=== PATIENT | female | born 1940 | race Caucasian/White ===

== ENCOUNTER 2019-11-10 05:15 | Observation (INO) ==
--- NOTE | 2019-10-21 11:04 | PAT Medication Instructions ---
Medication Instructions Date of Service October 21, 2019 Home Medications Medication Instructions Recorded cyclosporine 0.05 % eye drops 1 drops OP Q12H #5.5 ml 12/01/18 lorazepam 1 mg tablet 0.5 mg PO HS cyclosporine 0.05 % eye drops 1 drops OP Q12H venlafaxine 150 mg capsule,extended release 24 hr 300 mg PO QAM acetaminophen [Tylenol Extra Strength] 500 mg PO QAM aspirin [Aspir-81] 81 mg PO HS bupropion HCl 100 mg PO QAM calcium carbonate-vitamin D3 [Calcium 600 + D(3)] 1 - 2 cap PO BID docusate sodium [Stool Softener] 250 mg PO HS fluvastatin 40 mg PO QAM glucos sul [id number] [Glucosamine Chondroitin] 1 cap PO BID lisinopril 10 mg PO QAM naproxen sodium [Aleve] 440 mg PO UD ASK your surgeon for instructions naproxen sodium [Aleve] 440 mg PO UD STOP taking 2 weeks before surgery (or as soon as possible if surgery is within 2 weeks) glucos sul [id number] [Glucosamine Chondroitin] 1 cap PO BID DO NOT take the morning of surgery calcium carbonate-vitamin D3 [Calcium 600 + D(3)] 1 - 2 cap PO BID lisinopril 10 mg PO QAM Take morning of surgery With a small sip of water, OTHERWISE NOTHING TO EAT OR DRINK AFTER MIDNIGHT: cyclosporine 0.05 % eye drops 1 drops OP Q12H venlafaxine 150 mg capsule,extended release 24 hr 300 mg PO QAM acetaminophen [Tylenol Extra Strength] 500 mg PO QAM (okay to take up to 4 hours prior to surgery if needed) bupropion HCl 100 mg PO QAM fluvastatin 40 mg PO QAM Take evening before surgery lorazepam 1 mg tablet 0.5 mg PO HS cyclosporine 0.05 % eye drops 1 drops OP Q12H aspirin [Aspir-81] 81 mg PO HS (unless otherwise directed by surgeon) calcium carbonate-vitamin D3 [Calcium 600 + D(3)] 1 - 2 cap PO BID docusate sodium [Stool Softener] 250 mg PO HS Other Notes If you have any questions please call us at [phone] or [phone] or [phone] or [phone]
--- NOTE | 2019-10-22 10:20 | Anesthesiology Consultation ---
Date of Service October 22, 2019 Assessment & Plan (1) Encounter for pre-operative examination: COVID Status: As of 10/21 assessment, patient denies travel to endemic area, known exposure/sick contacts, or symptoms of COVID19. Patient instructed that they and their household members must follow strict social distancing guidelines, wear a mask in public and avoid travel for 14 days prior to surgery. Preoperative COVID19 testing to be completed prior to surgery per surgeon's arr angements. Patient made aware to self-isolate as much as possible between COVID testing and surgery. Chart Review Chart Review: Acceptable Risk for Surgery (pending surgeon ordered pcp clearance 10/27) and Patient seen in Pre Admission Testing Teaching & Discussion Instructed NPO after midnight before surgery, except medications with 15 cc of water. Medication instructions provided according to the PAT guidelines. History Surgery Operation Date: 11/10/19 10:50 Proposed Procedures p Left Total Knee Arthroplasty - David Muniz MD Height/Weight Height: 5 ft 1 in Weight: 74.8 kg Allergies Allergy/AdvReac Type Severity Reaction Status Date / Time atorvastatin [From Lipitor] Allergy Unknown MUSCLE Verified 10/14/19 09:03 ISSUES ezetimibe [From Vytorin] Allergy Unknown MUSCLE Verified 10/14/19 09:03 ISSUES pravastatin [From Pravachol] Allergy Unknown Unknown Verified 10/14/19 09:03 simvastatin [From Vytorin] Allergy Unknown Dizziness Verified 10/14/19 09:03 Medications Home Medications Medication Instructions Recorded Confirmed Last Taken lorazepam 1 mg tablet 0.5 mg PO HS tab 11/12/18 10/14/19 Unknown cyclosporine 0.05 % eye drops 1 drops OP Q12H #5.5 ml 12/01/18 10/14/19 Unknown venlafaxine 150 mg 300 mg PO QAM cap 12/01/18 10/14/19 Unknown capsule,extended release 24 hr acetaminophen [Tylenol Extra 500 mg PO QAM 10/14/19 10/14/19 Unknown Strength] aspirin [Aspir-81] 81 mg PO HS 10/14/19 10/14/19 Unknown bupropion HCl 100 mg PO QAM 10/14/19 10/14/19 Unknown calcium carbonate-vitamin D3 1 - 2 cap PO BID 10/14/19 10/14/19 Unknown [Calcium 600 + D(3)] docusate sodium [Stool Softener] 250 mg PO HS 10/14/19 10/14/19 Unknown fluvastatin 40 mg PO QAM 10/14/19 10/14/19 Unknown glucos sul [id number]-Mn 1 cap PO BID 10/14/19 10/14/19 Unknown [Glucosamine Chondroitin] lisinopril 10 mg PO QAM 10/14/19 10/14/19 Unknown naproxen sodium [Aleve] 440 mg PO UD 10/14/19 10/14/19 Unknown Past Medical History Medical History Anxiety Dyslipidemia History of poliomyelitis RLE affected, cannot bend R toes. Wears compression stocking on RLE. H/O cellulitis in this limb as well, ~ 6 yrs ago. Hypertension Thyroid nodule UNDER OBSERVATION Exercise / Class Metabolic Activity II 4-5 Yardwork/Stairs/Walk up hill (Denies CP or SOB with 1 FOS) Past Family History Family History Father Cancer Coronary heart disease Mother Coronary heart disease Past Surgical History Surgical History History of cataract surgery R/L History of colonoscopy History of eye surgery R/L LIDS History of mandibular surgery ORIF-FULL ROM History of shoulder surgery LEFT TEAR Past Anesthesia History No Hx of Anesthesia Complications and No Family Hx of Anesthesia Complications History of PONV No Hx of PONV and No Hx of Motion Sickness Social History Smoking Status: Never smoker Do You Dip or Chew Tobacco: No Hx Alcohol Use: No Hx Substance Use: No Review of Systems Pt denies any recent chest pain, shortness of breath, palpitations, cough, fever, URI, or uncontrolled acid reflux. Physical Exam Vital Signs BP: 138/76 P: 77bpm SPO2: 96% RA T: 98.4 F R: 12 ENMT Mouth: + dental restorations (few crowns); no chipped teeth and no loose teeth Thyromental Distance: > or= 3.5 Finger Breadths (3.5) Mallampati Class: II Neck normal visual inspection; neck extension not limited Respiratory normal respiratory effort Auscultation: lungs clear to auscultation bilaterally Cardiovascular Rate/Rhythm: regular rate and regular rhythm Heart Sounds: + murmur (I/ systolic RSB) Vessels: no carotid bruit Extremities: + edema (RLE in compression stocking, LLE WNL) Testing Laboratory Results 10/22/19 10:26 10/22/19 10:26 PT 10.7 Seconds (9.0-12.0) 10/22/19 10: INR 1.0 (0.9-1.1) 10/22/19 10: APTT 26.0 Seconds (21.0-31.0) 10/22/19 10:26 Urine Color Yellow 10/22/19 10:26 Urine Appearance Cloudy (Clear) A 10/22/19 10:26 Urine pH 8.0 (4.5-7.5) H 10/22/19 10:26 Ur Specific Sheldon 1.019 (1.000-1.030) 10/22/19 10:26 Urine Protein Negative (Negative) 10/22/19 10:26 Urine Glucose (UA) Negative (Negative) 10/22/19 10:26 Urine Ketones Negative (Negative) 10/22/19 10:26 Urine Nitrite Negative (Negative) 10/22/19 10:26 Ur Leukocyte Esterase 3+ (Negative) H 10/22/19 10:26 Urine WBC (Auto) >30 /hpf (0-5) H 10/22/19 10:26 Urine RBC (Auto) 10-30 /hpf (0-4) H 10/22/19 10:26 U Hyaline Cast (Auto) 1-5 /lpf (0-5) 10/22/19 10:26 U Epithel Cells (Auto) 20-30 /lpf (0-5) H 10/22/19 10:26 Urine Bacteria (Auto) Negative (Negative) 10/22/19 10:26 Blood Type O Positive 10/22/19 10:26 Antibody Screen NEGATIVE 10/22/19 10:26 10/22/19 10:26 Urine Culture - Final Urine,Clean Catch More than three types of organisms present, all high counts mixed probable skin curry - No further identifications or sensitivities to follow. Electrocardiogram Date: 10/22/19 Findings: + NSR @ (74bpm) Chest X-Ray Date: 10/22/19 Findings: + NAD
[2019-10-22 10:51] LABS: Basophils # (auto) 0.02 K/uL (0-0.2); Basophils % (auto) 0.2 %; Eosinophils % (auto) 1.7 %; Hematocrit (blood only) 37.1 % (37-47); Hemoglobin 12.1 g/dL (12.0-16.0); Immature Granulocytes # (auto) 0.03 K/uL (0.00-0.02); Immature Granulocytes % (auto) 0.3 %; Mean Corpuscular Hemoglobin 29.5 pg (25-34); Mean Corpuscular Hgb Conc 32.6 g/dL (32-36); Mean Corpuscular Volume 90.5 fL (80-100); Mean Platelet Volume 8.1 fL (7.4-10.4); Monocytes % (auto) 6.9 %; Neutrophils # (auto) 8.98 K/uL (1.4-6.5); Neutrophils % (auto) 77.9 %; Platelet Count 356 K/uL (130-400); RDW Coefficient of Variation 13.7 % (11.5-14.5); RDW Standard Deviation 45.5 fL (36.4-46.3); White Blood Count 11.53 K/uL (4.8-10.8)
[2019-10-22 10:56] LABS: Appearance Urine Cloudy (Clear); Bacteria Urine Automated Negative (Negative); Bilirubin Urine Negative (Negative); Blood Urine 2+ (Negative); Color Urine Yellow; Epithelial Cell Urine Auto 20-30 /lpf (0-5); Glucose Urine UA Negative (Negative); Ketones Urine Negative (Negative); Leukocyte Esterase Urine 3+ (Negative); Nitrite Urine Negative (Negative); Specific Gravity Urine 1.019 (1.000-1.030); Urobilinogen Urine Negative (Negative); WBC Urine Automated >30 /hpf (0-5)
[2019-10-22 11:06] LABS: Protein Urine Negative (Negative); Sulfosalicylic Acid Urine Negative (Negative)
[2019-10-22 11:52] LABS: Partial Thromboplastin Ratio 0.9; Prothrombin Time 10.7 Seconds (9.0-12.0)
--- NOTE | 2019-10-22 12:11 | XRay Report ---
XR chest Pre-admission PA/Lat CLINICAL HISTORY: Preoperative evaluation. COMPARISON STUDY: Chest radiograph November 27, 2015. FINDINGS: Lung volumes are normal. Lungs are clear. There is no pneumothorax or pleural effusion. Car diac size is normal. Mediastinal contours are normal. There is no evidence for pulmonary edema. Calci fied right lung nodules are unchanged. These are benign. IMPRESSION: No acute cardiopulmonary findings. ACT 112: Negative or not required by law. Electronically signed by: Nito Segura M.D. 10/22/2019 12:10 PM
[2019-10-22 13:14] LABS: Calcium 9.7 mg/dl (8.5-10.1); Creatinine Clr Calc Pharmacy 38.4 ml/min; Est GFR (African American) 56.1; Est GFR (Non-African American) 48.4; Potassium 4.8 mmol/L (3.5-5.1)
--- NOTE | 2019-10-24 04:41 | Electrocardiogram Report ---
Test Reason : Blood Pressure : / mmHG Vent. Rate : 074 BPM Atrial Rate : 074 BPM P-R Int : 168 ms QRS Dur : 080 ms QT Int : 386 ms P-R-T Axes : 065 028 078 degrees QTc Int : 428 ms Normal sinus rhythm Normal ECG No previous ECGs available Confirmed by Colton Geronimo ([id number]) on 10/24/2019 4:41:19 AM Referred By: David Muniz Confirmed By:Colton Geronimo
--- NOTE | 2019-11-03 15:10 | History & Physical Report ---
Date of Service November 03, 2019 Assessment & Plan (1) Left knee DJD: Postoperative prescriptions for Percocet and Coumadin will be provided at discharge from the hospital. Anticipate discharge to home with home health services. Preoperative lab work, EKG, and chest x-ray have been ordered. Medical clearance has been requested from her PCP, SHEY Farrell. PDMP was checked and there are no concerning findings. The patient is aware of the COVID-19 risks associated with surgery. She is currently asymptomatic of any COVID-19 symptoms. She will obtain nasal swab testing for COVID-19 prior to surgery. The patient already has access to a walker. Followup appointment has been made for 11/24 at 2:30 for staple removal. History of Present Illness Chief Complaint: Left knee pain Primary Care Provider: SHEY Farrell This 79-year-old white female presents today for a longstanding history of left knee pain. She is scheduled to undergo a left total knee arthroplasty on 11/10/2019. It has been ongoing for over a decade. Pain has become worse over the last year. She has tried activity modification, viscosupplementation, and oral anti-inflammatories without lasting improvement. She denies any numbness or tingling. No significant loss of motion. Pain is worse with ambulation and weightbearing. It is affecting her ADLs. She elects to proceed with surgical intervention in hopes of improving her function and pain control. Preoperative imaging has been obtained. Allergies Allergy/AdvReac Type Severity Reaction Status Date / Time atorvastatin [From Lipitor] Allergy Unknown MUSCLE Verified 10/14/19 09:03 ISSUES ezetimibe [From Vytorin] Allergy Unknown MUSCLE Verified 10/14/19 09:03 ISSUES pravastatin [From Pravachol] Allergy Unknown Unknown Verified 10/14/19 09:03 simvastatin [From Vytorin] Allergy Unknown Dizziness Verified 10/14/19 09:03 Home Medications Home Medications Medication Instructions Recorded Confirmed Type lorazepam 1 mg tablet 0.5 mg PO HS tab 11/12/18 10/14/19 History cyclosporine 0.05 % eye drops 1 drops OP Q12H #5.5 ml 12/01/18 10/14/19 Rx venlafaxine 150 mg 300 mg PO QAM cap 12/01/18 10/14/19 History capsule,extended release 24 hr acetaminophen [Tylenol Extra 500 mg PO QAM 10/14/19 10/14/19 History Strength] aspirin [Aspir-81] 81 mg PO HS 10/14/19 10/14/19 History bupropion HCl 100 mg PO QAM 10/14/19 10/14/19 History calcium carbonate-vitamin D3 1 - 2 cap PO BID 10/14/19 10/14/19 History [Calcium 600 + D(3)] docusate sodium [Stool Softener] 250 mg PO HS 10/14/19 10/14/19 History fluvastatin 40 mg PO QAM 10/14/19 10/14/19 History glucos sul [id number] 1 cap PO BID 10/14/19 10/14/19 History [Glucosamine Chondroitin] lisinopril 10 mg PO QAM 10/14/19 10/14/19 History naproxen sodium [Aleve] 440 mg PO UD 10/14/19 10/14/19 History Past Med/Surg History Medical History Anxiety Dyslipidemia History of poliomyelitis RLE affected, cannot bend R toes. Wears compression stocking on RLE. H/O cellulitis in this limb as well, ~ 6 yrs ago. Hypertension Thyroid nodule UNDER OBSERVATION Surgical History History of cataract surgery R/L History of colonoscopy History of eye surgery R/L LIDS History of mandibular surgery ORIF-FULL ROM History of shoulder surgery LEFT TEAR Family History (Updated 11/03/19 @ 15:05 by Tejas Castro PA-C) Father Cancer Coronary heart disease Mother Coronary heart disease Other Leukemia Lupus (systemic lupus erythematosus) Social History Smoking Status: Never smoker Second Hand Exposure: Yes (FATHER SMOKED/SPOUSE USED TO SMOKE); Do You Dip or Chew Tobacco: No; Hx Alcohol Use: No Hx Substance Use: No Preferred Language: Greenlandic Communication Ability: Effective Forestry Professor Required: No Beliefs That Will Affect Care: None marital status: Current Living Situation: Spouse current occupational status: retired Other Information That Helps Us Care for You: No Feels Safe at Home: Yes Review of Systems Review of Systems: All systems reviewed & are unremarkable except as noted in HPI & below A total of 10 systems were reviewed. Physical Exam Physical Exam: Vitals: Height 155 cm, weight 74.4 kg, BMI 31.3, temperature 36.2 oral, BP 148/70, pulse 81, respiratory rate 17, O2 sat 97% on room air. General: Well-developed, well-nourished, elderly white female in no acute distress. Sitting in a chair. Alert and oriented. Skin: Warm and dry with fair turgor. No rashes or lesions. No ecchymosis or erythema. She does have 2+ pitting edema in both lower extremities. HEENT: Normocephalic, atraumatic. Eyes: PERRLA, EOMI. Nares patent bilaterally without turbinate enlargement. Oropharynx exam deferred due to COVID precautions. Heart: RRR, no MGR. Lungs: Clear to auscultation bilaterally, no crackles, rhonchi or wheezing, good air movement. Abdomen: Mildly obese, bowel sounds present x4, soft, nontender. No organomegaly. No masses. Musculoskeletal: Left knee evaluation reveals no intraarticular effusion. She has focal discomfort with palpation over the medial and lateral joint lines. Varus alignment. No laxity with stressing of the MCL or LCL. No defect in the patellar tendon or quadriceps tendon. There is crepitus palpable with range of motion. Lacks a few degrees of terminal extension. Flexion to greater than 100 degrees. Ambulates with an antalgic gait. Right foot has significant weakness due to polio. 2+ pitting edema in both lower extremities as previously stated. Neurologic: Gross sensation is intact across both lower extremities by soft touch. Peripheral pulses are 2+. Results & Data Results & Data ([place]) Diagnostic Findings Radiographic imaging previously obtained shows significant degenerative disease, left greater than right. Varus alignment. Periarticular osteophytes, subchondral sclerosis, and joint space narrowing are all present. There is significant medial and patellofemoral compartment disease.
[2019-11-10] MEDS ORDERED: LR 60ML/HR IV SCH (06:00)
[2019-11-10] MEDS ORDERED: LR 500ML BOLUS, THEN 15ML/HR IV SCH (06:00)
[2019-11-10] MEDS ORDERED: ROPIVACAINE 0.5% HCL/PF 150 MG, BUPIVACAINE 0.5% MPF 30 ML, EPINEPHrine 0.15 MG, Ketoro... INFIL SCH (06:00)
[2019-11-10] MEDS ORDERED: TRANEXAMIC ACID 1,000 MG **IV Pre-op IV SCH (06:00)
[2019-11-10] MEDS ORDERED: CEFAZOLIN 2000MG 2,000 MG/15 ML SYR IV SCH (06:00)
[2019-11-10] MEDS ORDERED: EPINEPHrine INJ 1 MG/ML AMP ONE (06:10)
[2019-11-10] MEDS ORDERED: ROPIVACAINE 0.5% 5 MG/ML 30 ML VIAL ONE (06:10)
[2019-11-10] MEDS ORDERED: BUPIVACAINE 0.5 % 5 MG/1 ML PF 10ML VIAL ONE (06:10)
--- NOTE | 2019-11-10 06:20 | History & Physical Bridge Note ---
Date of Service November 10, 2019 History & Physical Bridge Note I have examined the patient, reviewed the History & Physical and in the interval since the performance of the History & Physical I have noted the following changes of clinical significance:consent obtained/site verified/covid screen negative. no changes noted
[2019-11-10] MEDS ORDERED: ORTHO JOINT ANESTHETIC ONE (06:31)
[2019-11-10] MEDS ORDERED: fentaNYL citrate 100 MCG/2 ML VIAL ONE (06:35)
[2019-11-10] MEDS ORDERED: MIDAZOLAM HCL 1 MG/ML 2ML VIAL ONE (06:35)
[2019-11-10] MEDS ORDERED: PROPOFOL IV EMULSION 10 MG/ML 20 ML VIAL IV ONE (06:36)
[2019-11-10] MEDS ORDERED: fentaNYL citrate 100 MCG/2 ML VIAL IV PRN (07:17)
[2019-11-10] MEDS ORDERED: PHENYLEPHRINE 100MCG/ML 5ML SYR IV PRN (07:17)
[2019-11-10] MEDS ORDERED: HYDROmorphone INJ 0.5 MG/0.5 ML SYR IV PRN ×2 (07:17→10:13)
[2019-11-10] MEDS ORDERED: ePHEDrine sulfate 50 MG/ML AMP IV PRN (07:17)
[2019-11-10] MEDS ORDERED: LABETALOL HCL IV 5 MG/ML 20ML IV PRN (07:17)
[2019-11-10] MEDS ORDERED: ATROPINE SULFATE 0.1 MG/ML 10ML SYR IV PRN (07:17)
[2019-11-10] MEDS ORDERED: ONDANSETRON INJ 2 MG/ML 2 ML VIAL IV PRN ×2 (07:17→10:13)
[2019-11-10] MEDS ORDERED: MEPERIDINE HCL 25 MG/ML CARP/VIAL IV PRN (07:17)
[2019-11-10] MEDS ORDERED: ONDANSETRON INJ 2 MG/ML 2 ML VIAL ONE (08:05)
--- NOTE | 2019-11-10 08:35 | Post Operative Brief Note ---
Immediate Post Op Note v1 Date of Surgery November 10, 2019 Pre & Post Diagnosis Operation Date: 11/10/19 07:00 Pre-Op Diagnosis: Left Knee Osteoarthritis Post-Op Diagnosis: Left Knee Osteoarthritis I identified the patient and participated in the time-out.: Yes Procedure Operation Date: 11/10/19 07:00 Actual Procedures p Left Total Knee Arthroplasty, Cemented(Left) - David Muniz MD Surgeon David Muniz MD Outside Solar Sales Consultant dunia/aiden/Felix Estimated Blood Loss 25 Findings Consistent with Post-Op Diagnosis
--- NOTE | 2019-11-10 08:41 | Operative Report ---
Post Operative Report Pre & Post Diagnosis Operation Date: 11/10/19 07:00 Pre-Op Diagnosis: Left Knee Osteoarthritis Post-Op Diagnosis: Left Knee Osteoarthritis I identified the patient and participated in the time-out.: Yes Procedure Operation Date: 11/10/19 07:00 Actual Procedures p Left Total Knee Arthroplasty, Cemented(Left) - David Muniz MD Surgeon David Muniz MD Bag End Sewer dunia/aiden/Felix Estimated Blood Loss 25 Findings Consistent with Post-Op Diagnosis Specimens Bone cuts Anesthesia Type Spinal MAC Complications none Disposition Accompanied Patient To Recovery: Yes Disposition: Recovery Room Indications Severe left knee osteoarthritis Description of Procedure As per Dr. Muniz's note, I assisted in scrubbing and draping, certain parts of the procedure, instruments handling, and wound closure I attest to the content of the Intraoperative Record and any orders documented therein. Any exceptions are noted below.
[2019-11-10] MEDS ORDERED: VANCOMYCIN HCL 1,000 MG in SODIUM CHLORIDE 0.9% 250 ML IV ONE (09:00)
--- NOTE | 2019-11-10 09:04 | XRay Report ---
XR knee LT 1 or 2V routine HISTORY: 79 years-old Female s/p l tka left knee total joint arthroplasty COMPARISON: Left knee radiographs 07/16/2019 TECHNIQUE: 2 views of the left knee FINDINGS: Left knee total joint arthroplasty and patella resurfacing. Expected postsurgical soft tissue swellin g and deep tissue air. Anterior skin deandre are noted along with surgical drainage catheter. Arteria l calcifications. No definite acute fracture or unexpected radiopaque foreign body. IMPRESSION: Left knee total joint arthroplasty and patella resurfacing with expected postoperative ch anges. ACT 112: Negative or not required by law. The above report was generated using voice recognition software. It may contain grammatical, syntax o r spelling errors. Electronically signed by: Lorenzo Morales M.D. 11/10/2019 9:03 AM
--- NOTE | 2019-11-10 09:06 | Operative Report (OR) ---
DATE OF OPERATION: 11/10/2019 SURGEON: David Muniz MD. SAP ARCHITECT: Brianna. SECOND TRAFFIC REPRESENTATIVE: Tejas Castro PA-C. THIRD TRAFFIC REPRESENTATIVE: Felix Whiet III. PREOPERATIVE DIAGNOSES: Osteoarthritis with varus deformity left knee. POSTOPERATIVE DIAGNOSES: Osteoarthritis with varus deformity left knee. OPERATION PERFORMED: Left cemented total knee replacement. SUMMARY OF IMPLANTS: Size 2 left femur, size 2 mobile bearing tray, 35 patella, size 2 x 10 posterior cruciate substituting insert, 2 bags of Palacos G cement. Bone pathology pending. ESTIMATED BLOOD LOSS: 25 mL. CRYSTALLOID: Per Anesthesia. DVT PROPHYLAXIS: Per protocol. PERIOPERATIVE SITUATION: Medically cleared female who had intractable knee pain with x-rays revealing end-stage osteoarthritis. She has varus deformity. She has no fluctuance. At this point in time, she has failed conservative management and wants to proceed with surgical treatment. She understands the risks and consequences. Consent verified. Antibiotics confirmed as being given. DESCRIPTION OF PROCEDURE: After the patient was appropriately identified, site verified, consent verified, antibiotics confirmed as being given, the left lower extremity was prepped and draped in usual routine fashion. Tourniquet inflated to 300 mmHg after exsanguination of limb with a rubber Esmarch bandage for a total of 52 minutes. Midline exposure was utilized. Parapatellar arthrotomy performed. Synovectomy completed. Osteophytes resected. Cruciates resected. Tibia subluxated, menisci resected. Distal femur then entered. Distal femur resected 12 mm, proximal tibia then resected 4 mm, the extension gap was excellent. Femur was then sized between 3 and 2, so it was measured at 2.5 and 2 and then finally decided on the 2. Once the cutting block was placed, the anterior and posterior condylar and chamfer cuts were made. There was no notching. Flexion gap was then checked. It was excellent. Box cut was then made and size 2 fit well. The tibia was then broached and reamed to a size 2. A 10 mm spacer placed and the tracking was excellent, mid range flexion stability was excellent. Extension was to 0, flexion was to 120. Patella tracked well. Patella was quite small. A 35 patella was the actual button. It was resected leaving 14-15 mm. The seating holes made and the patella tracked well. Orthomix was then injected all about the knee as well as posterior prior to placing the implants in. Then when everything was set up postinjection, all the trial implants were removed. The wound irrigated with Betadine and Pulsavac and then the permanent cemented into position, tibia, femur, patella in that order. After 12 minutes, the tourniquet deflated. Minor bleeding points controlled with electrocautery. After 14 minutes, knee flexed. No cement removal required. Wound was then irrigated one final time with Betadine and Pulsavac and then the permanent liner seated. The knee reduced and then closed at 40 degrees of flexion with #2 Vicryl, 2-0 Vicryl and stainless steel clips. Appropriate dressing applied and the patient transferred to the Recovery Room in satisfactory condition having tolerated the procedure well. I attest to the content of the Intraoperative Record and any orders documented therein. Any exception s are noted below.
--- NOTE | 2019-11-10 09:36 | Anesthesiology Progress Note ---
Date of Service November 10, 2019 Anesthesia Post Procedure Vital Signs Vital Signs: Temp Pulse Pulse Resp BP BP Pulse Ox 11/10/19 09:25 80 18 139/65 92 11/10/19 09:15 82 16 139/69 93 11/10/19 09:05 82 20 139/66 94 11/10/19 08:55 82 22 136/66 96 11/10/19 08:45 81 19 137/64 100 11/10/19 08:39 36.5 C 90 16 116/58 L 97 11/10/19 06:20 36.7 C 79 18 135/65 99 11/10/19 05:47 37.1 C 93 H 20 147/68 H 95 Pain Intensity Left Knee: Pain Intensity: 1 Transfer of Care Handoff Completed per policy Notes Mental Status: alert / awake / arousable Patient Amnestic to Procedure: Yes Nausea / Vomiting: adequately controlled Pain: adequately controlled Airway Patency, RR, SpO2: stable & adequate BP & HR: stable & adequate Hydration State: stable & adequate Neuraxial Anesthesia: was administered and sensory block is resolving Anesthetic Complications: no major complications apparent and Pt Satisfied with anesthetic care
[2019-11-10] MEDS ORDERED: DiphenhydrAMINE HCL 50 MG/ML VIAL IV PRN (10:13)
[2019-11-10] MEDS ORDERED: OXYCODONE HCL IR 5 MG TAB (IMMEDIATE RELEASE) PO PRN (10:13)
[2019-11-10] MEDS ORDERED: bisacodyL 10 MG SUPP PR PRN (10:13)
[2019-11-10] MEDS ORDERED: MAGNESIUM HYDROXIDE SUSP 30 ML UDC PO PRN (10:13)
[2019-11-10] MEDS ORDERED: SODIUM CHLORIDE 0.9% 1000ML 1,000 ML IV SCH (10:13)
[2019-11-10] MEDS ORDERED: ALUMINUM/MAGNESIUM SUSP 30 ML UDC PO PRN (10:13)
[2019-11-10] MEDS ORDERED: NALOXONE HCL 0.4 MG/1 ML VIAL/CARP IV PRN (10:13)
[2019-11-10] MEDS: lisinopriL 10 MG TAB PO SCH (11:05)
[2019-11-10] MEDS: buPROPion HCl 100 MG TABLET PO SCH (11:05)
[2019-11-10] MEDS: VENLAFAXINE HCL XR 150 MG CAPXR PO SCH (11:05)
[2019-11-10] MEDS: FLUVASTATIN SODIUM 20 MG CAP PO SCH (11:06)
[2019-11-10] MEDS: RESTASIS: ORDER AWAITING ACTION SCH ×3 (11:07→23:57)
--- NOTE | 2019-11-10 11:51 | Progress Notes ---
DATE: 11/10/2019 SUBJECTIVE: Postop check status post left total knee replacement. The patient is doing well, sitting up in bed, has no issues. Denies chest pain, shortness of breath, fever, chills, nausea, vomiting or headache. OBJECTIVE: Vital signs are stable. She is afebrile. Neurovascular check: Femoral sciatic nerve is wearing off from the block. She can dorsiflex her toes and her ankle, but still is weak. She can do a straight leg raise but is weak. Wound dressing clean, dry and intact. Postop x-rays look excellent. ASSESSMENT: Doing well. Continue postop care pathway. ADDENDUM: Was complaining of right eye feeling a little bit dry and scratchy, ordered some drops. No sign of any infection or real corneal abrasion, etc. There is no major tearing.
--- NOTE | 2019-11-10 12:03 | Discharge Summary (DS) ---
CHIEF COMPLAINT: Status post left knee replacement. HISTORY OF PRESENT ILLNESS: The patient was admitted for elective left total knee replacement. Hospital course has been uneventful. At this point in time, she is doing well. She is eating and drinking. No nausea or vomiting. Did have some minor eye irritation and is having some eye drops. She does have a history of using eye drops like Restasis at home. Wound is clean and dry. Postop x-rays look excellent. ASSESSMENT: Doing well status post knee replacement. Discharge to home tomorrow. Resume all previous home medications and add anticoagulant to keep INR 1.8-2.2. We will use Coumadin. Follow up in 2 weeks for staple removal. Start physical therapy in 1 week.
[2019-11-10] MEDS: KETOROLAC TROMETHAMINE 15 MG/ML VIAL IV SCH ×3 (12:28→22:11)
[2019-11-10] MEDS: MULTIVITAMIN TAB PO SCH (12:28)
[2019-11-10] MEDS: DOCUSATE SODIUM 100 MG CAP PO SCH ×2 (12:28→20:33)
[2019-11-10] MEDS ORDERED: ARTIFICIAL TEARS OP OINT 3.5 GM TUBE OP PRN (13:23)
[2019-11-10] MEDS: ACETAMINOPHEN 500 MG TAB PO SCH ×2 (13:58→22:11)
[2019-11-10] MEDS ORDERED: ORTHO WARFARIN NOMOGRAM SCH (14:00)
[2019-11-10] MEDS: CEFAZOLIN 2000MG 2,000 MG/15 ML SYR IV SCH ×2 (14:03→22:12)
[2019-11-10] MEDS ORDERED: TRANEXAMIC ACID / 0.7% NACL 1,000 MG/100 ML BAG IV SCH (14:45)
[2019-11-10] MEDS ORDERED: WARFARIN SOD 5 MG TAB PO ONE (16:00)
[2019-11-10] MEDS: FERROUS GLUCONATE 324 MG TAB PO SCH (17:20)
[2019-11-10] MEDS: ASCORBIC ACID 500 MG TAB PO SCH (17:20)
[2019-11-10] MEDS ORDERED: LORazepam 0.5 MG TAB PO SCH (21:00)
[2019-11-10] MEDS ORDERED: SENNA 8.6 MG TAB PO SCH (21:00)
[2019-11-10] MEDS ORDERED: ASPIRIN 81 MG ECTAB PO SCH (21:00)
[2019-11-11] MEDS: KETOROLAC TROMETHAMINE 15 MG/ML VIAL IV SCH (05:50)
[2019-11-11] MEDS: ACETAMINOPHEN 500 MG TAB PO SCH (06:29)
[2019-11-11 06:30] LABS: Hematocrit (blood only) 30.6 % (37-47); Hemoglobin 9.9 g/dL (12.0-16.0); Mean Corpuscular Hemoglobin 29.2 pg (25-34); Mean Corpuscular Hgb Conc 32.4 g/dL (32-36); Mean Corpuscular Volume 90.3 fL (80-100); Mean Platelet Volume 8.1 fL (7.4-10.4); Platelet Count 318 K/uL (130-400); RDW Coefficient of Variation 13.7 % (11.5-14.5); RDW Standard Deviation 45.3 fL (36.4-46.3); Red Blood Count 3.39 M/uL (4.2-5.4); White Blood Count 10.24 K/uL (4.8-10.8)
[2019-11-11 07:01] LABS: BUN Creatinine Ratio 21.9 (10-20); Calcium 7.9 mg/dl (8.5-10.1); Creatinine Clr Calc Pharmacy 31.1 ml/min; Est GFR (African American) 42.9; Potassium 4.1 mmol/L (3.5-5.1)
--- NOTE | 2019-11-11 07:06 | Progress Notes ---
DATE: 11/11/2019 SUBJECTIVE: Postop day #1 status post left total knee replacement. The patient is doing well, has no major issues, has some minor nausea post narcotic yesterday. She has had no vomiting or emesis. She denies any chest pain, shortness of breath, fever, or chills. OBJECTIVE: Vital signs are stable. She is afebrile. Neurovascular check femoral sciatic nerve is normal. Wound dressing clean, dry and intact. ASSESSMENT AND PLAN: Doing well. A.m. labs pending. Discharge today after PT, OT. Follow up in 2 weeks.
[2019-11-11] MEDS ORDERED: dexAMETHasone 10 MG in SYRINGE 0 ML IV SCH (08:00)
[2019-11-11] MEDS: RESTASIS: ORDER AWAITING ACTION SCH (08:27)
[2019-11-11] MEDS: MULTIVITAMIN TAB PO SCH (08:27)
[2019-11-11] MEDS: DOCUSATE SODIUM 100 MG CAP PO SCH (08:27)
[2019-11-11] MEDS: ASCORBIC ACID 500 MG TAB PO SCH (08:27)
[2019-11-11] MEDS: FERROUS GLUCONATE 324 MG TAB PO SCH (08:28)
--- NOTE | 2019-11-11 08:38 | Orthopedic Progress Note ---
Date of Service November 11, 2019 Assessment & Plan (1) Status post total left knee replacement using cement: Patient's dressings were changed by me this morning. She will leave them in place until Friday, and then change as needed for soiling. PT/OT this morning. Coumadin today per nomogram before discharge. Continue Coumadin 4 mg through the weekend and have the INR checked on Friday. Anticipate discharge to home today with home health services as arranged by social media marketing specialist. Written discharge instructions have been provided. Prescriptions for Coumadin, Zofran, and Percocet have been sent to her pharmacy. Continue weightbearing as tolerated with her walker. Admission and Anticipated Discharge Date Admission Date: November 10, 2019 Subjective Patient is seen in her room this morning. States she was nauseated with the pain medication, but did not vomit. She denies any chest pain, shortness of breath, abdominal pain, or significant knee pain. She feels she would like to go home today. She has been out of bed and is currently doing her knee prop exercises. Review of Systems Review of Systems: Unchanged from yesterday. Physical Exam Physical Exam: General: Well-developed, well-nourished, elderly white female, laying in bed. Alert and oriented. Skin: Postsurgical dressings are in place. Upon removal, she has expected postoperative ecchymosis and edema at the left knee. Sybil are intact. Wound edges are well approximated. No active bleeding. There is scant dried blood on her postsurgical dressings. Musculoskeletal: Patient has intact motor function to the left leg. She has full extension. She is able to perform a straight leg raise with some minimal assistance. Intact motor function to the ankle and toes. Neurologic: Gross sensation is intact across the left leg by soft touch. Peripheral pulses are 2+. Results & Data ([facility]) Vital Signs (Past 12 Hours) Vital Signs Temp Pulse Resp BP Pulse Ox 11/11/19 07:58 36.7 C 83 16 109/62 93 11/11/19 03:38 36.9 C 85 16 106/62 90 11/10/19 23:31 36.8 C 82 16 118/61 92 Laboratory Results H&H obtained this morning are 9.9 and 30.6. INR is 1.0. Minor bump in her BUN and creatinine today.
[2019-11-11] MEDS: buPROPion HCl 100 MG TABLET PO SCH (09:21)
[2019-11-11] MEDS: VENLAFAXINE HCL XR 150 MG CAPXR PO SCH (09:21)
[2019-11-11] MEDS: FLUVASTATIN SODIUM 20 MG CAP PO SCH (09:21)
[2019-11-11] MEDS: lisinopriL 10 MG TAB PO SCH (09:21)
--- NOTE | 2019-11-11 09:55 | Operative Report ---
Post Operative Report Pre & Post Diagnosis Operation Date: 11/10/19 07:00 Pre-Op Diagnosis: Left Knee Osteoarthritis Post-Op Diagnosis: Left Knee Osteoarthritis I identified the patient and participated in the time-out.: Yes Procedure Operation Date: 11/10/19 07:00 Actual Procedures p Left Total Knee Arthroplasty, Cemented(Left) - David Muniz MD Surgeon JENS Muniz MD House Sitter dunia/aiden/Felix Estimated Blood Loss 25 Findings Consistent with Post-Op Diagnosis Specimens See operative report Drains None Complications none Disposition Accompanied Patient To Recovery: Yes Disposition: Recovery Room Indications This 79-year-old white female presented to the office with complaints of persisting left knee pain. She had tried conservative care measures without improvement. She elected to proceed with surgical intervention after being educated about potential risks and outcomes. Preoperative imaging was obtained. Description of Procedure Patient was administered a spinal anesthetic and then taken to the operating room where she was given sedation. She was prepped and draped in the usual sterile fashion. Please see Dr. Muniz's operative report for specifics of the procedure. I was present for the entire case from initial patient positioning through final wound closure. Assistance was provided in tissue retraction, hemostasis, trial implant placement, final implant placement, and final wound closure. Patient was taken to the recovery room in satisfactory condition. I attest to the content of the Intraoperative Record and any orders documented therein. Any exceptions are noted below.
[2019-11-11] MEDS ORDERED: WARFARIN SOD 5 MG TAB PO ONE (11:56)
== END 2019-11-11 12:57 | disposition home health service (06) ==
LOC: ASU 05:15 → 3E 05:15

== ENCOUNTER 2021-05-22 05:34 | Observation (INO) ==
--- NOTE | 2021-05-18 13:56 | Anesthesiology Consultation ---
Date of Service May 18, 2021 Assessment & Plan (1) Encounter for pre-operative examination: - COVID screening: Per assessment on 05/18: No known COVID-19 positive contacts or current COVID-19 related symptoms. Travel screen negative. Patient vaccinated. Surgeon arranging preop COVID testing (scheduled 05/18; [place]). Awaiting results. - S/P ablation left inner thigh for postop seroma (05/10/2021): [facility] Chart Review Chart Review: Acceptable Risk for Surgery and Patient NOT seen in Pre Admission Testing History Surgery Operation Date: 05/22/21 13:30 Proposed Procedures p Left Thigh Wound Exploration and VAC System Placement - Mathew farah MD, FACS Height/Weight Height: 5 ft 1 in Weight: 73.028 kg Allergies Allergy/AdvReac Type Severity Reaction Status Date / Time atorvastatin [From Lipitor] AdvReac Mild MUSCLE Verified 05/18/21 12:43 ISSUES ezetimibe [From Vytorin] AdvReac Mild MUSCLE Verified 05/18/21 12:43 ISSUES pravastatin [From Pravachol] AdvReac Mild MUSCLE Verified 05/18/21 12:43 ISSUES simvastatin [From Vytorin] AdvReac Mild Dizziness Verified 05/18/21 12:43 Medications Home Medications Medication Instructions Recorded Confirmed Last Taken lorazepam 1 mg tablet 0.25 mg PO HS tab 11/12/18 05/18/21 05/09/21 20:00 venlafaxine 150 mg 300 mg PO QAM cap 12/01/18 05/18/21 05/09/21 08:00 capsule,extended release 24 hr (Effexor XR) aspirin 81 mg tablet,delayed 81 mg PO HS 10/14/19 05/18/21 04/26/21 08:00 release (Aspir-) bupropion HCl 100 mg tablet 100 mg PO QAM 10/14/19 05/18/21 05/09/21 08:00 calcium carbonate 600 mg-vitamin 1 - 2 cap PO BID 10/14/19 05/18/21 05/09/21 08:00 D3 5 mcg (200 unit) capsule (Calcium 600 + D(3)) docusate sodium 100 mg capsule 250 mg PO HS 10/14/19 05/18/21 05/09/21 08:00 (Stool Softener) fluvastatin 40 mg capsule 40 mg PO QAM 10/14/19 05/18/21 05/09/21 08:00 lisinopril 10 mg tablet 15 mg PO QAM 10/14/19 05/18/21 05/09/21 08:00 estradiol 1 g VAGINAL DAILY #42.5 g 04/12/21 05/18/21 04/30/21 cyclosporine 0.05 % eye drops 1 drops OP TID 04/24/21 05/18/21 05/09/21 20:00 (Restasis MultiDose) glucosamine sulf dipot 1 cap PO BID 04/24/21 05/18/21 05/09/21 08:00 chlr,msm,chond 550 mg-C 30 mg-tracy 1 mg capsule (Glucosamine Chondroitin) melatonin 5 mg capsule 5 mg PO HS 04/24/21 05/18/21 05/09/21 08:00 hydrocodone 5 mg-acetaminophen 325 1 tab PO Q4H PRN #10 tab 05/01/21 05/18/21 05/08/21 08:00 mg tablet amoxicillin 875 mg-potassium 1 tab PO BID #14 tab 05/10/21 05/18/21 Unknown clavulanate 125 mg tablet hydrocodone 5 mg-acetaminophen 325 1 - 2 tab PO .Q4-6h PRN #10 tab 05/10/21 05/18/21 Unknown mg tablet MDD 6 tabs Past Medical History Medical History Anemia Anxiety Carpal tunnel syndrome Right hand Dyslipidemia History of poliomyelitis RLE affected, cannot bend R toes. Wears compression stocking on RLE. H/O cellulitis in this limb as well (remote ~ 6 yrs ago) Hypertension Thyroid nodule Under surveillance Past Family History Family History Father Coronary heart disease Heart disease Cancer Mother Coronary heart disease Other Leukemia Lupus (systemic lupus erythematosus) No family history of adverse response to anesthesia Past Surgical History Surgical History H/O excision of mass (05/01/21) Excision of left thigh mass. Dr. Jaramillo 05/01/2021 History of anesthesia reaction WOKE UP IN MIDDLE OF COLONOSCOPY History of cataract surgery (2019) R/L History of colonoscopy History of eye surgery R/L LIDS History of mandibular surgery (1980) ORIF-FULL ROM History of shoulder surgery (1980) LEFT TEAR History of surgery (05/10/21) Exploration Left Inner Thigh for Post-Operative Seroma placement of Андрей drain(Left) - Mathew Menon MD, FACS 05/10/2021 S/P knee replacement (~2019) LEFT Social History Smoking Status: Never smoker Do You Dip or Chew Tobacco: No Hx Alcohol Use: No substance use type: does not use Testing Laboratory Results 04/20/21= WBC: 7.79 H/H: 11.8/37.3 PLATELETS: 377 SODIUM: 140 POTASSIUM: 4.6 CHLORIDE: 106 CO2: 28 BUN: 24 CREATININE: 0.99 GLUCOSE: 105 HGB A1C: 5.8% Electrocardiogram Date: 04/19/21 Findings: + NSR @ (72bpm ) Normal EKG per cardio.
[2021-05-22] MEDS ORDERED: LR 15ML/HR IV SCH (06:00)
--- NOTE | 2021-05-22 06:19 | History & Physical Bridge Note ---
Date of Service May 22, 2021 History & Physical Bridge Note I have examined the patient, reviewed the History & Physical and in the interval since the performance of the History & Physical I have noted the following changes of clinical significance: no changes noted pt marked all question answered
[2021-05-22] MEDS ORDERED: LIDOCAINE 2% 2 ML VIAL/AMP(20MG/ML) INFIL ONE (06:38)
[2021-05-22] MEDS ORDERED: DEXAMETHASONE SOD INJ 4 MG/ML VIAL ONE (06:38)
[2021-05-22] MEDS ORDERED: PROPOFOL IV EMULSION 10 MG/ML 20 ML VIAL IV ONE (06:38)
[2021-05-22] MEDS ORDERED: ONDANSETRON INJ 2 MG/ML 2 ML VIAL ONE (06:38)
[2021-05-22] MEDS ORDERED: fentaNYL citrate 100 MCG/2 ML VIAL ONE (06:38)
[2021-05-22] MEDS ORDERED: ONDANSETRON INJ 2 MG/ML 2 ML VIAL IV PRN ×2 (06:48→07:30)
[2021-05-22] MEDS ORDERED: ATROPINE SULFATE 0.1 MG/ML 10ML SYR IV PRN (06:48)
[2021-05-22] MEDS ORDERED: ePHEDrine sulfate 50 MG/ML AMP IV PRN (06:48)
[2021-05-22] MEDS ORDERED: NALOXONE HCL 0.4 MG/1 ML VIAL/CARP IV PRN (06:48)
[2021-05-22] MEDS ORDERED: LABETALOL HCL IV 5 MG/ML 20ML IV PRN (06:48)
[2021-05-22] MEDS ORDERED: PROMETHAZINE HCL 12.5 MG in SODIUM CHLORIDE 0.9% 50 ML IV PRN (06:48)
[2021-05-22] MEDS ORDERED: FLUMAZENIL 0.1 MG/1 ML 10 ML VIAL IV PRN (06:48)
[2021-05-22] MEDS ORDERED: BUPIVACAINE 0.5 % 5 MG/1 ML MPF 30ML VIAL ONE (06:58)
[2021-05-22] MEDS ORDERED: ceFAZolin 330 MG/ML 1 GM VIAL ONE (07:20)
[2021-05-22] MEDS ORDERED: ePHEDrine sulfate 50 MG/ML AMP ONE (07:22)
--- NOTE | 2021-05-22 07:26 | Post Operative Brief Note ---
PG Immediate Post Op with CF Date of Surgery May 22, 2021 Pre & Post Diagnosis Operation Date: 05/22/21 07:15 <No data on this case meets the specified criteria> I identified the patient and participated in the time-out.: Yes Procedure Operation Date: 05/22/21 07:15 <No data on this case meets the specified criteria> Surgeon Mathew Menon MD, FACS [employer] soren MARTÍNEZ Estimated Blood Loss 5 Findings Consistent with Post-Op Diagnosis Specimens Specimen Description: none per surgeon
[2021-05-22] MEDS ORDERED: HYDROCODONE/ACETAMOPHEN 5/325MG TAB PO PRN ×2 (07:30)
[2021-05-22] MEDS ORDERED: ceFAZolin 2000MG 2,000 MG/15 ML SYR IV ONE (07:30)
[2021-05-22] MEDS ORDERED: SODIUM CHLORIDE 0.9% 1000ML 1,000 ML IV SCH (07:30)
[2021-05-22] MEDS ORDERED: ACETAMINOPHEN 325 MG TAB PO PRN (07:30)
--- NOTE | 2021-05-22 07:40 | Operative Report ---
Post Operative Report Pre & Post Diagnosis Operation Date: 05/22/21 07:15 Pre-Op Diagnosis: Left thigh wound Post-Op Diagnosis: Left thigh wound I identified the patient and participated in the time-out.: Yes Procedure Operation Date: 05/22/21 07:15 Actual Procedures p Left Thigh Wound Exploration and VAC System Placement(Left) - Mathew Meonn MD, FACS Patient was brought into the operating theater supine position LMA anesthesia patient identified timeout was had antibiotics on board the left eye been prepped with Betadine solution properly draped the patient's the left leg was slightly rotated laterally stitches had been placed on initial surgery were removed we went through the old incision and was able to get a significant amount of seroma the cavity was tunneled circumferentially approximately 4 cm so had some fibrous exudate and that was debrided once this has been performed we then placed the VAC system appropriately cutting the foam that would not be pulled into the cavity and placed the suction at 100 The procedure was tolerated well estimate blood loss 5 cc Addendum Estella Cortez physician behavioral modification assistant was present throughout the case and helped the retraction exposure and wound closure Addendum talked with her son Juan David at [phone] Surgeon Mathew Menon MD, FACS [employer] soren MARTÍNEZ Estimated Blood Loss 5 Findings Consistent with Post-Op Diagnosis Recurrent seroma left inner thigh Specimens None Drains VAC system placed Indications Recurrent seroma left inner thigh status post excision of a cystic mass which was benign of questionable etiology possibly synovial nature Description of Procedure merda I attest to the content of the Intraoperative Record and any orders documented therein. Any exceptions are noted below.
[2021-05-22] MEDS: fentaNYL citrate 100 MCG/2 ML VIAL IV PRN ×3 (07:49→08:00)
--- NOTE | 2021-05-22 08:20 | Anesthesiology Progress Note ---
Date of Service May 22, 2021 Anesthesia Post Procedure Vital Signs Vital Signs: Temp Pulse Pulse Resp BP Pulse Ox 05/22/21 08:05 36.3 C L 79 14 135/62 100 05/22/21 07:55 80 14 140/61 100 05/22/21 07:45 80 15 139/63 100 05/22/21 07:39 36.3 C L 82 16 134/59 L 99 05/22/21 05:50 36.5 C 88 20 153/77 H 20 L Pain Intensity Left Thigh: Pain Intensity: 4 Transfer of Care Handoff Completed per policy Notes Mental Status: alert / awake / arousable Patient Amnestic to Procedure: Yes Nausea / Vomiting: adequately controlled Pain: adequately controlled Airway Patency, RR, SpO2: stable & adequate BP & HR: stable & adequate Hydration State: stable & adequate Anesthetic Complications: no major complications apparent
[2021-05-22] MEDS ORDERED: lisinopril 5 MG TAB PO SCH (09:37)
[2021-05-22] MEDS ORDERED: VENLAFAXINE HCL XR 150 MG CAPXR PO SCH (09:37)
[2021-05-22] MEDS ORDERED: FLUVASTATIN SODIUM 20 MG CAP PO SCH (10:15)
[2021-05-22] MEDS ORDERED: buPROPion HCl 100 MG TABLET PO SCH (10:15)
[2021-05-22] MEDS ORDERED: ASPIRIN 81 MG ECTAB PO SCH (21:00)
[2021-05-22] MEDS ORDERED: LORazepam 0.5 MG TAB PO SCH (21:00)
[2021-05-22] MEDS ORDERED: DOCUSATE CALCIUM 240 MG CAPSULE PO SCH (21:00)
--- NOTE | 2021-05-23 11:00 | Discharge Summary ---
Date of Service May 23, 2021 Principal Diagnosis seroma after procedure s/p left thigh wound exploration Discharge Exam awake/alert Skin Left upper thigh with wound vac in place, holding seal Discharge Data Allergies Allergy/AdvReac Type Severity Reaction Status Date / Time atorvastatin [From Lipitor] AdvReac Mild MUSCLE Verified 05/22/21 05:55 ISSUES ezetimibe [From Vytorin] AdvReac Mild MUSCLE Verified 05/22/21 05:55 ISSUES pravastatin [From Pravachol] AdvReac Mild MUSCLE Verified 05/22/21 05:55 ISSUES simvastatin [From Vytorin] AdvReac Mild Dizziness Verified 05/22/21 05:55 Procedures Performed Operation Date: 05/22/21 07:15 Actual Procedures p Left Thigh Wound Exploration and VAC System Placement(Left) - Mathew Menon MD, FACS Hospital Course (1) Seroma after procedure: This is an 81yF who presented to the [facility] on 05/22/21 for a scheduled surgical exploration of left thigh wound with Dr. Menon. The patient tolera alcon the procedure well, see op note for full details. A wound vac was placed in the OR. The patient was admitted under observation status and both case management and wound care were consulted. Wound care evaluated the patient and provided recommendations. She was provided with a follow up appt. in the wound care clinic the following week. Case management helped to secure approval for the home wound vac in addition to setting the patient up with home health care. Fortunately all of this was able to be completed on POD#0. As patient was feeling well and wound vac was in place holding good seal she was deemed stable for discharge to home with plans for home health care in addition to following up in the wound care center and Dr. Mneon as an outpatient. Total Time Total Time Spent Total Time Spent (In Minutes): 20 Discharge Plan Discharge Items Patient Disposition: Home - Home Health Services Reason For Visit: Localized Swelling, Mass and Lump, Unspecified Discharge Diagnosis: left thigh exploration with wound vac placement Activity: Per Instructions section Lifting: No more than 25 pounds Bathing Comment: may shower; no soaking in tubs/pools Exercise/Sports: Wait until after follow-up appointment Driving/Machine Use: no driving if taking any narcotic for pain Non-emergency contact: Surgeon Call non-emergency contact if: you have any medication questions, your symptoms worsen, your pain is worsening, you have a fever, your temperature is above 101.5, your wound has increased redness, your wound has increased drainage and your wound pain has increased Follow-up/Referrals: Mathew Menon MD, FACS [Surgeon] - 05/29/21 2:30 pm (Follow up in the wound care center this upcoming 05/24/[address] Menon in clinic next week) Rafia Law CRNP [Primary Care Provider] - Diet: Regular Addtl Attending Provider Instructions: Please follow up in the Wound Care Center this upcoming Friday05/29/21 at 9:00AM [address] [facility], [address] [place] [address] #[phone] Home Health Care will change your Wound Vac this upcoming Friday05/25/21 You have a wound vac in place to your Left Thigh that will be changed next at the wound care center. -Black foam cut to size and place in wound bed. Adhere with wound vac tape. Attach suction tubing and place to 100mmHg continuous suction Pending Studies at Discharge: No Stand-Alone Forms: Anesthesia/Sedation, Adult, [facility], Smoking Cessation Medications and DC Order Prescriptions: Continued estradiol 0.01 % (0.1 mg/gram) cream 1 g vaginal DAILY Qty: 42.5 RF: 0 lorazepam 1 mg tablet 0.25 mg PO HS RF: 0 venlafaxine [Effexor XR] 150 mg capsule,extended release 24hr 300 mg PO QAM RF: 0 aspirin [Aspir-81] 81 mg Tablet,Delayed Release (Dr/Ec) 81 mg PO HS RF: 0 Calcium 600 + D(3) 600 mg calcium- 200 unit Capsule 1 - 2 cap PO BID RF: 0 fluvastatin 40 mg capsule 40 mg PO QAM RF: 0 bupropion HCl 100 mg tablet 100 mg PO QAM RF: 0 docusate sodium [Stool Softener] 100 mg capsule 250 mg PO HS RF: 0 lisinopril 10 mg Tablet 15 mg PO QAM RF: 0 hydrocodone-acetaminophen 5-325 mg tablet 1 - 2 tab PO .Q4-6h MDD 6 tabs PRN (Reason: pain, initial therapy) Qty: 10 RF: 0 amoxicillin-pot clavulanate 875-125 mg tablet 1 tab PO BID Qty: 14 RF: 0 Glucosamine Chondroitin 550-30-1 mg Capsule 1 cap PO BID RF: 0 Restasis MultiDose 0.05 % drops 1 drops OP TID RF: 0 melatonin 5 mg Capsule 5 mg PO HS RF: 0 hydrocodone-acetaminophen 5-325 mg tablet 1 tab PO Q4H PRN (Reason: pain) Qty: 10 RF: 0 Discharge Orders: Discharge Order (Routine); Ordered 05/22/21 Ordered By: Estella Spicer/Other Patient Handouts: DVT Post Op Prevention, Negative Pressure Wound Therapy Admission Data Admit Date/Time: 05/22/21 08:23 Attending Provider: Mathew Menon Admit Provider: Mathew Menon Primary Care Provider: Rafia Law Other Providers: [facility],Home Healthcare ; [place],Home Care Other Interventions: Discharge Summary Assessment (RN) Last Done: 05/22/21 16:18 Coding Level of Care Code D/C DAY MANAGEMENT <30 MINS Diagnoses Seroma after procedure
== END 2021-05-22 19:10 | disposition home health service (06) ==
LOC: PACUINP 05:34 → ASU 05:34 → 3N 09:32

== ENCOUNTER 2022-04-16 14:12 | Observation (INO) ==
--- NOTE | 2022-04-16 14:50 | ED Triage Note ---
Date of Service April 16, 2022 History of Present Illness This patient was briefly evaluated while in triage. An abbreviated physical exam was performed. This patient is a 82-year-old Female who presents to the ED for evaluation of abnormal CT that was performed today. Patient states she has been having left lower abdominal pain for the past 3 weeks. She was seen by her PCP who ordered a CT scan which demonstrates possible diverticulitis. She was referred to ED for further work up and management. Physical Exam Constitutional: alert and oriented x3. no acute distress. HEENT: normocephalic, atraumatic. Respiratory: lungs are clear to auscultation without wheezes, rhonchi, or rales bilaterally. equal chest rise. normal respiratory effort, no accessory muscle use. Cardiovascular: normal heart sounds without murmur. regular rate and rhythm. GI: abdomen is soft, nontender. nl bowel sounds present throughout. No rebound tenderness or guarding. No CVA tenderness Psych:appropriate mood and affect. Initial orders for labs and / or imaging were placed and patient was placed in the waiting area until a bed is available. Please see further documentation for the full ED course.
[2022-04-16 16:13] LABS: Basophils # (auto) 0.03 K/uL (0-0.2); Basophils % (auto) 0.5 %; Hematocrit (blood only) 37.8 % (37.0-47.0); Hemoglobin 12.2 g/dl (12.0-16.0); Immature Granulocytes # (auto) 0.02 K/uL (0.01-0.20); Immature Granulocytes % (auto) 0.3 %; Lymphocytes # (auto) 1.51 K/uL (1.2-3.4); Mean Corpuscular Hemoglobin 29.2 pg (25.0-34.0); Mean Corpuscular Hgb Conc 32.3 g/dL (32.0-36.0); Mean Corpuscular Volume 90.4 fL (80.0-100.0); Mean Platelet Volume 8.2 fL (9.4-12.4); Monocytes # (auto) 0.43 K/uL (0.11-0.59); Monocytes % (auto) 6.6 %; Neutrophils # (auto) 4.37 K/uL (1.40-6.50); Neutrophils % (auto) 66.6 %; Platelet Count 397 K/uL (130-400); RDW Coefficient of Variation 13.7 % (11.5-14.5); Red Blood Count 4.18 M/uL (4.20-5.40); White Blood Count 6.56 K/ul (4.8-10.8)
[2022-04-16 17:18] LABS: Albumin Globulin Ratio 1.5 (0.9-2); Bilirubin,Total 0.3 mg/dl (0.2-1.0); Calcium 10.3 mg/dl (8.5-10.1); Globulin 2.7 gm/dl (2.5-4.0); Potassium 4.4 mmol/L (3.5-5.1); Total Protein 6.7 gm/dl (6.0-8.3)
[2022-04-16 17:28] LABS: BUN Creatinine Ratio 26.4 (10-20); Creatinine Clr Calc Pharmacy 35.4 ml/min; Est GFR (African American) 53.8 ml/min; Est GFR (Non-African American) 46.4 ml/min
[2022-04-16] MEDS ORDERED: PIPERACILLIN/TAZOBACTAM 4.5 GM/120 ML BAG IV ONE (18:39)
[2022-04-16] MEDS ORDERED: SODIUM CHLORIDE 0.9% 1000ML 1,000 ML IV SCH (18:45)
--- NOTE | 2022-04-16 19:13 | History & Physical Report ---
Date of Service April 16, 2022 Assessment & Plan (1) Diverticulitis: Plan: Suspect this is the cause of her 2 to 3 weeks of abdominal pain N.p.o. except ice chips and sips IV ceftriaxone and metronidazole (2) Mucocele of appendix: Plan: Consult surgery - recommended admission and antibiotics for this with follow up as an outpatient No pain over this area to suggest acute appendicitis (3) Hypertension: Plan: Holding home medications due to NPO status (4) Anxiety: Plan: Holding home medications due to NPO status Plan VTE Prophylaxis - likely overnight stay therefore chemical prophylaxis deferred Diet - NPO Disposition - admit to med/surg Admission and Anticipated Discharge Date Admission Date: Apr 16, 2022 History of Present Illness Chief Complaint: Abdominal pain, abnormal CT Primary Care Provider: SHEY Farrell Kalyn Wallis is an 82 year old female who presents to the ER due to an abnormal outpatient CT scan. She reports having suprapubic and left lower quadrant abdominal pain for the last [address] was arranged by her primary care provider mild acute diverticulitis and possible appendicitis. Therefore she was referred to the emergency room for further evaluation. No nausea, vomiting, change on bowels, melena or bright red blood in stool. Allergies Allergy/AdvReac Type Severity Reaction Status Date / Time atorvastatin [From Lipitor] AdvReac Mild MUSCLE Verified 04/16/22 16:57 ISSUES ezetimibe [From Vytorin] AdvReac Mild MUSCLE Verified 04/16/22 16:57 ISSUES pravastatin [From Pravachol] AdvReac Mild MUSCLE Verified 04/16/22 16:57 ISSUES simvastatin [From Vytorin] AdvReac Mild Dizziness Verified 04/16/22 16:57 Home Medications Medication Instructions Recorded Confirmed Type lorazepam 1 mg tablet 0.25 mg PO HS 11/12/18 04/16/22 History venlafaxine 150 mg 300 mg PO HS 12/01/18 04/16/22 History capsule,extended release 24 hr (Effexor XR) bupropion HCl 100 mg tablet 100 mg PO HS 10/14/19 04/16/22 History calcium carbonate 600 mg-vitamin 2 cap PO HS 10/14/19 04/16/22 History D3 5 mcg (200 unit) capsule (Calcium 600 + D(3)) docusate sodium 100 mg capsule 250 mg PO HS 10/14/19 04/16/22 History (Stool Softener) fluvastatin 40 mg capsule 40 mg PO HS 10/14/19 04/16/22 History lisinopril 10 mg tablet 15 mg PO HS 10/14/19 04/16/22 History cyclosporine 0.05 % eye drops 1 drops ophthalmic (eye) TID 04/24/21 04/16/22 History (Restasis MultiDose) melatonin 5 mg capsule 5 mg PO HS 04/24/21 04/16/22 History estradiol 0.01% (0.1 mg/gram) 1 g vaginal 2XWK 04/16/22 04/16/22 History vaginal cream Past Med/Surg History Medical History Anemia Anxiety Carpal tunnel syndrome Right hand Dyslipidemia Encounter for pre-operative examination History of poliomyelitis RLE affected, cannot bend R toes. Wears compression stocking on RLE. H/O cellulitis in this limb as well (remote ~ 6 yrs ago) Hypertension Thyroid nodule Under surveillance Surgical History H/O excision of mass (05/01/21) Excision of left thigh mass. Dr. Jaramillo 05/01/2021 History of anesthesia reaction WOKE UP IN MIDDLE OF COLONOSCOPY History of cataract surgery (2019) R/L History of colonoscopy History of eye surgery R/L LIDS History of mandibular surgery (1980) ORIF-FULL ROM History of shoulder surgery (1980) LEFT TEAR History of surgery (05/10/21) Exploration Left Inner Thigh for Post-Operative Seroma placement of Андрей drain(Left) - Mathew Menon MD, FACS 05/10/2021 History of surgery (05/22/21) Left Thigh Wound Exploration and VAC System Placement(Left) - Mathew Menon MD, FACS 05/22/2021 S/P knee replacement (~2019) LEFT Family History Father Coronary heart disease Heart disease Cancer Mother Coronary heart disease Other Leukemia Lupus (systemic lupus erythematosus) No family history of adverse response to anesthesia Social History Smoking Status: Never smoker Second Hand Exposure: No; Hx Alcohol Use: No Hx Substance Use: No Preferred Language: Polish Communication Ability: Effective Visual Impairment: No Limitations Mobile Unit Assistant Required: No Beliefs That Will Affect Care: None marital status: Current Living Situation: Spouse and Family Current Living Situation Comment: pt lives with spouse and son current occupational status: retired How many Children do You have: 3 Other Information That Helps Us Care for You: No Feels Safe at Home: Yes Safety Concerns: Feels Safe At This Time during the past year weight has: remained stable Assistive Devices: Glasses Review of Systems Review of Systems: All systems reviewed & are unremarkable except as noted in HPI & below Physical Exam Constitutional: WD/WN, vitals as above Eyes: + anicteric sclerae; normal pupil size ENMT: external ear and nose normal, oropharynx normal Respiratory: normal respiratory effort, lungs clear to auscultation Cardiovascular: RRR, no murmur, no edema Gastrointestinal (Abdomen): Inspection/Auscultation: abdomen normal to inspection and normal bowel sounds; abdomen not distended Percussion/Palpation: + abdomen tender (suprapubic, LLQ) and abdomen soft; no guarding and abdomen not rigid Musculoskeletal: no cyanosis or clubbing, extremities motor strength 5/5 Skin: no rashes, warm and dry Neurologic: moves all extremities and awake; not confused Psychiatric: A+Ox3, euthymic affect Results & Data Results & Data ([facility]) Vital Signs (Past 12 Hours) Vital Signs Temp Pulse Pulse Resp BP BP Pulse Ox 04/16/22 18:00 84 04/16/22 17:26 82 122/69 92 04/16/22 14:44 36.6 C 94 H 18 130/83 96 O2 Del Method 04/16/22 18:00 04/16/22 17:26 Room Air 04/16/22 14:44 Room Air Laboratory Results Abnormal lab results 04/16/22 04/16/22 Range/Units 15:39 15:39 RBC 4.18 L (4.20-5.40) M/uL MPV 8.2 L (9.4-12.4) fL BUN 29 H (6-23) mg/dl BUN/Creatinine Ratio 26.4 H (10-20) Glucose 141 H (70-99(Fasting)) mg/dl Calcium 10.3 H (8.5-10.1) mg/dl Diagnostic Findings ABDOMEN AND PELVIS CT WITH IV AND ORAL CONTRAST CT DOSE: 831.91 mGycm HISTORY: Acute lower abdominal pain LOWER ABD PAIN TECHNIQUE: Multiaxial CT images of the abdomen and pelvis were performed following the IV administration of 83 cc of Optiray and oral contrast. A dose lowering technique was utilized adhering to the principles of ALARA. COMPARISON STUDY: CT left femur 05/10/2021 FINDINGS: No acute process of the imaged lower chest. No pneumatosis or pneumoperitoneum. The spleen, mildly atrophic pancreas and adrenal glands are unremarkable. The gallbladder and liver also within normal limits. Patent portal vein. There are a few bilateral parenchymal and left greater than right renal sinus cysts measuring up to 1.7 cm on the left. No hydronephrosis. Urinary bladder wall thickening with partial distention. Heterogeneity of the anteflexed uterus. Atherosclerosis of the aorta and branch vessels. No lymphadenopathy identified. Tiny hiatal hernia. Trace free pelvic fluid. Colonic diverticulosis. There is mild wall thickening of the descending sigmoid junction with adjacent inflammatory stranding and thickening of the peritoneum. Moderate colonic fecal retention. The cecum and ileocecal valve are noted within the left midabdomen on image 143. The appendix is dilated and fluid-filled measuring up to 1.1 cm on image 178. There are a few areas of nonspecific nodularity involving the omentum/peritoneum. Unremarkable soft tissues. IMPRESSION: 1. Colonic diverticulosis with mild wall thickening and adjacent inflammatory stranding involving the descending sigmoid junction. Correlate clinically to exclude a mild acute diverticulitis. 2. The appendix is dilated and fluid-filled. This may represent a mucocele versus acute appendicitis. Surgical consultation recommended. 3. Scattered areas of ill-defined omental/peritoneal nodularity. Attention at follow-up recommended. 4. No pneumoperitoneum or abscess. 5. No bowel obstruction. 6. Additional findings as above. Medications Administered ER Medications Given: Normal saline 125ml/hr Code Status & VTE Plan Code Status Full PG Care Time/CCT Total # of Minutes Spent Total Time Spent with Patient: Total time spent is greater than 50% in coordination of care (as documented) at patient's floor/unit and/or counseling patient: Coding Level of Care Code 03044 INT INP/OBS CARE MIN Diagnoses Diverticulitis K57.92 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 Hypertension I10 Anxiety F41.9
--- NOTE | 2022-04-16 19:38 | Surgery Consultation ---
Date of Consultation April 16, 2022 Assessment & Plan (1) Diverticulitis: (2) Mucocele of appendix: I discussed with the treating hospitalist who is admitting the patient. We recommend proceeding as follows. Provide analgesics Provide antiemetics Implement n.p.o. status except for occasional ice chips Provide IV fluid for hydration Follow serial labs Continue antibiotics. The patient has had Zosyn initiated in the emergency department which should continue For the present time we will treat the patient as though she has diverticulitis with treatment plan as outlined above. Once she is recovered from this acute episode we will follow-up with her in the office with plans to potentially perform an interval appendectomy secondary to the concern for mucocele. Ideally we would like to perform this procedure in approximately 6 to 8 weeks providing the patient recovers adequately. Additional recommendations be forthcoming based on her clinical course as it unfolds History of Present Illness Reason for Consultation: Diverticulitis and mucocele/appendicitis History of Present Illness This is an 82-year female who was referred to the emergency department by her primary care team secondary to an abnormal CT scan. Patient notes that she has been having some lower abdominal pain for approximately 3 weeks and she was seen by her primary care physician who ordered a CT scan of her abdomen pelvis to further evaluate this problem. The patient underwent the CT scan earlier today and the scan showed the patient had colonic diverticulitis with some inflammatory stranding involving the sigmoid colon which is felt to represent mild acute sigmoid diverticulitis. The patient was also noted to have a dilated and fluid-filled appendix which is felt to represent either an acute appendicitis or a mucocele. The patient was ultimately referred to the emergency department. Since arrival to the emergency department she did have labs drawn which included a CBC were white blood cell count, hemoglobin, hematocrit, and platelet count were all within normal range. Chemistry profile showed sodium and potassium were normal, as was her creatinine. There is a slight elevation of her BUN and 29. There is no significant elevation of patient's LFTs or lipase and a COVID test was negative. I visited with the patient at the bedside and in addition to the lower abdominal pain she does not offer much in the way of other complaints. She notes that the pain is nonradiating and only is worse with certain movements. She says that she has not had any issues with constipation or diarrhea. She denies any melena, bright blood per rectum or hematochezia. She also denies any fevers, shakes, or chills. She denies any nausea or vomiting. She notes that she has never had an abdominal surgery in the past. She does note that she has had a colonoscopy a few years ago and to the best of her knowledge that showed diverticular disease without any other concerning findings. Since arrival to the emergency department the patient had intravenous fluids initiated as well as had antibiotics initiated antibiotics in the form of Zosyn. At the time of my interview she was resting comfortably in bed in no distress. Allergies Allergy/AdvReac Type Severity Reaction Status Date / Time atorvastatin [From Lipitor] AdvReac Mild MUSCLE Verified 04/16/22 16:57 ISSUES ezetimibe [From Vytorin] AdvReac Mild MUSCLE Verified 04/16/22 16:57 ISSUES pravastatin [From Pravachol] AdvReac Mild MUSCLE Verified 04/16/22 16:57 ISSUES simvastatin [From Vytorin] AdvReac Mild Dizziness Verified 04/16/22 16:57 Home Medications Medication Instructions Recorded Confirmed Type lorazepam 1 mg tablet 0.25 mg PO HS 11/12/18 04/16/22 History venlafaxine 150 mg 300 mg PO HS 12/01/18 04/16/22 History capsule,extended release 24 hr (Effexor XR) bupropion HCl 100 mg tablet 100 mg PO HS 10/14/19 04/16/22 History calcium carbonate 600 mg-vitamin 2 cap PO HS 10/14/19 04/16/22 History D3 5 mcg (200 unit) capsule (Calcium 600 + D(3)) docusate sodium 100 mg capsule 250 mg PO HS 10/14/19 04/16/22 History (Stool Softener) fluvastatin 40 mg capsule 40 mg PO HS 10/14/19 04/16/22 History lisinopril 10 mg tablet 15 mg PO HS 10/14/19 04/16/22 History cyclosporine 0.05 % eye drops 1 drops ophthalmic (eye) TID 04/24/21 04/16/22 History (Restasis MultiDose) melatonin 5 mg capsule 5 mg PO HS 04/24/21 04/16/22 History estradiol 0.01% (0.1 mg/gram) 1 g vaginal 2XWK 04/16/22 04/16/22 History vaginal cream Patient History Medical History Anemia Anxiety Carpal tunnel syndrome Right hand Dyslipidemia Encounter for pre-operative examination History of poliomyelitis RLE affected, cannot bend R toes. Wears compression stocking on RLE. H/O cellulitis in this limb as well (remote ~ 6 yrs ago) Hypertension Thyroid nodule Under surveillance Surgical History H/O excision of mass (05/01/21) Excision of left thigh mass. Dr. Jaramillo 05/01/2021 History of anesthesia reaction WOKE UP IN MIDDLE OF COLONOSCOPY History of cataract surgery (2019) R/L History of colonoscopy History of eye surgery R/L LIDS History of mandibular surgery (1980) ORIF-FULL ROM History of shoulder surgery (1980) LEFT TEAR History of surgery (05/10/21) Exploration Left Inner Thigh for Post-Operative Seroma placement of Андрей drain(Left) - Mathew Menon MD, FACS 05/10/2021 History of surgery (05/22/21) Left Thigh Wound Exploration and VAC System Placement(Left) - Mathew Menon MD, FACS 05/22/2021 S/P knee replacement (~2019) LEFT Family History Father Coronary heart disease Heart disease Cancer Mother Coronary heart disease Other Leukemia Lupus (systemic lupus erythematosus) No family history of adverse response to anesthesia Social History Smoking Status: Never smoker Second Hand Exposure: No; Hx Alcohol Use: No Preferred Language: Sami Communication Ability: Effective Visual Impairment: No Limitations Glaciologist Required: No Beliefs That Will Affect Care: None marital status: Current Living Situation: Family Current Living Situation Comment: AND SON current occupational status: retired How many Children do You have: 3 Feels Safe at Home: Yes during the past year weight has: remained stable Assistive Devices: None Review of Systems Constitutional: no fever and no chills Eyes: + corrective lenses Ear, Nose, Mouth, Throat: no ear pain Respiratory: no cough and no dyspnea Cardiovascular: no chest pain Gastrointestinal: as per Subjective / HPI Genitourinary: no dysuria Musculoskeletal: no back pain Integumentary: no rash Neurologic: no localized weakness Physical Exam Constitutional: WD/WN, vitals as above Eyes: no conjunctival abnormality Wears glasses ENMT: Ears: no hearing impairment and no external ear abnormality Mouth: no oropharynx abnormality Neck: trachea midline Respiratory: normal respiratory effort; no respiratory distress and no labored breathing Cardiovascular: Rate/Rhythm: regular rate and regular rhythm Gastrointestinal (Abdomen): Abdomen is soft and nondistended. It is nonrigid. There is minor pain with palpation of the left lower quadrant and to a lesser degree the right lower quadrant. There is no rebound tenderness or guarding. Musculoskeletal: No calf tenderness Skin: no rashes Neurologic: moves all extremities Psychiatric: A+Ox3, euthymic affect Results & Data ([place]) Vital Signs (Past 12 Hours) Vital Signs Temp Pulse Pulse Resp BP BP Pulse Ox 04/16/22 18:00 84 04/16/22 17:26 82 122/69 92 04/16/22 14:44 36.6 C 94 H 18 130/83 96 O2 Del Method 04/16/22 18:00 04/16/22 17:26 Room Air 04/16/22 14:44 Room Air PG Care Time/CCT Total # of Minutes Spent Total Time Spent with Patient: Total time spent is greater than 50% in coordination of care (as documented) at patient's floor/unit and/or counseling patient: Coding Level of Care Code 36718 INT INP/OBS CARE 3/75MIN Diagnoses Diverticulitis K57.92 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
[2022-04-16] MEDS ORDERED: ACETAMINOPHEN 1,000 MG/100 ML VIAL IV PRN (21:24)
[2022-04-16] MEDS ORDERED: ONDANSETRON INJ 2 MG/ML 2 ML VIAL IV PRN (21:41)
[2022-04-16] MEDS ORDERED: cefTRIAXone SODIUM 2,000 MG in DEXTROSE 5% 50 ML IV SCH (21:45)
[2022-04-16] MEDS: LACTATED RINGER'S 1,000 ML IV SCH (22:46)
[2022-04-16] MEDS: metroNIDAZOLE 500 MG/100 ML BAG IV SCH (22:47)
[2022-04-17] MEDS: metroNIDAZOLE 500 MG/100 ML BAG IV SCH ×2 (05:54→15:06)
[2022-04-17] MEDS: LACTATED RINGER'S 1,000 ML IV SCH ×3 (05:56→15:06)
[2022-04-17 06:35] LABS: Appearance Urine Clear (Clear); Bilirubin Urine Negative (Negative); Blood Urine Negative (Negative); Color Urine Yellow; Glucose Urine UA Negative (Negative); Ketones Urine Negative (Negative); Leukocyte Esterase Urine Negative (Negative); Nitrite Urine Negative (Negative); Protein Urine Negative (Negative); Specific Gravity Urine 1.015 (1.000-1.030); Urobilinogen Urine Negative (Negative)
[2022-04-17 11:11] LABS: Hematocrit (blood only) 38.1 % (37.0-47.0); Hemoglobin 12.5 g/dl (12.0-16.0); Mean Corpuscular Hemoglobin 29.2 pg (25.0-34.0); Mean Corpuscular Hgb Conc 32.8 g/dL (32.0-36.0); Mean Platelet Volume 8.3 fL (9.4-12.4); Platelet Count 405 K/uL (130-400); RDW Coefficient of Variation 13.5 % (11.5-14.5); RDW Standard Deviation 44.4 fL (36.4-46.3); Red Blood Count 4.28 M/uL (4.20-5.40); White Blood Count 6.53 K/ul (4.8-10.8)
[2022-04-17 11:15] LABS: BUN Creatinine Ratio 19.8 (10-20); Calcium 9.3 mg/dl (8.5-10.1); Creatinine Clr Calc Pharmacy 36.7 ml/min; Est GFR (African American) 56.2 ml/min; Est GFR (Non-African American) 48.5 ml/min; Magnesium 1.8 mg/dl (1.7-2.4); Potassium 4.6 mmol/L (3.5-5.1)
--- NOTE | 2022-04-17 11:15 | Surgery Progress Note ---
Date of Service April 17, 2022 Assessment & Plan (1) Diverticulitis: Plan: Clinically meeting criteria for discharge home on oral antibiotics and a low residue diet. I told her we will discuss the mucocele in the office with consideration for appendectomy as an outpatient. Follow-up with me in 2 weeks. (2) Mucocele of appendix: Admission and Anticipated Discharge Date Admission Date: April 16, 2022 Subjective Patient seen. Feeling well. In fact no pain at all currently. She would like to go home. Physical Exam Constitutional: WD/WN, vitals as above no acute distress and not ill appearing Eyes: PERRL, conjunctivae normal, anicteric sclerae EOM intact bilaterally ENMT: external ear and nose normal, oropharynx normal Ears: no hearing impairment Neck: trachea midline, no thyromegaly Respiratory: normal respiratory effort; no respiratory distress and does not use accessory muscles Cardiovascular: Rate/Rhythm: regular rate and regular rhythm Gastrointestinal (Abdomen): Soft. Very mild suprapubic and left lower quadrant tenderness. No guarding or rebound. No peritoneal signs. 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
--- NOTE | 2022-04-17 15:54 | Discharge Summary ---
Date of Service date of admission - April 16, 2022 date of discharge - April 17, 2022 Admission HPI Per Admitting Provider Kalyn Wallis is an 82 year old female who presents to the ER due to an abnormal outpatient CT scan. She reports having suprapubic and left lower quadrant abdominal pain for the last [address] was arranged by her primary care provider mild acute diverticulitis and possible appendicitis. Therefore she was referred to the emergency room for further evaluation. No nausea, vomiting, change on bowels, melena or bright red blood in stool. Principal Diagnosis 1. sigmoid diverticulitis - uncomplicated 2. 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 Discharge Exam gen - NAD mouth - MMM neck - no JVD heart - RRR, s1 s2 lungs - CTA b/l abd - soft, NT, ND, BS+, no HSM, no peritoneal signs ext - pulses 2+ b/l Discharge Data Allergies Allergy/AdvReac Type Severity Reaction Status Date / Time atorvastatin [From Lipitor] AdvReac Mild MUSCLE Verified 04/16/22 16:57 ISSUES ezetimibe [From Vytorin] AdvReac Mild MUSCLE Verified 04/16/22 16:57 ISSUES pravastatin [From Pravachol] AdvReac Mild MUSCLE Verified 04/16/22 16:57 ISSUES simvastatin [From Vytorin] AdvReac Mild Dizziness Verified 04/16/22 16:57 Consultations general surgery - Dr Denis Diego Ordered Studies This was performed PRIOR to ER presentation but on same day of admission: ABDOMEN AND PELVIS CT WITH IV AND ORAL CONTRAST CT DOSE: 831.91 mGycm HISTORY: Acute lower abdominal pain LOWER ABD PAIN TECHNIQUE: Multiaxial CT images of the abdomen and pelvis were performed following the IV administration of 83 cc of Optiray and oral contrast. A dose lowering technique was utilized adhering to the principles of ALARA. COMPARISON STUDY: CT left femur 05/10/2021 FINDINGS: No acute process of the imaged lower chest. No pneumatosis or pneumoperitoneum. The spleen, mildly atrophic pancreas and adrenal glands are unremarkable. The gallbladder and liver also within normal limits. Patent portal vein. There are a few bilateral parenchymal and left greater than right renal sinus cysts measuring up to 1.7 cm on the left. No hydronephrosis. Urinary bladder wall thickening with partial distention. Heterogeneity of the anteflexed uterus. Atherosclerosis of the aorta and branch vessels. No lymphadenopathy identified. Tiny hiatal hernia. Trace free pelvic fluid. Colonic diverticulosis. There is mild wall thickening of the descending sigmoid junction with adjacent inflammatory stranding and thickening of the peritoneum. Moderate colonic fecal retention. The cecum and ileocecal valve are noted within the left midabdomen on image 143. The appendix is dilated and fluid-filled measuring up to 1.1 cm on image 178. There are a few areas of nonspecific nodularity involving the o mentum/peritoneum. Unremarkable soft tissues. IMPRESSION: 1. Colonic diverticulosis with mild wall thickening and adjacent inflammatory stranding involving the descending sigmoid junction. Correlate clinically to exclude a mild acute diverticulitis. 2. The appendix is dilated and fluid-filled. This may represent a mucocele versus acute appendicitis. Surgical consultation recommended. 3. Scattered areas of ill-defined omental/peritoneal nodularity. Attention at follow-up recommended. 4. No pneumoperitoneum or abscess. 5. No bowel obstruction. 6. Additional findings as above. ACT 112: Negative or not required by law. The above report was generated using voice recognition software. It may contain grammatical, syntax or spelling errors. Electronically signed by: Clint Morales M.D. 04/16/2022 12:52 PM Dictated:04/16/22 1234 Transcribed: 04/16/22 1234 Hospital Course (1) Diverticulitis: Mild sigmoid diverticulitis on CT a/p. Uncomplicated; no abscess, microperforation, etc. Suspect this was the cause of her 2 to 3 weeks of mild abdominal pain. I cannot rule out that #3 didn't contribute to her pain either. She was made NPO, received IVF, and was given IV ceftriaxone and metronidazole. She was seen by [facility] [place] - primarily for #2 below - but they also provided input into her diverticulitis. Since her abdominal pain resolved rather quickly she was resumed on a liquid diet by surgery and she tolerated this without difficulty. She will complete 9 days each of cipro and flagyl at home. She was instructed on the importance of restricted diet for several days post- discharge followed by a low fiber diet for about 10 days. Handouts on full liquids and low fiber diet given. Ideally patient has a colonoscopy in about 6-8 weeks. She was asked to discuss this with her PCP. (2) Mucocele of appendix: Consulted surgery - her CT findings of the appendix were not felt to represent appendicitis. Rather, the concern was for a mucocele of the appendix. She will have f/u shortly after discharge with [facility] [place] General Surgery, Dr Ritesh Diego, to discuss appendectomy. (3) Mass of omentum: Multiple nodules were seen throughout the omentum on preadmission CT. When patient has her appendectomy hopefully one of these nodules can be sampled to exclude a cancerous process. (4) Hypertension: Continue lisinopril. (5) Anxiety: Continue previous home medications including wellbutrin, fluvastatin, venlafaxine, melatonin, and ativan. Total Time Total Time Spent Total Time Spent (In Minutes): 25 Discharge Plan Discharge Items Patient Disposition: Home - Self-Care Reason For Visit: abdominal pain Discharge Diagnosis: 1. sigmoid diverticulitis 2. 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 This is a common location for diverticulitis to occur in. You received IV fluids and IV antibiotics. Your abdominal symptoms quickly improved. In addition to the diverticulitis the CT scan of your abdomen showed an abnormality in your appendix. You may have something called a "mucocele." This is not the same thing as having appendicitis. Mucoceles of the appendix are often found incidentally when you have a CT scan taken for another problem. The [facility] General Surgery team saw you in consult and recommends follow-up with them in the office to discuss an elective appendectomy in the future (next couple of months). Diverticulitis recommendations - 1. Diet - * for the next 3-4 days please follow a "full liquids" diet - see handout; following this restricted diet allows the colon to heal * after 3-4 days you may gradually introduce low fiber foods into your diet - also see handout on "low fiber"; please go slowly and gently with this step * once on a low fiber diet please stay on low fiber foods for about 10 days 2. Stay well-hydrated during your recovery from the diverticulitis. 3. Antibiotics for diverticulitis - start these TONIGHT at home - * ciprofloxacin 500mg twice daily x 9 days * metronidazole 500mg three times daily x 9 days Common side effects - nausea, diarrhea. 4. During your recovery from diverticulitis your stools may not be entirely normal. They are often liquid-like for a few days. As you resolve the diverticulitis the stools will gradually return to normal. 5. Please speak to your family doctor/provider about getting a colonoscopy in about 6-8 weeks. Follow-up - see separate section Return to [facility] if - * you have fevers over 100 degrees * you have recurrent, worsening abdominal pain * you have severe vomiting * you have severe diarrhea * you are unable to eat or drink * any other concerns Please continue to feel better, Dr Merino Pending Studies at Discharge: No Stand-Alone Forms: My [facility], Smoking Cessation Medications and DC Order Prescriptions: New ciprofloxacin HCl [Cipro] 500 mg tablet 500 mg PO BID 9 Days Qty: 18 0RF metronidazole 500 mg tablet 500 mg PO TID 9 Days Qty: 27 0RF Continued lorazepam 1 mg tablet 0.25 mg PO HS venlafaxine [Effexor XR] 150 mg capsule,extended release 24hr 300 mg PO HS Calcium 600 + D(3) 600 mg calcium- 200 unit Capsule 2 cap PO HS fluvastatin 40 mg capsule 40 mg PO HS bupropion HCl 100 mg tablet 100 mg PO HS docusate sodium [Stool Softener] 100 mg capsule 250 mg PO HS lisinopril 10 mg Tablet 15 mg PO HS Restasis MultiDose 0.05 % drops 1 drops OP TID melatonin 5 mg Capsule 5 mg PO HS estradiol 0.01 % (0.1 mg/gram) cream 1 g vaginal 2XWK Patient Comments: USING FOR 2 WEEKS (NEW RX) 02/27/22 Discharge Orders: Discharge Order (Routine); Ordered 04/17/22 Ordered By: Michele Spicer/Other Patient Handouts: Low-Fiber Diet, ED Diverticulitis, ED Full Liquid Diet Admission Data Admit Date/Time: 04/16/22 19:35 Attending Provider: Michele Merino Admit Provider: Michele Buenrostro Primary Care Provider: Rafia Law Other Providers: Michele Buenrostro ; Denis Diego Other Interventions: Discharge Summary Assessment (RN) Last Done: 04/17/22 17:45 Coding Level of Care Code 76510 IN/OBS DISCH 30 MIN/LESS Diagnoses Diverticulitis K57.92 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
--- NOTE | 2022-04-17 17:13 | Communication Note ---
Date of Service: April 17, 2022 By CMS guidelines, a determination that the admission or continued stay is not medically necessary has been made by a member of the UR committee and a physi iesha for this hospital stay, therefore a Code 44 will be completed and the Inpatient admission will be changed to outpatient. Michele Merino MD
--- NOTE | 2022-04-17 17:28 | Communication Note ---
Date of Service: April 17, 2022 By CMS guidelines, a determination that the admission or continued stay is not medically necessary has been made by a member of the Utilization Review commi ttee and a physician for this hospital stay. Therefore, a Code 44 will be completed and the inpatient admission will be changed to outpatient. Cristina Gillespie DO UR Committee
--- NOTE | 2022-04-19 07:36 | Emergency Department Note ---
Impression & Plan Diverticulitis, Mucocele of appendix ED Provider Note CHIEF COMPLAINT: Abdominal pain HISTORY OF PRESENT ILLNESS: This 82-year-old female with a history of diverticulosis, hypertension, dyslipidemia patient presents to the emergency department plaints of lower abdominal pain. Patient states she was seen by her PCP and had a CT of the abdomen pelvis ordered. She was sent in due to concerns on the CT for acute appendicitis. Patient states that she has had pain for several days, particularly when she bends over. She denies any blood in her stools, diarrhea, vomiting. She believes the pain is more in the left lower quadrant and suprapubic region. REVIEW OF SYSTEMS: A review of systems was performed with positives and pertinent negatives listed in the history of present illness. 10 systems were reviewed and are otherwise negative. ALLERGIES: see below MEDICATIONS: see below PMH: see below SOCIAL HISTORY: see below DDx: Appendicitis, diverticulitis, UTI, obstruction, mesenteric ischemia, aortic pathology, inflammatory bowel disease, renal colic, PUD, pancreatitis, biliary pathology, hernia, volvulus, constipation, as well as other pathologies. PHYSICAL EXAM: Vital signs reviewed. General: Well-appearing 82-year-old female, in no significant distress. HEENT: No scleral icterus, PERRLA, neck supple. MMM. Cardiovascular: Regular rate and rhythm, no extra sounds. Pulmonary: Clear to auscultation bilaterally, normal work of breathing. Abdomen: Soft, nontender, mild suprapubic and left lower quadrant abdominal tenderness to palpation, no rebound or guarding, positive bowel sounds. Musculoskeletal: Atraumatic, no peripheral edema. Neurologic: Patient awake alert and oriented x 3, speech is clear Skin: Warm, dry, no rash EMERGENCY DEPARTMENT COURSE/MDM: This patient was evaluated and appeared to be in no significant distress. IV access was obtained and laboratory work was drawn. Patient was placed on the putty tinter maker noted to be in normal sinus rhythm. She was hydrated with normal saline solution. CT imaging performed prior to her ER visit reveals mucocele of the appendix, less likely acute appendicitis. There is also concern for diverticulitis at the sigmoid junction. Patient was medicated with 4.5 g of IV Zosyn. I did discuss the case with Dr. Diego of general surgery who felt the patient is likely suffering from appendicitis less likely acute appendicitis. He is recommended inpatient admission and surgery will consult. He believes the patient's appendix will need to come out in 6 to 8 weeks due to concern for possible malignancy. Patient was informed of the findings and plan. She was discussed with the hospitalist service, Dr. Buenrostro, who has agreed to evaluate the patient for further management. MONITORING: An order for cardiac monitoring was placed and the patient is noted to be in a NSR at 82 beats per minute. RADIOLOGY: ABDOMEN AND PELVIS CT WITH IV AND ORAL CONTRAST CT DOSE: 831.91 mGycm HISTORY: Acute lower abdominal pain LOWER ABD PAIN TECHNIQUE: Multiaxial CT images of the abdomen and pelvis were performed following the IV administration of 83 cc of Optiray and oral contrast. A dose lowering technique was utilized adhering to the principles of ALARA. COMPARISON STUDY: CT left femur 05/10/2021 FINDINGS: No acute process of the imaged lower chest. No pneumatosis or pneumoperitoneum. The spleen, mildly atrophic pancreas and adrenal glands are unremarkable. The gallbladder and liver also within normal limits. Patent portal vein. There are a few bilateral parenchymal and left greater than right renal sinus cysts measuring up to 1.7 cm on the left. No hydronephrosis. Urinary bladder wall thickening with partial distention. Heterogeneity of the anteflexed uterus. Atherosclerosis of the aorta and branch vessels. No lymphadenopathy identified. Tiny hiatal hernia. Trace free pelvic fluid. Colonic diverticulosis. There is mild wall thickening of the descending sigmoid junction with adjacent inflammatory stranding and thickening of the peritoneum. Moderate colonic fecal retention. The cecum and ileocecal valve are noted within the left midabdomen on image 143. The appendix is dilated and fluid-filled measuring up to 1.1 cm on image 178. There are a few areas of nonspecific nodularity involving the omentum/peritoneum. Unremarkable soft tissues. IMPRESSION: 1. Colonic diverticulosis with mild wall thickening and adjacent inflammatory stranding involving the descending sigmoid junction. Correlate clinically to exclude a mild acute diverticulitis. 2. The appendix is dilated and fluid-filled. This may represent a mucocele versus acute appendicitis. Surgical consultation recommended. 3. Scattered areas of ill-defined omental/peritoneal nodularity. Attention at follow-up recommended. 4. No pneumoperitoneum or abscess. 5. No bowel obstruction. 6. Additional findings as above. ACT 112: Negative or not required by law. The above report was generated using voice recognition software. It may contain grammatical, syntax or spelling errors. Electronically signed by: Clint Morales M.D. 04/16/2022 12:52 PM Dictated:04/16/22 1234 Transcribed: 04/16/22 1234 DISPOSITION: Admit Past Med/Surg History Medical History Anemia Anxiety Carpal tunnel syndrome Right hand Dyslipidemia Encounter for pre-operative examination History of poliomyelitis RLE affected, cannot bend R toes. Wears compression stocking on RLE. H/O cellulitis in this limb as well (remote ~ 6 yrs ago) Hypertension Thyroid nodule Under surveillance Surgical History H/O excision of mass (05/01/21) Excision of left thigh mass. Dr. Jaramillo 05/01/2021 History of anesthesia reaction WOKE UP IN MIDDLE OF COLONOSCOPY History of cataract surgery (2019) R/L History of colonoscopy History of eye surgery R/L LIDS History of mandibular surgery (1980) ORIF-FULL ROM History of shoulder surgery (1980) LEFT TEAR History of surgery (05/10/21) Exploration Left Inner Thigh for Post-Operative Seroma placement of Андрей drain(Left) - Mathew Menon MD, FACS 05/10/2021 History of surgery (05/22/21) Left Thigh Wound Exploration and VAC System Placement(Left) - Mathew puente MD, FACS 05/22/2021 S/P knee replacement (~2019) LEFT Family History Father Coronary heart disease Heart disease Cancer Mother Coronary heart disease Other Leukemia Lupus (systemic lupus erythematosus) No family history of adverse response to anesthesia Social History Smoking Status: Never smoker Second Hand Exposure: No; Hx Alcohol Use: No Hx Substance Use: No Preferred Language: Gibraltarian Communication Ability: Effective Visual Impairment: No Limitations Hog Scraper Required: No Beliefs That Will Affect Care: None marital status: Current Living Situation: Spouse and Family Current Living Situation Comment: pt lives with spouse and son current occupational status: retired How many Children do You have: 3 Feels Safe at Home: Yes during the past year weight has: remained stable Assistive Devices: Cane and Walker Allergies Allergies Allergy/AdvReac Type Severity Reaction Status Date / Time atorvastatin [From Lipitor] AdvReac Mild MUSCLE Verified 04/16/22 16:57 ISSUES ezetimibe [From Vytorin] AdvReac Mild MUSCLE Verified 04/16/22 16:57 ISSUES pravastatin [From Pravachol] AdvReac Mild MUSCLE Verified 04/16/22 16:57 ISSUES simvastatin [From Vytorin] AdvReac Mild Dizziness Verified 04/16/22 16:57 Home Meds Home Medications Medication Instructions Recorded Confirmed lorazepam 1 mg tablet 0.25 mg PO HS 11/12/18 04/16/22 venlafaxine 150 mg 300 mg PO HS 12/01/18 04/16/22 capsule,extended release 24 hr (Effexor XR) bupropion HCl 100 mg tablet 100 mg PO HS 10/14/19 04/16/22 calcium carbonate 600 mg-vitamin 2 cap PO HS 10/14/19 04/16/22 D3 5 mcg (200 unit) capsule (Calcium 600 + D(3)) docusate sodium 100 mg capsule 250 mg PO HS 10/14/19 04/16/22 (Stool Softener) fluvastatin 40 mg capsule 40 mg PO HS 10/14/19 04/16/22 lisinopril 10 mg tablet 15 mg PO HS 10/14/19 04/16/22 cyclosporine 0.05 % eye drops 1 drops ophthalmic (eye) TID 04/24/21 04/16/22 (Restasis MultiDose) melatonin 5 mg capsule 5 mg PO HS 04/24/21 04/16/22 estradiol 0.01% (0.1 mg/gram) 1 g vaginal 2XWK 04/16/22 04/16/22 vaginal cream Previous Rx's Medication Instructions Recorded ciprofloxacin HCl 500 mg tablet 500 mg PO BID 9 days #18 tabs 04/17/22 (Cipro) metronidazole 500 mg tablet 500 mg PO TID 9 days #27 tabs 04/17/22 Results & Data (ED) Home Medications Current Medication List: was personally reviewed by me Laboratory Data Attestation: I reviewed the patient's lab results. 04/17/22 10:25 04/17/22 10:25 Lab Results 0204/16/22 04/16/22 Range/Units 15:39 15:39 17:28 WBC 6.56 (4.8-10.8) K/ul RBC 4.18 L (4.20-5.40) M/uL Hgb 12.2 (12.0-16.0) g/dl Hct 37.8 (37.0-47.0) % MCV 90.4 (80.0-100.0) fL MCH 29.2 (25.0-34.0) pg MCHC 32.3 (32.0-36.0) g/dL RDW Std Deviation 45.0 (36.4-46.3) fL RDW Coeff of Leslee 13.7 (11.5-14.5) % Plt Count 397 (130-400) K/uL MPV 8.2 L (9.4-12.4) fL Immature Gran % (Auto) 0.3 % Neut % (Auto) 66.6 % Lymph % (Auto) 23.0 % Quay % (Auto) 6.6 % Eos % (Auto) 3.0 % Baso % (Auto) 0.5 % Neut # (Auto) 4.37 (1.40-6.50) K/uL Lymph # (Auto) 1.51 (1.2-3.4) K/uL Quay # (Auto) 0.43 (0.11-0.59) K/uL Eos # (Auto) 0.20 (0-0.50) K/uL Baso # (Auto) 0.03 (0-0.2) K/uL Immature Gran # (Auto) 0.02 (0.01-0.20) K/uL Sodium 139 (136-145) mmol/L Potassium 4.4 (3.5-5.1) mmol/L Chloride 104 (98-107) mmol/L Carbon Dioxide 32 (21-32) mmol/L Anion Gap 3 (3-11) BUN 29 H (6-23) mg/dl Creatinine 1.10 (0.6-1.2) mg/dl Est Cr Clr Drug Dosing 35.4 ml/min Est GFR ( Amer) 53.8 ml/min Est GFR (Non-Af Amer) 46.4 ml/min BUN/Creatinine Ratio 26.4 H (10-20) Glucose 141 H (70-99(Fasting)) mg/dl Calcium 10.3 H (8.5-10.1) mg/dl Total Bilirubin 0.3 (0.2-1.0) mg/dl AST 15 (13-39) U/L ALT 12 (7-52) U/L Alkaline Phosphatase 98 (34-104) U/L Total Protein 6.7 (6.0-8.3) gm/dl Albumin 4.0 (3.4-5.0) gm/dl Globulin 2.7 (2.5-4.0) gm/dl Albumin/Globulin Ratio 1.5 (0.9-2) Lipase 23 (11-82) U/L SARS-CoV-2, RNA, NAAT NEGATIVE (NEGATIVE) Administered Medications Discontinued Medications Sodium Chloride (Nss 1000ml) 1,000 mls @ 125 mls/hr IV .Q8H [facility] Stop: 05/16/22 18:44 Last Infusion: 04/16/22 22:45 Dose: 0 mls/hr Documented By: Admin: 04/16/22 18:54 Dose: 125 mls/hr Documented By: FRANKLIN Piperacillin Sod/Tazobactam Sod (Zosyn) 4.5 gm in 120 mls @ 240 mls/hr IV NOW ONE Stop: 04/16/22 19:08 Last Infusion: 04/16/22 19:25 Dose: 0 mls/hr Documented By: Admin: 04/16/22 18:54 Dose: 240 mls/hr Documented By: FRANKLIN Ceftriaxone Sodium 2,000 mg/ (Dextrose) 70 mls @ 100 mls/hr IV Q24H [facility]; Protocol Stop: 04/26/22 21:44 Last Infusion: 04/16/22 22:42 Dose: 0 mls/hr Documented By: Admin: 04/16/22 22:00 Dose: 100 mls/hr Documented By: MATEO Metronidazole (Flagyl) 500 mg in 100 mls @ 100 mls/hr IV Q8H [facility] Stop: 04/26/22 21:59 Last Admin: 04/17/22 15:06 Dose: Not Given Documented By: Infusion: 04/17/22 06:54 Dose: 0 mls/hr Documented By: Admin: 04/17/22 05:54 Dose: 100 mls/hr Documented By: Infusion: 04/16/22 23:47 Dose: 0 mls/hr Documented By: Admin: 04/16/22 22:47 Dose: 100 mls/hr Documented By: RLP Lactated Ringer's (Lr) 1,000 mls @ 125 mls/hr IV .Q8H [facility] Stop: 05/16/22 21:23 Last Admin: 04/17/22 15:06 Dose: Not Given Documented By: Infusion: 04/17/22 12:31 Dose: 0 mls/hr Documented By: Admin: 04/17/22 08:27 Dose: 125 mls/hr Documented By: Infusion: 04/17/22 08:27 Dose: 125 mls/hr Documented By: Infusion: 04/17/22 07:11 Dose: 125 mls/hr Documented By: Admin: 04/16/22 22:46 Dose: 125 mls/hr Documented By: RLP Discharge Plan Visit Data Chief Complaint: Abnormal Labs/Diagnostic Testing Stated Complaint: REF BY , ABNORMAL LABS ED Provider: Aniya Burleson Discharge Problem: Diverticulitis, Mucocele of appendix Patient Disposition: Admitted As Inpatient Discharge Instructions Interventions: ED Discharge Assessment Last Done: 04/16/22 20:11
== END 2022-04-17 18:35 | disposition home or self-care (01) | DRG 392 ==
LOC: ED 14:12 → 3N 19:35 → SUATTDRO 19:35 → INTOOBSV 19:35 → 3N 20:11

== ENCOUNTER 2022-08-27 12:59 | Inpatient (IN) ==
[2022-08-27] MEDS ORDERED: SODIUM CHLORIDE 0.9% 1000ML 1,000 ML IV SCH (13:45)
--- NOTE | 2022-08-27 14:03 | Emergency Department Note ---
Impression & Plan Weakness, Acute dehydration, Adverse effect of chemotherapy, DVT (deep venous thrombosis) ED Provider Note NAME: JESSICA NAQVI AGE: 82 SEX: F : 1940 ARRIVES VIA: Walk-In INFORMANT: [Patient] ED PROVIDER(S): [Ra Chappell MD] CHIEF COMPLAINT: Illness HISTORY OF PRESENT ILLNESS: The patient is an 82-year-old female who states that she had chemotherapy for abdominal cancer 8 days ago. The patient states that 6 days ago, she began noticing flulike symptoms. She has had nausea without vomiting. She has had fatigue and weakness and a decreased appetite. No fever, no chills, no diarrhea, no urinary complaints. No cough or congestion. She has noticed some heartburn. The patient also states that she did have to have her port changed the day she had chemotherapy. She has noticed left arm swelling for the last 2 days. PMHx/PSHx: See Below SOCIAL HISTORY: See Below. PHYSICAL EXAM: GENERAL: Patient is in no acute distress. HEENT: No acute trauma, normocephalic atraumatic, mucous membranes moist, no nasal congestion. NECK: No stridor, no adenopathy, no meningismus, trachea is midline. LUNGS: Clear to auscultation bilaterally, no wheeze, no rhonchi, breath sounds equal. HEART: Without murmurs gallops or rubs, regular rate and rhythm. Chest: The patient's port is on the left. There is some fullness to the area superior to the left clavicle. ABDOMEN: Soft, nontender, bowel sounds positive, no peritonitis. EXTREMITIES: No cyanosis. The left arm is edematous. No erythema to suggest cellulitis. NEUROLOGIC: Oriented x 3, no acute motor or sensory deficits, no focal weakness. SKIN: No rash, no jaundice, no diaphoresis. DIFFERENTIAL DIAGNOSIS: Dehydration, chemotherapy reaction, anemia, renal failure, electrolyte imbalance, UTI, DVT, among others. EMERGENCY DEPARTMENT COURSE/PROCEDURES: Prior/Outside records reviewed: None. ECG per my interpretation: Indication was weakness. The ECG shows a normal sinus rhythm with a rate of 81. There is a potential old septal infarct. There is no ST elevation, no PVCs. The QTc is 436. Continuous Cardiac Monitoring per my interpretation: An order was placed for continuous cardiac monitoring. The monitor shows a rate of 72 with normal sinus rhythm. Critical Care Note: I have personally spent 48 minutes of critical care time in the direct management of this patient. This includes bedside care, interpretation of diagnostic studies, and testing, discussion with consultants, patient, and family members, and other required patient management activities. This 48 minutes is in excess of all separately billable procedures. MEDICAL DECISION MAKING: There is no leukocytosis. A very mild anemia was seen. There was a normal platelet count. No renal failure or significant electrolyte abnormality. Lactic acid level was not elevated making sepsis less likely. No concerning liver enzyme elevation. The patient appeared to be in a euthyroid state. ECG showed a normal sinus rhythm, no ischemia or dysrhythmia. Cardiac enzyme testing x1 was not consistent with acute cardiac injury. Urinalysis shows some ketones consistent with dehydration, no infection. COVID test returned negative. Chest film per my review did not show mediastinal widening, pneumonia or pneumothorax. Left upper extremity ultrasound does show an extensive DVT. The patient received IV saline, 2 L. She was given an IV heparin bolus and placed on a heparin drip. The patient has felt fatigued and washed out, likely from the chemotherapy itself. She appeared dehydrated and seems to be improved now since she has received IV fluids. With regard to the left arm swelling, this is secondary to her very extensive DVT. She is going to require IV heparin therapy, hos pitalization. Her port may need to be removed. I did speak with the patient and case management, the on-call hospitalist has been consulted. DISPOSITION: Patient's presentation and findings warrant a hospital stay. Past Med/Surg History Medical History Anxiety Carpal tunnel syndrome Right hand Chronic sinusitis Depression History of COVID-19 ?2021 mild cold symptoms; resolved History of poliomyelitis RLE affected, cannot bend R toes. Wears compression stocking on RLE. H/O cellulitis in this limb as well (remote ~ 6 yrs ago) Hyperlipidemia Hypertension Mass of omentum Peritoneal carcinomatosis per heme/onc records- Dr Muro Pulmonary nodules Sciatic leg pain Thyroid nodule Under surveillance Surgical History (Updated 08/19/22 @ 08:39 by Viry Rojas RN) H/O excision of mass (05/01/21) Excision of left thigh mass. Dr. Jaramillo 05/01/2021 History of anesthesia reaction WOKE UP IN MIDDLE OF COLONOSCOPY History of cataract surgery (2019) R/L History of colonoscopy History of eye surgery R/L LIDS History of mandibular surgery (1980) ORIF-FULL ROM History of shoulder surgery (1980) LEFT TEAR History of surgery (05/10/21) Exploration Left Inner Thigh for Post-Operative Seroma placement of Андрей drain(Left) - Mathew Menon MD, FACS 05/10/2021 History of surgery (05/22/21) Left Thigh Wound Exploration and VAC System Placement(Left) - Mathew Menon MD, FACS 05/22/2021 Hx of biopsy (06/06/22) Diagnostic Laparoscopy, Peritoneal Biopsy(Not Applicable) - Denis Diego, DO Port-A-Cath in place (08/01/22) Insertion of Access Port with Fluoroscopy(Left) - Denis Diego, DO Powerport Port-A-Cath in place (08/19/22) Evaluate Access Port, Replacement Access Port with Fluoroscopy(Left) - Denis Diego, DO S/P knee replacement (~2019) LEFT Family History Father Coronary heart disease Heart disease Cancer Mother Coronary heart disease Other Leukemia Lupus (systemic lupus erythematosus) No family history of adverse response to anesthesia Social History Smoking Status: Never smoker Second Hand Exposure: No; Do You Dip or Chew Tobacco: No; Hx Alcohol Use: No Hx Substance Use: No Preferred Language: Mongolian Communication Ability: Effective Visual Impairment: No Limitations Utilities Service Investigator Required: No Beliefs That Will Affect Care: None marital status: / Current Living Situation: Family Current Living Situation Comment: son current occupational status: retired How many Children do You have: 3 Feels Safe at Home: Yes Diet: regular during the past year weight has: remained stable Assistive Devices: Glasses Allergies Allergies Allergy/AdvReac Type Severity Reaction Status Date / Time atorvastatin [From Lipitor] AdvReac Mild MUSCLE Verified 08/19/22 05:50 ISSUES ezetimibe [From Vytorin] AdvReac Mild MUSCLE Verified 08/19/22 05:50 ISSUES fluvastatin AdvReac Mild Muscle Verified 08/19/22 05:50 Issues- legs pravastatin [From Pravachol] AdvReac Mild MUSCLE Verified 08/19/22 05:50 ISSUES simvastatin [From Vytorin] AdvReac Mild Dizziness Verified 08/19/22 05:50 Home Meds Home Medications Medication Instructions Recorded Confirmed lorazepam 1 mg tablet 0.5 mg PO HS 11/12/18 08/27/22 venlafaxine 150 mg 300 mg PO HS 12/01/18 08/27/22 capsule,extended release 24 hr (Effexor XR) bupropion HCl 100 mg tablet 100 mg PO HS 10/14/19 08/27/22 calcium carbonate 600 mg-vitamin 2 cap PO HS 10/14/19 08/27/22 D3 5 mcg (200 unit) capsule (Calcium 600 + D(3)) lisinopril 10 mg tablet 15 mg PO HS 10/14/19 08/27/22 cyclosporine 0.05 % eye drops 1 drops ophthalmic (eye) TID 04/24/21 08/27/22 (Restasis MultiDose) melatonin 5 mg capsule 5 mg PO HS 04/24/21 08/27/22 polyethylene glycol 3350 17 gram 17 g PO HS 07/30/22 08/27/22 oral powder packet (Miralax) ondansetron HCl 8 mg tablet 8 mg PO Q8H PRN Nausea 08/27/22 08/27/22 Results & Data (ED) Vital Signs Vital Signs - 24 hr 08/27/22 13:02 08/27/22 14:16 08/27/22 15:38 Temperature 36.3 C L Temperature Source Temporal Artery Scan Pulse Rate 99 H Pulse Rate [Apical] 72 Pulse Rate [Right Finger] 80 Pulse Rhythm [Apical] Regular Respiratory Rate 20 18 18 Respiratory Effort / Characteristics Non-Labored Respiratory Depth Normal Normal Normal Respiratory Pattern Regular Blood Pressure 92/61 L Blood Pressure [Left Arm] 106/86 Blood Pressure [Right Arm] 124/69 Blood Pressure Mean 71 Blood Pressure Mean [Left Arm] 92 Blood Pressure Mean [Right Arm] 87 Blood Pressure Position Sitting Blood Pressure Position [Right Arm] Semi-fowlers Pulse Oximetry 96 96 97 Oxygen Delivery Method Room Air Room Air Room Air Sepsis Recent Fever Within 48 Hours No Sepsis New/Unexplained Change in Mental Status No Sepsis Action Taken by Nursing No Action Required 08/27/22 16:54 08/27/22 18:12 Temperature Temperature Source Pulse Rate 77 Pulse Rate [Apical] Pulse Rate [Right Finger] 76 Pulse Rhythm [Apical] Respiratory Rate 18 Respiratory Effort / Characteristics Respiratory Depth Respiratory Pattern Blood Pressure Blood Pressure [Left Arm] Blood Pressure [Right Arm] 121/63 Blood Pressure Mean Blood Pressure Mean [Left Arm] Blood Pressure Mean [Right Arm] 82 Blood Pressure Position Blood Pressure Position [Right Arm] Pulse Oximetry 94 Oxygen Delivery Method Room Air Sepsis Recent Fever Within 48 Hours Sepsis New/Unexplained Change in Mental Status Sepsis Action Taken by [facility] Medications Current Medication List: was personally reviewed by me Laboratory Data Attestation: I reviewed the patient's lab results. 08/27/22 13:51 08/27/22 13:47 Lab Results 08/27/22 08/27/22 08/27/22 Range/Units 13:47 13:47 13:51 WBC 4.29 L (4.8-10.8) K/ul RBC 3.55 L (4.20-5.40) M/uL Hgb 11.1 L (12.0-16.0) g/dl Hct 32.0 L (37.0-47.0) % MCV 90.1 (80.0-100.0) fL MCH 31.3 (25.0-34.0) pg MCHC 34.7 (32.0-36.0) g/dL RDW Std Deviation 45.7 (36.4-46.3) fL RDW Coeff of Leslee 14.0 (11.5-14.5) % Plt Count 189 (130-400) K/uL MPV 8.9 L (9.4-12.4) fL Immature Gran % (Auto) 0.2 % Neut % (Auto) 46.6 % Lymph % (Auto) 38.0 % [place] % (Auto) 11.9 % Eos % (Auto) 2.6 % Baso % (Auto) 0.7 % Neut # (Auto) 2.00 (1.40-6.50) K/uL Lymph # (Auto) 1.63 (1.2-3.4) K/uL [place] # (Auto) 0.51 (0.11-0.59) K/uL Eos # (Auto) 0.11 (0-0.50) K/uL Baso # (Auto) 0.03 (0-0.2) K/uL Immature Gran # (Auto) 0.01 (0.01-0.20) K/uL Sodium 136 (136-145) mmol/L Potassium 4.8 (3.5-5.1) mmol/L Chloride 104 (98-107) mmol/L Carbon Dioxide 26 (21-32) mmol/L Anion Gap 6 (3-11) BUN 29 H (6-23) mg/dl Creatinine 1.06 (0.6-1.2) mg/dl Est Cr Clr Drug Dosing Not Reportable Est GFR ( Amer) 56.2 ml/min Est GFR (Non-Af Amer) 48.5 ml/min BUN/Creatinine Ratio 27.4 H (10-20) Glucose 106 H (70-99(Fasting)) mg/dl Lactate 1.2 (0.4-2.0) mmol/L Calcium 8.9 (8.6-10.3) mg/dl Magnesium 2.3 (1.7-2.4) mg/dl Total Bilirubin 0.4 (0.2-1.0) mg/dl AST 13 (13-39) U/L ALT 8 (7-52) U/L Alkaline Phosphatase 100 (34-104) U/L Troponin I High Sens 4.5 (0-14) pg/ml Total Protein 6.3 (6.0-8.3) gm/dl Albumin 3.8 (3.4-5.0) gm/dl Globulin 2.5 (2.5-4.0) gm/dl Albumin/Globulin Ratio 1.5 (0.9-2) TSH (0.300-4.500) uIu/ml Urine Color Urine Appearance (Clear) Urine pH (4.5-7.5) Ur Specific Nolan (1.000-1.030) Urine Protein (Negative) Urine Glucose (UA) (Negative) Urine Ketones (Negative) Urine Blood (Negative) Urine Nitrite (Negative) Urine Bilirubin (Negative) Urine Urobilinogen (Negative) Ur Leukocyte Esterase (Negative) SARS-CoV-2, RNA, NAAT (NEGATIVE) 08/27/22 08/27/22 08/27/22 Range/Units 13:51 13:51 15:44 WBC (4.8-10.8) K/ul RBC (4.20-5.40) M/uL Hgb (12.0-16.0) g/dl Hct (37.0-47.0) % MCV (80.0-100.0) fL MCH (25.0-34.0) pg MCHC (32.0-36.0) g/dL RDW Std Deviation (36.4-46.3) fL RDW Coeff of Leslee (11.5-14.5) % Plt Count (130-400) K/uL MPV (9.4-12.4) fL Immature Gran % (Auto) % Neut % (Auto) % Lymph % (Auto) % [place] % (Auto) % Eos % (Auto) % Baso % (Auto) % Neut # (Auto) (1.40-6.50) K/uL Lymph # (Auto) (1.2-3.4) K/uL [place] # (Auto) (0.11-0.59) K/uL Eos # (Auto) (0-0.50) K/uL Baso # (Auto) (0-0.2) K/uL Immature Gran # (Auto) (0.01-0.20) K/uL Sodium (136-145) mmol/L Potassium (3.5-5.1) mmol/L Chloride (98-107) mmol/L Carbon Dioxide (21-32) mmol/L Anion Gap (3-11) BUN (6-23) mg/dl Creatinine (0.6-1.2) mg/dl Est Cr Clr Drug Dosing Est GFR ( Amer) ml/min Est GFR (Non-Af Amer) ml/min BUN/Creatinine Ratio (10-20) Glucose (70-99(Fasting)) mg/dl Lactate (0.4-2.0) mmol/L Calcium (8.6-10.3) mg/dl Magnesium (1.7-2.4) mg/dl Total Bilirubin (0.2-1.0) mg/dl AST (13-39) U/L ALT (7-52) U/L Alkaline Phosphatase (34-104) U/L Troponin I High Sens (0-14) pg/ml Total Protein (6.0-8.3) gm/dl Albumin (3.4-5.0) gm/dl Globulin (2.5-4.0) gm/dl Albumin/Globulin Ratio (0.9-2) TSH 1.668 (0.300-4.500) uIu/ml Urine Color Yellow Urine Appearance Clear (Clear) Urine pH 6.5 (4.5-7.5) Ur Specific Nolan 1.022 (1.000-1.030) Urine Protein Negative (Negative) Urine Glucose (UA) Negative (Negative) Urine Ketones Trace H (Negative) Urine Blood Negative (Negative) Urine Nitrite Negative (Negative) Urine Bilirubin Negative (Negative) Urine Urobilinogen Negative (Negative) Ur Leukocyte Esterase Negative (Negative) SARS-CoV-2, RNA, NAAT NEGATIVE (NEGATIVE) Administered Medications Heparin Sodium/Dextrose (Heparin Sodium/Dextrose) 25,000 units in 500 mls @ 13 mls/hr IV .Q24H [facility]; Protocol Stop: 09/26/22 18:14 Last Admin: 08/27/22 18:42 Dose: 650 units/hr, 13 mls/hr Documented By: MONICA Co-signed By: JERI Discontinued Medications Heparin Sodium (Porcine) (Heparin Sod (Porcine) 1000 Unit/Ml) 3,000 units IV NOW ONE Stop: 08/27/22 18:46 Last Admin: 08/27/22 18:42 Dose: 3,000 units Documented By: MONICA Co-signed By: JERI Sodium Chloride (Nss 1000ml) 1,000 mls @ 999 mls/hr IV .Q1H1M RAYRAY Stop: 08/27/22 14:45 Last Infusion: 08/27/22 16:53 Dose: 0 mls/hr Documented By: Admin: 08/27/22 13:49 Dose: 999 mls/hr Documented By: JOSE Sodium Chloride (Nss 1000ml) 1,000 mls @ 999 mls/hr IV .Q1H1M ONE Stop: 08/27/22 16:32 Last Infusion: 08/27/22 17:40 Dose: 0 mls/hr Documented By: Admin: 08/27/22 15:46 Dose: 999 mls/hr Documented By: MONICA Imaging Data Radiologist's Impression: Chest X-Ray 08/27/22 13:36 SINGLE VIEW CHEST CLINICAL HISTORY: Generalized weakness. FINDINGS: An AP, portable, upright chest radiograph is compared to study dated 08/19/2022. A left subclavian central venous infusion port is unchanged in position. The heart is enlarged nothing atherosclerotic calcification of the thoracic aorta. The pulmonary vasculature is noncongested. Chronic interstitial thickening is similar to previous. A calcified granuloma seen at the right apex. The lungs and pleural spaces are otherwise clear. No pneumothorax is seen. The skeletal structures are osteopenic. The bony thorax is grossly intact. IMPRESSION: No active disease in the chest. ACT 112: Negative or not required by law. Electronically signed by: Ra Maria M.D. 08/27/2022 2:01 PM Extremity Venous Study 08/27/22 13:50 US venous doppler UE LT CLINICAL HISTORY: swelling PROCEDURE: Left upper extremity real-time compression venous ultrasound with Duplex and color Doppler imaging. Comparison: None available at the time of this dictation. FINDINGS/IMPRESSION: There is a thrombus in the left extending to the innominate, subclavian, and axillary veins which appears occlusive. A cephalic vein thrombus is also seen which appears occlusive. ACT 112: Negative or not required by law. Electronically signed by: Bj Muñoz M.D. 08/27/2022 5:43 PM Discharge Plan Visit Data Chief Complaint: Illness Stated Complaint: TROUBLE WITH CIRCULATION, SIDE EFFECTS OF CHEMO ED Provider: Ra Chappell Discharge Problem: Weakness, Acute dehydration, Adverse effect of chemotherapy, DVT (deep venous thrombosis) Patient Disposition: Admitted As Inpatient Condition: Fair Forms Stand Alone Forms: [facility] Prescriptions Prescriptions: No Action lorazepam 1 mg tablet 0.5 mg PO HS venlafaxine [Effexor XR] 150 mg capsule,extended release 24hr 300 mg PO HS Calcium 600 + D(3) 600 mg calcium- 200 unit Capsule 2 cap PO HS bupropion HCl 100 mg tablet 100 mg PO HS lisinopril 10 mg Tablet 15 mg PO HS ondansetron HCl 8 mg tablet 8 mg PO Q8H PRN (Reason: Nausea) Restasis MultiDose 0.05 % drops 1 drops OP TID melatonin 5 mg Capsule 5 mg PO HS polyethylene glycol 3350 [Miralax] 17 gram Powder In Packet 17 g PO HS Referrals Referrals: Rafia Law CRNP [Primary Care Provider] -
--- NOTE | 2022-08-27 14:03 | XRay Report ---
SINGLE VIEW CHEST CLINICAL HISTORY: Generalized weakness. FINDINGS: An AP, portable, upright chest radiograph is compared to study dated 08/19/2022. A left subcl jacklyn central venous infusion port is unchanged in position. The heart is enlarged nothing atheroscle rotic calcification of the thoracic aorta. The pulmonary vasculature is noncongested. Chronic interst itial thickening is similar to previous. A calcified granuloma seen at the right apex. The lungs and pleural spaces are otherwise clear. No pneumothorax is seen. The skeletal structures are osteopenic. The bony thorax is grossly intact. IMPRESSION: No active disease in the chest. ACT 112: Negative or not required by law. Electronically signed by: Ra Maria M.D. 08/27/2022 2:01 PM
[2022-08-27 14:22] LABS: Basophils # (auto) 0.03 K/uL (0-0.2); Basophils % (auto) 0.7 %; Eosinophils # (auto) 0.11 K/uL (0-0.50); Eosinophils % (auto) 2.6 %; Hemoglobin 11.1 g/dl (12.0-16.0); Immature Granulocytes # (auto) 0.01 K/uL (0.01-0.20); Immature Granulocytes % (auto) 0.2 %; Lymphocytes # (auto) 1.63 K/uL (1.2-3.4); Mean Corpuscular Hemoglobin 31.3 pg (25.0-34.0); Mean Corpuscular Hgb Conc 34.7 g/dL (32.0-36.0); Mean Corpuscular Volume 90.1 fL (80.0-100.0); Mean Platelet Volume 8.9 fL (9.4-12.4); Monocytes # (auto) 0.51 K/uL (0.11-0.59); Monocytes % (auto) 11.9 %; Neutrophils % (auto) 46.6 %; Platelet Count 189 K/uL (130-400); RDW Standard Deviation 45.7 fL (36.4-46.3); Red Blood Count 3.55 M/uL (4.20-5.40); White Blood Count 4.29 K/ul (4.8-10.8)
[2022-08-27 14:37] LABS: Alanine Aminotransferase 8 U/L (7-52); Albumin Globulin Ratio 1.5 (0.9-2); Albumin Level 3.8 gm/dl (3.4-5.0); Alkaline Phosphatase 100 U/L (34-104); Anion Gap 6 (3-11); Aspartate Aminotransferase 13 U/L (13-39); BUN Creatinine Ratio 27.4 (10-20); Bilirubin,Total 0.4 mg/dl (0.2-1.0); Blood Urea Nitrogen 29 mg/dl (6-23); Calcium 8.9 mg/dl (8.6-10.3); Carbon Dioxide 26 mmol/L (21-32); Chloride 104 mmol/L (98-107); Est GFR (African American) 56.2 ml/min; Est GFR (Non-African American) 48.5 ml/min; Globulin 2.5 gm/dl (2.5-4.0); Glucose 106 mg/dl (70-99(Fasting)); Magnesium 2.3 mg/dl (1.7-2.4); Potassium 4.8 mmol/L (3.5-5.1); Sodium 136 mmol/L (136-145); Total Protein 6.3 gm/dl (6.0-8.3)
[2022-08-27 14:44] LABS: Troponin I High Sensitivity 4.5 pg/ml (0-14)
[2022-08-27] MEDS ORDERED: SODIUM CHLORIDE 0.9% 1000ML 1,000 ML IV ONE (15:32)
[2022-08-27 15:58] LABS: Appearance Urine Clear (Clear); Bilirubin Urine Negative (Negative); Blood Urine Negative (Negative); Color Urine Yellow; Glucose Urine UA Negative (Negative); Ketones Urine Trace (Negative); Leukocyte Esterase Urine Negative (Negative); Nitrite Urine Negative (Negative); Protein Urine Negative (Negative); Specific Gravity Urine 1.022 (1.000-1.030); Urobilinogen Urine Negative (Negative); pH Urine 6.5 (4.5-7.5)
--- NOTE | 2022-08-27 17:44 | Ultrasound Report ---
US venous doppler UE LT CLINICAL HISTORY: swelling PROCEDURE: Left upper extremity real-time compression venous ultrasound with Duplex and color Doppler imaging. Comparison: None available at the time of this dictation. FINDINGS/IMPRESSION: There is a thrombus in the left extending to the innominate, subclavian, and axillary veins which sparkle ears occlusive. A cephalic vein thrombus is also seen which appears occlusive. ACT 112: Negative or not required by law. Electronically signed by: Bj Muñoz M.D. 08/27/2022 5:43 PM
[2022-08-27] MEDS ORDERED: Heparin IV Adult Wt-Based Low-Dose WITH Bolus Protocol IV STA (18:00)
--- NOTE | 2022-08-27 18:04 | Electrocardiogram Report ---
Test Reason : Blood Pressure : / mmHG Vent. Rate : 081 BPM Atrial Rate : 081 BPM P-R Int : 172 ms QRS Dur : 062 ms QT Int : 376 ms P-R-T Axes : 022 004 045 degrees QTc Int : 436 ms Normal sinus rhythm Low voltage QRS Abnormal ECG When compared with ECG of 29-MAY-2022 14:33, QRS duration has decreased Confirmed by Jose G Hagen ([id number]) on 08/27/2022 6:03:47 PM Referred By: Edelmira Muro Confirmed By:Michael Hagen
[2022-08-27] MEDS ORDERED: HEPARIN SOD (PORCINE) 1000 UNIT/ML IV ONE ×2 (18:15→18:45)
--- NOTE | 2022-08-27 18:34 | History & Physical Report ---
Date of Service August 27, 2022 Assessment & Plan (1) Left upper extremity deep vein thrombosis: Plan: Left upper extremity extensive DVT With left arm swelling and edema Sensation/strength grossly intact without evidence of compromise Limb restricted left arm In the setting of port placement with revision in the last week and active malignancy Started on heparin gtt. General surgery consulted. Do not anticipate surgery tomorrow, they will discuss with vascular regarding additional management. Will defer port fluoroscopy until that time. we will continue heparin GTT for now No shortness of breath, pleuritic pain,, or tachycardia to suggest PE Continue heparin GTT Due to patient GERD since being on chemo will also start on PPI IV daily for gastric prophylaxis. Denies history of melena/bright red blood per rectum although has taken Pepto yesterday so may have some dark - Weakness Suspect 2/2 chemotherapy - UA is uninfected appearing, CXR without evidence of infection, TSH is normal, she has no leukocytosis. - Sodium is normal, potassium is normal, creatinine is 1.06 on admission. BSG 106 on admission. Continue CBC/BMP/mag Adenocarcinoma, suspect [place] versus appendiceal primary On third round of chemo due to start this coming Friday, has completed 2 rounds of FOLFOX chemotherapy (per report, pending confirmation from [facility] records) No acute change in management at this time, patient is anticoagulated for DVT Hypertension Continue home antihypertensive Anxiety/depression Continue melatonin, lorazepam at bedtime home dosing, bupropion, venlafaxine DVT prophylaxis: Heparinized Diet: Regular Disposition, medical tele given acute extensive clot burden CODE: DNR/DNI/ CODE STATUS discussion: Patient previously full code. Did discuss risk/benefits of CPR and resuscitation. Conversation between patient with her 2 sons at bedside, she expresses that if she would become so ill that she would have a cardiac or respiratory arrest she would not want heroic or invasive measures at that time and would want to be allowed to pass in that circumstance. 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 She has had nausea without vomiting, weakness, decreased appetite. No fever/chills/sweats. Left arm swelling x2 days, was noted to have a malfunctioning access port on 08/19/2022 which was replaced. She reports she has felt more tired after 2nd round of chemo with 3rd due friday. Did very well first week, then felt more tired and washed out with poor appetite after the second round and much more tired. Her L arm swelling is what actually brought her in to the ER however. L port didn't flush right with first round of chemo, did work OK after replacement and with second round of chemo. No chest pain, chest pressure No shortness of breath, inspiratory pain, cough, sputum production +Fatigue. No fevers, chills, sweats Feels run down 'like the flu but withotu cough or fever' no diarrhea, did have thi sthe first time after chemo but not this past week No abdominal pain at time of admission. +flatus No history of blood clots No history of bleeding Has had reflux in the past and chemo seems to worsen this, no melena/hematochezia Medical History: Reviewed Medications: Reviewed Surgical History: Reviewed Family history: Reviewed Allergies: Reviewed Social History: Reviewed Code Status: Full Code CXR: No acute finding Allergies Allergy/AdvReac Type Severity Reaction Status Date / Time atorvastatin [From Lipitor] AdvReac Mild MUSCLE Verified 08/19/22 05:50 ISSUES ezetimibe [From Vytorin] AdvReac Mild MUSCLE Verified 08/19/22 05:50 ISSUES fluvastatin AdvReac Mild Muscle Verified 08/19/22 05:50 Issues- legs pravastatin [From Pravachol] AdvReac Mild MUSCLE Verified 08/19/22 05:50 ISSUES simvastatin [From Vytorin] AdvReac Mild Dizziness Verified 08/19/22 05:50 Home Medications Medication Instructions Recorded Confirmed Type lorazepam 1 mg tablet 0.5 mg PO HS 11/12/18 08/27/22 History venlafaxine 150 mg 300 mg PO HS 12/01/18 08/27/22 History capsule,extended release 24 hr (Effexor XR) bupropion HCl 100 mg tablet 100 mg PO HS 10/14/19 08/27/22 History calcium carbonate 600 mg-vitamin 2 cap PO HS 10/14/19 08/27/22 History D3 5 mcg (200 unit) capsule (Calcium 600 + D(3)) lisinopril 10 mg tablet 15 mg PO HS 10/14/19 08/27/22 History cyclosporine 0.05 % eye drops 1 drops ophthalmic (eye) TID 04/24/21 08/27/22 History (Restasis MultiDose) melatonin 5 mg capsule 5 mg PO HS 04/24/21 08/27/22 History polyethylene glycol 3350 17 gram 17 g PO HS 07/30/22 08/27/22 History oral powder packet (Miralax) ondansetron HCl 8 mg tablet 8 mg PO Q8H PRN Nausea 08/27/22 08/27/22 History Past Med/Surg History Medical History (Updated 08/27/22 @ 19:13 by Boris Whitley MD) Anxiety Carpal tunnel syndrome Right hand Chronic sinusitis Depression History of COVID- ?2021 mild cold symptoms; resolved History of poliomyelitis RLE affected, cannot bend R toes. Wears compression stocking on RLE. H/O cellulitis in this limb as well (remote ~ 6 yrs ago) Hyperlipidemia Hypertension Mass of omentum Peritoneal carcinomatosis per heme/onc records- Dr Muro Pulmonary nodules Sciatic leg pain Thyroid nodule Under surveillance Surgical History (Updated 08/19/22 @ 08:39 by Viry Rojas RN) H/O excision of mass (05/01/21) Excision of left thigh mass. Dr. Jaramillo 05/01/2021 History of anesthesia reaction WOKE UP IN MIDDLE OF COLONOSCOPY History of cataract surgery (2019) R/L History of colonoscopy History of eye surgery R/L LIDS History of mandibular surgery (1980) ORIF-FULL ROM History of shoulder surgery (1980) LEFT TEAR History of surgery (05/10/21) Exploration Left Inner Thigh for Post-Operative Seroma placement of Андрей drain(Left) - Mathew Menon MD, FACS 05/10/2021 History of surgery (05/22/21) Left Thigh Wound Exploration and VAC System Placement(Left) - Mathew Menon MD, FACS 05/22/2021 Hx of biopsy (06/06/22) Diagnostic Laparoscopy, Peritoneal Biopsy(Not Applicable) - Denis Diego, DO Port-A-Cath in place (08/01/22) Insertion of Access Port with Fluoroscopy(Left) - Denis Diego DO [employer] Port-A-Cath in place (08/19/22) Evaluate Access Port, Replacement Access Port with Fluoroscopy(Left) - Cyn Diego DO S/P knee replacement (~2019) LEFT Family History Father Coronary heart disease Heart disease Cancer Mother Coronary heart disease Other Leukemia Lupus (systemic lupus erythematosus) No family history of adverse response to anesthesia Social History Smoking Status: Never smoker Second Hand Exposure: No; Do You Dip or Chew Tobacco: No; Hx Alcohol Use: No Hx Substance Use: No Preferred Language: American Communication Ability: Effective Visual Impairment: No Limitations Hat Mender Required: No Beliefs That Will Affect Care: None marital status: / Current Living Situation: Family Current Living Situation Comment: son current occupational status: retired How many Children do You have: 3 Feels Safe at Home: Yes Diet: regular during the past year weight has: remained stable Assistive Devices: Glasses Review of Systems Review of Systems: All systems reviewed & are unremarkable except as noted in HPI & below Physical Exam Physical Exam: General: A&Ox3. NAD. Cooperative. HEENT: Atraumatic, normocephalic. Pulm: CTAB A&P. -wheezes, -rales, -rhonchi. Symmetrical chest rise. No increased work of breathing. No respiratory distress. Cardiac: RRR, -mrg. Radial pulses intact and symmetrical. Abdominal: Nontender, nondistended, soft. BS present. Ext: Results & Data Results & Data Vital Signs (Past 12 Hours) Vital Signs Temp Pulse Pulse Pulse Resp BP BP 08/27/22 18:12 77 08/27/22 16:54 76 18 08/27/22 15:38 80 18 08/27/22 14:16 72 18 106/86 08/27/22 13:02 36.3 C L 99 H 20 92/61 L BP Pulse Ox O2 Del Method 08/27/22 18:12 08/27/22 16:54 121/63 94 Room Air 08/27/22 15:38 124/69 97 Room Air 08/27/22 14:16 96 Room Air 08/27/22 13:02 96 Room Air PG Care Time/CCT Total # of Minutes Spent Total Time Spent with Patient: Total time spent is greater than 50% in coordination of care (as documented) at patient's floor/unit and/or counseling patient: Coding Level of Care Code 19111 INT INP/OBS CARE 3/75MIN Diagnoses Left upper extremity deep vein thrombosis I82.622 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
[2022-08-27] MEDS: HEPARIN SODIUM/DEXTROSE 25,000 UNITS/500 ML BAG IV SCH (18:42)
[2022-08-27] MEDS: PANTOprazole 40 MG in SYRINGE 0 ML IV SCH (20:04)
[2022-08-27 20:42] LABS: Partial Thromboplastin Ratio 0.8; Partial Thromboplastin Time 23.7 Seconds (21.0-31.0); Prothrombin Time 11.4 Seconds (9.0-12.0)
[2022-08-27] MEDS ORDERED: ARTIFICIAL TEARS OP PRN (21:00)
[2022-08-27] MEDS: POLYETHYLENE (MIRALAX) 17 GM PACK PO SCH (22:40)
[2022-08-27] MEDS: VENLAFAXINE HCL XR 150 MG CAPXR PO SCH (22:41)
[2022-08-27] MEDS: buPROPion HCl 100 MG TABLET PO SCH (22:41)
[2022-08-27] MEDS: MELATONIN 3 MG TAB PO SCH (22:41)
[2022-08-27] MEDS: lisinopril 5 MG TAB PO SCH (22:41)
[2022-08-27] MEDS: LORazepam 0.5 MG TAB PO SCH (22:44)
[2022-08-27] MEDS: Heparin IV Adult Wt-Based Standard *NO* Bolus Protocol IV SCH ×2 (23:03→23:04)
[2022-08-27] MEDS: Heparin IV Adult Wt-Based Low-Dose WITH Bolus Protocol IV SCH (23:31)
[2022-08-28 06:40] LABS: Basophils # (auto) 0.02 K/uL (0-0.2); Basophils % (auto) 0.5 %; Eosinophils # (auto) 0.15 K/uL (0-0.50); Eosinophils % (auto) 3.5 %; Hematocrit (blood only) 28.5 % (37.0-47.0); Hemoglobin 9.1 g/dl (12.0-16.0); Immature Granulocytes # (auto) 0.01 K/uL (0.01-0.20); Immature Granulocytes % (auto) 0.2 %; Lymphocytes % (auto) 42.2 %; Mean Corpuscular Hemoglobin 29.2 pg (25.0-34.0); Mean Corpuscular Hgb Conc 31.9 g/dL (32.0-36.0); Mean Corpuscular Volume 91.3 fL (80.0-100.0); Monocytes # (auto) 0.42 K/uL (0.11-0.59); Monocytes % (auto) 9.8 %; Neutrophils # (auto) 1.87 K/uL (1.40-6.50); Neutrophils % (auto) 43.8 %; Platelet Count 170 K/uL (130-400); RDW Coefficient of Variation 14.1 % (11.5-14.5); RDW Standard Deviation 46.6 fL (36.4-46.3); Red Blood Count 3.12 M/uL (4.20-5.40); White Blood Count 4.27 K/ul (4.8-10.8)
[2022-08-28 06:54] LABS: BUN Creatinine Ratio 24.7 (10-20); Calcium 7.8 mg/dl (8.6-10.3); Creatinine Clr Calc Pharmacy 38.4 ml/min; Est GFR (African American) 62.6 ml/min; Potassium 4.7 mmol/L (3.5-5.1)
[2022-08-28 07:21] LABS: Partial Thromboplastin Ratio 2.8
[2022-08-28 07:38] LABS: Partial Thromboplastin Time 77.8 Seconds (21.0-31.0)
--- NOTE | 2022-08-28 09:43 | Surgery Consultation ---
Date of Consultation August 28, 2022 Assessment & Plan (1) Left upper extremity deep vein thrombosis: There is no sign of infection and the port is functioning at least at last use. As long as it does not become infected or stop working is likely okay to leave it in place. I recommend low molecular weight heparin for at least 3 months and perhaps forever considering her risk factors. We will continue to follow along from the periphery but currently no definite indication for port removal. She is on appropriate anticoagulation at this time. History of Present Illness Attending Physician: Boris Whitley MD History of Present Illness 82-year-old female well-known to me. 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 Originally I placed a left subclavian access port. This was complicated by a kink in the port which I had to replace. She has had a treatment without difficulty since then. She was admitted with generalized fatigue that they suspect is stemming from the chemotherapy but she also was found to have upper extremity DVT incorporating the subclavian and axillary veins. She does have some left arm swelling although she states that is not painful Allergies Allergy/AdvReac Type Severity Reaction Status Date / Time atorvastatin [From Lipitor] AdvReac Mild MUSCLE Verified 08/19/22 05:50 ISSUES ezetimibe [From Vytorin] AdvReac Mild MUSCLE Verified 08/19/22 05:50 ISSUES fluvastatin AdvReac Mild Muscle Verified 08/19/22 05:50 Issues- legs pravastatin [From Pravachol] AdvReac Mild MUSCLE Verified 08/19/22 05:50 ISSUES simvastatin [From Vytorin] AdvReac Mild Dizziness Verified 08/19/22 05:50 Home Medications Medication Instructions Recorded Confirmed Type lorazepam 1 mg tablet 0.5 mg PO HS 11/12/18 08/27/22 History venlafaxine 150 mg 300 mg PO HS 12/01/18 08/27/22 History capsule,extended release 24 hr (Effexor XR) bupropion HCl 100 mg tablet 100 mg PO HS 10/14/19 08/27/22 History calcium carbonate 600 mg-vitamin 2 cap PO HS 10/14/19 08/27/22 History D3 5 mcg (200 unit) capsule (Calcium 600 + D(3)) lisinopril 10 mg tablet 15 mg PO HS 10/14/19 08/27/22 History cyclosporine 0.05 % eye drops 1 drops ophthalmic (eye) TID 04/24/21 08/27/22 History (Restasis MultiDose) melatonin 5 mg capsule 5 mg PO HS 04/24/21 08/27/22 History polyethylene glycol 3350 17 gram 17 g PO HS 07/30/22 08/27/22 History oral powder packet (Miralax) ondansetron HCl 8 mg tablet 8 mg PO Q8H PRN Nausea 08/27/22 08/27/22 History Patient History Medical History Anxiety Carpal tunnel syndrome Right hand Chronic sinusitis Depression History of COVID-19 ?2021 mild cold symptoms; resolved History of poliomyelitis RLE affected, cannot bend R toes. Wears compression stocking on RLE. H/O cellulitis in this limb as well (remote ~ 6 yrs ago) Hyperlipidemia Hypertension Mass of omentum Peritoneal carcinomatosis per heme/onc records- Dr Muro Pulmonary nodules Sciatic leg pain Thyroid nodule Under surveillance Surgical History (Updated 08/19/22 @ 08:39 by Viry Rojas RN) H/O excision of mass (05/01/21) Excision of left thigh mass. Dr. Jaramillo 05/01/2021 History of anesthesia reaction WOKE UP IN MIDDLE OF COLONOSCOPY History of cataract surgery (2019) R/L History of colonoscopy History of eye surgery R/L LIDS History of mandibular surgery (1980) ORIF-FULL ROM History of shoulder surgery (1980) LEFT TEAR History of surgery (05/10/21) Exploration Left Inner Thigh for Post-Operative Seroma placement of Андрей drain(Left) - Mathew Menon MD, FACS 05/10/2021 History of surgery (05/22/21) Left Thigh Wound Exploration and VAC System Placement(Left) - Mathew Menon MD, FACS 05/22/2021 Hx of biopsy (06/06/22) Diagnostic Laparoscopy, Peritoneal Biopsy(Not Applicable) - Denis Diego, DO Port-A-Cath in place (08/01/22) Insertion of Access Port with Fluoroscopy(Left) - Denis Diego, DO [employer] Port-A-Cath in place (08/19/22) Evaluate Access Port, Replacement Access Port with Fluoroscopy(Left) - Denis Diego, S/P knee replacement (~2019) LEFT Family History Father Coronary heart disease Heart disease Cancer Mother Coronary heart disease Other Leukemia Lupus (systemic lupus erythematosus) No family history of adverse response to anesthesia Social History Smoking Status: Never smoker Second Hand Exposure: No; Do You Dip or Chew Tobacco: No; Hx Alcohol Use: No Hx Substance Use: No Preferred Language: Georgian Communication Ability: Effective Visual Impairment: No Limitations Licensed Social Worker Required: No Beliefs That Will Affect Care: None marital status: / Current Living Situation: Family Current Living Situation Comment: son current occupational status: retired How many Children do You have: 3 Feels Safe at Home: Yes Safety Concerns: Feels Safe At This Time Diet: regular during the past year weight has: remained stable Assistive Devices: Glasses Review of Systems Review of Systems: All systems reviewed & are unremarkable except as noted in HPI & below Physical Exam Constitutional: WD/WN, vitals as above no acute distress and not ill appearing Eyes: PERRL, conjunctivae normal, anicteric sclerae EOM intact bilaterally ENMT: external ear and nose normal, oropharynx normal Ears: no hearing impairment Neck: trachea midline, no thyromegaly Respiratory: normal respiratory effort; no respiratory distress and does not use accessory muscles Cardiovascular: Rate/Rhythm: regular rate and regular rhythm Gastrointestinal (Abdomen): normal bowel sounds, soft, nontender, no hepatosplenomegaly Skin: no rashes, warm and dry Psychiatric: Orientation: alert, oriented x 3 and cooperative Lymphatic: Left upper extremity swelling. Normal range of motion. The left subclavian access port is in place. There is no sign of infection Results & Data Vital Signs (Past 12 Hours) Vital Signs Temp Pulse Pulse Pulse Resp BP Pulse Ox 08/28/22 07:43 36.5 C 76 16 130/75 95 08/28/22 03:16 36.3 C L 78 18 106/66 93 08/27/22 22:00 82 08/28/22 02:19 77 08/27/22 23:45 36.6 C 71 18 124/71 95 08/27/22 22:59 36.6 C 71 18 124/71 95 O2 Del Method 08/28/22 07:43 Room Air 08/28/22 03:16 Room Air 08/27/22 22:00 08/28/22 02:19 08/27/22 23:45 Room Air 08/27/22 22:59 Room Air PG Care Time/CCT Total # of Minutes Spent Total Time Spent with Patient: Total time spent is greater than 50% in coordination of care (as documented) at patient's floor/unit and/or counseling patient: Coding Level of Care Code 37671 INT INP/OBS CARE 2/55MIN Diagnoses Left upper extremity deep vein thrombosis I82.622
--- NOTE | 2022-08-28 11:53 | Hospitalist Progress Note ---
Date of Service August 28, 2022 Assessment & Plan (1) Left upper extremity deep vein thrombosis: Plan: Left upper extremity extensive DVT With left arm swelling and edema Sensation/strength grossly intact without evidence of compromise Limb restricted left arm In the setting of port placement with revision in the last week and active malignancy Started on heparin gtt. No shortness of breath, pleuritic pain,, or tachycardia to suggest PE Continue heparin GTT Continue PPI for gastric prophylaxis Surgery consulted. Per evidence-based review was functioning at last use, per Lit review okay to leave in place and may treat thrombosis with low molecular weight heparin on d.c. Minimum 3 months of anticoagulation, but likely lifelong given risk factors and cancer Neck lump, acute decrease in hemoglobin Hemoglobin decreased from 11-9 while on heparin GTT, patient has had increased left upper extremity swelling and a firm lump of the left neck near the clavicle. Given increase in swelling of the arm and lump at neck, and two-point drop in hemoglobin will obtain CTchest with contrast to evaluate for hematoma formation. Hemodynamically stable at bedside Weakness Suspect 2/2 chemotherapy - UA is uninfected appearing, CXR without evidence of infection, TSH is normal, she has no leukocytosis. -Improved, patient feels back to baseline / from a energy and strength respect Adenocarcinoma, suspect [place] versus appendiceal primary On third round of chemo due to start this coming Friday, has completed 2 rounds of FOLFOX chemotherapy (per report, pending confirmation from [facility] record s) No acute change in management at this time, patient is anticoagulated for DVT Hypertension Continue home antihypertensive Anxiety/depression Continue melatonin, lorazepam at bedtime home dosing, bupropion, venlafaxine DVT prophylaxis: Heparinized Diet: Regular Disposition, medical tele given acute extensive clot burden CODE: DNR/DNI (2) Neoplasm of uncertain behavior of appendix: (3) Pulmonary nodules: Admission and Anticipated Discharge Date Admission Date: August 27, 2022 Jimi Mccain is seen at the bedside this morning. She reports that she actually feels "great "and way better than when she came in yesterday. She notes that her weakness and fatigue are greatly improved, and feels much better this morning and that her energy is also improved. She does however note that she has had greatly increased swelling in her left upper arm and increased firmness above her left clavicle. He denies any bleeding including bloody bowel movements, black bowel movements, nosebleeds. She does not have any abdominal pain Review of Systems Review of Systems: All systems reviewed & are unremarkable except as noted in Subjective Physical Exam Physical Exam: General: A&Ox3. NAD. Cooperative. HEENT: Atraumatic, normocephalic. Vision/hearing intact Pulm: CSymmetrical chest rise. No increased work of breathing. No respiratory distress. Cardiac: RRR, +sm. Radial pulses intact and symmetrical. Thorax: Left upper extremity with port in place, surgical site healing without erythema/discharge or tenderness. Patient does have a firm nontender lump above her left clavicle. Left arm is with pitting edema throughout the extremity, increased from admitting exam. Finger flexion/extension and sensation of soft touch is intact bilaterally without asymmetry Results & Data Results & Data Vital Signs (Past 12 Hours) Vital Signs Temp Pulse Pulse Resp BP Pulse Ox O2 Del Method 08/28/22 07:00 113 H 08/28/22 11:12 36.6 C 76 16 106/61 97 Room Air 08/28/22 07:43 36.5 C 76 16 130/75 95 Room Air 08/28/22 03:16 36.3 C L 78 18 106/66 93 Room Air 08/28/22 02:19 77 PG Care Time/CCT Total # of Minutes Spent Total Time Spent with Patient: Total time spent is greater than 50% in coordination of care (as documented) at patient's floor/unit and/or counseling patient: Coding Diagnoses Left upper extremity deep vein thrombosis I82.622 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
[2022-08-28] MEDS: PANTOprazole 40 MG in SYRINGE 0 ML IV SCH (12:24)
[2022-08-28] MEDS: CALCIUM CARBONATE 1250MG TAB PO SCH ×2 (12:25→15:35)
[2022-08-28] MEDS ORDERED: OPTIRAY 320 125ml IV ONE (13:18)
--- NOTE | 2022-08-28 13:56 | CT Scan Report ---
CT chest diagnostic w con CLINICAL HISTORY: ?hematoma TECHNIQUE: Multidetector row helical CT of the chest was performed with intravenous contrast. Coronal and sagittal reformations were obtained. Automated dose lowering techniques and/or adjustment accord ing to patient size were utilized for this exam. CT DOSE: 500.84 mGy.cm Comparison: Comparison is made to CT chest 07/07/2022 FINDINGS: Lungs and pleura: Scattered calcified granulomata are seen. Bilateral atelectasis is seen. Heart and pericardium: Heart size is normal. No pericardial effusion. Vessels: Moderate atherosclerotic changes in the aorta and coronary arteries. Mediastinum and nisha: Unremarkable. Chest wall and lower neck: Small thyroid nodules are noted which do not require follow-up by ACR jose lay. A left portacatheter is seen. There is soft tissue stranding, skin thickening, and subcentimete r lymph nodes in the left axilla. Abdomen: Unremarkable. Bones: Degenerative changes in the thoracic spine. IMPRESSION: No evidence of hematoma. Soft tissue stranding and skin thickening is seen in the left upper extremit y in this patient with known DVT. ACT 112: Negative or not required by law. Electronically signed by: Bj Muñoz M.D. 08/28/2022 1:55 PM
[2022-08-28 16:48] LABS: Partial Thromboplastin Ratio 2.8
[2022-08-28 16:58] LABS: Partial Thromboplastin Time 79.9 Seconds (21.0-31.0)
[2022-08-28] MEDS: VENLAFAXINE HCL XR 150 MG CAPXR PO SCH (22:27)
[2022-08-28] MEDS: MELATONIN 3 MG TAB PO SCH (22:27)
[2022-08-28] MEDS: buPROPion HCl 100 MG TABLET PO SCH (22:27)
[2022-08-28] MEDS: lisinopril 5 MG TAB PO SCH (22:27)
[2022-08-28] MEDS: LORazepam 0.5 MG TAB PO SCH (22:27)
[2022-08-28] MEDS: POLYETHYLENE (MIRALAX) 17 GM PACK PO SCH (22:28)
[2022-08-28] MEDS: HEPARIN SODIUM/DEXTROSE 25,000 UNITS/500 ML BAG IV SCH (22:28)
[2022-08-29 00:47] LABS: Partial Thromboplastin Ratio 4.8
[2022-08-29 00:52] LABS: Partial Thromboplastin Time 134.5 Seconds (21.0-31.0)
[2022-08-29] MEDS: CALCIUM CARBONATE 1250MG TAB PO SCH (08:48)
[2022-08-29 09:33] LABS: Basophils # (auto) 0.04 K/uL (0-0.2); Basophils % (auto) 0.7 %; Eosinophils # (auto) 0.16 K/uL (0-0.50); Eosinophils % (auto) 2.8 %; Hematocrit (blood only) 29.6 % (37.0-47.0); Hemoglobin 9.7 g/dl (12.0-16.0); Immature Granulocytes # (auto) 0.02 K/uL (0.01-0.20); Immature Granulocytes % (auto) 0.4 %; Lymphocytes # (auto) 1.34 K/uL (1.2-3.4); Lymphocytes % (auto) 23.8 %; Mean Corpuscular Hemoglobin 29.6 pg (25.0-34.0); Mean Corpuscular Hgb Conc 32.8 g/dL (32.0-36.0); Mean Corpuscular Volume 90.2 fL (80.0-100.0); Mean Platelet Volume 8.9 fL (9.4-12.4); Monocytes # (auto) 0.33 K/uL (0.11-0.59); Monocytes % (auto) 5.9 %; Neutrophils # (auto) 3.73 K/uL (1.40-6.50); Neutrophils % (auto) 66.4 %; Platelet Count 207 K/uL (130-400); RDW Coefficient of Variation 14.2 % (11.5-14.5); RDW Standard Deviation 46.3 fL (36.4-46.3); Red Blood Count 3.28 M/uL (4.20-5.40); White Blood Count 5.62 K/ul (4.8-10.8)
[2022-08-29 09:51] LABS: Calcium 8.7 mg/dl (8.6-10.3); Est GFR (African American) 53.8 ml/min; Est GFR (Non-African American) 46.4 ml/min; Potassium 4.4 mmol/L (3.5-5.1)
[2022-08-29 10:16] LABS: Partial Thromboplastin Ratio 3.3
[2022-08-29] MEDS: PANTOprazole 40 MG in SYRINGE 0 ML IV SCH (13:24)
--- NOTE | 2022-08-29 14:27 | Discharge Summary ---
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 She has had nausea without vomiting, weakness, decreased appetite. No fever/chills/sweats. Left arm swelling x2 days, was noted to have a malfunctioning access port on 08/19/2022 which was replaced. She reports she has felt more tired after 2nd round of chemo with 3rd due friday. Did very well first week, then felt more tired and washed out with poor appetite after the second round and much more tired. Her L arm swelling is what actually brought her in to the ER however. L port didn't flush right with first round of chemo, did work OK after replacement and with second round of chemo. No chest pain, chest pressure No shortness of breath, inspiratory pain, cough, sputum production +Fatigue. No fevers, chills, sweats Feels run down 'like the flu but withotu cough or fever' no diarrhea, did have thi sthe first time after chemo but not this past week No abdominal pain at time of admission. +flatus No history of blood clots No history of bleeding Has had reflux in the past and chemo seems to worsen this, no melena/hematochezia Medical History: Reviewed Medications: Reviewed Surgical History: Reviewed Family history: Reviewed Allergies: Reviewed Social History: Reviewed Code Status: Full Code CXR: No acute finding Principal Diagnosis DVT, port associated in the setting of cancer Discharge Exam General: A&Ox3. NAD. Cooperative. HEENT: Normocephalic. Left clavicular lump/firmness present unchanged. Thorax: Port is present on left chest, no swelling/erythema/tenderness/purulence/ Pulm: CTAB A&P. -wheezes, -rales, -rhonchi. Symmetrical chest rise. No increased work of breathing. No respiratory distress. Cardiac: RRR, -mrg. Radial pulses intact and symmetrical. Abdominal: Nontender, nondistended, soft. BS present. Extremities: Left upper extremity remains with pitting edema diffusely. 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 and symmetrical bilaterally although somewhat limited by edema on the left Discharge Data Allergies Allergy/AdvReac Type Severity Reaction Status Date / Time atorvastatin [From Lipitor] AdvReac Mild MUSCLE Verified 08/19/22 05:50 ISSUES ezetimibe [From Vytorin] AdvReac Mild MUSCLE Verified 08/19/22 05:50 ISSUES fluvastatin AdvReac Mild Muscle Verified 08/19/22 05:50 Issues- legs pravastatin [From Pravachol] AdvReac Mild MUSCLE Verified 08/19/22 05:50 ISSUES simvastatin [From Vytorin] AdvReac Mild Dizziness Verified 08/19/22 05:50 Consultations 08/27/22 18:05 ED Decision to Admit Stat 08/27/22 20:51 Consult General Surgery Routine Ordered Studies 08/27/22 13:50 US venous doppler UE LT Stat 08/28/22 11:46 CT chest diagnostic w con Urgent Hospital Course (1) Left upper extremity deep vein thrombosis: Kalyn is an 82-year-old female who presents to the emergency department after her second round of chemotherapy with fatigue and left arm swelling. Her fatigue was greatly improved following fluids and was thought to be due to dehydration chemotherapy; her left arm swelling was found to be due to a extensive left upper extremity DVT requiring ongoing anticoagulation. Port removal was not recommended as noted below. To do as outpatient: 1. Continue indefinite anticoagulation. Patient was discharged on Eliquis, 10 mg twice daily for 1 week and then normal maintenance 5 mg twice daily dosing 2. Follow-up with hematology oncology for port reassessment and continued chemotherapy 3. No indication for surgical removal of her port at this time, if additional concerns develop may follow-up as outpatient. 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 A cephalic vein thrombus is also seen which appears occlusive. Tolerating heparin well although two-point hemoglobin drop concerning for potential bleed, partially explained by reconstitution and fluids but patient has had no clinical bleeding, but does have a firm area of swelling overlying her left clavicle CTchest with contrast ordered to evaluate for hematoma. No hematoma noted during admission Was converted from heparin to Eliquis for long-term management. Hemoglobin stable and no clinical signs of Discussed with surgery, per literature review does not require catheter removal at this time. May be able to be used/functional. Hematology oncology aware; chemotherapy anticipated for 09/02 will be delayed, near rescheduled date --> perform a port study to evaluate for patency. No signs of overlying infection. 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 Suspect fatigue and dehydration secondary to her second round of chemotherapy Clinically patient feels at her normal baseline of strength at time of discharge and is comfortable with discharge and follow-up to her oncologist and primary care physician Very slightly hyponatremic on discharge, creatinine was normal, clinically euvolemic other than her left upper extremity which continued with significant edema due to DVT as (3) Pulmonary nodules: Total Time Total Time Spent Total Time Spent (In Minutes): Time spend day of discharge 60 minutes including direct patient care, documentation, review of labs and images, and coordination of care. Discharge Plan Discharge Items Patient Disposition: Home - Self-Care Reason For Visit: ACUTE EXTENSIVE UE DVT Discharge Diagnosis: Port associated thrombus, left arm Condition on Discharge: Fair Activity: Resume your previous activity Non-emergency contact: Primary Care Provider Call non-emergency contact if: you have any medication questions, your symptoms worsen and your pain is not controlled Follow-up/Referrals: Rafia Law CRNP [Primary Care Provider] - 08/30/22 7:45 am (THIS APPOINTMENT WILL BE WITH DR CARRASQUILLO AT THE [facility]) Diet: Regular Addtl Attending Provider Instructions: You are seen in the hospital for left arm swelling and fatigue. Your fatigue rapidly improved with fluids; you were noted on evaluation of your left arm to have a significant deep vein thrombosis associated with the blood vessels near your port. Surgery was consulted and port removal was not recommended. You will require ongoing anticoagulation, likely lifelong. You tolerated a IV blood thinner called heparin well. You have been converted to a blood thinning pill called Eliquis. Please take Eliquis 10 mg twice daily (morning and night) starting the morning of 08/30 for 1 week (until 09/06/2022). After that take Eliquis 5 mg twice daily by mouth indefinitely. Eliquis is a blood thinner. While on a blood thinner you will bleed more easily. For a small cut please apply firm direct pressure for 10 minutes without checking the wound. For any moderate or larger cut, bleeding does not stop, or bloody bowel movements/severe nosebleeds please seek immediate medical attention. You have been prescribed a antiacid medication to help protect your stomach called protonix. Please take protonix 40mg once daily. Your case was reviewed with your oncologist. Your chemotherapy scheduled for Friday is being delayed, but it is likely that your port will still be able to be used. You will have a port study to check for its patency arranged by your oncologist closer to your rescheduled infusion time and this will be discussed with you at your oncology follow-up If you develop any new or worsening symptoms including fever, chills, sweats, chest pain, chest pressure, difficulty breathing, uncontrolled nausea/vomiting, rash, wheezing, passing out or nearly passing out, bleeding, black/bloody bowel movements, or other new or concerning symptoms please call your primary care physician, or call 911 for re-evaluation in the emergency department if you are very concerned. Pending Studies at Discharge: No Stand-Alone Forms: My [facility] My [employer], Smoking Cessation Medications and DC Order Prescriptions: New Eliquis 5 mg (74 tabs) tablets,dose pack 5 mg PO BID Qty: 74 0RF Rx Instructions: 10mg twice daily 08/30-09/06, then 5mg twice daily thereafter pantoprazole [Protonix] 40 mg tablet,delayed release (DR/EC) 40 mg PO DAILY 28 Days Qty: 28 0RF Continued lorazepam 1 mg tablet 0.5 mg PO HS venlafaxine [Effexor XR] 150 mg capsule,extended release 24hr 300 mg PO HS Calcium 600 + D(3) 600 mg calcium- 200 unit Capsule 2 cap PO HS bupropion HCl 100 mg tablet 100 mg PO HS lisinopril 10 mg Tablet 15 mg PO HS ondansetron HCl 8 mg tablet 8 mg PO Q8H PRN (Reason: Nausea) Restasis MultiDose 0.05 % drops 1 drops OP TID melatonin 5 mg Capsule 5 mg PO HS polyethylene glycol 3350 [Miralax] 17 gram Powder In Packet 17 g PO HS Discharge Orders: Discharge Order (Routine); Ordered 08/29/22 Ordered By: Boris Whitley Admission Data Admit Date/Time: 08/27/22 19:16 Attending Provider: Boris Whitley Admit Provider: Boris Whitley Primary Care Provider: Rafia Law Other Providers: Boris Whitley ; Denis Diego Coding Level of Care Code 98937 INP/OBS DISCH >30 MIN Diagnoses Left upper extremity deep vein thrombosis I82.622 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
--- NOTE | 2022-08-29 14:36 | Hospitalist Progress Note ---
Date of Service August 28, 2022 Assessment & Plan (1) Left upper extremity deep vein thrombosis: Plan: *08/28 original progress note inadvertently deleted, unable to be recovered by HIM. 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 No hematoma noted. We will continue heparin, convert to Eliquis for long-term management Discussed with surgery, per literature review does not require catheter removal at this time. May be able to be used/functional. Chemotherapy anticipated for next week will be delayed, near rescheduling rate can perform a port study to evaluate for patency. No signs of overlying infection. 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 Suspect fatigue and dehydration secondary to her second round of chemotherapy (3) Pulmonary nodules: Admission and Anticipated Discharge Date Admission Date: August 27, 2022 Subjective Prior note inadvertently canceled, unable to be recovered/signed. Note rewritten and backdated 08/28 Kalyn was doing well at the bedside. She is tolerating heparin drip initiation with no symptoms of bleeding. She did however have a hemoglobin drop and had continued swelling at her left clavicle without fluctuance. She had not had any lightheadedness/dizziness/chest pain/chest pressure/shortness of breath. She reported that she actually felt greatly improved compared to the day before, and much more normal for her after fluids. No bloody bowel Review of Systems Review of Systems: All systems reviewed & are unremarkable except as noted in Subjective Physical Exam Physical Exam: General: A&Ox3. NAD. Cooperative. HEENT: Atraumatic, normocephalic. Left port present without overlying tenderness/fluctuance/discharge. Left clavicular mass was notable, unchanged. No hematoma noted. Pulm: CTAB A&P. -wheezes, -rales, -rhonchi. Symmetrical chest rise. No increased work of breathing. No respiratory distress. Cardiac: RRR, -mrg. Radial pulses intact and symmetrical. Abdominal: Nontender, nondistended, soft. BS present. Extremities: Left arm with increased edema, neurovascularly intact. Radial pulse intact. Symmetrical sensation to soft touch in hands Results & Data Results & Data Vital Signs (Past 12 Hours) Vital Signs Temp Pulse Pulse Resp BP Pulse Ox O2 Del Method 08/29/22 11:46 36.6 C 77 16 125/68 96 Room Air 08/29/22 08:15 36.4 C L 94 H 16 142/71 H 94 Room Air 08/29/22 07:32 80 08/29/22 03:17 36.7 C 79 18 144/61 H 97 Room Air PG Care Time/CCT Total # of Minutes Spent Total Time Spent with Patient: Total time spent is greater than 50% in coordination of care (as documented) at patient's floor/unit and/or counseling patient: Coding Level of Care Code 28445 SUB INP/OBS CARE 3/50MIN Diagnoses Left upper extremity deep vein thrombosis I82.622 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
[2022-08-29 16:02] LABS: Partial Thromboplastin Ratio 0.9; Partial Thromboplastin Time 26.2 Seconds (21.0-31.0)
[2022-08-29] MEDS ORDERED: APIXABAN 5 MG TABLET PO SCH (17:00)
== END 2022-08-29 18:40 | disposition home or self-care (01) | DRG 315 ==
LOC: ED 12:59 → 2W 19:16

== ENCOUNTER 2023-10-14 22:34 | Observation (INO) ==
--- NOTE | 2023-10-14 23:50 | Emergency Department Note ---
Impression & Plan Abdominal pain, acute, left upper quadrant, Peritoneal carcinomatosis ED Provider Note NAME: JESSICA NAQVI AGE: 83 SEX: F : 1940 ARRIVES VIA: Walk-In INFORMANT: Patient, ED PROVIDER(S): Tushar Arambula DO CHIEF COMPLAINT: Abdominal pain HPI: The patient is an 83-year-old female who presented to the emergency department for an evaluation of abdominal pain. The patient describes upper abdominal pain left greater than right that began over the course the last week or so. The patient was seen at the cancer center. She has a history of intra- abdominal cancer with metastatic disease. She was seen today and had a CAT scan as an outpatient. It showed progression of her metastatic disease. The patient was started on oxycodone but she returns to our emergency department today because her pain is worsening and not controlled well. She denies having any black or tarry stools. She denies having any fever. She denies having any vomiting or tarry stools. ROS: See above HPI for pertinent positives & negatives. A total of 10 systems reviewed and were otherwise negative. PAST MEDICAL HISTORY: See Below PAST SURGICAL HISTORY: See Below FAMILY HISTORY: See Below SOCIAL HISTORY: See Below HOME MEDICATIONS: See Below ALLERGIES: See Below VITALS: See Below PHYSICAL EXAMINATION: GENERAL: The patient is awake and alert. She is very anxious and appears to be uncomfortable. EYES: The conjunctivae are clear. The pupils are round and reactive. EARS, NOSE, MOUTH AND THROAT: The nose is without any evidence of any deformity. NECK: The neck is nontender and supple. RESPIRATORY: Normal respiratory effort is noted there is no evidence of wheezing rhonchi or rales CARDIOVASCULAR: Regular rate and rhythm noted there no murmurs rubs or gallops normal S1 normal S2. GASTROINTESTINAL: The abdomen is distended and diffusely tender. There is specific tenderness in the left upper quadrant. MUSCULOSKELETAL/EXTREMITIES: There is no evidence of gross deformity full range of motion is noted in the hips and shoulders. SKIN: There is no obvious evidence of any rash. Chronic venous stasis changes were noted in both legs. NEUROLOGIC: Patient is awake alert and oriented x3 MEDICAL DECISION MAKING: The patient is an 83-year-old female who presented to the emergency department for an evaluation of abdominal pain. The patient had significant left upper quadrant abdominal pain. 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 The patient was having worsening symptoms especially over the course the last several days. She was seen in the emergency department earlier today. CT was ordered and the patient had it done today. It does show progression of her disease. The patient was started on a course of pain medication but it was not doing enough for her pain so she presented to the emergency department. The patient was treated with pain medication in the emergency department. I discussed patient's laboratory results with her. I also reviewed the patient's outpatient CT of the abdomen and pelvis. I do not feel the patient will receive significant pain relief while in the emergency department and also she likely needs to be started on a longer acting pain medication at home. For this reason I discussed her condition with the on-call [facility] hospitalist. Triage Nursing notes reviewed. Prior medical records reviewed Vital Signs: reviewed and remarkable for elevated blood pressure. Differential diagnosis: Etiologies such as appendicitis, diverticulitis, obstruction, inflammatory bowel disease, renal colic, PUD, biliary pathology, pancreatitis, mesenteric ischemia, aortic pathology, infections, genitourinary, UTI, perforated viscus, as well as others were entertained. ER treatment provided: See below Diagnostics interpreted by me: ECG: none Cardiac Monitoring: An order was placed for continuous cardiac monitoring. The monitor shows a rate of 92 bpm with sinus rhythm. Laboratory studies: As stated above and show below. Imaging studies: See below. Consultation(s): I discussed this case with Dr. Sweet [facility] Past Med/Surg History Problem List Peritoneal carcinomatosis (Acute) Abdominal pain, acute, left upper quadrant (Acute) Dehydration (Acute) Abdominal pain (Acute) Peritoneal carcinomatosis (Acute) Perineal abscess, superficial Left upper extremity deep vein thrombosis Anxiety (Chronic) Torn rotator cuff (Chronic) Acquired deviated nasal septum (Chronic) Dyslipidemia Encounter for pre-operative examination Left knee DJD Obesity Status post total left knee replacement using cement Osteoarthritis Routine health maintenance Subcutaneous mass Arthritis Anemia Seroma after procedure Vaginal prolapse Encounter for pessary maintenance Screening for colon cancer 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 Wears compression stocking on RLE. H/O cellulitis in this limb as well (remote ~ 6 yrs ago) Mass of omentum Peritoneal carcinomatosis per heme/onc records- Dr Muro Hx of biopsy (06/06/22) Diagnostic Laparoscopy, Peritoneal Biopsy(Not Applicable) - Denis Diego DO Medical History Peritoneal carcinomatosis Sciatic leg pain Depression Hyperlipidemia History of COVID-19 ?2021 mild cold symptoms; resolved Carpal tunnel syndrome Right hand Thyroid nodule Under surveillance Anxiety Hypertension Surgical History Port-A-Cath in place (08/19/22) Evaluate Access Port, Replacement Access Port with Fluoroscopy(Left) - Denis Diego DO Port-A-Cath in place (08/01/22) Insertion of Access Port with Fluoroscopy(Left) - Denis Diego DO [place] History of surgery (05/22/21) Left Thigh Wound Exploration and VAC System Placement(Left) - Mathew Menon MD, FACS 05/22/2021 History of surgery (05/10/21) Exploration Left Inner Thigh for Post-Operative Seroma placement of Андрей drain(Left) - Mathew Menon MD, FACS 05/10/2021 H/O excision of mass (05/01/21) Excision of left thigh mass. Dr. Jaramillo 05/01/2021 History of anesthesia reaction WOKE UP IN MIDDLE OF COLONOSCOPY S/P knee replacement (~2019) LEFT History of cataract surgery (2019) R/L History of colonoscopy History of eye surgery R/L LIDS History of shoulder surgery (1980) LEFT TEAR History of mandibular surgery (1980) ORIF-FULL ROM Family History Father Coronary heart disease Heart disease Cancer Mother Coronary heart disease Other Leukemia Lupus (systemic lupus erythematosus) No family history of adverse response to anesthesia Social History Smoking Status: Never smoker Second Hand Exposure: No; Do You Dip or Chew Tobacco: No; Hx Alcohol Use: No Hx Substance Use: No Preferred Language: Ukrainian Communication Ability: Effective Visual Impairment: No Limitations Advertisement Compositor Required: No Beliefs That Will Affect Care: None marital status: / Current Living Situation: Family Current Living Situation Comment: son current occupational status: retired How many Children do You have: 3 Feels Safe at Home: Yes Diet: regular during the past year weight has: remained stable Assistive Devices: None Allergies Allergies Allergy/AdvReac Type Severity Reaction Status Date / Time atorvastatin [From Lipitor] AdvReac Mild MUSCLE Verified 09/24/23 14:08 ISSUES ezetimibe [From Vytorin] AdvReac Mild MUSCLE Verified 09/24/23 14:08 ISSUES fluvastatin AdvReac Mild Muscle Verified 09/24/23 14:08 Issues- legs pravastatin [From Pravachol] AdvReac Mild MUSCLE Verified 09/24/23 14:08 ISSUES simvastatin [From Vytorin] AdvReac Mild Dizziness Verified 09/24/23 14:08 Home Meds Home Medications Medication Instructions Recorded Confirmed venlafaxine 150 mg 300 mg PO QAM 12/01/18 10/15/23 capsule,extended release 24 hr (Effexor XR) bupropion HCl 100 mg tablet 100 mg PO HS 10/14/19 10/15/23 calcium carbonate 600 mg-vitamin 2 cap PO HS 10/14/19 10/15/23 D3 5 mcg (200 unit) capsule (Calcium 600 + D(3)) lisinopril 10 mg tablet 15 mg PO HS 10/14/19 10/15/23 cyclosporine 0.05 % eye drops 0 drops ophthalmic (eye) TID 04/24/21 10/15/23 (Restasis MultiDose) melatonin 5 mg capsule 5 mg PO HS 04/24/21 10/15/23 polyethylene glycol 3350 17 gram 17 g PO HS 07/30/22 10/15/23 oral powder packet (Miralax) ondansetron HCl 8 mg tablet 8 mg PO Q8H PRN Nausea 08/27/22 10/15/23 amoxicillin 500 mg capsule 2,000 mg PO ONCE PRN 1 hr prior to 12/19/22 10/15/23 appointment lorazepam 0.5 mg tablet 0.25 mg PO DAILY PRN severe anxiety 12/19/22 10/15/23 pantoprazole 40 mg tablet,delayed 40 mg PO DAILYBB 12/19/22 10/15/23 release sodium di- and 0 tab PO BID 10/14/23 10/15/23 monophosphate-potassium phos monobasic 250 mg tablet (Phospha Neutral) Previous Rx's Medication Instructions Recorded apixaban 5 mg (74 tabs) tablets in 5 mg PO BID #74 ea 08/29/22 a dose pack (Eliquis) oxycodone 5 mg tablet 2.5 mg (1/2 x 5 mg) PO Q4H PRN 10/14/23 pain #14 tabs Results & Data (ED) Vital Signs Vital Signs - 24 hr 10/14/23 22:36 10/14/23 23:15 10/15/23 00:00 Temperature 36.6 C Temperature Source Oral Pulse Rate 86 Pulse Rate [Finger] 92 H Respiratory Rate 18 18 Respiratory Effort / Characteristics Non-Labored Spontaneous Non-Labored Spontaneous Respiratory Depth Normal Normal Respiratory Pattern Regular Blood Pressure 119/64 Blood Pressure [Right Arm] 149/66 H Blood Pressure Mean 82 Blood Pressure Mean [Right Arm] 93 Pulse Oximetry 98 94 95 Oxygen Delivery Method Room Air Room Air Sepsis Recent Fever Within 48 Hours No Sepsis New/Unexplained Change in Mental Status N/A Sepsis Action Taken by Nursing No Action Required 10/15/23 01:40 Temperature Temperature Source Pulse Rate Pulse Rate [Finger] 90 Respiratory Rate Respiratory Effort / Characteristics Respiratory Depth Respiratory Pattern Blood Pressure Blood Pressure [Right Arm] 119/56 L Blood Pressure Mean Blood Pressure Mean [Right Arm] 77 Pulse Oximetry 95 Oxygen Delivery Method Room Air Sepsis Recent Fever Within 48 Hours Sepsis New/Unexplained Change in Mental Status Sepsis Action Taken by [facility] Medications Current Medication List: was personally reviewed by me Laboratory Data Attestation: I reviewed the patient's lab results. 10/15/23 00:14 10/15/23 00:14 Lab Results 10/15/23 10/15/23 Range/Units 00:14 01:55 WBC 18.62 H (4.8-10.8) K/ul RBC 3.16 L (4.20-5.40) M/uL Hgb 9.9 L (12.0-16.0) g/dl Hct 31.6 L (37.0-47.0) % MCV 100.0 (80.0-100.0) fL MCH 31.3 (25.0-34.0) pg MCHC 31.3 L (32.0-36.0) g/dL RDW Std Deviation 53.6 H (36.4-46.3) fL RDW Coeff of Leslee 14.6 H (11.5-14.5) % Plt Count 483 H (130-400) K/uL MPV 8.3 L (9.4-12.4) fL Immature Gran % (Auto) 0.6 % Neut % (Auto) 82.1 % Lymph % (Auto) 5.9 % Ida % (Auto) 10.2 % Eos % (Auto) 0.6 % Baso % (Auto) 0.6 % Neut # (Auto) 15.27 H (1.40-6.50) K/uL Lymph # (Auto) 1.10 L (1.20-3.40) K/uL Ida # (Auto) 1.90 H (0.11-0.59) K/uL Eos # (Auto) 0.12 (0.00-0.50) K/uL Baso # (Auto) 0.11 (0.00-0.20) K/uL Immature Gran # (Auto) 0.12 (0.01-0.20) K/uL Sodium 132 L (136-145) mmol/L Potassium 4.9 (3.5-5.1) mmol/L Chloride 101 (98-107) mmol/L Carbon Dioxide 21 (21-32) mmol/L Anion Gap 10 (3-11) BUN 23 (6-23) mg/dl Creatinine 1.07 (0.6-1.2) mg/dl Est Cr Clr Drug Dosing 31.5 ml/min Est GFR ( Amer) 55.2 ml/min Est GFR (Non-Af Amer) 47.6 ml/min BUN/Creatinine Ratio 21.5 H (10-20) Glucose 119 H (70-99(Fasting)) mg/dl Calcium 8.4 L (8.6-10.3) mg/dl Total Bilirubin 0.4 (0.2-1.0) mg/dl AST 13 (13-39) U/L ALT 8 (7-52) U/L Alkaline Phosphatase 101 (34-104) U/L Total Protein 6.0 (6.0-8.3) gm/dl Albumin 3.4 (3.4-5.0) gm/dl Globulin 2.6 (2.5-4.0) gm/dl Albumin/Globulin Ratio 1.3 (0.9-2) Lipase 7 L (11-82) U/L Urine Color Yellow Urine Appearance Cloudy A (Clear) Urine pH 5.0 (4.5-7.5) Ur Specific [place] 1.043 H (1.000-1.030) Urine Protein 2+ H (Negative) Urine Glucose (UA) Negative (Negative) Urine Ketones 1+ H (Negative) Urine Blood Negative (Negative) Urine Nitrite Negative (Negative) Urine Bilirubin Negative (Negative) Urine Urobilinogen Negative (Negative) Ur Leukocyte Esterase Trace H (Negative) Urine WBC (Auto) 0-5 (0-5) /hpf Urine RBC (Auto) 0-2 (0-2) /hpf U Hyaline Cast (Auto) 3-5 H (0-2) /lpf U Epithel Cells (Auto) 6-10 H (0-2) /hpf Urine Bacteria (Auto) None Seen (None Seen) Administered Medications Hydromorphone HCl (Hydromorphone Inj 0.5 Mg/0.5 Ml Syr) 0.5 mg IV Q15M PRN PRN Reason: Pain Stop: 10/28/23 23:36 Last Admin: 10/15/23 00:16 Dose: 0.5 mg Documented By: MARBELLA Discontinued Medications Sodium Chloride (Nss) 500 mls @ 999 mls/hr IV .Q31M STA Stop: 10/15/23 00:07 Last Infusion: 10/15/23 01:28 Dose: Infused Documented By: Admin: 10/15/23 00:22 Dose: 999 mls/hr Documented By: MARBELLA Ondansetron HCl (Ondansetron Inj 2 Mg/Ml 2 Ml Vial) 4 mg IV NOW STA Stop: 10/14/23 23:38 Last Admin: 10/15/23 00:16 Dose: 4 mg Documented By: MARBELLA Discharge Plan Visit Data Chief Complaint: Abdominal Pain Stated Complaint: ABD PAIN, CANCER PATIENT ED Provider: Tushar Arambula Discharge Problem: Abdominal pain, acute, left upper quadrant, Peritoneal carcinomatosis Patient Disposition: Being Evaluated by Hospitalist Forms Stand Alone Forms: [facility] Prescriptions Prescriptions: No Action venlafaxine [Effexor XR] 150 mg capsule,extended release 24hr 300 mg PO QAM Calcium 600 + D(3) 600 mg calcium- 200 unit Capsule 2 cap PO HS Rx Instructions: Unable to verify OTC meds at this date/time bupropion HCl 100 mg tablet 100 mg PO HS lisinopril 10 mg Tablet 15 mg PO HS ondansetron HCl 8 mg tablet 8 mg PO Q8H PRN (Reason: Nausea) Eliquis 5 mg (74 tabs) tablets,dose pack 5 mg PO BID Qty: 74 0RF Rx Instructions: 10mg twice daily 08/30-09/06, then 5mg twice daily thereafter Restasis MultiDose 0.05 % drops 0 drops OP TID Rx Instructions: Unable to verify med at this date/time. Original Directions: 1 drop into both eyes TID melatonin 5 mg Capsule 5 mg PO HS Rx Instructions: Unable to verify OTC meds at this date/time polyethylene glycol 3350 [Miralax] 17 gram Powder In Packet 17 g PO HS Rx Instructions: Unable to verify OTC meds at this date/time amoxicillin 500 mg capsule 2,000 mg PO ONCE PRN (Reason: 1 hr prior to appointment) pantoprazole 40 mg tablet,delayed release (DR/EC) 40 mg PO DAILYBB lorazepam 0.5 mg tablet 0.25 mg PO DAILY PRN (Reason: severe anxiety) Phospha 250 Neutral 250 mg tablet 0 tab PO BID Rx Instructions: Unable to verify OTC med at this date/time. Original Directions: 250mg by mouth twice daily oxycodone 5 mg tablet 2.5 mg PO Q4H PRN (Reason: pain) Qty: 14 0RF Referrals Referrals: Rafia Law CRNP [Primary Care Provider] -
[2023-10-15] MEDS: ONDANSETRON INJ 2 MG/ML 2 ML VIAL IV STA (00:16)
[2023-10-15] MEDS: HYDROmorphone INJ 0.5 MG/0.5 ML SYR IV PRN (00:16)
[2023-10-15] MEDS: SODIUM CHLORIDE 0.9% 500 ML IV STA (00:22)
[2023-10-15 00:54] LABS: Basophils # (auto) 0.11 K/uL (0.00-0.20); Basophils % (auto) 0.6 %; Eosinophils # (auto) 0.12 K/uL (0.00-0.50); Eosinophils % (auto) 0.6 %; Hematocrit (blood only) 31.6 % (37.0-47.0); Hemoglobin 9.9 g/dl (12.0-16.0); Immature Granulocytes # (auto) 0.12 K/uL (0.01-0.20); Immature Granulocytes % (auto) 0.6 %; Lymphocytes % (auto) 5.9 %; Mean Corpuscular Hemoglobin 31.3 pg (25.0-34.0); Mean Corpuscular Hgb Conc 31.3 g/dL (32.0-36.0); Mean Platelet Volume 8.3 fL (9.4-12.4); Monocytes % (auto) 10.2 %; Neutrophils # (auto) 15.27 K/uL (1.40-6.50); Neutrophils % (auto) 82.1 %; Platelet Count 483 K/uL (130-400); RDW Coefficient of Variation 14.6 % (11.5-14.5); RDW Standard Deviation 53.6 fL (36.4-46.3); Red Blood Count 3.16 M/uL (4.20-5.40); White Blood Count 18.62 K/ul (4.8-10.8)
[2023-10-15 01:49] LABS: Albumin Globulin Ratio 1.3 (0.9-2); Albumin Level 3.4 gm/dl (3.4-5.0); BUN Creatinine Ratio 21.5 (10-20); Bilirubin,Total 0.4 mg/dl (0.2-1.0); Calcium 8.4 mg/dl (8.6-10.3); Creatinine Clr Calc Pharmacy 31.5 ml/min; Est GFR (African American) 55.2 ml/min; Est GFR (Non-African American) 47.6 ml/min; Globulin 2.6 gm/dl (2.5-4.0); Potassium 4.9 mmol/L (3.5-5.1)
[2023-10-15 02:14] LABS: Appearance Urine Cloudy (Clear); Bacteria Urine Automated None Seen (None Seen); Bilirubin Urine Negative (Negative); Blood Urine Negative (Negative); Color Urine Yellow; Glucose Urine UA Negative (Negative); Ketones Urine 1+ (Negative); Leukocyte Esterase Urine Trace (Negative); Nitrite Urine Negative (Negative); Protein Urine 2+ (Negative); RBC Urine Automated 0-2 /hpf (0-2); Specific Gravity Urine 1.043 (1.000-1.030); Urobilinogen Urine Negative (Negative); WBC Urine Automated 0-5 /hpf (0-5)
--- NOTE | 2023-10-15 03:00 | History & Physical Report ---
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 Patient with no prior history of abdominal pain related to her cancer diagnosis. She was seen in the ER earlier today and had a CT scan of the abdomen which unfortunately revealed progression of her disease. She has trace ascites. UA does not suggest infection. Her loose stools came after use of MOM. -Observation to medical -Will start pain management with scheduled Tylenol 1gm PO TID. -Oxycodone 5-10 mg po q 4 hours as needed for pain based on scale -Patient reports ongoing loose stools following MOM - will add Colace and Miralax PRN -Zofran PRN nausea -LR at 80mL/hr x 1L (2) Peritoneal carcinomatosis: Plan: Noted. -Pain control as above -Oncology followup for progression of disease Plan Chronic Medical Issues: DVT - patient with occlusive thrombus in the LUE extending into the innominate, subclavian and axillary veins on US from 08/27/22 -Continue Apixaban 5mg po BID Anxiety -Continue Wellbutrin -Ativan PRN -Continue Venlafaxine Hypertension -Continue Lisinopril GERD -Continue Protonix F/E/N - LR at 80ml/hr x 1L, check Mg and PO4 x 1 and replete as needed, regular diet as tolerated Ppx - SCDs, continue Apixaban Code - DNR/DNI per discussion with patient Dispo - Observation to medical for pain control History of Present Illness Chief Complaint: Abdominal pain Primary Care Provider: SHEY Farrell Kalyn Wallis is an 83yo female with history of carcinomatosis of likely appendiceal origin presenting with abdominal pain. Patient follows with Dr. Muro of oncology. She has not had pain associated with her diagnosis until Friday10/11/23 when she developed severe abdominal pain. The pain is located in the lower abdomen as well as the flanks bilaterally. She had constipation as well. Patient was seen in the ER earlier today and had a CT scan of the abdomen which unfortunately showed progression of her disease - trace ascites. No evidence for bowel obstruction. Fluid filled colon likely representing diarrheal state. She was prescribed Oxycodone 2.5mg po q 4 hours as needed for cancer pain. When she went home, she took a 2.5mg table with no relief. She then took an additional 5mg which provided no relief. Her pain was severe and she was unable to rest so she returned to the ER. She denies fever, chills, nausea, vomiting, urinary symptoms. She has been taking milk of magnesium which has resulted in loose stools. Otherwise, no complaints. In the ER patient has been given Dilaudid 0.5mg IV. She reports adequate control of her abdominal pain at present. She wishes to remain in the hospital for now to come up with an adequate pain regimen. ER Course: shaista NSS Dilaudid Allergies Allergy/AdvReac Type Severity Reaction Status Date / Time atorvastatin [From Lipitor] AdvReac Mild MUSCLE Verified 09/24/23 14:08 ISSUES ezetimibe [From Vytorin] AdvReac Mild MUSCLE Verified 09/24/23 14:08 ISSUES fluvastatin AdvReac Mild Muscle Verified 09/24/23 14:08 Issues- legs pravastatin [From Pravachol] AdvReac Mild MUSCLE Verified 09/24/23 14:08 ISSUES simvastatin [From Vytorin] AdvReac Mild Dizziness Verified 09/24/23 14:08 Home Medications Medication Instructions Recorded Confirmed Type venlafaxine 150 mg 300 mg PO QAM 12/01/18 10/15/23 History capsule,extended release 24 hr (Effexor XR) bupropion HCl 100 mg tablet 100 mg PO HS 10/14/19 10/15/23 History calcium carbonate 600 mg-vitamin 2 cap PO HS 10/14/19 10/15/23 History D3 5 mcg (200 unit) capsule (Calcium 600 + D(3)) lisinopril 10 mg tablet 15 mg PO HS 10/14/19 10/15/23 History cyclosporine 0.05 % eye drops 0 drops ophthalmic (eye) TID 04/24/21 10/15/23 History (Restasis MultiDose) melatonin 5 mg capsule 5 mg PO HS 04/24/21 10/15/23 History polyethylene glycol 3350 17 gram 17 g PO HS 07/30/22 10/15/23 History oral powder packet (Miralax) ondansetron HCl 8 mg tablet 8 mg PO Q8H PRN Nausea 08/27/22 10/15/23 History apixaban 5 mg (74 tabs) tablets in 5 mg PO BID #74 ea 08/29/22 10/15/23 Rx a dose pack ([place]) amoxicillin 500 mg capsule 2,000 mg PO ONCE PRN 1 hr prior to 12/19/22 10/15/23 History appointment lorazepam 0.5 mg tablet 0.25 mg PO DAILY PRN severe anxiety 12/19/22 10/15/23 History pantoprazole 40 mg tablet,delayed 40 mg PO DAILYBB 12/19/22 10/15/23 History release oxycodone 5 mg tablet 2.5 mg (1/2 x 5 mg) PO Q4H PRN 10/14/23 Rx pain #14 tabs sodium di- and 0 tab PO BID 10/14/23 10/15/23 History monophosphate-potassium phos monobasic 250 mg tablet (Phospha Neutral) Past Med/Surg History Problem List Peritoneal carcinomatosis (Acute) Abdominal pain, acute, left upper quadrant (Acute) Dehydration (Acute) Abdominal pain (Acute) Peritoneal carcinomatosis (Acute) Perineal abscess, superficial Left upper extremity deep vein thrombosis Anxiety (Chronic) Torn rotator cuff (Chronic) Acquired deviated nasal septum (Chronic) Dyslipidemia Encounter for pre-operative examination Left knee DJD Obesity Status post total left knee replacement using cement Osteoarthritis Routine health maintenance Subcutaneous mass Arthritis Anemia Seroma after procedure Vaginal prolapse Encounter for pessary maintenance Screening for colon cancer 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 Wears compression stocking on RLE. H/O cellulitis in this limb as well (remote ~ 6 yrs ago) Mass of omentum Peritoneal carcinomatosis per heme/onc records- Dr Muro Hx of biopsy (06/06/22) Diagnostic Laparoscopy, Peritoneal Biopsy(Not Applicable) - Denis Diego DO Medical History Peritoneal carcinomatosis Sciatic leg pain Depression Hyperlipidemia History of COVID-19 ?2021 mild cold symptoms; resolved Carpal tunnel syndrome Right hand Thyroid nodule Under surveillance Anxiety Hypertension Surgical History Port-A-Cath in place (08/19/22) Evaluate Access Port, Replacement Access Port with Fluoroscopy(Left) - Denis Diego DO Port-A-Cath in place (08/01/22) Insertion of Access Port with Fluoroscopy(Left) - Denis Diego DO [facility] History of surgery (05/22/21) Left Thigh Wound Exploration and VAC System Placement(Left) - Mathew Menon MD, FACS 05/22/2021 History of surgery (05/10/21) Exploration Left Inner Thigh for Post-Operative Seroma placement of Андрей drain(Left) - Mathew Menon MD, FACS 05/10/2021 H/O excision of mass (05/01/21) Excision of left thigh mass. Dr. Jaramillo 05/01/2021 History of anesthesia reaction WOKE UP IN MIDDLE OF COLONOSCOPY S/P knee replacement (~2019) LEFT History of cataract surgery (2019) R/L History of colonoscopy History of eye surgery R/L LIDS History of shoulder surgery (1980) LEFT TEAR History of mandibular surgery (1980) ORIF-FULL ROM Family History Father Coronary heart disease Heart disease Cancer Mother Coronary heart disease Other Leukemia Lupus (systemic lupus erythematosus) No family history of adverse response to anesthesia Social History Smoking Status: Never smoker Second Hand Exposure: No; Do You Dip or Chew Tobacco: No; Hx Alcohol Use: No Hx Substance Use: No Preferred Language: Ukrainian Communication Ability: Effective Visual Impairment: No Limitations Professor Of Surgery Required: No Beliefs That Will Affect Care: None marital status: / Current Living Situation: Family Current Living Situation Comment: son current occupational status: retired How many Children do You have: 3 Feels Safe at Home: Yes Diet: regular during the past year weight has: remained stable Assistive Devices: None Review of Systems Review of Systems: All systems reviewed & are unremarkable except as noted in HPI & below Physical Exam Physical Exam: General: frail female patient resting comfortably, NAD, non-toxic in appearance, AA&O x 4 Skin: warm, dry, intact, no rashes or lesions HEENT: NC/AT, PERRL, EOMI, anicteric sclera, conjunctiva without injection, external ear normal to inspection and nontender, nares patent, moist mucus membranes, dentition intact, no oropharyngeal lesions, neck supple, trachea midline, no LAD, no thyromegaly, no JVD Heart: +S1/S2, regular, no m/r/g Lungs: equal air entry bilaterally, no rales/rhonchi/wheezes Abd: +BS diminished, soft, ND, diffusely tender mostly in lower abdomen and flanks with voluntary guarding, no masses/organomegaly/ascites Ext: warm, 2+ pulses in UE/LE bilaterally, no clubbing/cyanosis or edema Neuro: nonfocal, patient AA&O x 4, speech intact, no facial droop, moving all extremities on command with equal strength 5/5 Results & Data Results & Data Vital Signs (Past 12 Hours) Vital Signs Temp Pulse Pulse Resp BP BP Pulse Ox 10/15/23 01:40 90 119/56 L 95 10/15/23 00:00 95 10/14/23 23:15 92 H 18 149/66 H 94 10/14/23 22:36 36.6 C 86 18 119/64 98 O2 Del Method 10/15/23 01:40 Room Air 10/15/23 00:00 Room Air 10/14/23 23:15 10/14/23 22:36 Room Air Laboratory Results Laboratory Results WBC 18.62 K/ul (4.8-10.8) H 10/15/23 00:14 RBC 3.16 M/uL (4.20-5.40) L 10/15/23 00:14 Hgb 9.9 g/dl (12.0-16.0) L 10/15/23 00:14 Hct 31.6 % (37.0-47.0) L 10/15/23 00:14 MCV 100.0 fL (80.0-100.0) 10/15/23 00:14 MCH 31.3 pg (25.0-34.0) 10/15/23 00:14 MCHC 31.3 g/dL (32.0-36.0) L 10/15/23 00:14 RDW Std Deviation 53.6 fL (36.4-46.3) H 10/15/23 00:14 RDW Coeff of Leslee 14.6 % (11.5-14.5) H 10/15/23 00:14 Plt Count 483 K/uL (130-400) H 10/15/23 00:14 MPV 8.3 fL (9.4-12.4) L 10/15/23 00:14 Immature Gran % (Auto) 0.6 % 10/15/23 00:14 Neut % (Auto) 82.1 % 10/15/23 00:14 Lymph % (Auto) 5.9 % 10/15/23 00:14 [place] % (Auto) 10.2 % 10/15/23 00:14 Eos % (Auto) 0.6 % 10/15/23 00:14 Baso % (Auto) 0.6 % 10/15/23 00:14 Neut # (Auto) 15.27 K/uL (1.40-6.50) H 10/15/23 00:14 Lymph # (Auto) 1.10 K/uL (1.20-3.40) L 10/15/23 00:14 [place] # (Auto) 1.90 K/uL (0.11-0.59) H 10/15/23 00:14 Eos # (Auto) 0.12 K/uL (0.00-0.50) 10/15/23 00:14 Baso # (Auto) 0.11 K/uL (0.00-0.20) 10/15/23 00:14 Immature Gran # (Auto) 0.12 K/uL (0.01-0.20) 10/15/23 00:14 Sodium 132 mmol/L (136-145) L 10/15/23 00:14 Potassium 4.9 mmol/L (3.5-5.1) 10/15/23 00:14 Chloride 101 mmol/L (98-107) 10/15/23 00:14 Carbon Dioxide 21 mmol/L (21-32) 10/15/23 00:14 Anion Gap 10 (3-11) 10/15/23 00:14 BUN 23 mg/dl (6-23) 10/15/23 00:14 Creatinine 1.07 mg/dl (0.6-1.2) 10/15/23 00:14 Est Cr Clr Drug Dosing 31.5 ml/min 10/15/23 00:14 Est GFR ( Amer) 55.2 ml/min 10/15/23 00:14 Est GFR (Non-Af Amer) 47.6 ml/min 10/15/23 00:14 BUN/Creatinine Ratio 21.5 (10-20) H 10/15/23 00:14 Glucose 119 mg/dl (70-99(Fasting)) H 10/15/23 00:14 Calcium 8.4 mg/dl (8.6-10.3) L 10/15/23 00:14 Total Bilirubin 0.4 mg/dl (0.2-1.0) 10/15/23 00:14 AST 13 U/L (13-39) 10/15/23 00:14 ALT 8 U/L (7-52) 10/15/23 00:14 Alkaline Phosphatase 101 U/L (34-104) 10/15/23 00:14 Total Protein 6.0 gm/dl (6.0-8.3) 10/15/23 00:14 Albumin 3.4 gm/dl (3.4-5.0) 10/15/23 00:14 Globulin 2.6 gm/dl (2.5-4.0) 10/15/23 00:14 Albumin/Globulin Ratio 1.3 (0.9-2) 10/15/23 00:14 Lipase 7 U/L (11-82) L 10/15/23 00:14 Urine Color Yellow 10/15/23 01:55 Urine Appearance Cloudy (Clear) A 10/15/23 01:55 Urine pH 5.0 (4.5-7.5) 10/15/23 01:55 Ur Specific [place] 1.043 (1.000-1.030) H 10/15/23 01:55 Urine Protein 2+ (Negative) H 10/15/23 01:55 Urine Glucose (UA) Negative (Negative) 10/15/23 01:55 Urine Ketones 1+ (Negative) H 10/15/23 01:55 Urine Blood Negative (Negative) 10/15/23 01:55 Urine Nitrite Negative (Negative) 10/15/23 01:55 Urine Bilirubin Negative (Negative) 10/15/23 01:55 Urine Urobilinogen Negative (Negative) 10/15/23 01:55 Ur Leukocyte Esterase Trace (Negative) H 10/15/23 01:55 Urine WBC (Auto) 0-5 /hpf (0-5) 10/15/23 01:55 Urine RBC (Auto) 0-2 /hpf (0-2) 10/15/23 01:55 U Hyaline Cast (Auto) 3-5 /lpf (0-2) H 10/15/23 01:55 U Epithel Cells (Auto) 6-10 /hpf (0-2) H 10/15/23 01:55 Urine Bacteria (Auto) None Seen (None Seen) 10/15/23 01:55 Code Status & VTE Plan VTE Prophylaxis Plan VTE Prophylaxis will be ordered: Yes PG Care Time/CCT Total # of Minutes Spent Total Time Spent with Patient: Total time spent is greater than 50% in coordination of care (as documented) at patient's floor/unit and/or counseling patient: Coding Level of Care Code 18991 INT INP/OBS CARE 2/55MIN Diagnoses Abdominal pain R10.84 Abdominal location: generalized Peritoneal carcinomatosis C78.6 (1) Abdominal pain Abdominal location: generalized Qualified Code(s): R10.84 - Generalized abdominal pain
[2023-10-15] MEDS ORDERED: oxyCODONE HCL IR 5 MG TAB (IMMEDIATE RELEASE) PO PRN (03:45)
[2023-10-15] MEDS ORDERED: POLYETHYLENE (MIRALAX) 17 GM PACK PO PRN (03:45)
[2023-10-15] MEDS: LACTATED RINGER'S 1,000 ML IV SCH (04:16)
[2023-10-15] MEDS ORDERED: METOCLOPRAMIDE HCL INJ 5 MG/ML 2 ML VIAL IV PRN (04:20)
[2023-10-15] MEDS ORDERED: PROCHLORPERAZINE 5 MG in SYRINGE 4 ML IV PRN (04:20)
[2023-10-15 04:23] LABS: Magnesium 2.2 mg/dl (1.7-2.4); Phosphorus 2.9 mg/dl (2.5-4.9)
[2023-10-15] MEDS: ACETAMINOPHEN 500 MG TAB PO SCH (06:37)
[2023-10-15] MEDS: PANTOprazole 40 MG TAB PO SCH (06:37)
--- NOTE | 2023-10-15 07:58 | Oncology Consultation ---
Date of Consultation October 15, 2023 Assessment & Plan (1) Leukocytosis: (2) Peritoneal carcinomatosis: (3) Left upper extremity deep vein thrombosis: Plan -Imaging suggestive of disease progression. Discussed options with patient including supportive care/hospice or switching therapy to FOLFOX with or without bevacizumab. Following extensive discussion, she indicated that she would like to consider continuing with systemic therapy. Will plan for outpatient follow- up in about 2 weeks with PET/CT. In the meantime, would recommend continuing with oxycodone. -Although I suspect that leukocytosis may be due to Neulasta administered with last chemotherapy infusion, agree with workup for infection since leukocytosis appears to be worsening.If infectious workup is negative, will assume that leukocytosis is due to G-CSF. Thank you for this consult. Oncology will follow-up on discharge from hospital. Please feel free to call with any further questions. 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 CT Abdomen and pelvis on 10/14/2023 revealed interval progression of peritoneal carcinomatosis with trace ascites, fluid-filled colon which could represent diarrheal illness and appendiceal mass again noted. States that her pain has improved with oxycodone. Allergies Allergy/AdvReac Type Severity Reaction Status Date / Time atorvastatin [From Lipitor] AdvReac Mild MUSCLE Verified 09/24/23 14:08 ISSUES ezetimibe [From Vytorin] AdvReac Mild MUSCLE Verified 09/24/23 14:08 ISSUES fluvastatin AdvReac Mild Muscle Verified 09/24/23 14:08 Issues- legs pravastatin [From Pravachol] AdvReac Mild MUSCLE Verified 09/24/23 14:08 ISSUES simvastatin [From Vytorin] AdvReac Mild Dizziness Verified 09/24/23 14:08 Home Medications Medication Instructions Recorded Confirmed Type venlafaxine 150 mg 300 mg PO QAM 12/01/18 10/15/23 History capsule,extended release 24 hr (Effexor XR) bupropion HCl 100 mg tablet 100 mg PO HS 10/14/19 10/15/23 History calcium carbonate 600 mg-vitamin 2 cap PO HS 10/14/19 10/15/23 History D3 5 mcg (200 unit) capsule (Calcium 600 + D(3)) lisinopril 10 mg tablet 15 mg PO HS 10/14/19 10/15/23 History cyclosporine 0.05 % eye drops 0 drops ophthalmic (eye) TID 04/24/21 10/15/23 History (Restasis MultiDose) melatonin 5 mg capsule 5 mg PO HS 04/24/21 10/15/23 History polyethylene glycol 3350 17 gram 17 g PO HS 07/30/22 10/15/23 History oral powder packet (Miralax) ondansetron HCl 8 mg tablet 8 mg PO Q8H PRN Nausea 08/27/22 10/15/23 History apixaban 5 mg (74 tabs) tablets in 5 mg PO BID #74 ea 08/29/22 10/15/23 Rx a dose pack (Eliquis) amoxicillin 500 mg capsule 2,000 mg PO ONCE PRN 1 hr prior to 12/19/22 10/15/23 History appointment lorazepam 0.5 mg tablet 0.25 mg PO DAILY PRN severe anxiety 12/19/22 10/15/23 History pantoprazole 40 mg tablet,delayed 40 mg PO DAILYBB 12/19/22 10/15/23 History release oxycodone 5 mg tablet 2.5 mg (1/2 x 5 mg) PO Q4H PRN 10/14/23 Rx pain #14 tabs sodium di- and 0 tab PO BID 10/14/23 10/15/23 History monophosphate-potassium phos monobasic 250 mg tablet (Phospha Neutral) Patient History Medical History DVT (deep venous thrombosis) Peritoneal carcinomatosis Sciatic leg pain Depression Hyperlipidemia History of COVID-19 ?2021 mild cold symptoms; resolved Carpal tunnel syndrome Right hand Thyroid nodule Under surveillance Anxiety Hypertension Surgical History Port-A-Cath in place (08/19/22) Evaluate Access Port, Replacement Access Port with Fluoroscopy(Left) - Denis Diego, DO Port-A-Cath in place (08/01/22) Insertion of Access Port with Fluoroscopy(Left) - Denis Diego DO [facility] History of surgery (05/22/21) Left Thigh Wound Exploration and VAC System Placement(Left) - Mathew Menon MD, FACS 05/22/2021 History of surgery (05/10/21) Exploration Left Inner Thigh for Post-Operative Seroma placement of Андрей drain(Left) - Mathew Menon MD, FACS 05/10/2021 H/O excision of mass (05/01/21) Excision of left thigh mass. Dr. Jaramillo 05/01/2021 History of anesthesia reaction WOKE UP IN MIDDLE OF COLONOSCOPY S/P knee replacement (~2019) LEFT History of cataract surgery (2019) R/L History of colonoscopy History of eye surgery R/L LIDS History of shoulder surgery (1980) LEFT TEAR History of mandibular surgery (1980) ORIF-FULL ROM Family History Father Coronary heart disease Heart disease Cancer Mother Coronary heart disease Other Leukemia Lupus (systemic lupus erythematosus) No family history of adverse response to anesthesia Social History Smoking Status: Never smoker Second Hand Exposure: No; Do You Dip or Chew Tobacco: No; Hx Alcohol Use: No Hx Substance Use: No Preferred Language: Spanish Communication Ability: Effective Visual Impairment: No Limitations 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 Manager Required: No Beliefs That Will Affect Care: None marital status: / Current Living Situation: Family Current Living Situation Comment: son current occupational status: retired How many Children do You have: 3 Feels Safe at Home: Yes Diet: regular during the past year weight has: remained stable Assistive Devices: Glasses Results & Data Vital Signs (Past 12 Hours) Vital Signs Temp Pulse Pulse Resp BP BP Pulse Ox 10/15/23 07:07 36.8 C 87 17 139/65 94 10/15/23 03:47 36.7 C 87 18 138/67 94 10/15/23 03:45 36.7 C 90 16 138/67 94 10/15/23 03:00 86 18 109/52 L 95 10/15/23 01:40 90 119/56 L 95 10/15/23 00:00 95 10/14/23 23:15 92 H 18 149/66 H 94 10/14/23 22:36 36.6 C 86 18 119/64 98 O2 Del Method 10/15/23 07:07 Room Air 10/15/23 03:47 Room Air 10/15/23 03:45 Room Air 10/15/23 03:00 Room Air 10/15/23 01:40 Room Air 10/15/23 00:00 Room Air 10/14/23 23:15 10/14/23 22:36 Room Air
[2023-10-15] MEDS: DOCUSATE SODIUM 100 MG CAP PO PRN (08:23)
[2023-10-15] MEDS: VENLAFAXINE HCL XR 150 MG CAPXR PO SCH (08:23)
[2023-10-15] MEDS: APIXABAN 5 MG TABLET PO SCH (08:23)
[2023-10-15] MEDS: oxyCODONE HCL IR 5 MG TAB (IMMEDIATE RELEASE) PO PRN (08:23)
[2023-10-15] MEDS: 4.5GM X1 IV STA (08:25)
[2023-10-15] MEDS: ONDANSETRON INJ 2 MG/ML 2 ML VIAL IV PRN (08:29)
--- NOTE | 2023-10-15 14:36 | Hospitalist Progress Note ---
Date of Service October 15, 2023 Assessment & Plan (1) Abdominal pain: Plan: -Abdominal pain on presentation -CT abdomen pelvis consistent with progression of carcinomatosis -Additionally concern for diarrheal illness on CT scan -Noted loose stools- recent use of milk of magnesia- given leukocytosis will obtain stool studies- PCR and C diff toxin -Continue multimodal analgesia with scheduled Tylenol 1gm PO TID. Oxycodone 5-10 mg po q 4 hours as needed (2) Leukocytosis: Plan: -Leukocytosis worsening -UA negative for infection -CT abdomen pelvis concerning for progression of carcinomatosis, colonic findings consistent with diarrheal illness -Will obtain stool sample- PCR and C diff testing given worsening leukocytosis -Given immuno-suppression will empirically cover with Zosyn for 24 hours pending blood cultures -Follow up blood cultures (3) Peritoneal carcinomatosis: Plan: -CT abdomen pelvis noted with progression of disease -Given progression- will obtain oncology evaluation -Continue multimodal analgesia with Tylenol, prn oxycodone- appears to be improving (4) DVT (deep venous thrombosis): Plan: -Has history of occlusive thrombus in the LUE extending into the innominate, subclavian and axillary veins on US from 08/27/22 -Continue Apixaban 5mg po BID (5) Anxiety: Plan: -Continue Wellbutrin -Continue Venlafaxine -Ativan PRN (6) Hypertension: Plan: -Continue Lisinopril (7) GERD (gastroesophageal reflux disease): Plan: -Continue Protonix Admission and Anticipated Discharge Date Admission Date: October 15, 2023 Subjective Patient seen and evaluated bedside Patient reports abdominal pain slowly improving with current pain regimen Pain was sudden in onset yesterday, she previously has not had pain related to her carcinomatosis Denies fevers, chills, chest pain, palpitations, SOB. Review of Systems Review of Systems: As indicated in HPI Physical Exam Physical Exam: General: frail female patient resting comfortably, NAD Skin: warm, dry, intact, no rashes or lesions HEENT: NC/AT, moist mucus membranes Heart: +S1/S2, regular, no m/r/g Lungs: equal air entry bilaterally, no rales/rhonchi/wheezes Abd: +BS diminished, soft, poorly localized tenderness- more predominant in the BL lower quadrants . No rebound or guarding associated Ext: 2+ pulses in UE/LE bilaterally, no clubbing/cyanosis or edema Neuro: nonfocal, patient AA&O x 4 Results & Data Results & Data Vital Signs (Past 12 Hours) Vital Signs Temp Pulse Resp BP Pulse Ox O2 Del Method 10/15/23 07:07 36.8 C 87 17 139/65 94 Room Air 10/15/23 03:47 36.7 C 87 18 138/67 94 Room Air 10/15/23 03:45 36.7 C 90 16 138/67 94 Room Air 10/15/23 03:00 86 18 109/52 L 95 Room Air PG Care Time/CCT Total # of Minutes Spent Total Time Spent with Patient: Total time spent is greater than 50% in coordination of care (as documented) at patient's floor/unit and/or counseling patient: Coding Level of Care Code 19741 SUB INP/OBS CARE 2/35MIN Diagnoses Abdominal pain R10.84 Abdominal location: generalized Leukocytosis D72.829 Peritoneal carcinomatosis C78.6 DVT (deep venous thrombosis) I82.409 Anxiety F41.9 Hypertension I10 GERD (gastroesophageal reflux disease) K21.9 (1) Abdominal pain Abdominal location: generalized Qualified Code(s): R10.84 - Generalized abdominal pain
[2023-10-15] MEDS: PIPERACILLIN/TAZOBACTAM 4.5 GM/100 ML BAG IV SCH (14:48)
--- NOTE | 2023-10-15 16:33 | Gastrointestinal Consultation ---
Date of Consultation October 15, 2023 Assessment & Plan (1) Abdominal pain, acute, left upper quadrant: I think her pain is peritoneal pain. it is most prominent with motion and it worsens with motion. I don't think any testing is needed from the GI standpoint at this time. I would address it by treating her symptomatically. 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 When it was discovered it had spread throughout her abdomen. She says on Friday she developed abdominal pain which she hadn't had before. She thought she was constipated so after a couple of days she took MOM but after having bowel movements her pain did not improve. Most of the pain is with motion and it gets a lot worse with motion. She is able to eat without pain. CT on admit showed progression of the disease with omental implants and spread throughout the peritoneum. Allergies Allergy/AdvReac Type Severity Reaction Status Date / Time atorvastatin [From Lipitor] AdvReac Mild MUSCLE Verified 09/24/23 14:08 ISSUES ezetimibe [From Vytorin] AdvReac Mild MUSCLE Verified 09/24/23 14:08 ISSUES fluvastatin AdvReac Mild Muscle Verified 09/24/23 14:08 Issues- legs pravastatin [From Pravachol] AdvReac Mild MUSCLE Verified 09/24/23 14:08 ISSUES simvastatin [From Vytorin] AdvReac Mild Dizziness Verified 09/24/23 14:08 Home Medications Medication Instructions Recorded Confirmed Type venlafaxine 150 mg 300 mg PO [facility] 12/01/18 10/15/23 History capsule,extended release 24 hr (Effexor XR) bupropion HCl 100 mg tablet 100 mg PO HS 10/14/19 10/15/23 History calcium carbonate 600 mg-vitamin 2 cap PO HS 10/14/19 10/15/23 History D3 5 mcg (200 unit) capsule (Calcium 600 + D(3)) lisinopril 10 mg tablet 15 mg PO HS 10/14/19 10/15/23 History cyclosporine 0.05 % eye drops 0 drops ophthalmic (eye) TID 04/24/21 10/15/23 History (Restasis MultiDose) melatonin 5 mg capsule 5 mg PO HS 04/24/21 10/15/23 History polyethylene glycol 3350 17 gram 17 g PO HS 07/30/22 10/15/23 History oral powder packet (Miralax) ondansetron HCl 8 mg tablet 8 mg PO Q8H PRN Nausea 08/27/22 10/15/23 History apixaban 5 mg (74 tabs) tablets in 5 mg PO BID #74 ea 08/29/22 10/15/23 Rx a dose pack (Eliquis) amoxicillin 500 mg capsule 2,000 mg PO ONCE PRN 1 hr prior to 12/19/22 10/15/23 History appointment lorazepam 0.5 mg tablet 0.25 mg PO DAILY PRN severe anxiety 12/19/22 10/15/23 History pantoprazole 40 mg tablet,delayed 40 mg PO DAILYBB 12/19/22 10/15/23 History release oxycodone 5 mg tablet 2.5 mg (1/2 x 5 mg) PO Q4H PRN 10/14/23 Rx pain #14 tabs sodium di- and 0 tab PO BID 10/14/23 10/15/23 History monophosphate-potassium phos monobasic 250 mg tablet (Phospha Neutral) Patient History Medical History DVT (deep venous thrombosis) Peritoneal carcinomatosis Sciatic leg pain Depression Hyperlipidemia History of COVID- ?2021 mild cold symptoms; resolved Carpal tunnel syndrome Right hand Thyroid nodule Under surveillance Anxiety Hypertension Surgical History Port-A-Cath in place (08/19/22) Evaluate Access Port, Replacement Access Port with Fluoroscopy(Left) - Denis Diego DO Port-A-Cath in place (08/01/22) Insertion of Access Port with Fluoroscopy(Left) - Denis Diego DO [place] History of surgery (05/22/21) Left Thigh Wound Exploration and VAC System Placement(Left) - Mathew Menon MD, FACS 05/22/2021 History of surgery (05/10/21) Exploration Left Inner Thigh for Post-Operative Seroma placement of Андрей drain(Left) - Mathew Menon MD, FACS 05/10/2021 H/O excision of mass (05/01/21) Excision of left thigh mass. Dr. Jaramillo 05/01/2021 History of anesthesia reaction WOKE UP IN MIDDLE OF COLONOSCOPY S/P knee replacement (~2019) LEFT History of cataract surgery (2019) R/L History of colonoscopy History of eye surgery R/L LIDS History of shoulder surgery (1980) LEFT TEAR History of mandibular surgery (1980) ORIF-FULL ROM Family History Father Coronary heart disease Heart disease Cancer Mother Coronary heart disease Other Leukemia Lupus (systemic lupus erythematosus) No family history of adverse response to anesthesia Social History Smoking Status: Never smoker Second Hand Exposure: No; Do You Dip or Chew Tobacco: No; Hx Alcohol Use: No Hx Substance Use: No Preferred Language: Belarusian Communication Ability: Effective Visual Impairment: No Limitations 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 Required: No Beliefs That Will Affect Care: None marital status: / Current Living Situation: Family Current Living Situation Comment: son current occupational status: retired How many Children do You have: 3 Feels Safe at Home: Yes Diet: regular during the past year weight has: remained stable Assistive Devices: Glasses Review of Systems Review of Systems: All systems reviewed & are unremarkable except as noted in HPI & below Physical Exam Physical Exam: very pleasant female in no obvious distress Constitutional: WD/WN, vitals as above Neck: trachea midline, no thyromegaly Respiratory: normal respiratory effort, lungs clear to auscultation Cardiovascular: RRR, no murmur, no edema Gastrointestinal (Abdomen): Inspection/Auscultation: abdomen normal to inspection Percussion/Palpation: + abdomen tender (diffusely) and abdomen soft Musculoskeletal: Extremities: extremities normal to inspection Results & Data Vital Signs (Past 12 Hours) Vital Signs Temp Pulse Resp BP Pulse Ox O2 Del Method 10/15/23 15:22 36.9 C 81 18 119/62 95 Room Air 10/15/23 07:07 36.8 C 87 17 139/65 94 Room Air Laboratory Results 10/15/23 10/15/23 Range/Units 01:55 00:14 WBC 18.62 H (4.8-10.8) K/ul RBC 3.16 L (4.20-5.40) M/uL Hgb 9.9 L (12.0-16.0) g/dl Hct 31.6 L (37.0-47.0) % MCV 100.0 (80.0-100.0) fL MCH 31.3 (25.0-34.0) pg MCHC 31.3 L (32.0-36.0) g/dL RDW Std Deviation 53.6 H (36.4-46.3) fL RDW Coeff of Leslee 14.6 H (11.5-14.5) % Plt Count 483 H (130-400) K/uL MPV 8.3 L (9.4-12.4) fL Immature Gran % (Auto) 0.6 % Neut % (Auto) 82.1 % Lymph % (Auto) 5.9 % Eagle % (Auto) 10.2 % Eos % (Auto) 0.6 % Baso % (Auto) 0.6 % Neut # (Auto) 15.27 H (1.40-6.50) K/uL Lymph # (Auto) 1.10 L (1.20-3.40) K/uL Eagle # (Auto) 1.90 H (0.11-0.59) K/uL Eos # (Auto) 0.12 (0.00-0.50) K/uL Baso # (Auto) 0.11 (0.00-0.20) K/uL Immature Gran # (Auto) 0.12 (0.01-0.20) K/uL Sodium 132 L (136-145) mmol/L Potassium 4.9 (3.5-5.1) mmol/L Chloride 101 (98-107) mmol/L Carbon Dioxide 21 (21-32) mmol/L Anion Gap 10 (3-11) BUN 23 (6-23) mg/dl Creatinine 1.07 (0.6-1.2) mg/dl Est Cr Clr Drug Dosing 31.5 ml/min Est GFR ( Amer) 55.2 ml/min Est GFR (Non-Af Amer) 47.6 ml/min BUN/Creatinine Ratio 21.5 H (10-20) Glucose 119 H (70-99(Fasting)) mg/dl Calcium 8.4 L (8.6-10.3) mg/dl Phosphorus 2.9 (2.5-4.9) mg/dl Magnesium 2.2 (1.7-2.4) mg/dl Total Bilirubin 0.4 (0.2-1.0) mg/dl AST 13 (13-39) U/L ALT 8 (7-52) U/L Alkaline Phosphatase 101 (34-104) U/L Total Protein 6.0 (6.0-8.3) gm/dl Albumin 3.4 (3.4-5.0) gm/dl Globulin 2.6 (2.5-4.0) gm/dl Albumin/Globulin Ratio 1.3 (0.9-2) Lipase 7 L (11-82) U/L Urine Color Yellow Urine Appearance Cloudy A (Clear) Urine pH 5.0 (4.5-7.5) Ur Specific [place] 1.043 H (1.000-1.030) Urine Protein 2+ H (Negative) Urine Glucose (UA) Negative (Negative) Urine Ketones 1+ H (Negative) Urine Blood Negative (Negative) Urine Nitrite Negative (Negative) Urine Bilirubin Negative (Negative) Urine Urobilinogen Negative (Negative) Ur Leukocyte Esterase Trace H (Negative) Urine WBC (Auto) 0-5 (0-5) /hpf Urine RBC (Auto) 0-2 (0-2) /hpf U Hyaline Cast (Auto) 3-5 H (0-2) /lpf U Epithel Cells (Auto) 6-10 H (0-2) /hpf Urine Bacteria (Auto) None Seen (None Seen)
[2023-10-15] MEDS: HEPARIN 100 UNIT/ML 5ML FLUSH FLUSH PRN (18:31)
[2023-10-15 20:45] VITALS: RESP 16
[2023-10-15] MEDS: lisinopril 5 MG TAB PO SCH (20:45)
[2023-10-15] MEDS: buPROPion SR 100 MG TABCR PO SCH (20:45)
[2023-10-16 07:45] LABS: Basophils # (auto) 0.06 K/uL (0.00-0.20); Basophils % (auto) 0.5 %; Eosinophils # (auto) 0.17 K/uL (0.00-0.50); Eosinophils % (auto) 1.5 %; Hematocrit (blood only) 27.3 % (37.0-47.0); Immature Granulocytes # (auto) 0.04 K/uL (0.01-0.20); Immature Granulocytes % (auto) 0.4 %; Lymphocytes # (auto) 1.11 K/uL (1.20-3.40); Lymphocytes % (auto) 9.9 %; Mean Corpuscular Volume 97.2 fL (80.0-100.0); Mean Platelet Volume 8.3 fL (9.4-12.4); Monocytes # (auto) 1.44 K/uL (0.11-0.59); Monocytes % (auto) 12.9 %; Neutrophils # (auto) 8.36 K/uL (1.40-6.50); Neutrophils % (auto) 74.8 %; Platelet Count 460 K/uL (130-400); RDW Coefficient of Variation 14.3 % (11.5-14.5); RDW Standard Deviation 50.7 fL (36.4-46.3); Red Blood Count 2.81 M/uL (4.20-5.40); White Blood Count 11.18 K/ul (4.8-10.8)
[2023-10-16 08:10] LABS: BUN Creatinine Ratio 14.6 (10-20); Calcium 8.2 mg/dl (8.6-10.3); Creatinine Clr Calc Pharmacy 27.3 ml/min; Est GFR (African American) 46.6 ml/min; Est GFR (Non-African American) 40.2 ml/min; Potassium 4.7 mmol/L (3.5-5.1)
[2023-10-16] MEDS: LORazepam 0.5 MG TAB PO PRN (08:21)
[2023-10-16 15:26] VITALS: BP 124/61; PULSE 86; TEMP 97.2; O2SAT 94
--- NOTE | 2023-10-16 16:37 | Discharge Summary ---
Discharge Summary Date of Service October 16, 2023 Principal Dx & Hospital Course #1 = Principal Diagnosis (1) Abdominal pain: -Abdominal pain on presentation diffusely, with CT abdomen pelvis consistent with progression of carcinomatosis -Additionally concern for diarrheal illness on CT scan but had taken MOM prior to admission - given leukocytosis she had stool studies ordered but not collected by time of discharge, feeling much better with a few doses of oxycodone and tylenol scheduled-continue these at home Leukocytosis more from Neulasta as per Pncology No fevers, was given Zosyn x 1 day and blood cultures no growth-no further abx needed Seen by GI who thought pain from peritoneal carcinamotosis -Continue multimodal analgesia with scheduled Tylenol 1gm PO TID. Oxycodone 5 mg po q 4 hours as needed on discharge plans to transition likely to Hospice after discharge but she will f/u with Oncology to further discuss (2) Leukocytosis: as baove, likely from Neulasta -UA negative for infection, blood cxs NGTD -CT abdomen pelvis concerning for progression of carcinomatosis, colonic findings consistent with diarrheal illness (3) Peritoneal carcinomatosis: -CT abdomen pelvis noted with progression of disease as above, f/u with Oncology, likely transitioning to hospice as outpt (4) DVT (deep venous thrombosis): -Has history of occlusive thrombus in the LUE extending into the innominate, subclavian and axillary veins on US from 08/27/22 -Continue Apixaban 5mg po BID (5) Anxiety: -Continue Wellbutrin -Continue Venlafaxine -Ativan PRN (6) Hypertension: -Continue Lisinopril (7) GERD (gastroesophageal reflux disease): -Continue Protonix Plan Dispo-stable for dc to home discussed care with son at bedside on day of discharge Notes For Next Care Provider Considering transition to hospice as outpt Medication Changes From Visit Added Tylenol 1000mg po q8h prn pain Increased oxycodone to 5mg po q4h prn pain Admission HPI Per Admitting Provider Kalyn Wallis is an 83yo female with history of carcinomatosis of likely appendiceal origin presenting with abdominal pain. Patient follows with Dr. Muro of oncology. She has not had pain associated with her diagnosis until Friday10/11/23 when she developed severe abdominal pain. The pain is located in the lower abdomen as well as the flanks bilaterally. She had constipation as well. Patient was seen in the ER earlier today and had a CT scan of the abdomen which unfortunately showed progression of her disease - trace ascites. No evidence for bowel obstruction. Fluid filled colon likely representing diarrheal state. She was prescribed Oxycodone 2.5mg po q 4 hours as needed for cancer pain. When she went home, she took a 2.5mg table with no relief. She then took an additional 5mg which provided no relief. Her pain was severe and she was unable to rest so she returned to the ER. She denies fever, chills, nausea, vomiting, urinary symptoms. She has been taking milk of magnesium which has resulted in loose stools. Otherwise, no complaints. In the ER patient has been given Dilaudid 0.5mg IV. She reports adequate control of her abdominal pain at present. She wishes to remain in the hospital for now to come up with an adequate pain regimen. ER Course: zofran NSS Dilaudid Discharge Exam Constitutional WD/WN, vitals as above Respiratory normal respiratory effort, lungs clear to auscultation Cardiovascular RRR, no murmur, no edema Gastrointestinal (Abdomen) Inspection/Auscultation: normal bowel sounds; abdomen not distended Percussion/Palpation: + abdomen tender (diffusely but no guarding or rebound) Psychiatric A+Ox3, euthymic affect Discharge Plan Discharge Items Patient Disposition: Home - Self-Care Reason For Visit: ABD PAIN Discharge Diagnosis: Abdominal pain from metastatic cancer Activity: As commented below Bathing: No limitations Exercise/Sports: As tolerated Non-emergency contact: Primary Care Provider and Oncologist Call non-emergency contact if: you have any medication questions, your symptoms worsen, your pain is not controlled, your pain is worsening and you have a fever Follow-up/Referrals: Rafia Law CRNP [Primary Care Provider] - 10/23/23 11:05 am (WITH DR WILLS) Edelmira Muro MD [Physician] - (Please follow up within 1-2 weeks) Diet: Regular Addtl Attending Provider Instructions: You were admitted with abdominal pain from your cancer. This did improve with pain medication and moving your bowels more regularly. Please continue to take tylenol for mild pain and oxycodone as needed for moderate-severe pain. You can take Miralax as needed for constipation. Please follow up with Dr. Muro to discuss further plans for treatment of your cancer versus a transition to a focus on comfort and quality with Palliative or Hospice care. It was my pleasure to take care of you and will keep you in my prayers! Dr. Bianca Marcial Pending Studies at Discharge: Yes (Blood cultures-no growth to date) Stand-Alone Forms: My [facility] Medications and DC Order Prescriptions: New acetaminophen [Tylenol Extra Strength] 500 mg Tablet 1,000 mg PO Q8H PRN (Reason: mild pain (scale score 1-4)) Qty: 60 0RF Continued venlafaxine [Effexor XR] 150 mg capsule,extended release 24hr 300 mg PO QAM Calcium 600 + D(3) 600 mg calcium- 200 unit Capsule 2 cap PO HS Rx Instructions: Unable to verify OTC meds at this date/time bupropion HCl 100 mg tablet 100 mg PO HS lisinopril 10 mg Tablet 15 mg PO HS ondansetron HCl 8 mg tablet 8 mg PO Q8H PRN (Reason: Nausea) Eliquis 5 mg (74 tabs) tablets,dose pack 5 mg PO BID Qty: 74 0RF Rx Instructions: 10mg twice daily 08/30-09/06, then 5mg twice daily thereafter Restasis MultiDose 0.05 % drops 0 drops OP TID Rx Instructions: Unable to verify med at this date/time. Original Directions: 1 drop into both eyes TID melatonin 5 mg Capsule 5 mg PO HS Rx Instructions: Unable to verify OTC meds at this date/time polyethylene glycol 3350 [Miralax] 17 gram Powder In Packet 17 g PO HS Rx Instructions: Unable to verify OTC meds at this date/time amoxicillin 500 mg capsule 2,000 mg PO ONCE PRN (Reason: 1 hr prior to appointment) pantoprazole 40 mg tablet,delayed release (DR/EC) 40 mg PO DAILYBB lorazepam 0.5 mg tablet 0.25 mg PO DAILY PRN (Reason: severe anxiety) Phospha 250 Neutral 250 mg tablet 0 tab PO BID Rx Instructions: Unable to verify OTC med at this date/time. Original Directions: 250mg by mouth twice daily Changed oxycodone 5 mg tablet 5 mg PO Q4H PRN (Reason: moderate pain (scale score 5-6)) Qty: 14 0RF Discharge Orders: Discharge Order (Routine); Ordered 10/16/23 Ordered By: Bianca Marcial Admission Data Admit Date/Time: 10/15/23 02:34 Attending Provider: Bianca Marcial Admit Provider: Kayli Sweet Primary Care Provider: Rafia Law Other Providers: Kayli Sweet; Edelmira Muro; Eufemia Baez Jr Hospital Stay Data Consultations 10/15/23 01:18 ED Decision to Admit Stat 10/15/23 07:28 Consult Oncology Routine 10/15/23 07:29 Consult Gastroenterology Routine Pending Results Patient Have Any Pending Studies at Discharge: Yes (Blood cultures-no growth to date) Discharge Instructions Given to Patient (Per Discharging Provider) You were admitted with abdominal pain from your cancer. This did improve with pain medication and moving your bowels more regularly. Please continue to take tylenol for mild pain and oxycodone as needed for moderate-severe pain. You can take Miralax as needed for constipation. Please follow up with Dr. Muro to discuss further plans for treatment of your cancer versus a transition to a focus on comfort and quality with Palliative or Hospice care. It was my pleasure to take care of you and will keep you in my prayers! Dr. Bianca Marcial Total Time Total Time Spent Total Time Spent (In Minutes): 35 min Total Time Includes: Examination of the Patient, Discharge Planning and Medication Reconciliation Coding Level of Care Code 99377 INP/OBS DISCH >30 MIN Diagnoses Abdominal pain R10.84 Abdominal location: generalized Leukocytosis D72.829 Peritoneal carcinomatosis C78.6 DVT (deep venous thrombosis) I82.409 Anxiety F41.9 Hypertension I10 GERD (gastroesophageal reflux disease) K21.9
== END 2023-10-16 17:33 | disposition home or self-care (01) ==
LOC: 3N 22:34 → ED 22:34 → SUATTDRO 10-15 02:34 → 3N 10-15 03:47

== ENCOUNTER 2024-03-23 04:01 | Inpatient (IN) ==
[2024-03-23 04:50] LABS: Basophils # (auto) 0.02 K/uL (0.00-0.20); Basophils % (auto) 0.2 %; Eosinophils # (auto) 0.04 K/uL (0.00-0.50); Eosinophils % (auto) 0.3 %; Hematocrit (blood only) 33.7 % (37.0-47.0); Immature Granulocytes # (auto) 0.14 K/uL (0.01-0.20); Immature Granulocytes % (auto) 1.1 %; Lymphocytes # (auto) 1.11 K/uL (1.20-3.40); Lymphocytes % (auto) 8.7 %; Mean Corpuscular Hemoglobin 31.7 pg (25.0-34.0); Mean Corpuscular Hgb Conc 32.6 g/dL (32.0-36.0); Mean Corpuscular Volume 97.1 fL (80.0-100.0); Mean Platelet Volume 8.6 fL (9.4-12.4); Monocytes # (auto) 1.14 K/uL (0.11-0.59); Monocytes % (auto) 8.9 %; Neutrophils # (auto) 10.36 K/uL (1.40-6.50); Neutrophils % (auto) 80.8 %; Platelet Count 372 K/uL (130-400); RDW Coefficient of Variation 15.2 % (11.5-14.5); RDW Standard Deviation 53.4 fL (36.4-46.3); Red Blood Count 3.47 M/uL (4.20-5.40); White Blood Count 12.81 K/ul (4.8-10.8)
[2024-03-23] MEDS: KETOROLAC TROMETHAMINE 15 MG/ML VIAL IV ONE (04:51)
[2024-03-23] MEDS: LIDOCAINE 5% 1 PATCH TD STA (04:51)
[2024-03-23 05:05] LABS: BUN Creatinine Ratio 23.5 (10-20); Bilirubin Direct 0.1 mg/dl (0-0.2); Bilirubin,Total 0.5 mg/dl (0.2-1.0); Calcium 8.8 mg/dl (8.6-10.3); Creatinine Clr Calc Pharmacy 33.8 ml/min; Potassium 4.2 mmol/L (3.5-5.1); Total Protein 6.9 gm/dl (6.0-8.3)
[2024-03-23] MEDS: OPTIRAY 320 125ml IV ONE (05:31)
--- NOTE | 2024-03-23 06:25 | CT Scan Report ---
EXAM: CT angio neck with con CLINICAL HISTORY: Neck pain, arm pain, dissection. TECHNIQUE: CT angiography study of the neck vessels with IV contrast was performed and multiple axial sections were obtained with coronal and sagittal reconstructions. One of the following dose reduction techniques were utilized for this exam: Automated exposure control, adjustment of the mA and/or kV according to patient size, and use of iterative reconstruction. One of these 3D techniques was utilized: Maximum Intensity Pixel (MIP), 3D Reconstructed Images, Volume Rendered Images, Surface Shaded Rendering. COMPARISON: None. FINDINGS: Carotid Arteries: Common carotid arteries, internal carotid arteries, and external carotid arteries bilaterally are well-opacified. No evidence of significant stenosis, occlusion, or aneurysm. No significant atherosclerotic changes. Vertebral Arteries: Hypoplastic right vertebral artery, normal variant. Vertebral arteries bilaterally are well-opacified. No evidence of significant stenosis, occlusion, or aneurysm. No significant atherosclerotic changes. 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 Multiple anterior mediastinal, anterior neck, and perivertebral collateral venous opacification. Normal opacification of the right internal and external jugular veins. No evidence of recent thrombosis or compression. Subclavian Arteries: Subclavian arteries bilaterally are well-opacified. No evidence of significant stenosis, occlusion, or aneurysm. Thyroid Gland: Normal size and morphology of the thyroid gland. No masses or nodules. Soft Tissues: Normal appearance of the surrounding soft tissues of the neck. No abnormal masses or lymphadenopathy. Cervical Spine: Advanced cervical spondylotic changes. Normal alignment and signal intensity of the cervical vertebrae. No fractures, lytic or sclerotic lesions. Upper CT chest cuts show bilateral moderate pleural effusions and right upper lobar calcified granuloma. IMPRESSION: 1. Normal bilateral neck arteries, no evidence of dissection. 2. 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 3. Multiple anterior mediastinal, anterior neck, and perivertebral collateral venous opacification. 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 4. Bilateral moderate pleural effusions. Electronically signed by Beni Beltran 03-23-2024 06:25 AM
--- NOTE | 2024-03-23 06:28 | Emergency Department Note ---
Impression & Plan Acute non-ST elevation myocardial infarction (NSTEMI), Elevated troponin, Neck and shoulder pain ED Provider Note NAME: JESSICA NAQVI AGE: 84 SEX: F : 1940 ARRIVES VIA: Walk-In INFORMANT: Patient, ED PROVIDER(S): Jose Maria Cardoza MD CHIEF COMPLAINT: Neck pain HPI: This is a 84-year-old female presenting for neck pain. Patient states she began having neck pain about 2 nights ago. She notes pain in her lower cervical spine. She notes that her hands to have bilateral tingling. She able to move them without pain. She reports no weakness in her arms. She reports no chest pain or shortness of breath. No difficulty with walking ROS: See above HPI for pertinent positives & negatives. A total of 10 systems reviewed and were otherwise negative. PHYSICAL EXAMINATION: General: resting comfortably in no acute distress Head: Normocephalic and atraumatic Eyes: Normal inspection, extraocular muscles intact Ear, nose, throat: Normal external exam Neck: Normal range of motion Respiratory: lungs clear to auscultation bilaterally Cardiovascular: Regular rate/rhythm, no murmur GI: soft, nontender, no guarding or rebound Extremities: nontender, moves all extremities, 2+ pulses in each extremity Neuro: The patient awake and alert, appropriately conversive, no focal deficits, symmetric faces Skin: Warm, dry, and intact MEDICAL DECISION MAKING: This is an 84-year-old female seen for neck pain. Patient no current neurologic deficits. She has point tenderness to the lower cervical spine. She has had no trauma. Symptoms. Most consistent with likely radiculopathy in her neck. Will give Toradol, lidocaine patch. -Low concern for acute dissection. Consider carotid dissection. Will get CTs of the head, neck -Patient's pain is lessening at this time. She continues have no neurologic deficits, significant hypertension or unequal pulses. She has no chest or back pain. -CT of the head and neck are overall negative for acute pathology. Chronic findings as noted. There is a port noted -ECG independently interpreted by me with normal sinus rhythm, rate of 85, normal OR, normal QRS, normal QTc, no ST segment elevations consistent with STEMI criteria, ST elevation most pronounced in lead V2, possible V3, T wave version in lead III -Patient troponin results that over 53,000. -Upon reevaluation, patient continues to deny any chest pain, she continues to endorse improving neck pain. Her neck pain is very musculoskeletal in her lower cervical spine. -She does mention having vague chest symptoms over the past 2 days but cannot quantify this. She states it is fairly minor and she did not think much of it otherwise. -Discussed case with Dr. Reese, on-call psychologist social. He states he will see the patient upon arrival to the hospital. He recommends anticoagulation at this time. Will order IV heparin with bolus -Discussed care with Dr. Esquivel for admission Differential diagnosis: Aortic dissection, carotid dissection, intracranial hemorrhage, cervical radiculopathy, herniated disc, NSTEMI, ACS Diagnostics interpreted by me: ECG: See above Cardiac Monitoring: An order was placed for continuous cardiac monitoring. The monitor shows a rate of 87 with sinus rhythm. Critical Care Note: I have personally spent 45 minutes of critical care time in the direct management of this patient. This includes bedside care, interpretation of diagnostic studies, and testing, discussion with consultants, patient, and family members, and other required patient management activities. This 45 minutes is in excess of all separately billable procedures. Past Med/Surg History Problem List SVT (supraventricular tachycardia) Gallbladder anomaly Hypotension Hematoma Ischemic cardiomyopathy STEMI (ST elevation myocardial infarction) Neck and shoulder pain (Acute) Elevated troponin (Acute) Acute non-ST elevation myocardial infarction (NSTEMI) (Acute) Leukocytosis GERD (gastroesophageal reflux disease) Peritoneal carcinomatosis (Acute) Dehydration (Acute) Abdominal pain (Acute) Peritoneal carcinomatosis (Acute) Perineal abscess, superficial Left upper extremity deep vein thrombosis Anxiety (Chronic) Torn rotator cuff (Chronic) Acquired deviated nasal septum (Chronic) Dyslipidemia Encounter for pre-operative examination Left knee DJD Obesity Status post total left knee replacement using cement Osteoarthritis Routine health maintenance Subcutaneous mass Arthritis Anemia Seroma after procedure Vaginal prolapse Encounter for pessary maintenance Screening for colon cancer 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 Wears compression stocking on RLE. H/O cellulitis in this limb as well (remote ~ 6 yrs ago) Mass of omentum Peritoneal carcinomatosis per heme/onc records- Dr Muro Hx of biopsy (06/06/22) Diagnostic Laparoscopy, Peritoneal Biopsy(Not Applicable) - Denis Diego, Medical History DVT (deep venous thrombosis) Peritoneal carcinomatosis Sciatic leg pain Depression Hyperlipidemia History of COVID-19 ?2021 mild cold symptoms; resolved Carpal tunnel syndrome Right hand Thyroid nodule Under surveillance Anxiety Surgical History Port-A-Cath in place (08/19/22) Evaluate Access Port, Replacement Access Port with Fluoroscopy(Left) - Denis Diego, Port-A-Cath in place (08/01/22) Insertion of Access Port with Fluoroscopy(Left) - Denis Diego, DO [place] History of surgery (05/22/21) Left Thigh Wound Exploration and VAC System Placement(Left) - Mathew Menon MD, FACS 05/22/2021 History of surgery (05/10/21) Exploration Left Inner Thigh for Post-Operative Seroma placement of Андрей drain(Left) - Mathew Menon MD, FACS 05/10/2021 H/O excision of mass (05/01/21) Excision of left thigh mass. Dr. Jaramillo 05/01/2021 History of anesthesia reaction WOKE UP IN MIDDLE OF COLONOSCOPY S/P knee replacement (~2019) LEFT History of cataract surgery (2019) R/L History of colonoscopy History of eye surgery R/L LIDS History of shoulder surgery (1980) LEFT TEAR History of mandibular surgery (1980) ORIF-FULL ROM Family History Father Coronary heart disease Heart disease Cancer Mother Coronary heart disease Other Leukemia Lupus (systemic lupus erythematosus) No family history of adverse response to anesthesia Social History Smoking Status: Never smoker Second Hand Exposure: No; Do You Dip or Chew Tobacco: No; Tobacco Cessation Education Requested by Patient: No Hx Alcohol Use: No Hx Substance Use: No Preferred Language: Nauruan Communication Ability: Effective Visual Impairment: No Limitations Gear Roller Required: No Beliefs That Will Affect Care: None marital status: / Current Living Situation: Family Current Living Situation Comment: Lives with her Juan David (son) in a house current occupational status: retired How many Children do You have: 3 Other Information That Helps Us Care for You: No Feels Safe at Home: Yes Safety Concerns: Feels Safe At This Time Diet: regular during the past year weight has: remained stable Assistive Devices: None Allergies Allergies Allergy/AdvReac Type Severity Reaction Status Date / Time atorvastatin [From Lipitor] AdvReac Mild MUSCLE Verified 01/15/24 13:08 ISSUES ezetimibe [From Vytorin] AdvReac Mild MUSCLE Verified 01/15/24 13:08 ISSUES fluvastatin AdvReac Mild Muscle Verified 01/15/24 13:08 Issues- legs pravastatin [From Pravachol] AdvReac Mild MUSCLE Verified 01/15/24 13:08 ISSUES simvastatin [From Vytorin] AdvReac Mild Dizziness Verified 01/15/24 13:08 Home Meds Home Medications Medication Instructions Recorded Confirmed venlafaxine 150 mg 300 mg PO QAM 12/01/18 03/23/24 capsule,extended release 24 hr (Effexor XR) bupropion HCl 100 mg tablet 100 mg PO QAM 10/14/19 03/23/24 calcium 600 mg (as 2 cap PO HS 10/14/19 03/23/24 carbonate)-vitamin D3 5 mcg (200 unit) capsule (Calcium 600 + D(3)) cyclosporine 0.05 % eye drops 1 drops OPB UD 04/24/21 03/23/24 (Restasis MultiDose) polyethylene glycol 3350 17 gram 17 g PO HS 07/30/22 03/23/24 oral powder packet (Miralax) ondansetron HCl 8 mg tablet 8 mg PO Q8H PRN Nausea 08/27/22 03/23/24 lorazepam 0.5 mg tablet 0.25 mg PO DAILY PRN severe anxiety 12/19/22 03/23/24 sodium di- and 250 tab PO BID 10/14/23 03/23/24 monophosphate-potassium phos monobasic 250 mg tablet (Phospha Neutral) apixaban 5 mg tablet (Eliquis) 5 mg PO BID 01/15/24 03/23/24 mirtazapine 7.5 mg tablet 7.5 mg PO HS PRN Sleep 01/15/24 03/23/24 lisinopril 10 mg tablet 15 mg PO 1XD 03/23/24 03/23/24 Previous Rx's Medication Instructions Recorded acetaminophen 500 mg tablet 1,000 mg (2 x 500 mg) PO Q8H PRN 10/16/23 (Tylenol Extra Strength) mild pain (scale score 1-4) #60 tabs Results & Data (ED) Vital Signs Vital Signs - 24 hr 03/23/24 04:04 03/23/24 04:20 03/23/24 04:27 Temperature 36.5 C Temperature Source Oral Pulse Rate 93 H 88 Pulse Rate [Right Finger] 89 Pulse Rate from SpO2 Sensor Pulse Rhythm [Right Finger] Pulse Strength [Right Finger] Respiratory Rate 18 17 Respiratory Effort / Characteristics Non-Labored Spontaneous Non-Labored Spontaneous Respiratory Depth Normal Normal Respiratory Pattern Regular Regular Blood Pressure 116/73 Blood Pressure [Right Arm] 124/73 Blood Pressure Mean 87 Blood Pressure Mean [Right Arm] 90 Blood Pressure Position [Right Arm] Lying Pulse Oximetry 98 94 Oxygen Delivery Method Room Air Room Air Sepsis Recent Fever Within 48 Hours No Sepsis New/Unexplained Change in Mental Status No Sepsis Action Taken by Nursing No Action Required 03/23/24 06:02 03/23/24 07:03 Temperature Temperature Source Pulse Rate 87 Pulse Rate [Right Finger] 84 Pulse Rate from SpO2 Sensor 87 Pulse Rhythm [Right Finger] Regular Pulse Strength [Right Finger] Normal Respiratory Rate 16 20 Respiratory Effort / Characteristics Non-Labored Spontaneous Respiratory Depth Normal Respiratory Pattern Regular Blood Pressure 134/77 Blood Pressure [Right Arm] 127/77 Blood Pressure Mean 96 Blood Pressure Mean [Right Arm] 93 Blood Pressure Position [Right Arm] Lying Pulse Oximetry 92 94 Oxygen Delivery Method Room Air Sepsis Recent Fever Within 48 Hours Sepsis New/Unexplained Change in Mental Status Sepsis Action Taken by Nursing Laboratory Data 03/26/24 04:29 03/26/24 04:29 Lab Results 03/23/24 03/23/24 03/23/24 Range/Units 04: 04:28 07:09 WBC 12.81 H (4.8-10.8) K/ul RBC 3.47 L (4.20-5.40) M/uL Hgb 11.0 L (12.0-16.0) g/dl Hct 33.7 L (37.0-47.0) % MCV 97.1 (80.0-100.0) fL MCH 31.7 (25.0-34.0) pg MCHC 32.6 (32.0-36.0) g/dL RDW Std Deviation 53.4 H (36.4-46.3) fL RDW Coeff of Leslee 15.2 H (11.5-14.5) % Plt Count 372 (130-400) K/uL MPV 8.6 L (9.4-12.4) fL Immature Gran % (Auto) 1.1 % Neut % (Auto) 80.8 % Lymph % (Auto) 8.7 % [place] % (Auto) 8.9 % Eos % (Auto) 0.3 % Baso % (Auto) 0.2 % Neut # (Auto) 10.36 H (1.40-6.50) K/uL Lymph # (Auto) 1.11 L (1.20-3.40) K/uL Montgomery # (Auto) 1.14 H (0.11-0.59) K/uL Eos # (Auto) 0.04 (0.00-0.50) K/uL Baso # (Auto) 0.02 (0.00-0.20) K/uL Immature Gran # (Auto) 0.14 (0.01-0.20) K/uL PT 10.4 (9.0-12.0) Seconds INR 1.0 (0.9-1.1) Sodium 132 L (136-145) mmol/L Potassium 4.2 (3.5-5.1) mmol/L Chloride 98 (98-107) mmol/L Carbon Dioxide 28 (21-32) mmol/L Anion Gap 6 (3-11) BUN 23 (6-23) mg/dl Creatinine 0.98 (0.6-1.2) mg/dl Est Cr Clr Drug Dosing 33.8 ml/min eGFR 56.56 BUN/Creatinine Ratio 23.5 H (10-20) Glucose 154 H (70-99(Fasting)) mg/dl Calcium 8.8 (8.6-10.3) mg/dl Total Bilirubin 0.5 (0.2-1.0) mg/dl Direct Bilirubin 0.1 (0-0.2) mg/dl AST 156 H (13-39) U/L ALT 28 (7-52) U/L Alkaline Phosphatase 96 (34-104) U/L Troponin I High Sens 34541.1 H* 40397.9 H* D (0-14) pg/ml Total Protein 6.9 (6.0-8.3) gm/dl Albumin 4.0 (3.4-5.0) gm/dl Administered Medications Acetaminophen (Acetaminophen 500 Mg Tab) 1,000 mg PO Q8H PRN PRN Reason: Pain Stop: 04/22/24 08:59 Last Admin: 03/23/24 18:18 Dose: 1,000 mg Documented By: JOHN Apixaban (Apixaban 5 Mg Tablet) 5 mg PO BID [facility] Stop: 04/23/24 08:59 Last Admin: 03/26/24 08:09 Dose: 5 mg Documented By: Admin: 03/25/24 20:19 Dose: 5 mg Documented By: Admin: 03/25/24 08:11 Dose: 5 mg Documented By: Admin: 03/24/24 21:09 Dose: 5 mg Documented By: JAVIER Atorvastatin Calcium (Atorvastatin 20 Mg Tab) 20 mg PO [facility] Stop: 04/23/24 08:59 Last Admin: 03/26/24 08:09 Dose: 20 mg Documented By: Admin: 03/25/24 08:11 Dose: 20 mg Documented By: Admin: 03/24/24 08:06 Dose: 20 mg Documented By: NAVJOT Bupropion HCl (Bupropion Hcl 100 Mg Tablet) 100 mg PO [facility] Stop: 04/23/24 08:59 Last Admin: 03/26/24 08:09 Dose: 100 mg Documented By: Admin: 03/25/24 08:18 Dose: 100 mg Documented By: Admin: 03/24/24 08:06 Dose: 100 mg Documented By: NAVJOT Clopidogrel Bisulfate (Clopidogrel Bisulfate 75 Mg Tab) 75 mg PO [facility] Stop: 04/23/24 08:59 Last Admin: 03/26/24 08:09 Dose: 75 mg Documented By: Admin: 03/25/24 08:18 Dose: 75 mg Documented By: Admin: 03/24/24 10:30 Dose: 75 mg Documented By: NAVJOT Norepinephrine Bitartrate (Levophed/D5w) 4 mg in 250 mls @ 6.986 mls/hr IV .Q24H RAYRAY; Protocol Stop: 04/23/24 00:59 Last Titration: 03/26/24 06:53 Dose: 0.03 mcg/kg/min, 7 mls/hr Documented By: JOE Co-signed By: JRB Titration: 03/25/24 19:14 Dose: 0.03 mcg/kg/min, 7 mls/hr Documented By: NAVJOT Co-signed By: CLC Titration: 03/25/24 06:55 Dose: 0.03 mcg/kg/min, 7 mls/hr Documented By: NAVJOT Co-signed By: JAVIER Admin: 03/25/24 05:59 Dose: 0.03 mcg/kg/min, 7 mls/hr Documented By: JAVIER Co-signed By: LLP Titration: 03/25/24 05:59 Dose: Infused Documented By: JAVIER Co-signed By: LLP Admin: 03/25/24 04:48 Dose: Not Given Documented By: Titration: 03/25/24 01:10 Dose: 0.03 mcg/kg/min, 7 mls/hr Documented By: JAVIER Co-signed By: LLP Titration: 03/24/24 19:05 Dose: 0.04 mcg/kg/min, 9.3 mls/hr Documented By: NAVJOT Co-signed By: DANIELA Titration: 03/24/24 18:12 Dose: 0.04 mcg/kg/min, 9.3 mls/hr Documented By: NAVJOT Co-signed By: DTT Titration: 03/24/24 12:21 Dose: 0.03 mcg/kg/min, 7 mls/hr Documented By: NAVJOT Co-signed By: GANESH Titration: 03/24/24 08:27 Dose: 0.02 mcg/kg/min, 4.7 mls/hr Documented By: NAVJOT Co-signed By: DTT Titration: 03/24/24 07:12 Dose: 0.03 mcg/kg/min, 7 mls/hr Documented By: NAVJOT Co-signed By: JAVIER Titration: 03/24/24 04:47 Dose: 0.03 mcg/kg/min, 7 mls/hr Documented By: JAVIER Co-signed By: ESG Titration: 03/24/24 02:58 Dose: 0.05 mcg/kg/min, 11.6 mls/hr Documented By: JAVIER Co-signed By: TIMP Titration: 03/24/24 01:15 Dose: 0.07 mcg/kg/min, 16.3 mls/hr Documented By: JAVIER Co-signed By: MURALI Admin: 03/24/24 00:55 Dose: 0.05 mcg/kg/min, 11.6 mls/hr Documented By: JAVIER Co-signed By: MURALI Lidocaine (Lidocaine 5% 1 Patch) 1 patch TD [facility] Stop: 04/23/24 08:59 Last Admin: 03/26/24 08:09 Dose: Not Given Documented By: Admin: 03/25/24 08:18 Dose: 1 patch Documented By: Admin: 03/24/24 10:30 Dose: 1 patch Documented By: NAVJOT Lisinopril (Lisinopril 5 Mg Tab) 5 mg PO [facility] Stop: 04/23/24 08:59 Last Admin: 03/24/24 08:04 Dose: Not Given Documented By: NAVJOT Metoprolol Tartrate (Metoprolol Tartrate 25 Mg Tab) 12.5 mg PO BID [facility] Stop: 04/22/24 20:59 Last Admin: 03/26/24 08:36 Dose: Not Given Documented By: Admin: 03/25/24 20:18 Dose: 12.5 mg Documented By: Admin: 03/25/24 08:46 Dose: 12.5 mg Documented By: Admin: 03/24/24 08:04 Dose: Not Given Documented By: Admin: 03/23/24 21:16 Dose: Not Given Documented By: JAVIER Midodrine (Midodrine Hcl 2.5 Mg Tab) 2.5 mg PO TID@0800,1200,1700 [facility] Stop: 04/24/24 11:59 Last Admin: 03/26/24 08:09 Dose: 2.5 mg Documented By: Admin: 03/25/24 17:01 Dose: 2.5 mg Documented By: Admin: 03/25/24 11:43 Dose: 2.5 mg Documented By: NAVJOT Miscellaneous (Remove Lidoderm Patch) 1 each N/A DAILY@2100 [facility] Stop: 04/22/24 20:59 Last Admin: 03/25/24 20:19 Dose: 1 each Documented By: Admin: 03/24/24 21:10 Dose: 1 each Documented By: Admin: 03/23/24 21:16 Dose: 1 each Documented By: JAVIER Morphine Sulfate (Morphine Sulfate 2 Mg/Ml Carp) 2 mg IV Q4H PRN PRN Reason: Severe Pain (7,8,9,10) on NRS Stop: 04/06/24 12:07 Last Admin: 03/23/24 12:42 Dose: 2 mg Documented By: MARLENE Venlafaxine HCl (Venlafaxine Hcl Xr 150 Mg Capxr) 300 mg PO [facility] Stop: 04/23/24 08:59 Last Admin: 03/26/24 08:09 Dose: 300 mg Documented By: Admin: 03/25/24 08:19 Dose: 300 mg Documented By: Admin: 03/24/24 08:07 Dose: 300 mg Documented By: NAVJOT Discontinued Medications Aspirin (Aspirin 81 Mg Chew) 324 mg PO ONE ONE Stop: 03/23/24 14:20 Last Admin: 03/23/24 15:47 Dose: 324 mg Documented By: EM Bupropion HCl (Bupropion Hcl 100 Mg Tablet) 100 mg PO [facility] Stop: 03/23/24 10:16 Last Admin: 03/23/24 11:01 Dose: 100 mg Documented By: Clopidogrel Bisulfate (Clopidogrel Bisulfate 300 Mg Tab) Confirm Administered Dose 600 mg .ROUTE .STK-MED ONE Stop: 03/23/24 15:26 Last Admin: 03/23/24 15:51 Dose: 600 mg Documented By: EM Eptifibatide (Eptifibatide 2 Mg/Ml 10 Ml Vial ([employer]ice Use Only)) Confirm Administered Dose 40 mg IV .STK-MED ONE Stop: 03/23/24 14:56 Last Admin: 03/23/24 15:47 Dose: 10 ml Documented By: EM Eptifibatide (Eptifibatide 0.75 Mg/Ml 75mg Vial ([employer] App[employer]ice Use Only)) Confirm Administered Dose 75 mg IV .STK-MED ONE Stop: 03/23/24 15:57 Last Admin: 03/23/24 15:57 Dose: 75 mg Documented By: EM Fentanyl Citrate (Fentanyl Citrate Pf 100 Mcg/2 Ml Vial) Confirm Administered Dose 100 mcg .ROUTE .STK-MED ONE Stop: 03/23/24 14:15 Last Admin: 03/23/24 15:46 Dose: 100 mcg Documented By: EM Fentanyl Citrate (Fentanyl Citrate Pf 100 Mcg/2 Ml Vial) Confirm Administered Dose 100 mcg .ROUTE .STK-MED ONE Stop: 03/23/24 15:24 Last Increment: 03/23/24 15:51 Dose: 12.5 mcg Documented By: EM Heparin Sodium (Porcine) (Heparin Sod (Porcine) 1000 Unit/Ml) 1 units IV NOW ONE Stop: 03/23/24 07:15 Last Admin: 03/23/24 07:22 Dose: 3,000 units Documented By: Co-signed By: ENOC Heparin Sodium (Porcine) (Heparin (Porcine) 1000 Unit/Ml 10 Ml ([employer]ice Use Only)) Confirm Administered Dose 10,000 units .ROUTE .STK-MED ONE Stop: 03/23/24 14:15 Last Admin: 03/23/24 15:46 Dose: 10,000 units Documented By: EM Heparin Sodium (Porcine) (Heparin (Porcine) 1000 Unit/Ml 10 Ml ([employer]ice Use Only)) Confirm Administered Dose 10,000 units .ROUTE .STK-MED ONE Stop: 03/23/24 15:30 Last Admin: 03/23/24 15:51 Dose: 500 units Documented By: EM Heparin Sodium/Dextrose (Heparin Iv Adult Wt-Based Low-Dose W/ Initial Bolus Protocol) 1 each IV NOW STA; Protocol Stop: 03/23/24 07:00 Last Admin: 03/23/24 07:29 Dose: 1 each Documented By: Heparin Sodium/Sodium Chloride (Heparin In Nss Infusion 1000 Unit/500 Ml (2 U/Ml) Bag) Confirm Administered Dose 3,000 units IV .STK-MED ONE Stop: 03/23/24 14:15 Last Admin: 03/23/24 15:46 Dose: 3,000 units Documented By: DILCIA Heparin Sodium/Dextrose (Heparin 95287 Unit/500 Ml) 25,000 units in 500 mls @ 12 mls/hr IV .Q24H [facility]; Protocol Stop: 04/22/24 07:14 Last Titration: 03/23/24 16:27 Dose: Infused Documented By: JOHN Co-signed By: ALEXIS Admin: 03/23/24 07:23 Dose: 600 units/hr, 12 mls/hr Documented By: Co-signed By: ENOC Acetaminophen (Ofirmev) 1,000 mg in 100 mls @ 400 mls/hr IV NOW STA Stop: 03/23/24 07:54 Last Infusion: 03/23/24 09:36 Dose: Infused Documented By: Admin: 03/23/24 09:08 Dose: 400 mls/hr Documented By: MOLLY Eptifibatide (Integrilin) 75 mg in 100 mls @ 9.488 mls/hr IV .[id number] [facility]; Protocol Stop: 03/24/24 04:00 Last Infusion: 03/24/24 04:01 Dose: Infused Documented By: JAVIER Co-signed By: TIMP Infusion: 03/23/24 19:19 Dose: 2 mcg/kg/min, 9.5 mls/hr Documented By: JOHN Co-signed By: LLP Admin: 03/23/24 16:26 Dose: 2 mcg/kg/min, 9.5 mls/hr Documented By: JOHN Co-signed By: ALEXIS Sodium Chloride (Nss) 1,000 mls @ 80 mls/hr IV .[id number] [facility] Stop: 03/24/24 19:44 Last Infusion: 03/24/24 04:10 Dose: Infused Documented By: Infusion: 03/24/24 04:04 Dose: 0 mls/hr Documented By: Admin: 03/23/24 20:15 Dose: 80 mls/hr Documented By: JAVIER Sodium Chloride (Nss) 250 mls @ 999 mls/hr IV .Q16M ONE Stop: 03/23/24 23:22 Last Infusion: 03/23/24 23:53 Dose: Infused Documented By: Admin: 03/23/24 23:42 Dose: 999 mls/hr Documented By: JAVIER Sodium Chloride (Nss) 250 mls @ 999 mls/hr IV .Q16M ONE Stop: 03/23/24 23:45 Last Infusion: 03/23/24 23:53 Dose: Infused Documented By: Admin: 03/23/24 23:43 Dose: 999 mls/hr Documented By: JAVIER Sodium Chloride (Nss) 1,000 mls @ 110 mls/hr IV .Q9H6M ONE Stop: 03/24/24 09:18 Last Infusion: 03/24/24 04:09 Dose: Infused Documented By: Infusion: 03/24/24 04:08 Dose: 0 mls/hr Documented By: Infusion: 03/24/24 04:03 Dose: 0 mls/hr Documented By: Admin: 03/24/24 01:13 Dose: 110 mls/hr Documented By: JAVIER Piperacillin Sod/Tazobactam Sod (Zosyn) 4.5 gm in 100 mls @ 25 mls/hr IV Q8H [facility]; Protocol Stop: 04/03/24 07:59 Last Infusion: 03/24/24 12:15 Dose: Infused Documented By: Admin: 03/24/24 08:05 Dose: 25 mls/hr Documented By: NAVJOT Piperacillin Sod/Tazobactam Sod (Zosyn) 4.5 gm in 100 mls @ 200 mls/hr IV ONE ONE; Protocol Stop: 03/24/24 02:29 Last Infusion: 03/24/24 04:03 Dose: Infused Documented By: Admin: 03/24/24 03:01 Dose: 200 mls/hr Documented By: JAVIER Sodium Chloride (Nss) 500 mls @ 999 mls/hr IV .Q31M [facility]; Protocol Stop: 03/24/24 13:00 Last Infusion: 03/24/24 13:35 Dose: Infused Documented By: Admin: 03/24/24 12:40 Dose: 999 mls/hr Documented By: NAVJOT Calcium Gluconate () 1,000 mg in 60 mls @ 240 mls/hr IV NOW STA Stop: 03/24/24 16:45 Last Infusion: 03/24/24 17:27 Dose: Infused Documented By: Admin: 03/24/24 17:00 Dose: 240 mls/hr Documented By: NAVJOT Magnesium Sulfate/Dextrose (Magnesium Sulfate / D5w) 1 gm in 100 mls @ 50 mls/hr IV Q2H [facility] Stop: 03/24/24 22:44 Last Infusion: 03/24/24 23:29 Dose: Infused Documented By: Admin: 03/24/24 21:10 Dose: 50 mls/hr Documented By: Infusion: 03/24/24 20:47 Dose: Infused Documented By: Admin: 03/24/24 18:47 Dose: 50 mls/hr Documented By: NAVJOT Ioversol (Optiray 320 125ml) 125 ml IV ONCE ONE Stop: 03/23/24 05:31 Last Admin: 03/23/24 05:31 Dose: 118 ml Documented By: LUCIE Ioversol (Optiray 350) Confirm Administered Dose 1 ml .ROUTE .STK-MED ONE Stop: 03/23/24 14:17 Last Admin: 03/23/24 15:47 Dose: 265 ml Documented By: DILCIA Ketorolac Tromethamine (Ketorolac Tromethamine 15 Mg/Ml Vial) 15 mg IV NOW ONE Stop: 03/23/24 04:30 Last Admin: 03/23/24 04:51 Dose: 15 mg Documented By: CHAPO Lidocaine (Lidocaine 5% 1 Patch) 1 patch TD NOW STA Stop: 03/23/24 04:30 Last Admin: 03/23/24 04:51 Dose: 1 patch Documented By: CHAPO Lisinopril (Lisinopril 5 Mg Tab) 15 mg PO DAILY ONE Stop: 03/23/24 10:31 Last Admin: 03/23/24 11:50 Dose: Not Given Documented By: Metoprolol Tartrate (Metoprolol Tartrate 1 Mg/Ml Vial) 2.5 mg IV Q5M [facility] Stop: 03/24/24 19:21 Last Admin: 03/24/24 19:27 Dose: 2.5 mg Documented By: Admin: 03/24/24 19:13 Dose: 2.5 mg Documented By: JAVIER Metoprolol Tartrate (Metoprolol Tartrate 1 Mg/Ml Vial) Confirm Administered Dose 5 mg IV .STK-MED ONE Stop: 03/24/24 19:07 Last Admin: 03/24/24 19:26 Dose: Not Given Documented By: JAVIER Midazolam HCl (Midazolam Hcl 1 Mg/Ml 2ml Vial) Confirm Administered Dose 2 mg .ROUTE .STK-MED ONE Stop: 03/23/24 14:14 Last Increment: 03/23/24 15:45 Dose: 1 mg Documented By: EM Nicardipine HCl (Nicardipine 2,000 Mcg/20 Ml Syr) Confirm Administered Dose 2,000 mcg .ROUTE .STK-MED ONE Stop: 03/23/24 14:15 Last Admin: 03/23/24 15:46 Dose: 2,000 mcg Documented By: DILCIA Nitroglycerin/Dextrose (Nitroglycerin/D5w 100mcg/Ml 20ml Syr) Confirm Administered Dose 2,000 mcg .ROUTE .STK-MED ONE Stop: 03/23/24 14:15 Last Admin: 03/23/24 15:46 Dose: 2,000 mcg Documented By: DILCIA Norepinephrine Bitartrate (Norepinephrine/D5w 4 Mg/250 Ml) Confirm Administered Dose 4 mg IV .STK-MED ONE Stop: 03/23/24 15:12 Last Admin: 03/23/24 15:51 Dose: 4 mg Documented By: EM Co-signed By: JENY Phenylephrine HCl (Phenylephrine 100mcg/Ml 5ml Syr) Confirm Administered Dose 100 mcg .ROUTE .STK-MED ONE Stop: 03/23/24 14:43 Last Admin: 03/23/24 15:47 Dose: 200 mcg Documented By: EM Co-signed By: JENY Ticagrelor (Ticagrelor 90 Mg Tab) 180 mg PO ONE STA Stop: 03/23/24 14:20 Last Admin: 03/23/24 16:12 Dose: Not Given Documented By: OJHN Venlafaxine HCl (Venlafaxine Hcl Xr 150 Mg Capxr) 300 mg PO QAM ONE Stop: 03/23/24 10:31 Last Admin: 03/23/24 11:01 Dose: 300 mg Documented By: MR Imaging Data Radiologist's Impression: Neck CTA 03/23/24 04:28 EXAM: CT angio neck with con CLINICAL HISTORY: Neck pain, arm pain, dissection. TECHNIQUE: CT angiography study of the neck vessels with IV contrast was performed and multiple axial sections were obtained with coronal and sagittal reconstructions. One of the following dose reduction techniques were utilized for this exam: Automated exposure control, adjustment of the mA and/or kV according to patient size, and use of iterative reconstruction. One of these 3D techniques was utilized: Maximum Intensity Pixel (MIP), 3D Reconstructed Images, Volume Rendered Images, Surface Shaded Rendering. COMPARISON: None. FINDINGS: Carotid Arteries: Common carotid arteries, internal carotid arteries, and external carotid arteries bilaterally are well-opacified. No evidence of significant stenosis, occlusion, or aneurysm. No significant atherosclerotic changes. Vertebral Arteries: Hypoplastic right vertebral artery, normal variant. Vertebral arteries bilaterally are well-opacified. No evidence of significant stenosis, occlusion, or aneurysm. No significant atherosclerotic changes. 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 Multiple anterior mediastinal, anterior neck, and perivertebral collateral venous opacification. Normal opacification of the right internal and external jugular veins. No evidence of recent thrombosis or compression. Subclavian Arteries: Subclavian arteries bilaterally are well-opacified. No evidence of significant stenosis, occlusion, or aneurysm. Thyroid Gland: Normal size and morphology of the thyroid gland. No masses or nodules. Soft Tissues: Normal appearance of the surrounding soft tissues of the neck. No abnormal masses or lymphadenopathy. Cervical Spine: Advanced cervical spondylotic changes. Normal alignment and signal intensity of the cervical vertebrae. No fractures, lytic or sclerotic lesions. Upper CT chest cuts show bilateral moderate pleural effusions and right upper lobar calcified granuloma. IMPRESSION: 1. Normal bilateral neck arteries, no evidence of dissection. 2. 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 3. Multiple anterior mediastinal, anterior neck, and perivertebral collateral venous opacification. 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 4. Bilateral moderate pleural effusions. Electronically signed by Beni Beltran 03-23-2024 06:[address] 03/23/24 04:30 EXAM: CT head/brain wo con CLINICAL HISTORY: head/neck pain, cancer TECHNIQUE: An axial non-contrast CT scan of the brain was performed from the skull base to the high parietal region. One of the following dose reduction techniques was utilized for this exam: Automated exposure control, adjustment of the mA and/or kV according to patient size, and use of iterative reconstruction. DLP: 991 mGy-cm. COMPARISON: CT dated 11/08/2022. FINDINGS: Brain Parenchyma: Hypodense areas are seen in the right centrum semiovale, bilateral periventricular regions, more along the posterior horn of the right lateral ventricle, suggestive of microvascular ischemic changes. Normal attenuation of the rest of the cerebral hemispheres, cerebellum, and brainstem. No evidence of acute infarct, hemorrhage, or mass effect. Ventricular System: Ventricles are normal in size and configuration. No evidence of hydrocephalus or ventricular enlargement. Subarachnoid Spaces: Accenatued sulci and cisterns. No evidence of subarachnoid hemorrhage or extra-axial fluid collections. Cerebellum and Brainstem: Normal size and density. No masses, lesions, or areas of abnormal density. Orbits: Normal appearance of the globes, optic nerves, and extraocular muscles. No evidence of orbital masses. Sinuses: Clear paranasal sinuses. No evidence of sinusitis or mucosal thickening. Mastoid Air Cells: Clear mastoid air cells. No evidence of mastoiditis. Skull: Normal skull morphology. Hyperostosis frontalis interna. Calcifications are seen along the falx and in the pineal region. IMPRESSION: 1. No evidence of any acute intracranial event on this unenhanced CT examination. Further evaluation with MRI can be considered if clinically indicated. 2. Stable microvascular ischemic and age-related brain involutional changes. 3. No interval change since the last scan. Electronically signed by Beni Beltran 03-23-2024 06:27 AM Head CTA 03/23/24 04:30 EXAM: CT angio head w con CLINICAL HISTORY: dissection, intracranial mass TECHNIQUE: Axial CT angiography of the head was done with 118 ML OPTIRAY 320 intravenous contrast and sagittal and coronal reformats with MIP reconstructions. One of these 3D techniques was utilized: Maximum Intensity Pixel (MIP), 3D Reconstructed Images, Volume Rendered Images, Surface Shaded Rendering. One of the following dose reduction techniques were utilized for this exam: Automated exposure control, adjustment of the mA and/or kV according to patient size, and use of iterative reconstruction. COMPARISON: 11/08/2022. FINDINGS: Intracranial Arteries: The intracranial portions of the internal carotid arteries show mild bilateral atherosclerosis with no stenosis or occlusion. The anterior cerebral arteries, middle cerebral arteries, posterior cerebral arteries, basilar artery, and vertebral arteries are well-opacified. No evidence of aneurysm, stenosis, or occlusion. No significant atherosclerotic changes. [place]: The [place] is complete. Normal caliber of the communicating arteries. No vascular malformations or aneurysms. Venous Structures: Normal opacification of the major dural venous sinuses. No evidence of venous sinus thrombosis. Brain Parenchyma: Normal attenuation of the cerebral hemispheres, cerebellum, and brainstem. No evidence of acute infarct, hemorrhage, or mass effect. Right basal ganglia small old infarction. Ventricular System: Ventricles are normal in size and configuration. No evidence of hydrocephalus or ventricular enlargement. Skull and Meninges: Normal appearance of the skull. No evidence of meningeal enhancement or thickening. Orbits: Normal appearance of the globes, optic nerves, and extraocular muscles. No evidence of orbital masses. IMPRESSION: 1. Normal CT angiography of the head, apart from mild atherosclerosis of internal carotid arteries. 2. No evidence of significant vascular abnormalities. 3. No interval changes. Electronically signed by Beni Beltran 03-23-2024 06:34 AM Discharge Plan Visit Data Chief Complaint: Neck Injury/Pain Stated Complaint: NECK PAIN X 2 DAYS ED Provider: Jose Maria Cardoza Discharge Problem: Acute non-ST elevation myocardial infarction (NSTEMI), Elevated troponin, Neck and shoulder pain Patient Disposition: Admitted As Inpatient Discharge Instructions Interventions: ED Discharge Assessment Last Done: 03/23/24 10:33
--- NOTE | 2024-03-23 06:35 | CT Scan Report ---
EXAM: CT angio head w con CLINICAL HISTORY: dissection, intracranial mass TECHNIQUE: Axial CT angiography of the head was done with 118 ML OPTIRAY 320 intravenous contrast and sagittal and coronal reformats with MIP reconstructions. One of these 3D techniques was utilized: Maximum Intensity Pixel (MIP), 3D Reconstructed Images, Volume Rendered Images, Surface Shaded Rendering. One of the following dose reduction techniques were utilized for this exam: Automated exposure control, adjustment of the mA and/or kV according to patient size, and use of iterative reconstruction. COMPARISON: 11/08/2022. FINDINGS: Intracranial Arteries: The intracranial portions of the internal carotid arteries show mild bilateral atherosclerosis with no stenosis or occlusion. The anterior cerebral arteries, middle cerebral arteries, posterior cerebral arteries, basilar artery, and vertebral arteries are well-opacified. No evidence of aneurysm, stenosis, or occlusion. No significant atherosclerotic changes. [place]: The [place] is complete. Normal caliber of the communicating arteries. No vascular malformations or aneurysms. Venous Structures: Normal opacification of the major dural venous sinuses. No evidence of venous sinus thrombosis. Brain Parenchyma: Normal attenuation of the cerebral hemispheres, cerebellum, and brainstem. No evidence of acute infarct, hemorrhage, or mass effect. Right basal ganglia small old infarction. Ventricular System: Ventricles are normal in size and configuration. No evidence of hydrocephalus or ventricular enlargement. Skull and Meninges: Normal appearance of the skull. No evidence of meningeal enhancement or thickening. Orbits: Normal appearance of the globes, optic nerves, and extraocular muscles. No evidence of orbital masses. IMPRESSION: 1. Normal CT angiography of the head, apart from mild atherosclerosis of internal carotid arteries. 2. No evidence of significant vascular abnormalities. 3. No interval changes. Electronically signed by Beni Beltran 03-23-2024 06:34 AM
[2024-03-23 06:53] LABS: Troponin I High Sensitivity 53017.1 pg/ml (0-14)
[2024-03-23] MEDS: HEPARIN SOD (PORCINE) 1000 UNIT/ML IV ONE (07:22)
[2024-03-23] MEDS: HEPARIN 25000 UNIT/500 ML D5W 25,000 UNITS/500 ML BAG IV SCH (07:23)
[2024-03-23] MEDS: Heparin IV Adult Wt-Based Low-Dose w/ INITIAL Bolus Protocol IV STA (07:29)
[2024-03-23 07:32] LABS: Prothrombin Time 10.4 Seconds (9.0-12.0)
--- NOTE | 2024-03-23 08:07 | History & Physical Report ---
Date of Service March 23, 2024 Assessment & Plan (1) Elevated troponin: (2) Hypertension: (3) Neck and shoulder pain: (4) Peritoneal carcinomatosis: Marcos Mccain is an 84F with a PMHx of DVT (on Eliquis), polio, abdominal carcinomatosis, Depression/anxiety who presents to the ER with concerns of neck pain. In the ED, found to have ST [place] [address], but denied chest pain. Will be admitted for cardiology evaluation, cath and pain control. #Elevated Troponin/STEMI vs Takysubo Cardiomyopathy/HTN Cardiology consulted, Dr. Reese Continue Heparin drip, Hold Eliquis Plan for heart Cath 2/5 PM, sooner if begins to decondition Stat Echo Troponin down trending 25884 --> 40701. Trend q6H x 3 Suspect leukocytosis is reactive. Continue lisinopril ? result of her chemotherapy #Neck Pain Head CT/ Head&Neck CTA without acute findings. Attenuated left IJV most pronounced at its distal third - no infectious symptoms. Multiple venous opacifications - appears chronic, pt is anticoagulated. Tylenol q8H prn, lidocaine patch. Avoiding further toradol with plans for cath. #Hyponatremia Na 132 on admission, asymptomatic. Trend AM BMP #hx of abdominal carncinomatosis Undergoing chemotherapy with FULFURI (previously FULFOX) #Mental health - continue Effexor, Wellbutrin. PRN Remeron, PRN Ativan Dispo: admit to PCU DVT proh: Heparin drip, hold Eliquis Diet: clear liquis , NPO at midnight History of Present Illness Chief Complaint: Neck pain Primary Care Provider: NO PCP Kalyn is an 84F with a PMHx of DVT (on Eliquis), polio, abdominal carcin omatosis, Depression/anxiety who presents to the ER with concerns of neck pain. reports feeling well besides her neck, reports throbbing pain. Two nights ago, was laying on sofa, and when she got up her arms felt still - did loosen with movement. Awoken in the middle of the night Friday, with a warm sensation in her bilateral upper extremities, not pain, but did not feel good. Lasted about 30 minutes, denies associated shortness of breath or diaphoresis. No further episodes of this sensation. At baseline is independent, still drives, and preforms all of her ADLs. Denies increased stressors recently. Feeling well overall. Denies smoking or ETOH use. ED Course: Heparin bolus + gtt toradol 15mg IV x1 Lidocaine patch Allergies Allergy/AdvReac Type Severity Reaction Status Date / Time atorvastatin [From Lipitor] AdvReac Mild MUSCLE Verified 01/15/24 13:08 ISSUES ezetimibe [From Vytorin] AdvReac Mild MUSCLE Verified 01/15/24 13:08 ISSUES fluvastatin AdvReac Mild Muscle Verified 01/15/24 13:08 Issues- legs pravastatin [From Pravachol] AdvReac Mild MUSCLE Verified 01/15/24 13:08 ISSUES simvastatin [From Vytorin] AdvReac Mild Dizziness Verified 01/15/24 13:08 Home Medications Medication Instructions Recorded Confirmed Type venlafaxine 150 mg 300 mg PO QAM 12/01/18 03/23/24 History capsule,extended release 24 hr (Effexor XR) bupropion HCl 100 mg tablet 100 mg PO QAM 10/14/19 03/23/24 History calcium 600 mg (as 2 cap PO HS 10/14/19 03/23/24 History carbonate)-vitamin D3 5 mcg (200 unit) capsule (Calcium 600 + D(3)) cyclosporine 0.05 % eye drops 1 drops OPB UD 04/24/21 03/23/24 History (Restasis MultiDose) polyethylene glycol 3350 17 gram 17 g PO HS 07/30/22 03/23/24 History oral powder packet (Miralax) ondansetron HCl 8 mg tablet 8 mg PO Q8H PRN Nausea 08/27/22 03/23/24 History lorazepam 0.5 mg tablet 0.25 mg PO DAILY PRN severe anxiety 12/19/22 03/23/24 History sodium di- and 250 tab PO BID 10/14/23 03/23/24 History monophosphate-potassium phos monobasic 250 mg tablet (Phospha Neutral) acetaminophen 500 mg tablet 1,000 mg (2 x 500 mg) PO Q8H PRN 10/16/23 03/23/24 Rx (Tylenol Extra Strength) mild pain (scale score 1-4) #60 tabs apixaban 5 mg tablet (Eliquis) 5 mg PO BID 01/15/24 03/23/24 History mirtazapine 7.5 mg tablet 7.5 mg PO HS PRN Sleep 01/15/24 03/23/24 History lisinopril 10 mg tablet 15 mg PO 1XD 03/23/24 03/23/24 History Past Med/Surg History Problem List Neck and shoulder pain (Acute) Elevated troponin (Acute) Acute non-ST elevation myocardial infarction (NSTEMI) (Acute) Leukocytosis GERD (gastroesophageal reflux disease) Peritoneal carcinomatosis (Acute) Dehydration (Acute) Abdominal pain (Acute) Peritoneal carcinomatosis (Acute) Perineal abscess, superficial Left upper extremity deep vein thrombosis Anxiety (Chronic) Torn rotator cuff (Chronic) Acquired deviated nasal septum (Chronic) Dyslipidemia Encounter for pre-operative examination Left knee DJD Obesity Status post total left knee replacement using cement Osteoarthritis Routine health maintenance Subcutaneous mass Arthritis Anemia Seroma after procedure Vaginal prolapse Encounter for pessary maintenance Screening for colon cancer 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 Wears compression stocking on RLE. H/O cellulitis in this limb as well (remote ~ 6 yrs ago) Mass of omentum Peritoneal carcinomatosis per heme/onc records- Dr Muro Hx of biopsy (06/06/22) Diagnostic Laparoscopy, Peritoneal Biopsy(Not Applicable) - Denis Diego, DO Medical History DVT (deep venous thrombosis) Peritoneal carcinomatosis Sciatic leg pain Depression Hyperlipidemia History of COVID-19 ?2021 mild cold symptoms; resolved Carpal tunnel syndrome Right hand Thyroid nodule Under surveillance Anxiety Surgical History Port-A-Cath in place (08/19/22) Evaluate Access Port, Replacement Access Port with Fluoroscopy(Left) - Denis Diego, Port-A-Cath in place (08/01/22) Insertion of Access Port with Fluoroscopy(Left) - Denis Diego, DO [place] History of surgery (05/22/21) Left Thigh Wound Exploration and VAC System Placement(Left) - Mathew Menon MD, FACS 05/22/2021 History of surgery (05/10/21) Exploration Left Inner Thigh for Post-Operative Seroma placement of Андрей drain(Left) - Mathew Menon MD, FACS 05/10/2021 H/O excision of mass (05/01/21) Excision of left thigh mass. Dr. Jaramillo 05/01/2021 History of anesthesia reaction WOKE UP IN MIDDLE OF COLONOSCOPY S/P knee replacement (~2019) LEFT History of cataract surgery (2019) R/L History of colonoscopy History of eye surgery R/L LIDS History of shoulder surgery (1980) LEFT TEAR History of mandibular surgery (1980) ORIF-FULL ROM Family History Father Coronary heart disease Heart disease Cancer Mother Coronary heart disease Other Leukemia Lupus (systemic lupus erythematosus) No family history of adverse response to anesthesia Social History Smoking Status: Never smoker Second Hand Exposure: No; Do You Dip or Chew Tobacco: No; Hx Alcohol Use: No Hx Substance Use: No Preferred Language: Belarusian Communication Ability: Effective Visual Impairment: No Limitations Biomedical Photographer Required: No Beliefs That Will Affect Care: None marital status: / Current Living Situation: Alone Current Living Situation Comment: son current occupational status: retired How many Children do You have: 3 Feels Safe at Home: Yes Safety Concerns: Feels Safe At This Time Diet: regular during the past year weight has: remained stable Assistive Devices: Glasses Review of Systems Review of Systems: All systems reviewed & are unremarkable except as noted in Subjective Physical Exam Physical Exam: General: NAD, VS as above, appears well Resp: normal respiratory effort, lungs clear to auscultation CV: RRR, + murmur, Extremities: Moves all extremities, no edema Neuro: A&O x3, Results & Data Results & Data Vital Signs (Past 12 Hours) Vital Signs Temp Pulse Pulse Resp BP BP Pulse Ox 03/23/24 07:03 87 20 134/77 94 03/23/24 06:02 84 16 127/77 92 03/23/24 04:27 89 17 124/73 94 03/23/24 04:20 88 03/23/24 04:04 97.7 F 93 H 18 116/73 98 O2 Del Method 03/23/24 07:03 03/23/24 06:02 Room Air 03/23/24 04:27 Room Air 03/23/24 04:20 03/23/24 04:04 Room Air Laboratory Results cbc, chemistry and troponin reviewed Diagnostic Findings Head CT reviewed, head and neck CTA reviewed Supervising Physician Co-Signing Physician Notes Patient seen and examined, chart reviewed, case discussed with Angella Deal, ARIES and I agree with the assessment and plan as above except as otherwise noted Labs and images reviewed Kalyn Wallis is a 84-year-old female with history of DVT on apixaban, anxiety, hypertension, GERD, recent admission in the last year for abdominal pain with CT showing evidence of carcinomatosis who presents to the ER for evaluation of 2 days of neck discomfort with bilateral tingling in her hands without weakness. On evaluation initially was suspected to have radicular symptoms due to bilateral paresthesias and cervical pain. CT of the neck was negative. EKG subsequently obtained and consistent with STEMI with elevation in V2/V3, troponin on follow-up was 53,000. Patient was chest pain-free on ER reassessment with improving neck pain. Patient was started on heparin IV gtt., stat echo was ordered, repeat troponin was ordered, and interventional cardiology was consulted. Repeat troponin 36 390. Patient seen at bedside in conjunction with Angella Deal. Patient reports that she has had a sharp neck pain and numbness/tingling in her hands bilaterally. Separate from this 2 days ago she had a warm flushed feeling throughout her chest which spread into her shoulder and arms which she would not describe his pain but which was uncomfortable. She does not think she was short of breath or sweaty with this. The episode lasted around 30 minutes and has not recurred. She is chest pain-free at time of hospitalist assessment however does continue to have some cervical neck discomfort. She has not had any orthopnea, no leg swelling. She reports in the previous few weeks she has been able to do all her normal act ivities is very active and walks independently and has not had any chest pain, chest pressure or similar flushed feeling in her chest either at rest or with activity. [facility] records reviewed. Patient was switched from FOLFOX to FOLFIRI and is at risk of fluorouracil toxicity Systolic murmur is present, trace lower extremity edema bilaterally, lungs are clear without rales/crackles. 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 She had a stat echo performed which was reviewed by interventional cardiology. Ischemic disease is within the differential however appearance on echo is also consistent with Takotsubo cardiomyopathy, and given that patient has had relatively minimal symptoms and currently appears well despite her echo findings is suspected that stress myopathy is more likely. Given that she is chest pain-free, troponin is downtrending, and she is clinically well will defer ischemic evaluation today as long as she remains well, allow Eliquis to washout for another day and likely proceed to cardiac catheterization 03/24. Appreciate recommendations. Last echo reviewed from [facility] 06/19/2023: EF 65%. Mild concentric LVH. Grade 2 diastolic dysfunction of the left ventricle. Normal RV size and function. Moderately dilated LA. Moderate mitral valve annular calcification without stenosis mean gradient 3 mmHg. Estimated pulmonary artery pressures. Chronic Venous Thrombosis Neck CTA shows attenuated left IJV most pronounced at distal third and perivertebral collateral venous opacification suggestive of prior chronic thrombosis. She does not have any URI symptoms, pharyngitis, fever, sore throat suggestive of infectious etiology/Lemierre's. Findings appear chronic and she is anticoagulated. No evidence of arterial insufficiency Neck Pain, Bilateral Paresthesias No strength deficits. ?Cervical stenosis. DDx includes referred in the setting of ischemic workup above, but atypical for this. WIll follow clinically, and obtain MRI if not resolving. MRI will not be available for 24-48h, and she has no strength deficits indicating critical/emergent stenosis. Agree with assessment and management as noted above PG Care Time/CCT Total # of Minutes Spent Total Time Spent with Patient: Total time spent is greater than 50% in coordination of care (as documented) at patient's floor/unit and/or counseling patient: Coding Level of Care Code 30653 INT INP/OBS CARE MIN Diagnoses Elevated troponin R79.89 Hypertension I10 Neck and shoulder pain M54.2; M25.519 Peritoneal carcinomatosis C78.6
[2024-03-23] MEDS ORDERED: LORazepam 0.5 MG TAB PO PRN (08:50)
[2024-03-23] MEDS ORDERED: MIRTAZAPINE TAB 15 MG TAB PO PRN (08:50)
[2024-03-23] MEDS ORDERED: ONDANSETRON INJ 2 MG/ML 2 ML VIAL IV PRN (08:55)
[2024-03-23] MEDS: ACETAMINOPHEN 1,000 MG/100 ML VIAL IV STA (09:08)
--- NOTE | 2024-03-23 09:28 | Electrocardiogram Report ---
Test Reason : Blood Pressure : */* mmHG Vent. Rate : 86 BPM Atrial Rate : 86 BPM P-R Int : 162 ms QRS Dur : 68 ms QT Int : 362 ms P-R-T Axes : 33 -70 65 degrees QTcB Int : 433 ms Normal sinus rhythm Left anterior fascicular block Recent Anterolateral infarct (cited on or before 23-Mar-2024) Abnormal ECG When compared with ECG of 23-Mar-2024 06:37, Fusion complexes are no longer Present Confirmed by Kirill Suazo ([id number]) on 03/23/2024 9:28:16 AM Referred By: REFERRED SELF Confirmed By: Kirill Suazo
--- NOTE | 2024-03-23 09:28 | Electrocardiogram Report ---
Test Reason : Blood Pressure : */* mmHG Vent. Rate : 85 BPM Atrial Rate : 85 BPM P-R Int : 152 ms QRS Dur : 68 ms QT Int : 412 ms P-R-T Axes : 29 -63 92 degrees QTcB Int : 490 ms Sinus rhythm with occasional Premature ventricular complexes and Fusion complexes Left axis deviation Low voltage QRS Anterolateral infarct , age undetermined (possible recent) Abnormal ECG When compared with ECG of 15-Jan-2024 10:49, Criteria for Anterolateral infarct , age undetermined now present Confirmed by Kirill Suazo ([id number]) on 03/23/2024 9:27:40 AM Referred By: REFERRED SELF Confirmed By: Kirill Suazo
[2024-03-23] MEDS: VENLAFAXINE HCL XR 150 MG CAPXR PO ONE (11:01)
[2024-03-23] MEDS: buPROPion HCl 100 MG TABLET PO ONE (11:01)
[2024-03-23] MEDS: lisinopril 5 MG TAB PO ONE (11:50)
[2024-03-23] MEDS ORDERED: MoRPHine SULFATE 2 MG/ML CARP IV PRN (12:08)
--- NOTE | 2024-03-23 12:38 | XCELERA ---
[id number]
[2024-03-23] MEDS: MoRPHine SULFATE 2 MG/ML CARP IV PRN (12:42)
[2024-03-23] MEDS: MIDAZOLAM HCL 1 MG/ML 2ML VIAL ONE (15:45)
[2024-03-23] MEDS: HEPARIN (PORCINE) 1000 UNIT/ML 10 ML (CATH LAB USE ONLY) ONE ×2 (15:46→15:51)
[2024-03-23] MEDS: niCARdipine 2,000 MCG/20 ML SYR ONE (15:46)
[2024-03-23] MEDS: NITROGLYCERIN/D5W 100MCG/ML 20ML SYR ONE (15:46)
[2024-03-23] MEDS: fentaNYL citrate PF 100 MCG/2 ML VIAL ONE ×2 (15:46→15:51)
[2024-03-23] MEDS: EPTIFIBATIDE 2 MG/ML 10 ML VIAL (CATH LAB USE ONLY) IV ONE (15:47)
[2024-03-23] MEDS: PHENYLEPHRINE 100MCG/ML 5ML SYR ONE (15:47)
[2024-03-23] MEDS: ASPIRIN 81 MG CHEW PO ONE (15:47)
[2024-03-23] MEDS: OPTIRAY 350 ONE (15:47)
[2024-03-23] MEDS: NOREPINEPHRINE/D5W 4 MG/250 ML IV ONE (15:51)
[2024-03-23] MEDS: CLOPIDOGREL BISULFATE 300 MG TAB ONE (15:51)
[2024-03-23] MEDS: EPTIFIBATIDE 0.75 MG/ML 75MG VIAL (CATH LAB USE ONLY) IV ONE (15:57)
[2024-03-23] MEDS ORDERED: NITROGLYCERIN SL 0.4 MG/TAB TAB SL PRN (16:01)
[2024-03-23] MEDS ORDERED: EPTIFIBATIDE BOLUS/DRIP IV STA (16:01)
[2024-03-23] MEDS ORDERED: ACETAMINOPHEN 325 MG TAB PO PRN (16:01)
--- NOTE | 2024-03-23 16:11 | Pre Anesthesia Assessment ---
Date of Service March 23, 2024 Pre Sedation Assessment Vital Signs Temp Pulse Pulse Resp BP BP Pulse Ox 03/23/24 14:09 80 14 90/49 L 93 03/23/24 14:04 78 84/48 L 03/23/24 14:00 77 73/45 L 03/23/24 12:40 83 15 105/56 L 94 03/23/24 11:00 81 20 100/60 92 03/23/24 07:03 87 20 134/77 94 03/23/24 06:02 84 16 127/77 92 03/23/24 04:27 89 17 124/73 94 03/23/24 04:20 88 03/23/24 04:04 36.5 C 93 H 18 116/73 98 O2 Del Method O2 Flow Rate 03/23/24 14:09 Nasal Cannula 2 03/23/24 14:04 03/23/24 14:00 03/23/24 12:40 Room Air 03/23/24 11:00 Room Air 03/23/24 07:03 03/23/24 06:02 Room Air 03/23/24 04:27 Room Air 03/23/24 04:20 03/23/24 04:04 Room Air Cardiovascular RRR, no murmur, no edema Respiratory normal respiratory effort, lungs clear to auscultation Pre-Sedation Airway Assessment Smoking Status: Never smoker Mallampati 2 ASA 4 Notes The planned sedation has been discussed with the patient. Informed Consent was obtained. I have identified the patient, determined the appropriateness of sedation and have assessed the patient immediately prior to the procedure. All medicine(s) and interventions are by my order.
[2024-03-23] MEDS: TICAGRELOR 90 MG TAB PO STA (16:12)
--- NOTE | 2024-03-23 16:14 | Post Anesthesia Assessment ---
Date of Service March 23, 2024 Post Sedation Assessment Vital Signs Temp Pulse Pulse Resp BP BP Pulse Ox 03/23/24 14:09 80 14 90/49 L 93 03/23/24 14:04 78 84/48 L 03/23/24 14:00 77 73/45 L 03/23/24 12:40 83 15 105/56 L 94 03/23/24 11:00 81 20 100/60 92 03/23/24 07:03 87 20 134/77 94 03/23/24 06:02 84 16 127/77 92 03/23/24 04:27 89 17 124/73 94 03/23/24 04:20 88 03/23/24 04:04 36.5 C 93 H 18 116/73 98 O2 Del Method O2 Flow Rate 03/23/24 14:09 Nasal Cannula 2 03/23/24 14:04 03/23/24 14:00 03/23/24 12:40 Room Air 03/23/24 11:00 Room Air 03/23/24 07:03 03/23/24 06:02 Room Air 03/23/24 04:27 Room Air 03/23/24 04:20 03/23/24 04:04 Room Air Recovery Score Activity: Moves 4 extremities Respiration: Deep Breath/Cough Circulation: +/-20% PreAnes Value Consciousness: Fully Awake Oxygen Saturation: > 92% On Room Air Discharge Sedation Level of Care: Fast Track Phase II Post Sedation Plan On clinical assessment, the patient appears to have tolerated the sedation without complications. Patient is recovering as anticipated. Patient will continue to be monitored by nursing and may be discharged when sedation discharge criteria are met per below protocol. Upon Completions of procedure up to 15 minutes continue every 5 minute vital signs and the P.A.R. score; then discharge to a Phase I or Fast Track to Phase II per the following guidelines: * Discharge Patient to appropriate Phase II area if PAR is 8 or greater or return to pre- procedure baseline. The post - procedure orders will be as directed. * If PAR score is less than 8 or not return to pre-procedure baseline then patient will follow Phase I monitoring till PAR is reached for Phase II. The Phase I may be done in procedure room or may call to secure a Phase I area. * If naloxone or flumazenil are used for reversal, hold in Phase I for continued monitoring from when last reversal dose was given for a minimum of 60 minutes or longer pending the nurse and/or physician discretion of patient condition before discharge to Phase II. Please call the Sedation Physician to re-evaluate and complete post-note for discharge to Phase II area. Do NOT discharge from procedure sedation or Phase 1 until post- sedation evaluation note is complete by procedure /sedation MD Sedation Discharge Instructions to be given to the patient at discharge to home.
[2024-03-23] MEDS: EPTIFIBATIDE 75 MG/100 ML VIAL IV SCH (16:26)
--- NOTE | 2024-03-23 16:29 | Critical Care Consultation ---
Date of Consultation March 23, 2024 Assessment & Plan (1) STEMI (ST elevation myocardial infarction): Status post PCI with 3 drug-eluting stents to the mid LAD. Continue Integrilin infusion per cardiology. Continue home Eliquis tomorrow. Patient loaded with Plavix and currently ordered 75 mg daily. Continue MARCO inhibitor, beta-jaqueline and statin. (2) Ischemic cardiomyopathy: Continue ASCVD goal-directed therapy. Maintain maps below 65 mmHg. (3) Hematoma: Radial artery hematoma noted. Interventional cardiology aware. Continue TR band and frequent neurovascular bundle checks of the right arm and hand. Low threshold for vascular surgery consultation if worsening hematoma or signs of ischemia. Plan Patient to remain in ICU today and likely transfer out tomorrow. Supervising Physician Co-Signing Physician Notes Discussed with bedside RN, interventional cardiology and patient's family. History of Present Illness Reason for Consultation: Post STEMI monitoring in the ICU Attending Physician: Boris Whitley MD History of Present Illness 84-year-old female with past medical history of DVT on Eliquis, polio, abdominal carcinomatosis and anxiety who presented to the hospital due to neck pain. She was admitted by the hospitalist service and underwent an echocardiogram. Ejection fraction was noted to be decreased at 30%. There was a large wall motion abnormality noted. Heart alert was called earlier today while in the ER and the patient ultimately went to the [facility]. Patient underwent 3 stents to the mid LAD and is currently on Integrilin infusion. She developed a hematoma at the right radial site and currently has a TR band. This was reviewed with the nurse and pantry goods worker. Patient endorses ongoing posterior cervical pain. Denies any chest pain or shortness of breath currently. No fevers, chills or night sweats. No cough. No nausea or vomiting. Allergies Allergy/AdvReac Type Severity Reaction Status Date / Time atorvastatin [From Lipitor] AdvReac Mild MUSCLE Verified 01/15/24 13:08 ISSUES ezetimibe [From Vytorin] AdvReac Mild MUSCLE Verified 01/15/24 13:08 ISSUES fluvastatin AdvReac Mild Muscle Verified 01/15/24 13:08 Issues- legs pravastatin [From Pravachol] AdvReac Mild MUSCLE Verified 01/15/24 13:08 ISSUES simvastatin [From Vytorin] AdvReac Mild Dizziness Verified 01/15/24 13:08 Home Medications Medication Instructions Recorded Confirmed Type venlafaxine 150 mg 300 mg PO QAM 12/01/18 03/23/24 History capsule,extended release 24 hr (Effexor XR) bupropion HCl 100 mg tablet 100 mg PO QAM 10/14/19 03/23/24 History calcium 600 mg (as 2 cap PO HS 10/14/19 03/23/24 History carbonate)-vitamin D3 5 mcg (200 unit) capsule (Calcium 600 + D(3)) cyclosporine 0.05 % eye drops 1 drops OPB UD 04/24/21 03/23/24 History (Restasis MultiDose) polyethylene glycol 3350 17 gram 17 g PO HS 07/30/22 03/23/24 History oral powder packet (Miralax) ondansetron HCl 8 mg tablet 8 mg PO Q8H PRN Nausea 08/27/22 03/23/24 History lorazepam 0.5 mg tablet 0.25 mg PO DAILY PRN severe anxiety 12/19/22 03/23/24 History sodium di- and 250 tab PO BID 10/14/23 03/23/24 History monophosphate-potassium phos monobasic 250 mg tablet (Phospha Neutral) acetaminophen 500 mg tablet 1,000 mg (2 x 500 mg) PO Q8H PRN 10/16/23 03/23/24 Rx (Tylenol Extra Strength) mild pain (scale score 1-4) #60 tabs apixaban 5 mg tablet (Eliquis) 5 mg PO BID 01/15/24 03/23/24 History mirtazapine 7.5 mg tablet 7.5 mg PO HS PRN Sleep 01/15/24 03/23/24 History lisinopril 10 mg tablet 15 mg PO 1XD 03/23/24 03/23/24 History Patient History Medical History DVT (deep venous thrombosis) Peritoneal carcinomatosis Sciatic leg pain Depression Hyperlipidemia History of COVID-19 ?2021 mild cold symptoms; resolved Carpal tunnel syndrome Right hand Thyroid nodule Under surveillance Anxiety Surgical History Port-A-Cath in place (08/19/22) Evaluate Access Port, Replacement Access Port with Fluoroscopy(Left) - Denis Diego, DO Port-A-Cath in place (08/01/22) Insertion of Access Port with Fluoroscopy(Left) - Denis Diego DO [place] History of surgery (05/22/21) Left Thigh Wound Exploration and VAC System Placement(Left) - Mathew Menon MD, FACS 05/22/2021 History of surgery (05/10/21) Exploration Left Inner Thigh for Post-Operative Seroma placement of Андрей drain(Left) - Mathew Menon MD, FACS 05/10/2021 H/O excision of mass (05/01/21) Excision of left thigh mass. Dr. Jaramillo 05/01/2021 History of anesthesia reaction WOKE UP IN MIDDLE OF COLONOSCOPY S/P knee replacement (~2019) LEFT History of cataract surgery (2019) R/L History of colonoscopy History of eye surgery R/L LIDS History of shoulder surgery (1980) LEFT TEAR History of mandibular surgery (1980) ORIF-FULL ROM Family History Father Coronary heart disease Heart disease Cancer Mother Coronary heart disease Other Leukemia Lupus (systemic lupus erythematosus) No family history of adverse response to anesthesia Social History Smoking Status: Never smoker Second Hand Exposure: No; Do You Dip or Chew Tobacco: No; Tobacco Cessation Education Requested by Patient: No Hx Alcohol Use: No Hx Substance Use: No Preferred Language: Cameroonian Communication Ability: Effective Visual Impairment: No Limitations Tablet Machine Operator Required: No Beliefs That Will Affect Care: None marital status: / Current Living Situation: Family Current Living Situation Comment: Lives with her Juan David (son) in a house current occupational status: retired How many Children do You have: 3 Other Information That Helps Us Care for You: No Feels Safe at Home: Yes Safety Concerns: Feels Safe At This Time Diet: regular during the past year weight has: remained stable Assistive Devices: Glasses Review of Systems Review of Systems: All systems reviewed & are unremarkable except as noted in HPI & below Physical Exam Physical Exam: Constitutional: Patient appears to be of their stated age. Patient is in no apparent distress. Patient is well-developed. Eyes: Pupils are equal round and reactive to light. Conjunctivae are normal. Anicteric sclera. Ears nose, mouth and throat: Mallampati class 1. Normal posterior oropharynx. Uvula is midline. Neck: Trachea is midline. Visual inspection is normal. Lidocaine patch noted on her cervical spine. Respiratory: Clear to auscultation bilaterally. No use of accessory muscles. No significant clubbing noted. Cardiovascular: Right radial artery hematoma. Nonpulsatile. Regular rate and rhythm. No significant murmurs. Gastrointestinal: Normal bowel sounds, soft, nontender and nondistended. No hepatosplenomegaly noted. Musculoskeletal: No cyanosis. Patient is able to move all extremities. Strength is 5 out of 5 in the upper and lower extremities. Skin: No rashes, warm dry and intact. Neurologic: No obvious focal neurological deficits seen. Psychiatric: Alert and oriented x3 with a euthymic affect. Results & Data Results & Data Vital Signs (Past 12 Hours) Vital Signs Pulse Pulse Resp BP BP Pulse Ox O2 Del Method 03/23/24 14:09 80 14 90/49 L 93 Nasal Cannula 03/23/24 14:04 78 84/48 L 03/23/24 14:00 77 73/45 L 03/23/24 12:40 83 15 105/56 L 94 Room Air 03/23/24 11:00 81 20 100/60 92 Room Air 03/23/24 07:03 87 20 134/77 94 03/23/24 06:02 84 16 127/77 92 Room Air 03/23/24 04:27 89 17 124/73 94 Room Air O2 Flow Rate 03/23/24 14:09 2 03/23/24 14:04 03/23/24 14:00 03/23/24 12:40 03/23/24 11:00 03/23/24 07:03 03/23/24 06:02 03/23/24 04:27 Coding Level of Care Code 37650 IN/OBS CONSULT LVL 4,60M Diagnoses STEMI (ST elevation myocardial infarction) I21.3 Ischemic cardiomyopathy I25.5 Hematoma T14.8XXA
[2024-03-23 17:05] LABS: Basophils # (auto) 0.02 K/uL (0.00-0.20); Basophils % (auto) 0.2 %; Eosinophils # (auto) 0.04 K/uL (0.00-0.50); Eosinophils % (auto) 0.3 %; Hematocrit (blood only) 30.2 % (37.0-47.0); Hemoglobin 9.9 g/dl (12.0-16.0); Immature Granulocytes # (auto) 0.09 K/uL (0.01-0.20); Immature Granulocytes % (auto) 0.7 %; Lymphocytes # (auto) 1.19 K/uL (1.20-3.40); Lymphocytes % (auto) 9.5 %; Mean Corpuscular Hemoglobin 32.2 pg (25.0-34.0); Mean Corpuscular Hgb Conc 32.8 g/dL (32.0-36.0); Mean Corpuscular Volume 98.4 fL (80.0-100.0); Mean Platelet Volume 8.9 fL (9.4-12.4); Neutrophils # (auto) 10.17 K/uL (1.40-6.50); Neutrophils % (auto) 81.3 %; Platelet Count 319 K/uL (130-400); RDW Coefficient of Variation 15.7 % (11.5-14.5); RDW Standard Deviation 55.4 fL (36.4-46.3); Red Blood Count 3.07 M/uL (4.20-5.40); White Blood Count 12.51 K/ul (4.8-10.8)
[2024-03-23] MEDS: ACETAMINOPHEN 500 MG TAB PO PRN (18:18)
[2024-03-23 19:03] LABS: ANTI-Xa, UFH(UnfractionatedHep 1.38 IU/ml (0.3-0.7)
[2024-03-23] MEDS: SODIUM CHLORIDE 0.9% 1,000 ML IV SCH (20:15)
[2024-03-23] MEDS: METOPROLOL TARTRATE 25 MG TAB PO SCH (21:16)
--- NOTE | 2024-03-23 23:38 | Communication Note ---
Date of Service: March 23, 2024 Called to bedside for low blood pressure. 70/30, 80s/40s. Patient is s/p cardiac cath today with stents to LAD. She has had borderline blood pressures post cath and into the evening. O: HR: 88-92 NSR occasional PAC, RR 18, Spo2 100% Patient is awake conversant, skin is warm and dry, peripheral pulses are palpable at 2+ - she is without chest pain or her neck pain that she was having earlier - denies any low back pain at this time - no overt signs of bleeding - abdomen is soft and nontender - hematoma that was noted on right wrist has not enlarged - She has not received her BB or other agents this evening secondary to hypotension, and last dose of morphine was around 100 this evening. - She has received multiple antiplatelet medications today as well as Apixaban prior to admission and with elevated anti- XA level on labs, as well as current Integrilin infusion Bedside POCUS completed- she is without large pericardial effusion, contractility appears not sig worse than earlier 30-35%, IVC is collapsable and RV and LV nguyen appear volume down as well. A/P 1. ) Hypotension- likely hypovolemic at this time- she has responded well to the 250ml bolus will provide another 250 ml of saline, she also endorses thirst and is encouraged to drink if she is thirsty. - will obtain stat HGB level, lactate, random cortisol - If HGB low or symptoms persist will obtain imaging of abd/pelvis to evaluate for occult bleeding- she has received contrast earlier for CTA of head and neck as well as during cath- so unfortunately at this time will do non-con. - ECG obtained- No acute changes noted and expected evolution changes from earlier. Addendum Update: 1231: HGB return 8.7- she has downtrended from 11.0 earlier on arrival. Doubt any hemodilution to this effect. CT abdomen and pelvis ordered, type and screen is ongoing will transfuse 1-2 units of PRBC in light of dropping HGB and myocardial infarction today. Discussed case with Dr. Portillo in regards to discontinuation of Integrilin in context of above- He is Ok with stopping the Integrilin at this time as well is Ok to use LEVOphed in support of blood pressure as well. 2.) Enlarged gallbladder on imaging - CT abd/pelvis - awaiting final read, however noted per my interpretation of enlarged gallbladder, when compared to CT abd/pelvis performed back in February 09. - With her WBC count, neck pain, and elevated ALT- will place on antibiotics at this time to be given following blood transfusion. - Lactate negative - obtain ultrasound in am - LFTs in am - GS consultation [id number]: Official read from CT back- no acute retroperitoneal hemorrhage seen, diffuse mesenteric congestion, small thin pericardial effusion, and mild/small pleural effusions. - Diurese if able following blood transfusion pending hemodynamic Portillo KAT (ACNP_BC)
[2024-03-23] MEDS: SODIUM CHLORIDE 0.9% 250 ML IV ONE ×2 (23:42→23:43)
[2024-03-24] MEDS ORDERED: SODIUM CHLORIDE 0.9% 100 ML IV PRN (00:16)
[2024-03-24] MEDS ORDERED: SODIUM CHLORIDE 0.9% 50 ML IV PRN (00:16)
[2024-03-24] MEDS ORDERED: STAT IV Infusion **Titration per Protocol STA (00:46)
[2024-03-24] MEDS: NOREPINEPHRINE/D5W 4 MG/250 ML PLCT IV SCH (00:55)
[2024-03-24] MEDS: SODIUM CHLORIDE 0.9% 1,000 ML IV ONE (01:13)
--- NOTE | 2024-03-24 01:37 | CT Scan Report ---
EXAM: CT abd pelvis wo con CLINICAL HISTORY: eval for retroperitoneal bleed- drop HGB/hypotensi TECHNIQUE: Contiguous axial images were obtained from the level of the diaphragm to the pubic symphysis without intravenous or oral contrast. Coronal and sagittal reconstructions were likewise performed and indicated to increase the sensitivity for detecting clinically relevant pathology. CT scan was performed according to ALARA (as low as reasonable achievable). COMPARISON: 09 February 2024 FINDINGS: Mild bilateral pleural effusion with basal subsegmental collapse consolidation of both lower lobes are seen Thin strip of pericardial effusion is noted. Evaluation of the abdominal and pelvic visceral organs is limited without intravenous contrast. The unenhanced liver, spleen, pancreas, and adrenal glands are grossly unremarkable. The gallbladder is grossly distended measures about 9.3 x 4.5 cm. No obvious cholelithiasis /cholecystitis. The kidneys are normal in size and attenuation without obvious calcification. There is no hydronephrosis or perinephric stranding. The ureters are normal in caliber. No adenopathy or fluid collections are seen. No evidence of focal or diffuse bowel wall thickening or evidence of bowel obstruction is seen. The appendix is visualized in the right lower quadrant and appears within normal limits. Diffuse mesenteric congestion/edema is seen. Diffuse atherosclerotic calcification is noted involving aorta iliac arteries. The urinary bladder is normal in contour. Pelvic viscera are grossly unremarkable. No aggressive appearing osseous lesions are identified. Stable small fat containing umbilical hernia. IMPRESSION: Mild bilateral pleural effusion with basal subsegmental collapse consolidation of both lower lobes are seen - new finding. Thin strip of pericardial effusion is noted.-new finding. Stable small fat containing umbilical hernia. Diffuse mesenteric congestion/edema is seen.-new finding. The gallbladder is grossly distended measures about 9.3 x 4.5 cm. No obvious cholelithiasis /cholecystitis. Advised ultrasound correlation. Diffuse atherosclerotic calcification is noted involving aorta iliac arteries.-stable. Electronically signed by Austen Ramos 03-24-2024 01:37 AM
[2024-03-24] MEDS: PIPERACILLIN/TAZOBACTAM 4.5 GM/100 ML BAG IV ONE (03:01)
[2024-03-24 06:12] LABS: Basophils # (auto) 0.05 K/uL (0.00-0.20); Basophils % (auto) 0.4 %; Eosinophils # (auto) 0.07 K/uL (0.00-0.50); Eosinophils % (auto) 0.6 %; Hematocrit (blood only) 29.1 % (37.0-47.0); Hemoglobin 9.7 g/dl (12.0-16.0); Immature Granulocytes # (auto) 0.07 K/uL (0.01-0.20); Immature Granulocytes % (auto) 0.6 %; Lymphocytes # (auto) 1.38 K/uL (1.20-3.40); Lymphocytes % (auto) 11.2 %; Mean Corpuscular Hemoglobin 31.3 pg (25.0-34.0); Mean Corpuscular Hgb Conc 33.3 g/dL (32.0-36.0); Mean Corpuscular Volume 93.9 fL (80.0-100.0); Monocytes # (auto) 1.29 K/uL (0.11-0.59); Monocytes % (auto) 10.4 %; Neutrophils # (auto) 9.51 K/uL (1.40-6.50); Neutrophils % (auto) 76.8 %; Platelet Count 300 K/uL (130-400); RDW Coefficient of Variation 17.4 % (11.5-14.5); RDW Standard Deviation 58.5 fL (36.4-46.3); White Blood Count 12.37 K/ul (4.8-10.8)
[2024-03-24 06:30] LABS: BUN Creatinine Ratio 21.7 (10-20); Chol HDL Ratio 2.4 (0-5); Creatinine Clr Calc Pharmacy 29.3 ml/min
[2024-03-24 07:13] LABS: Albumin Level 2.9 gm/dl (3.4-5.0); Bilirubin Direct 0.1 mg/dl (0-0.2); Bilirubin,Total 0.4 mg/dl (0.2-1.0); Total Protein 5.2 gm/dl (6.0-8.3); Troponin I High Sensitivity 43367.4 pg/ml (0-14)
[2024-03-24] MEDS: lisinopril 5 MG TAB PO SCH (08:04)
[2024-03-24] MEDS: PIPERACILLIN/TAZOBACTAM 4.5 GM/100 ML BAG IV SCH (08:05)
[2024-03-24] MEDS: buPROPion HCl 100 MG TABLET PO SCH (08:06)
[2024-03-24] MEDS: ATORVASTATIN 20 MG TAB PO SCH (08:06)
[2024-03-24] MEDS: VENLAFAXINE HCL XR 150 MG CAPXR PO SCH (08:07)
--- NOTE | 2024-03-24 08:30 | Ultrasound Report ---
EXAM: US gallbladder CLINICAL HISTORY: enlarged gallbladder on CT abd/pelvis, elevated WB. TECHNIQUE: Limited ultrasound of the liver and gallbladder was performed in greyscale and Doppler. Multiple images were obtained in transverse and longitudinal planes. COMPARISON: Prior CT dated 03/24/2024 for comparison. FINDINGS: Liver: Liver size: 15.9 cm. Liver appears normal in size with homogeneous echotexture. No evidence of focal lesions, cysts, or masses. Hepatic vasculature appears normal. Gallbladder: Gallbladder size: 10.3 x 4.8 cm. Gallbladder is overdistended and lumen is echofree. No calculi seen. The wall is mildly thickened measuring 3.7 mm. Suspicion of thin streak of pericholecystic fluid. Biliary Tree: Common bile duct diameter: 6.0 mm. Common bile duct is within normal limits in caliber and not dilated. No evidence of choledocholithiasis or biliary obstruction. Pancreas: Normal in size and echotexture. Main pancreatic duct measures 2.0 mm. Right kidney: Subptimally visualized, grossly normal with no hydronephrosis. Incidental finding of right pleural effusion. IMPRESSION: 1. Overdistended gall bladder with a mildly thickened wall measuring 3.7 mm and suspicion of thin streak of pericholecystic fluid, could be a calculus cholecystitis. 2. Incidental finding of right pleural effusion. Electronically signed by Beni Beltran 03-24-2024 08:29 AM
--- NOTE | 2024-03-24 08:50 | Electrocardiogram Report ---
Test Reason : Blood Pressure : */* mmHG Vent. Rate : 88 BPM Atrial Rate : 88 BPM P-R Int : 158 ms QRS Dur : 76 ms QT Int : 424 ms P-R-T Axes : 26 -63 91 degrees QTcB Int : 513 ms Normal sinus rhythm Left axis deviation Inferior infarct , age undetermined Recent Anterior infarct Anteroseptal infarct (cited on or before 23-Mar-2024) Prolonged QT Abnormal ECG When compared with ECG of 23-Mar-2024 14:07, No significant change Confirmed by Kirill Suazo ([id number]) on 03/24/2024 8:49:43 AM Referred By: REFERRED SELF Confirmed By: Kirill Suazo
--- NOTE | 2024-03-24 08:51 | Electrocardiogram Report ---
Test Reason : Blood Pressure : */* mmHG Vent. Rate : 93 BPM Atrial Rate : 93 BPM P-R Int : 168 ms QRS Dur : 76 ms QT Int : 434 ms P-R-T Axes : 31 -53 48 degrees QTcB Int : 539 ms Sinus rhythm with marked sinus arrhythmia Left axis deviation Inferior infarct , age undetermined Recent Anterior infarct (cited on or before 23-Mar-2024) T wave abnormality, consider lateral ischemia Prolonged QT Abnormal ECG When compared with ECG of 23-Mar-2024 15:52, No significant change Confirmed by Kirill Suazo ([id number]) on 03/24/2024 8:51:03 AM Referred By: REFERRED SELF Confirmed By: Kirill Suazo
[2024-03-24] MEDS ORDERED: lisinopril 5 MG TAB PO SCH (09:00)
[2024-03-24] MEDS: LIDOCAINE 5% 1 PATCH TD SCH (10:30)
[2024-03-24] MEDS: CLOPIDOGREL BISULFATE 75 MG TAB PO SCH (10:30)
[2024-03-24 10:35] LABS: Basophils # (auto) 0.04 K/uL (0.00-0.20); Basophils % (auto) 0.3 %; Eosinophils # (auto) 0.08 K/uL (0.00-0.50); Eosinophils % (auto) 0.7 %; Hematocrit (blood only) 27.7 % (37.0-47.0); Hemoglobin 9.2 g/dl (12.0-16.0); Immature Granulocytes # (auto) 0.05 K/uL (0.01-0.20); Immature Granulocytes % (auto) 0.4 %; Lymphocytes # (auto) 1.15 K/uL (1.20-3.40); Lymphocytes % (auto) 9.8 %; Mean Corpuscular Hemoglobin 30.9 pg (25.0-34.0); Mean Corpuscular Hgb Conc 33.2 g/dL (32.0-36.0); Mean Platelet Volume 8.6 fL (9.4-12.4); Monocytes # (auto) 1.07 K/uL (0.11-0.59); Monocytes % (auto) 9.1 %; Neutrophils # (auto) 9.38 K/uL (1.40-6.50); Neutrophils % (auto) 79.7 %; Platelet Count 274 K/uL (130-400); RDW Coefficient of Variation 17.2 % (11.5-14.5); RDW Standard Deviation 58.1 fL (36.4-46.3); Red Blood Count 2.98 M/uL (4.20-5.40); White Blood Count 11.77 K/ul (4.8-10.8)
[2024-03-24] MEDS ORDERED: SODIUM CHLORIDE 0.9% INJ 100 ML BAG IV ONE (12:24)
[2024-03-24] MEDS: SODIUM CHLORIDE 0.9% 500 ML IV SCH (12:40)
--- NOTE | 2024-03-24 12:40 | Cardiac Catheterization ---
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 Cardiac Status Clinical evaluation leading to the procedure CAD Presenation: STEMI Anginal Classification: CCS IV Heart Failure: NYHA Class: CCS III Cardiogenic Shock within 24 Hours: Yes Cardiac Arrest within 24 Hours: No Imaging Studies Past 6 Months: No Stress Studies Past 6 Months: No Coronary Anatomy Dominant: Right Left Main (% Stenosis): Ostial (20%) LAD (% Stenosis): Proximal (Diffuse heavily calcified 40 to 50%), Mid (100% hazy) and Distal (Feels poorly via left to left collateralization, apical fills via small collaterals) D1 (% Stenosis): Normal (Mild less than 20% diffuse) Circumflex (% Stenosis): Normal OM1 (% Stenosis): Ostial (90%) and Mid (99%) OM2 (% Stenosis): Normal L PL1 (% Stenosis): Normal RCA (% Stenosis): Proximal (Less than 20%) and Mid (Diffuse 20%) R PDA (% Stenosis): Normal R PL1 (% Stenosis): Normal Diagnostic Physicians Name: Adan Reese MD, PhD Closure Device Percutaneous Entry Location: Radial Closure Device: Radial Band Recommendations: Medical Therapy and/or Counseling and PCI without planned CABG PCI Indication: PCI for STEMI - Unstable Lesion Segment Name: Mid to distal LAD Culprit Artery: Yes Stenosis Prior to Rx (%): 100% Chronic Total Occlusion: No (Unknown) Pre-Procedure HILDA Flow: 0 Previously Treated Lesion: No Lesion Complexity: High/C Lesion Length (mm): 40 Thrombus Present: No (Possibly some) Bifurcation Lesion: No Guidewire Across Lesion: Yes Intraprocedure Events Significant Disection: No Perforation: No Cardiac Cath Procedure Full Procedure Date March 23, 2024 Pre-Procedure Diagnosis Pre-Procedure Diagnosis: STEMI AUC Score AUC Score: 09 Post-Procedure Diagnosis Post-Procedure Diagnosis: Severe CAD and Successful PCI Procedure(s) Performed Procedure(s) Performed: Coronary Angiography and Drug Eluting Stent Director Of Transportation Adan Reese MD, PhD Estimated Blood Loss Estimated Blood Loss: 10 cc Medication(s) Medication(s): Aspirin, Clopidogrel, Fentanyl, Heparin, Integrilin, Lidocaine 1%, Max-Synephrine, Norepinephrine and Versed Summary of Findings Brief description: Patient was brought emergently to the cardiac catheterization suite where she underwent diagnostic catheterization and PCI. She was shaved and prepped in sterile fashion. Soft tissue the right wrist were anesthetized using 2 mL of 1% Xylocaine. The right radial artery was accessed with modified Seldinger technique and a 6 [place] radial artery glide sheath was placed. Patient was provided anticoagulation with IV heparin. She was not provided any antispasmodics because of baseline hypotension. She was sedated with fentanyl and Versed. All catheters were advanced and exchanged over a 0.035 J-tip wire. Left and right coronary angiography were poor performed in orthogonal views with a 5 [place] 4 diagnostic catheter. Diagnostic catheters were removed and we proceeded with attempted PCI. ACT was checked intermittently throughout the case and additional heparin was provided as needed to maintain therapeutic anticoagulation. Patient was also placed on Integrilin drip after double bolus administration once intervention was initiated. Following the case she remained on the Integrilin drip and was provided Plavix 600 mg p.o. and aspirin. She had been on Eliquis at home with the last dose being taken on the morning before this procedure. Also note, throughout the case patient had severe R scapular pain and neck pain and also was hypotension. We therefore utilized Max-Synephrine, norepinephrine, and normal saline to support her blood pressure. We were somewhat limited on our sedation because of her hypotension. A 6 [place] EBU 3.5 guide catheter was advanced over the J-wire and gauge to the left main coronary. A BMW universal guidewire was then advanced through the guide catheter and with significant difficulty we were able to broach the lesion in the mid LAD and advance the tip of the catheter several centimeters downstream. Predilatation of the lesion was performed with a 2.0 x 12 mm mini trek balloon dilated twice to 8 mima. Truck [employer] angiography did reveal diffuse mid and distal LAD disease and we had only modest improvement in flow. The guidewire was then able to be advanced a bit further towards the apex. A second predilatation was performed with a two 5 x 12 mm trek balloon inflated twice in the mid LAD at 8 mima. The balloon was removed. The distal vessel was still poorly visualized. Decision was made to implant a stent in the mid to early distal vessel hoping that this would allow improved flow and give us a better idea of what else needed to be addressed. A GuideLiner catheter was advanced over the wire as initial attempt to advance the stent was unsuccessful. Then, a 2.5 x 26 mm Dwayne drug-eluting stent was advanced and positioned in the mid to distal vessel where it was deployed at 12 mima. Balloon catheter was removed and a 2.5 x 15 mm [place] drug-eluting stent was then advanced and positioned in the mid segment just after the ostium of the diagonal with the distal edge of that stent within the proximal portion of the first stent. There it was deployed at 12 mima. A second inflation was then performed up to 15 mima. The stent balloon was removed. Truck Driver Teamster angiography was performed. We could not advance the guidewire distally and the distal vessel was poorly visualized. We eventually remove the BMW and reversal wire in favor of a [place] blue wire. We reintroduced the GuideLiner and we were able to advance the [place] blue more distally. The distal LAD was then predilated with the 2.0 x 12 mm mini trek balloon at 8 mima using 3 inflations at different sites. The balloon was then removed. Truck Driver Teamster angiography was performed and we had better visualization of the vessel. We therefore advanced a 2.25 x 12 mm Dwayne drug-eluting stent distally where it was positioned with its proximal edge within the distal segment of the first stent and then its distal edge covered the most severely diseased portion of the segment. It was deployed at 12 mima. The stent balloon was then deflated and pulled back across the overlap segment and dilated to 19 mima which allowed tapering from the original 2.5 stent to the 2.25 stent. That balloon was subsequently removed. Finally, postdilatation was performed throughout the stent train. Beginning at the overlapped segment of the mid and distal stent a 2.5 x 8 NC Max balloon was positioned and then inflated at 12 mima. The balloon was deflated and pulled back so that it was just within the mid stent where it was inflated to 13 mima. Then the balloon was deflated and pulled back across the overlapped portion of the proximal and mid stent where it was inflated to 14 mima. The final postdilatation was performed within the proximal stent using the same balloon up to 14 mima to the proximal edge of the stent. The noncompliant balloon was then removed. The guide liner was also removed. Truck Driver Teamster angiography was performed. The guidewire was removed and final angiographic evaluation was performed. Guide catheter was removed. The radial artery sheath was removed and hemostasis was obtained using the TR band. Patient continued to complain of right scapular pain and neck pain. She never complained of chest discomfort. She continued to require vasopressor support. She was moved from the table to the bed and her neck and back pain significantly improved although they did not resolve. She was subsequently transported to the ICU for further workup and management. This ended the case. Coronary angiography findings: [id number] vessel bifurcating into the LAD and circumflex. Ostial 20% stenosis. LAD-this is large caliber. The proximal and mid vessel are heavily calcified and there is diffuse disease. Proximal segment up to 40 to 50% stenosis. It provides a large branching first diagonal which has mild diffuse disease. Then, the mid segment just after the ostium of the diagonal is 100% occluded. The dye is a bit hazy but there is no staining or clear thrombus. There is HILDA 0 flow beyond the lesion. Distally the vessel fills faintly via left to left collateralization and there is also filling of the the apical segment through small collaterals. [id number] and nondominant. Travels in the AV groove where it gives a small caliber OM1. This vessel has ostial 90% stenosis and mid 99% stenosis. Continues further in the AV groove where the OM 2 is large without significant disease. The circumflex terminates in a large branching posterolateral which has no significant disease. RCA-this is large caliber and dominant. Proximally there is less than 20% stenosis. Mid segment with diffuse 20% stenosis in the distal RCA has no disease. It then bifurcates into the right PDA and right posterolateral branches. These have no disease. PCI of mid to distal LAD-0% residual stenosis in the mid to distal stented area. Beyond this the distal LAD has diffuse disease which is mild and it also appears small to medium in caliber. There is HILDA 2.5 flow in the LAD beginning the mid stented segment and distally post PCI. There is no evidence of dissection or perforation post PCI It is noted that there is less then normal myocardial blush in the mid to distal LAD myocardium. Summary: 1. Patient has severe LAD stenosis. Unclear if this represents subacute or acute presentation. Much of the findings are consistent with chronic occlusion. She did undergo successful PCI to the segment without evidence of complication. 2. Patient will remain on dual antiplatelet therapy given her long stent train. She will be on Integrilin drip overnight and after 12 hours she will be placed on Plavix 75 mg daily and Eliquis 5 mg p.o. twice daily. The Eliquis is in place of aspirin because she has a need for oral anticoagulation secondary to known DVT. When she is completed her Eliquis course she would then be switched to aspirin 81 mg daily as an outpatient. Patient is recommended for lifelong dual antiplatelet therapy secondary to the extent and complexity of her PCI. Because we utilized Dwayne drug-eluting stents, she could temporarily hold this regimen for urgent surgery as needed. 3. Once the patient no longer requires vasopressor support she will be started on guideline directed medical therapy for secondary prevention of coronary disease. This will include high intensity statin therapy, MARCO inhibitor, and beta-jaqueline as tolerated. Exact regimen yet to be determined. Hemodynamics Rest Ao:: 100/54 mmHg Final Ao: 135/70 mmHg LV: Not performed Recommendations Recommendations: Medical Therapy and/or Counseling and PCI without planned CABG Radiation Exposure (mGy) 2880 mGy, fluoroscopy time 20.5 minutes Contrast (mls) 265 mL Anesthesia 112.5 mcg fentanyl IV, 1 mg Versed IV. Start 1433, and 1531 Procedural Complication(s) None Disposition ICU I attest to the content of the Intraoperative Record and any orders documented therein. Any exceptions are noted below. [facility] Card Cath Procedure Codes Cardiac Catheterization Procedure 1: Cardiovascular Cath Procedures: 09713 Coronaries Moderate Sedation Procedure 1: Sedation/Anesthesia: 56342 Mod Sedation by the same physician;Init15 Min Child Age 5 & Up (Initial 15 minutes, start time 1433) Procedure 2: Sedation/Anesthesia: 08211 Mod Sedation by the same physician; Ea [id number] Minutes (Additional 43 minutes, end time 1531) Stenting Procedure 1: Cardiovascular Stent Procedures: 20820 Perc transluminal revascularization of acute sub/total occl, aMI (LAD) PG Care Time/CCT Total # of Minutes Spent Total Time Spent with Patient: Total time spent is greater than 50% in coordination of care (as documented) at patient's floor/unit and/or counseling patient:
--- NOTE | 2024-03-24 13:06 | Critical Care Progress Note ---
Date of Service March 24, 2024 Assessment & Plan (1) STEMI (ST elevation myocardial infarction): Plan: Status post PCI with 3 drug-eluting stents to the mid LAD. Holding Eliquis for the time being given acute anemia. Possibly hemodilutional anemia. Continue Plavix and statin. Hold antihypertensives while hypotensive. (2) Ischemic cardiomyopathy: Plan: Continue ASCVD goal-directed therapy. Maintain maps below 65 mmHg. Hold antihypertensive for the time being while patient remains hypotensive. (3) Hematoma: Plan: Right radial artery hematoma stable. (4) Hypotension: Plan: Likely related to cardiogenic shock component of possible hypovolemia. Continue with as needed fluid boluses and Levophed as needed. (5) Gallbladder anomaly: Plan: Patient had CT of the abdomen pelvis ordered yesterday due to drop in hemoglobin and concern for retroperitoneal bleed. No bleeding identified. The gallbladder was noted to be grossly distended up to 9.3 cm. No obvious cholecystitis or c holelithiasis. General surgery consultation appreciated. Antibiotics discontinued at this time. (6) Anemia: Plan: Suspect hemodilutional. No active signs of bleeding at this time. Plan Patient to remain on ICU service while on pressors. Admission and Anticipated Discharge Date Admission Date: March 23, 2024 Supervising Physician Co-Signing Physician Notes CRITICAL CARE TIME I have personally spent 38 minutes of critical care time in the direct management of this patient. This is a life/limb threatening event. This includes time spent evaluating patient, direct bedside care, chart review, placing orders, interpretation of diagnostic studies, discussion with consultants, patient, and family members, as well as other required patient management activities. This time is exclusive of all separately billable procedures, and teaching time and separate from and in addition to any other critical care service time. Subjective Overnight patient placed on Levophed due to hypotension. Received a 500 cc bolus of fluid. Giving additional 500 cc bolus today due to hypotension. Patient also used received a unit of packed RBCs due to anemia. Review of Systems Review of Systems: All systems reviewed & are unremarkable except as noted in HPI & below Physical Exam Physical Exam: Constitutional: Patient appears to be of their stated age. Patient is in no apparent distress. Patient is well-developed. Eyes: Pupils are equal round and reactive to light. Conjunctivae are normal. Anicteric sclera. Ears nose, mouth and throat: Mallampati class 1. Normal posterior oropharynx. Uvula is midline. Neck: Trachea is midline. Visual inspection is normal. Lidocaine patch noted on her cervical spine. Respiratory: Clear to auscultation bilaterally. No use of accessory muscles. No significant clubbing noted. Cardiovascular: Right radial artery hematoma. Nonpulsatile. Regular rate and rhythm. No significant murmurs. Gastrointestinal: Normal bowel sounds, soft, nontender and nondistended. No hepatosplenomegaly noted. Musculoskeletal: No cyanosis. Patient is able to move all extremities. S trength is 5 out of 5 in the upper and lower extremities. Skin: No rashes, warm dry and intact. Neurologic: No obvious focal neurological deficits seen. Psychiatric: Alert and oriented x3 with a euthymic affect. Results & Data Results & Data Vital Signs (Past 12 Hours) Vital Signs Temp Pulse Resp BP Pulse Ox O2 Del Method O2 Flow Rate 03/24/24 10:03 88 12 95 03/24/24 10:00 93/51 L 03/24/24 09:57 92 H 21 95 03/24/24 09:15 86 23 95 03/24/24 08:57 89 23 93 03/24/24 08:55 93/47 L 03/24/24 08:51 83 27 H 89 L 03/24/24 08:21 117/56 L 03/24/24 08:15 92 H 26 H 96 03/24/24 08:00 90 23 98 03/24/24 08:00 101/53 L 03/24/24 07:45 107/53 L 03/24/24 07:45 87 22 98 03/24/24 07:37 Nasal Cannula 03/24/24 07:30 99/53 L 03/24/24 07:27 90 18 97 03/24/24 07:15 98/55 L 03/24/24 07:09 90 4 L 98 03/24/24 07:06 91 H 8 L 99 03/24/24 07:00 98/56 L 03/24/24 05:15 102/53 L 03/24/24 05:15 102/53 L 03/24/24 05:12 87 20 98 03/24/24 05:00 95/51 L 03/24/24 05:00 95/51 L 03/24/24 05:00 95/51 L 03/24/24 05:00 86 27 H 98 03/24/24 04:57 86 26 H 98 03/24/24 04:30 106/58 L 03/24/24 04:21 82 25 H 99 03/24/24 04:15 113/57 L 03/24/24 04:15 113/57 L 03/24/24 04:06 84 27 H 99 03/24/24 04:00 83 24 98 03/24/24 04:00 105/51 L 03/24/24 04:00 105/51 L 03/24/24 04:00 105/51 L 03/24/24 03:45 101/47 L 03/24/24 03:45 101/47 L 03/24/24 03:39 36.6 C 84 24 105/51 L 99 3 03/24/24 03:36 77 21 100 03/24/24 03:15 84 17 99 03/24/24 03:15 115/55 L 03/24/24 03:06 92 H 29 H 95 03/24/24 02:45 120/60 03/24/24 02:39 84 18 100 03/24/24 02:39 36.7 C 77 18 118/63 99 3 03/24/24 02:30 118/63 03/24/24 02:30 118/63 03/24/24 02:18 81 0 L 100 03/24/24 02:15 83 5 L 100 03/24/24 02:15 118/61 03/24/24 02:15 118/61 03/24/24 02:15 118/61 03/24/24 02:09 36.6 C 75 18 107/58 L 99 3 03/24/24 02:01 87 03/24/24 02:00 86 19 99 03/24/24 02:00 107/58 L 03/24/24 02:00 107/58 L 03/24/24 02:00 107/58 L 03/24/24 02:00 107/58 L 03/24/24 01:54 36.7 C 93 H 18 121/56 L 99 3 03/24/24 01:45 121/56 L 03/24/24 01:42 82 24 100 03/24/24 01:39 81 19 100 03/24/24 01:37 36.6 C 93 H 18 112/64 98 4 03/24/24 01:30 112/64 03/24/24 01:24 81 23 100 03/24/24 01:15 101/52 L 03/24/24 01:15 101/52 L 03/24/24 01:03 77 H 95 O2 Flow Rate 03/24/24 10:03 03/24/24 10:00 03/24/24 09:57 03/24/24 09:15 03/24/24 08:57 03/24/24 08:55 03/24/24 08:51 03/24/24 08:21 03/24/24 08:15 03/24/24 08:00 03/24/24 08:00 03/24/24 07:45 03/24/24 07:45 03/24/24 07:37 2 03/24/24 07:30 03/24/24 07:27 03/24/24 07:15 03/24/24 07:09 03/24/24 07:06 03/24/24 07:00 03/24/24 05:15 03/24/24 05:15 03/24/24 05:12 03/24/24 05:00 03/24/24 05:00 03/24/24 05:00 03/24/24 05:00 03/24/24 04:57 03/24/24 04:30 03/24/24 04:21 03/24/24 04:15 03/24/24 04:15 03/24/24 04:06 03/24/24 04:00 03/24/24 04:00 03/24/24 04:00 03/24/24 04:00 03/24/24 03:45 03/24/24 03:45 03/24/24 03:39 03/24/24 03:36 03/24/24 03:15 03/24/24 03:15 03/24/24 03:06 03/24/24 02:45 03/24/24 02:39 03/24/24 02:39 03/24/24 02:30 03/24/24 02:30 03/24/24 02:18 03/24/24 02:15 03/24/24 02:15 03/24/24 02:15 03/24/24 02:15 03/24/24 02:09 03/24/24 02:01 03/24/24 02:00 03/24/24 02:00 03/24/24 02:00 03/24/24 02:00 03/24/24 02:00 03/24/24 01:54 03/24/24 01:45 03/24/24 01:42 03/24/24 01:39 03/24/24 01:37 03/24/24 01:30 03/24/24 01:24 03/24/24 01:15 03/24/24 01:15 03/24/24 01:03 Coding Level of Care Code 69971 SUB INP/OBS CARE 2/35MIN Diagnoses STEMI (ST elevation myocardial infarction) I21.3 Ischemic cardiomyopathy I25.5 Hematoma T14.8XXA Hypotension I95.9 Gallbladder anomaly Q44.1 Anemia D64.9
--- NOTE | 2024-03-24 13:12 | Surgery Consultation ---
Date of Consultation March 24, 2024 Assessment & Plan (1) STEMI (ST elevation myocardial infarction): (2) Peritoneal carcinomatosis: (3) Gallbladder anomaly: Admitted for neck pain and found to have STEMI and underwent PCI with 3 drug- eluting stents yesterday. CT scan of abdomen pelvis completed due to hy potension and concern for retroperitoneal bleed showed distended gallbladder. Subsequent ultrasound showing distended gallbladder with no stones, mild wall thickening and trace pericholecystic fluid which could represent a calculus cholecystitis. She is completely asymptomatic from a gallbladder standpoint and an abdominal examination is completely benign. Total bilirubin and LFTs are unremarkable other than slightly elevated AST. Leukocytosis improving. Plan: No indication for surgical intervention for cholecystectomy as patient is completely asymptomatic from a gallbladder standpoint and abdominal examination is benign. She would be at a considerable high risk for any surgical intervention due to recent STEMI, PCI with 3 drug-eluting stents on dual antiplatelet therapy and her history of appendiceal carcinoma with carcinomatosis. Okay to advance diet to low-fat diet Continue medical management Our service is signing off, please call with questions or concerns Dr. Tillman has seen and examined patient and discussed above with patient and son at bedside. See addendum for further recommendation/plan Supervising Physician Co-Signing Physician Notes I have seen and examined the patient and agree with the above assessment and plan. In brief, she is an 84-year-old woman who had a STEMI and is now status post placement of 3 drug-eluting stents. She is on Integrilin and Plavix. She has a history of appendiceal carcinoma with peritoneal carcinomatosis. We have been called to evaluate her for distention of her gallbladder. She has no right upper quadrant pain or tenderness. On exam her abdominal exam is benign. CT scan shows no evidence of acute cholecystitis. No need for surgical interve ntion. If she did develop any signs or symptoms of acute cholecystitis, she would not be a candidate for surgical intervention due to her comorbidities. We would recommend IV antibiotics and possible drain placement. Please call with any questions or concerns.. 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 She had a CT scan of abdomen and pelvis which showed a distended gallbladder which then prompted a gallbladder ultrasound showing mild gallbladder wall thickness and trace pericholecystic fluid which could represent a calculus cholecystitis. Our service was consulted for further evaluation. Kalyn states that she has not been having any abdominal pain, nausea or vomiting. Allergies Allergy/AdvReac Type Severity Reaction Status Date / Time atorvastatin [From Lipitor] AdvReac Mild MUSCLE Verified 01/15/24 13:08 ISSUES ezetimibe [From Vytorin] AdvReac Mild MUSCLE Verified 01/15/24 13:08 ISSUES fluvastatin AdvReac Mild Muscle Verified 01/15/24 13:08 Issues- legs pravastatin [From Pravachol] AdvReac Mild MUSCLE Verified 01/15/24 13:08 ISSUES simvastatin [From Vytorin] AdvReac Mild Dizziness Verified 01/15/24 13:08 Home Medications Medication Instructions Recorded Confirmed Type venlafaxine 150 mg 300 mg PO QAM 12/01/18 03/23/24 History capsule,extended release 24 hr (Effexor XR) bupropion HCl 100 mg tablet 100 mg PO QAM 10/14/19 03/23/24 History calcium 600 mg (as 2 cap PO HS 10/14/19 03/23/24 History carbonate)-vitamin D3 5 mcg (200 unit) capsule (Calcium 600 + D(3)) cyclosporine 0.05 % eye drops 1 drops OPB UD 04/24/21 03/23/24 History (Restasis MultiDose) polyethylene glycol 3350 17 gram 17 g PO HS 07/30/22 03/23/24 History oral powder packet (Miralax) ondansetron HCl 8 mg tablet 8 mg PO Q8H PRN Nausea 08/27/22 03/23/24 History lorazepam 0.5 mg tablet 0.25 mg PO DAILY PRN severe anxiety 12/19/22 03/23/24 History sodium di- and 250 tab PO BID 10/14/23 03/23/24 History monophosphate-potassium phos monobasic 250 mg tablet (Phospha Neutral) acetaminophen 500 mg tablet 1,000 mg (2 x 500 mg) PO Q8H PRN 10/16/23 03/23/24 Rx (Tylenol Extra Strength) mild pain (scale score 1-4) #60 tabs apixaban 5 mg tablet (Eliquis) 5 mg PO BID 01/15/24 03/23/24 History mirtazapine 7.5 mg tablet 7.5 mg PO HS PRN Sleep 01/15/24 03/23/24 History lisinopril 10 mg tablet 15 mg PO 1XD 03/23/24 03/23/24 History Patient History Medical History DVT (deep venous thrombosis) Peritoneal carcinomatosis Sciatic leg pain Depression Hyperlipidemia History of COVID-19 ?2021 mild cold symptoms; resolved Carpal tunnel syndrome Right hand Thyroid nodule Under surveillance Anxiety Surgical History Port-A-Cath in place (08/19/22) Evaluate Access Port, Replacement Access Port with Fluoroscopy(Left) - Denis Diego, Port-A-Cath in place (08/01/22) Insertion of Access Port with Fluoroscopy(Left) - Denis Diego, DO [place] History of surgery (05/22/21) Left Thigh Wound Exploration and VAC System Placement(Left) - Mathew Menon MD, FACS 05/22/2021 History of surgery (05/10/21) Exploration Left Inner Thigh for Post-Operative Seroma placement of Андрей drain(Left) - Mathew Menon MD, FACS 05/10/2021 H/O excision of mass (05/01/21) Excision of left thigh mass. Dr. Jaramillo 05/01/2021 History of anesthesia reaction WOKE UP IN MIDDLE OF COLONOSCOPY S/P knee replacement (~2019) LEFT History of cataract surgery (2019) R/L History of colonoscopy History of eye surgery R/L LIDS History of shoulder surgery (1980) LEFT TEAR History of mandibular surgery (1980) ORIF-FULL ROM Family History Father Coronary heart disease Heart disease Cancer Mother Coronary heart disease Other Leukemia Lupus (systemic lupus erythematosus) No family history of adverse response to anesthesia Social History Smoking Status: Never smoker Second Hand Exposure: No; Do You Dip or Chew Tobacco: No; Tobacco Cessation Education Requested by Patient: No Hx Alcohol Use: No Hx Substance Use: No Preferred Language: Croatian Communication Ability: Effective Visual Impairment: No Limitations Softball Player Required: No Beliefs That Will Affect Care: None marital status: / Current Living Situation: Family Current Living Situation Comment: Lives with her Juan David (son) in a house current occupational status: retired How many Children do You have: 3 Other Information That Helps Us Care for You: No Feels Safe at Home: Yes Safety Concerns: Feels Safe At This Time Diet: regular during the past year weight has: remained stable Assistive Devices: None Review of Systems Review of Systems: All systems reviewed & are unremarkable except as noted in HPI & below Physical Exam Constitutional: WD/WN, vitals as above cooperative and comfortable; no acute distress Respiratory: normal respiratory effort; no respiratory distress and no labored breathing Gastrointestinal (Abdomen): Inspection/Auscultation: abdomen normal to inspection; abdomen not distended Percussion/Palpation: abdomen soft; abdomen nontender, no guarding, abdomen not rigid and abdomen not firm Skin: no rashes, warm and dry no jaundice Psychiatric: Orientation: alert and oriented x 3 Results & Data Vital Signs (Past 12 Hours) Vital Signs Temp Pulse Resp BP Pulse Ox O2 Del Method O2 Flow Rate 03/24/24 10:03 88 12 95 03/24/24 10:00 93/51 L 03/24/24 09:57 92 H 21 95 03/24/24 09:15 86 23 95 03/24/24 08:57 89 23 93 03/24/24 08:55 93/47 L 03/24/24 08:51 83 27 H 89 L 03/24/24 08:21 117/56 L 03/24/24 08:15 92 H 26 H 96 03/24/24 08:00 90 23 98 03/24/24 08:00 101/53 L 03/24/24 07:45 107/53 L 03/24/24 07:45 87 22 98 03/24/24 07:37 Nasal Cannula 03/24/24 07:30 99/53 L 03/24/24 07:27 90 18 97 03/24/24 07:15 98/55 L 03/24/24 07:09 90 4 L 98 03/24/24 07:06 91 H 8 L 99 03/24/24 07:00 98/56 L 03/24/24 05:15 102/53 L 03/24/24 05:15 102/53 L 03/24/24 05:12 87 20 98 03/24/24 05:00 95/51 L 03/24/24 05:00 95/51 L 03/24/24 05:00 95/51 L 03/24/24 05:00 86 27 H 98 03/24/24 04:57 86 26 H 98 03/24/24 04:30 106/58 L 03/24/24 04:21 82 25 H 99 03/24/24 04:15 113/57 L 03/24/24 04:15 113/57 L 03/24/24 04:06 84 27 H 99 03/24/24 04:00 83 24 98 03/24/24 04:00 105/51 L 03/24/24 04:00 105/51 L 03/24/24 04:00 105/51 L 03/24/24 03:45 101/47 L 03/24/24 03:45 101/47 L 03/24/24 03:39 36.6 C 84 24 105/51 L 99 3 03/24/24 03:36 77 21 100 03/24/24 03:15 84 17 99 03/24/24 03:15 115/55 L 03/24/24 03:06 92 H 29 H 95 03/24/24 02:45 120/60 03/24/24 02:39 84 18 100 03/24/24 02:39 36.7 C 77 18 118/63 99 3 03/24/24 02:30 118/63 03/24/24 02:30 118/63 03/24/24 02:18 81 0 L 100 03/24/24 02:15 83 5 L 100 03/24/24 02:15 118/61 03/24/24 02:15 118/61 03/24/24 02:15 118/61 03/24/24 02:09 36.6 C 75 18 107/58 L 99 3 03/24/24 02:01 87 03/24/24 02:00 86 19 99 03/24/24 02:00 107/58 L 03/24/24 02:00 107/58 L 03/24/24 02:00 107/58 L 03/24/24 02:00 107/58 L 03/24/24 01:54 36.7 C 93 H 18 121/56 L 99 3 03/24/24 01:45 121/56 L 03/24/24 01:42 82 24 100 03/24/24 01:39 81 19 100 03/24/24 01:37 36.6 C 93 H 18 112/64 98 4 03/24/24 01:30 112/64 03/24/24 01:24 81 23 100 03/24/24 01:15 101/52 L 03/24/24 01:15 101/52 L O2 Flow Rate 03/24/24 10:03 03/24/24 10:00 03/24/24 09:57 03/24/24 09:15 03/24/24 08:57 03/24/24 08:55 03/24/24 08:51 03/24/24 08:21 03/24/24 08:15 03/24/24 08:00 03/24/24 08:00 03/24/24 07:45 03/24/24 07:45 03/24/24 07:37 2 03/24/24 07:30 03/24/24 07:27 03/24/24 07:15 03/24/24 07:09 03/24/24 07:06 03/24/24 07:00 03/24/24 05:15 03/24/24 05:15 03/24/24 05:12 03/24/24 05:00 03/24/24 05:00 03/24/24 05:00 03/24/24 05:00 03/24/24 04:57 03/24/24 04:30 03/24/24 04:21 03/24/24 04:15 03/24/24 04:15 03/24/24 04:06 03/24/24 04:00 03/24/24 04:00 03/24/24 04:00 03/24/24 04:00 03/24/24 03:45 03/24/24 03:45 03/24/24 03:39 03/24/24 03:36 03/24/24 03:15 03/24/24 03:15 03/24/24 03:06 03/24/24 02:45 03/24/24 02:39 03/24/24 02:39 03/24/24 02:30 03/24/24 02:30 03/24/24 02:18 03/24/24 02:15 03/24/24 02:15 03/24/24 02:15 03/24/24 02:15 03/24/24 02:09 03/24/24 02:01 03/24/24 02:00 03/24/24 02:00 03/24/24 02:00 03/24/24 02:00 03/24/24 02:00 03/24/24 01:54 03/24/24 01:45 03/24/24 01:42 03/24/24 01:39 03/24/24 01:37 03/24/24 01:30 03/24/24 01:24 03/24/24 01:15 03/24/24 01:15 Laboratory Results 03/24/24 03/24/24 03/24/24 Range/Units 12:34 11:24 10:02 WBC 11.77 H (4.8-10.8) K/ul RBC 2.98 L (4.20-5.40) M/uL Hgb 9.2 L (12.0-16.0) g/dl Hct 27.7 L (37.0-47.0) % MCV 93.0 (80.0-100.0) fL MCH 30.9 (25.0-34.0) pg MCHC 33.2 (32.0-36.0) g/dL RDW Std Deviation 58.1 H (36.4-46.3) fL RDW Coeff of Leslee 17.2 H (11.5-14.5) % Plt Count 274 (130-400) K/uL MPV 8.6 L (9.4-12.4) fL Immature Gran % (Auto) 0.4 % Neut % (Auto) 79.7 % Lymph % (Auto) 9.8 % Borden % (Auto) 9.1 % Eos % (Auto) 0.7 % Baso % (Auto) 0.3 % Neut # (Auto) 9.38 H (1.40-6.50) K/uL Lymph # (Auto) 1.15 L (1.20-3.40) K/uL Borden # (Auto) 1.07 H (0.11-0.59) K/uL Eos # (Auto) 0.08 (0.00-0.50) K/uL Baso # (Auto) 0.04 (0.00-0.20) K/uL Immature Gran # (Auto) 0.05 (0.01-0.20) K/uL Activ Coag Time Kaolin (94-140) SECONDS Heparin Anti-Xa, Unfract (0.3-0.7) IU/ml Sodium (136-145) mmol/L Potassium (3.5-5.1) mmol/L Chloride (98-107) mmol/L Carbon Dioxide (21-32) mmol/L Anion Gap (3-11) BUN (6-23) mg/dl Creatinine (0.6-1.2) mg/dl Est Cr Clr Drug Dosing ml/min eGFR BUN/Creatinine Ratio (10-20) Glucose (70-99(Fasting)) mg/dl POC Glucose 121 H (70-99) mg/dl Lactate (0.4-2.0) mmol/L Calcium (8.6-10.3) mg/dl Total Bilirubin (0.2-1.0) mg/dl Direct Bilirubin (0-0.2) mg/dl AST (13-39) U/L ALT (7-52) U/L Alkaline Phosphatase (34-104) U/L Troponin I High Sens Pending (0-14) pg/ml Total Protein (6.0-8.3) gm/dl Albumin (3.4-5.0) gm/dl Triglycerides (0-150) mg/dl Cholesterol (0-200) mg/dl LDL Cholesterol, Calc mg/dl VLDL Cholesterol, Calc (0-30) mg/dl HDL Cholesterol mg/dl Cholesterol/HDL Ratio (0-5) Random Cortisol mcg/dl Nasal Screen MRSA (PCR) (Negative) Blood Type Antibody Screen Crossmatch 03/24/24 03/23/24 03/23/24 Range/Units 05:35 Unknown 23:55 WBC 12.37 H (4.8-10.8) K/ul RBC 3.10 L (4.20-5.40) M/uL Hgb 9.7 L 8.7 L (12.0-16.0) g/dl Hct 29.1 L (37.0-47.0) % MCV 93.9 (80.0-100.0) fL MCH 31.3 (25.0-34.0) pg MCHC 33.3 (32.0-36.0) g/dL RDW Std Deviation 58.5 H (36.4-46.3) fL RDW Coeff of Leslee 17.4 H (11.5-14.5) % Plt Count 300 (130-400) K/uL MPV 9.0 L (9.4-12.4) fL Immature Gran % (Auto) 0.6 % Neut % (Auto) 76.8 % Lymph % (Auto) 11.2 % Borden % (Auto) 10.4 % Eos % (Auto) 0.6 % Baso % (Auto) 0.4 % Neut # (Auto) 9.51 H (1.40-6.50) K/uL Lymph # (Auto) 1.38 (1.20-3.40) K/uL Borden # (Auto) 1.29 H (0.11-0.59) K/uL Eos # (Auto) 0.07 (0.00-0.50) K/uL Baso # (Auto) 0.05 (0.00-0.20) K/uL Immature Gran # (Auto) 0.07 (0.01-0.20) K/uL Activ Coag Time Kaolin (94-140) SECONDS Heparin Anti-Xa, Unfract (0.3-0.7) IU/ml Sodium 132 L (136-145) mmol/L Potassium 4.0 (3.5-5.1) mmol/L Chloride 102 (98-107) mmol/L Carbon Dioxide 26 (21-32) mmol/L Anion Gap 4 (3-11) BUN 25 H (6-23) mg/dl Creatinine 1.15 (0.6-1.2) mg/dl Est Cr Clr Drug Dosing 29.3 ml/min eGFR 46.68 BUN/Creatinine Ratio 21.7 H (10-20) Glucose 123 H (70-99(Fasting)) mg/dl POC Glucose (70-99) mg/dl Lactate 1.5 (0.4-2.0) mmol/L Calcium 8.0 L (8.6-10.3) mg/dl Total Bilirubin 0.4 (0.2-1.0) mg/dl Direct Bilirubin 0.1 (0-0.2) mg/dl AST 75 H (13-39) U/L ALT 18 (7-52) U/L Alkaline Phosphatase 73 (34-104) U/L Troponin I High Sens 28745.4 H* D 55259.5 H* D (0-14) pg/ml Total Protein 5.2 L D (6.0-8.3) gm/dl Albumin 2.9 L (3.4-5.0) gm/dl Triglycerides 99 (0-150) mg/dl Cholesterol 167 (0-200) mg/dl LDL Cholesterol, Calc 77 mg/dl VLDL Cholesterol, Calc 20 (0-30) mg/dl HDL Cholesterol 70 mg/dl Cholesterol/HDL Ratio 2.4 (0-5) Random Cortisol 15.12 mcg/dl Nasal Screen MRSA (PCR) Negative (Negative) Blood Type O Positive Antibody Screen NEGATIVE Crossmatch See Detail 03/23/24 03/23/24 03/23/24 Range/Units 20:09 18:22 16:25 WBC 12.51 H (4.8-10.8) K/ul RBC 3.07 L (4.20-5.40) M/uL Hgb 9.9 L (12.0-16.0) g/dl Hct 30.2 L (37.0-47.0) % MCV 98.4 (80.0-100.0) fL MCH 32.2 (25.0-34.0) pg MCHC 32.8 (32.0-36.0) g/dL RDW Std Deviation 55.4 H (36.4-46.3) fL RDW Coeff of Leslee 15.7 H (11.5-14.5) % Plt Count 319 (130-400) K/uL MPV 8.9 L (9.4-12.4) fL Immature Gran % (Auto) 0.7 % Neut % (Auto) 81.3 % Lymph % (Auto) 9.5 % Borden % (Auto) 8.0 % Eos % (Auto) 0.3 % Baso % (Auto) 0.2 % Neut # (Auto) 10.17 H (1.40-6.50) K/uL Lymph # (Auto) 1.19 L (1.20-3.40) K/uL Borden # (Auto) 1.00 H (0.11-0.59) K/uL Eos # (Auto) 0.04 (0.00-0.50) K/uL Baso # (Auto) 0.02 (0.00-0.20) K/uL Immature Gran # (Auto) 0.09 (0.01-0.20) K/uL Activ Coag Time Kaolin (94-140) SECONDS Heparin Anti-Xa, Unfract 1.38 H* (0.3-0.7) IU/ml Sodium (136-145) mmol/L Potassium (3.5-5.1) mmol/L Chloride (98-107) mmol/L Carbon Dioxide (21-32) mmol/L Anion Gap (3-11) BUN (6-23) mg/dl Creatinine (0.6-1.2) mg/dl Est Cr Clr Drug Dosing ml/min eGFR BUN/Creatinine Ratio (10-20) Glucose (70-99(Fasting)) mg/dl POC Glucose (70-99) mg/dl Lactate (0.4-2.0) mmol/L Calcium (8.6-10.3) mg/dl Total Bilirubin (0.2-1.0) mg/dl Direct Bilirubin (0-0.2) mg/dl AST (13-39) U/L ALT (7-52) U/L Alkaline Phosphatase (34-104) U/L Troponin I High Sens 39233.9 H* D Cancelled (0-14) pg/ml Total Protein (6.0-8.3) gm/dl Albumin (3.4-5.0) gm/dl Triglycerides (0-150) mg/dl Cholesterol (0-200) mg/dl LDL Cholesterol, Calc mg/dl VLDL Cholesterol, Calc (0-30) mg/dl HDL Cholesterol mg/dl Cholesterol/HDL Ratio (0-5) Random Cortisol mcg/dl Nasal Screen MRSA (PCR) (Negative) Blood Type Antibody Screen Crossmatch 03/23/24 03/23/24 03/23/24 Range/Units 16:09 15:22 15:10 WBC (4.8-10.8) K/ul RBC (4.20-5.40) M/uL Hgb (12.0-16.0) g/dl Hct (37.0-47.0) % MCV (80.0-100.0) fL MCH (25.0-34.0) pg MCHC (32.0-36.0) g/dL RDW Std Deviation (36.4-46.3) fL RDW Coeff of Leslee (11.5-14.5) % Plt Count (130-400) K/uL MPV (9.4-12.4) fL Immature Gran % (Auto) % Neut % (Auto) % Lymph % (Auto) % Borden % (Auto) % Eos % (Auto) % Baso % (Auto) % Neut # (Auto) (1.40-6.50) K/uL Lymph # (Auto) (1.20-3.40) K/uL Borden # (Auto) (0.11-0.59) K/uL Eos # (Auto) (0.00-0.50) K/uL Baso # (Auto) (0.00-0.20) K/uL Immature Gran # (Auto) (0.01-0.20) K/uL Activ Coag Time Kaolin 256 H 383 H (94-140) SECONDS Heparin Anti-Xa, Unfract (0.3-0.7) IU/ml Sodium (136-145) mmol/L Potassium (3.5-5.1) mmol/L Chloride (98-107) mmol/L Carbon Dioxide (21-32) mmol/L Anion Gap (3-11) BUN (6-23) mg/dl Creatinine (0.6-1.2) mg/dl Est Cr Clr Drug Dosing ml/min eGFR BUN/Creatinine Ratio (10-20) Glucose (70-99(Fasting)) mg/dl POC Glucose 87 (70-99) mg/dl Lactate (0.4-2.0) mmol/L Calcium (8.6-10.3) mg/dl Total Bilirubin (0.2-1.0) mg/dl Direct Bilirubin (0-0.2) mg/dl AST (13-39) U/L ALT (7-52) U/L Alkaline Phosphatase (34-104) U/L Troponin I High Sens (0-14) pg/ml Total Protein (6.0-8.3) gm/dl Albumin (3.4-5.0) gm/dl Triglycerides (0-150) mg/dl Cholesterol (0-200) mg/dl LDL Cholesterol, Calc mg/dl VLDL Cholesterol, Calc (0-30) mg/dl HDL Cholesterol mg/dl Cholesterol/HDL Ratio (0-5) Random Cortisol mcg/dl Nasal Screen MRSA (PCR) (Negative) Blood Type Antibody Screen Crossmatch 03/23/24 03/23/24 03/23/24 Range/Units 14:53 14:39 12:26 WBC (4.8-10.8) K/ul RBC (4.20-5.40) M/uL Hgb (12.0-16.0) g/dl Hct (37.0-47.0) % MCV (80.0-100.0) fL MCH (25.0-34.0) pg MCHC (32.0-36.0) g/dL RDW Std Deviation (36.4-46.3) fL RDW Coeff of Leslee (11.5-14.5) % Plt Count (130-400) K/uL MPV (9.4-12.4) fL Immature Gran % (Auto) % Neut % (Auto) % Lymph % (Auto) % Borden % (Auto) % Eos % (Auto) % Baso % (Auto) % Neut # (Auto) (1.40-6.50) K/uL Lymph # (Auto) (1.20-3.40) K/uL Borden # (Auto) (0.11-0.59) K/uL Eos # (Auto) (0.00-0.50) K/uL Baso # (Auto) (0.00-0.20) K/uL Immature Gran # (Auto) (0.01-0.20) K/uL Activ Coag Time Kaolin 222 H 135 (94-140) SECONDS Heparin Anti-Xa, Unfract (0.3-0.7) IU/ml Sodium (136-145) mmol/L Potassium (3.5-5.1) mmol/L Chloride (98-107) mmol/L Carbon Dioxide (21-32) mmol/L Anion Gap (3-11) BUN (6-23) mg/dl Creatinine (0.6-1.2) mg/dl Est Cr Clr Drug Dosing ml/min eGFR BUN/Creatinine Ratio (10-20) Glucose (70-99(Fasting)) mg/dl POC Glucose (70-99) mg/dl Lactate (0.4-2.0) mmol/L Calcium (8.6-10.3) mg/dl Total Bilirubin (0.2-1.0) mg/dl Direct Bilirubin (0-0.2) mg/dl AST (13-39) U/L ALT (7-52) U/L Alkaline Phosphatase (34-104) U/L Troponin I High Sens 89357.5 H* (0-14) pg/ml Total Protein (6.0-8.3) gm/dl Albumin (3.4-5.0) gm/dl Triglycerides (0-150) mg/dl Cholesterol (0-200) mg/dl LDL Cholesterol, Calc mg/dl VLDL Cholesterol, Calc (0-30) mg/dl HDL Cholesterol mg/dl Cholesterol/HDL Ratio (0-5) Random Cortisol mcg/dl Nasal Screen MRSA (PCR) (Negative) Blood Type Antibody Screen Crossmatch Diagnostic Findings EXAM: CT abd pelvis wo con CLINICAL HISTORY: eval for retroperitoneal bleed- drop HGB/hypotensi TECHNIQUE: Contiguous axial images were obtained from the level of the diaphragm to the pubic symphysis without intravenous or oral contrast. Coronal and sagittal reconstructions were likewise performed and indicated to increase the sensitivity for detecting clinically relevant pathology. CT scan was performed according to ALARA (as low as reasonable achievable). COMPARISON: 09 February 2024 FINDINGS: Mild bilateral pleural effusion with basal subsegmental collapse consolidation of both lower lobes are seen Thin strip of pericardial effusion is noted. Evaluation of the abdominal and pelvic visceral organs is limited without intravenous contrast. The unenhanced liver, spleen, pancreas, and adrenal glands are grossly unremarkable. The gallbladder is grossly distended measures about 9.3 x 4.5 cm. No obvious cholelithiasis /cholecystitis. The kidneys are normal in size and attenuation without obvious calcification. There is no hydronephrosis or perinephric stranding. The ureters are normal in caliber. No adenopathy or fluid collections are seen. No evidence of focal or diffuse bowel wall thickening or evidence of bowel obstruction is seen. The appendix is visualized in the right lower quadrant and appears within normal limits. Diffuse mesenteric congestion/edema is seen. Diffuse atherosclerotic calcification is noted involving aorta iliac arteries. The urinary bladder is normal in contour. Pelvic viscera are grossly unremarkable. No aggressive appearing osseous lesions are identified. Stable small fat containing umbilical hernia. IMPRESSION: Mild bilateral pleural effusion with basal subsegmental collapse consolidation of both lower lobes are seen - new finding. Thin strip of pericardial effusion is noted.-new finding. Stable small fat containing umbilical hernia. Diffuse mesenteric congestion/edema is seen.-new finding. The gallbladder is grossly distended measures about 9.3 x 4.5 cm. No obvious cholelithiasis /cholecystitis. Advised ultrasound correlation. Diffuse atherosclerotic calcification is noted involving aorta iliac arteries.-stable. US gallbladder CLINICAL HISTORY: enlarged gallbladder on CT abd/pelvis, elevated WB. TECHNIQUE: Limited ultrasound of the liver and gallbladder was performed in greyscale and Doppler. Multiple images were obtained in transverse and longitudinal planes. COMPARISON: Prior CT dated 03/24/2024 for comparison. FINDINGS: Liver: Liver size: 15.9 cm. Liver appears normal in size with homogeneous echotexture. No evidence of focal lesions, cysts, or masses. Hepatic vasculature appears normal. Gallbladder: Gallbladder size: 10.3 x 4.8 cm. Gallbladder is overdistended and lumen is echofree. No calculi seen. The wall is mildly thickened measuring 3.7 mm. Suspicion of thin streak of pericholecystic fluid. Biliary Tree: Common bile duct diameter: 6.0 mm. Common bile duct is within normal limits in caliber and not dilated. No evidence of choledocholithiasis or biliary obstruction. Pancreas: Normal in size and echotexture. Main pancreatic duct measures 2.0 mm. Right kidney: Subptimally visualized, grossly normal with no hydronephrosis. Incidental finding of right pleural effusion. IMPRESSION: 1. Overdistended gall bladder with a mildly thickened wall measuring 3.7 mm and suspicion of thin streak of pericholecystic fluid, could be a calculus cholecystitis. 2. Incidental finding of right pleural effusion. I personally reviewed CT scan images and ultrasound images above.
[2024-03-24 16:07] LABS: Basophils # (auto) 0.04 K/uL (0.00-0.20); Basophils % (auto) 0.3 %; Eosinophils # (auto) 0.07 K/uL (0.00-0.50); Eosinophils % (auto) 0.6 %; Hematocrit (blood only) 28.3 % (37.0-47.0); Hemoglobin 9.4 g/dl (12.0-16.0); Immature Granulocytes # (auto) 0.05 K/uL (0.01-0.20); Immature Granulocytes % (auto) 0.4 %; Lymphocytes % (auto) 13.4 %; Mean Corpuscular Hemoglobin 31.3 pg (25.0-34.0); Mean Corpuscular Hgb Conc 33.2 g/dL (32.0-36.0); Mean Corpuscular Volume 94.3 fL (80.0-100.0); Monocytes # (auto) 1.03 K/uL (0.11-0.59); Monocytes % (auto) 8.1 %; Neutrophils # (auto) 9.75 K/uL (1.40-6.50); Neutrophils % (auto) 77.2 %; Platelet Count 296 K/uL (130-400); RDW Coefficient of Variation 17.5 % (11.5-14.5); RDW Standard Deviation 60.1 fL (36.4-46.3); White Blood Count 12.64 K/ul (4.8-10.8)
[2024-03-24] MEDS: CALCIUM GLUCONATE 1,000 MG/60 ML BAG IV STA (17:00)
--- NOTE | 2024-03-24 17:21 | Cardiology Consultation ---
Date of Consultation March 24, 2024 Assessment & Plan (1) Ischemic cardiomyopathy: With EF of 30 to 35% the patient is actually moderate to severe LV dysfunction. We do not have a recent prior echo to compare. She may have had 1 performed in a different health system but that is not available to me at this time. The extensive apical ballooning and preservation of the basal myocardium was highly suspicious for Takotsubo cardiomyopathy particularly given her lack of chest pain and high stress of undergoing cancer treatment. However, she certainly had a severe LAD lesion so I think it is best to call this ischemic cardiomyopathy. Currently without evidence of volume overload. We will need to be cautious with sodium intake as well as volume resuscitation. With regard to medical management, we will need to optimize her for chronic systolic heart failure, provide loop diuretic as needed, and we will need to talk to her about a defibrillator vest. She is a DNR so maybe she will not wish to have any defibrillator vest. Currently could not tolerate recommended heart failure medicines including heart failure indicated beta-jaqueline, MARCO inhibitor/ARB/Entresto, SGLT2 inhibitor. However, if her blood pressure improves we should initiate these sequentially to optimize potential outcomes. (2) Acute non-ST elevation myocardial infarction (NSTEMI): I suspect the patient had subacute myocardial infarction. Probably occurring several days or more prior to her presentation. That would explain her EKGs not meeting criteria for ST elevation NM but being consistent with apical ballooning/apical aneurysm. It would also be consistent with the fact that she had very elevated troponins which were downtrending before we were asked to urgently take her to the cardiac catheterization suite. I do not see any EKGs where she had criteria for anterolateral ST elevation NM or reciprocal ischemic EKG changes. As anticipated, the troponins actually got worse after we opened her LAD. I am not sure that we improved her situation much but she seems to be tolerating the procedure. Will see if she recovers any LV function with optimized medical therapy and revascularization. Presently, she will require dual antiplatelet therapy for up to 2 years. More specifically, she needs to be on dual antiplatelet therapy for the next 30 days uninterrupted except for emergent surgery. She carries high risk of acute stent thrombosis, NM, and should this be discontinued prematurely. Fortunately, the Dwayne drug- eluting stents have a lower incidence of these issues at an earlier time (30 days) than the previous drug-eluting stents. If she does require emergent s urgery within the next 30 days I recommend that this be performed while she is on Plavix but it would be reasonable to hold the Eliquis. We are using Plavix plus Eliquis rather than Plavix plus aspirin because she has a requirement for Eliquis for her DVT. Triple therapy carries very high risk of bleeding so we avoid use of all 3. Once she no longer requires vasopressor support we should start the beta-jaqueline at minimum and if possible Entresto/MARCO inhibitor/ARB. She can remain on the a atorvastatin 20 mg daily at this time and we will titrate further as an outpatient. 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 As long as she has a port in place I suspect she will be at risk for recurrent DVT and therefore continued therapy is currently recommended. If decision is made to discontinue Eliquis then she will need to go on aspirin 81 mg daily for her stent. (4) Dyslipidemia: Patient is high risk. High intensity statin therapy has been initiated. We began with a atorvastatin 20 mg daily predominantly because of her age and I did not want to induce any myalgias/rhabdomyolysis. (5) Anemia: Certainly had a drop in her H&H. We did not lose much blood during the catheterization but she did lose some at the access site afterwards. This was likely because she was on a lot of anticoagulation and antiplatelet agents. The Integrilin was discontinued which should help. It does not seem that she has spontaneous retroperitoneal bleed which is reassuring. Whether or not she has occult GI bleed is not clear. Certainly not having large-volume bleed from her GI tract at this time. I know the impulse is to hold her anticoagulants in case she does have a bleed but this puts her at very high risk of acute stent thrombosis. If she develops a bleeding site then this will need to be acutely treated and we can transfuse if we need to. We need to avoid recurrent NM as she would likely not survive that. (6) Hypotension: Patient has significant LV dysfunction, LAD territory infarction, and probably some degree of dehydration. Currently requiring vasopressor support. I would qualify her as mild cardiogenic shock initially now just hypotensive. She seems to be perfusing okay. Slow taper of vasopressor support as tolerated is recommended. Continue to monitor her for potential spontaneous bleeding given her need for antiplatelet and anticoagulant in an elderly octogenarian. Plan I will again see her in the ICU tomorrow. Hopefully she will continue with her gradual improvement. Anticipate she will remain in the hospital for the next 2 to 3 days at minimum. History of Present Illness Reason for Consultation: Neck and back pain, elevated troponin Attending Physician: Ángel Chaudhry MD, PhD History of Present Illness Is an 84-year-old female without significant past cardiac history but who has been diagnosed with appendiceal cancer and carcinomatosis for which she has been undergoing chemotherapy. She also developed a DVT in the vessel associated with her infusion port. She was placed on Eliquis for therapy. She presented yesterday morning to the emergency department with complaints of neck pain. She had point tenderness to the back of her neck along the cervical spine. She had no chest pain heaviness or tightness. Initial EKG did not demonstrate diagnostic ST segment elevations and there were no reciprocal ischemic changes. She did have Q waves and late R wave progression suggestive of old or recent but not acute myocardial infarction. However, her troponin was found to be very elevated and I was asked to see her. I initially examined her in the emergency department at which time she denied any chest pain. She in fact appeared quite comfortable but she did complain that the back of her neck was sore. After further prodding she did admit that several days previously she had protracted chest discomfort and indigestion but it was not severe. She had taken her Eliquis the previous morning but had not had any overnight or while in the emergency department. Given the circumstances decision was made to hold off on catheterization for another 24 hours to allow the Eliquis effect to dissipate. That would reduce the likelihood of bleeding. We did state that if her symptoms became more typical, she had significant hemodynamic or electrical instability, or her symptoms became much worse we would consider taking her to the [facility] urgently. She did relatively well until around 2 PM at which point she developed much more severe pain particularly in her shoulders. Reportedly she had an EKG demonstrating ST elevations but I do not see that EKG anywhere in her chart. In any case, a "heart alert" was called and the patient was taken emergently to the [facility]. There she underwent diagnostic coronary angiography via the right radial artery approach. She was found to have an occluded LAD and with some difficulty we were able to perform complex PCI with implantation of 3 overlapped drug-eluting stents. This really did not help her symptoms much and the angiographic findings after performing the PCI suggested that much of the disease was chronic appearing. In any case, she was admitted to the ICU and after a few hours that she said she had only mild neck pain in the shoulder pain was completely alleviated. She did require vasopressor support in the [facility] which continued to be a requirement in the ICU. Last night, she was noted to be hypotensive so she was given additional volume, continued on vasopressor support, and check of her H&H suggested a drop so she was also transfused 2 units of packed red blood cells. Imaging was performed on her abdomen which did not suggest retroperitoneal bleed but she did have an enlarged gallbladder. Surgery has subsequently been consulted and since she has no symptoms and no elevation in her hepatic enzymes they feel that surgery is not needed at this time. This morning the patient states that she is feeling well. Still with some mild neck pain but no shoulder or chest discomfort. No abdominal pain. No shortness of breath. No lightheadedness or dizziness while in the room. She has not been out of bed at this point. First EKG on arrival: Sinus rhythm with frequent PVCs and fusion beats. Left axis deviation Anterolateral Q waves possibly recent Second EKG (around 12:00 PM): Normal sinus rhythm, no PVCs or fusion beats Left anterior fascicular block Anterolateral Q waves possibly recent third EKG at 3:52 PM (post cath): Normal sinus rhythm Left axis deviation Inferior Q waves Anterolateral Q waves possibly recent Similar to prior EKGs Echocardiogram 03/23/2024: Mildly dilated LV Moderately reduced EF 30 to 35% Large area of anteroapical akinesis (LAD territory NM versus Takotsubo cardiomyopathy) RV systolic pressure 30 to 40 mmHg Moderate left atrial enlargement (left atrial volume index 28.9 mL/m Left ventricular hypertrophy Allergies Allergy/AdvReac Type Severity Reaction Status Date / Time atorvastatin [From Lipitor] AdvReac Mild MUSCLE Verified 01/15/24 13:08 ISSUES ezetimibe [From Vytorin] AdvReac Mild MUSCLE Verified 01/15/24 13:08 ISSUES fluvastatin AdvReac Mild Muscle Verified 01/15/24 13:08 Issues- legs pravastatin [From Pravachol] AdvReac Mild MUSCLE Verified 01/15/24 13:08 ISSUES simvastatin [From Vytorin] AdvReac Mild Dizziness Verified 01/15/24 13:08 Home Medications Medication Instructions Recorded Confirmed Type venlafaxine 150 mg 300 mg PO QAM 12/01/18 03/23/24 History capsule,extended release 24 hr (Effexor XR) bupropion HCl 100 mg tablet 100 mg PO QAM 10/14/19 03/23/24 History calcium 600 mg (as 2 cap PO HS 10/14/19 03/23/24 History carbonate)-vitamin D3 5 mcg (200 unit) capsule (Calcium 600 + D(3)) cyclosporine 0.05 % eye drops 1 drops OPB UD 04/24/21 03/23/24 History (Restasis MultiDose) polyethylene glycol 3350 17 gram 17 g PO HS 07/30/22 03/23/24 History oral powder packet (Miralax) ondansetron HCl 8 mg tablet 8 mg PO Q8H PRN Nausea 08/27/22 03/23/24 History lorazepam 0.5 mg tablet 0.25 mg PO DAILY PRN severe anxiety 12/19/22 03/23/24 History sodium di- and 250 tab PO BID 10/14/23 03/23/24 History monophosphate-potassium phos monobasic 250 mg tablet (Phospha Neutral) acetaminophen 500 mg tablet 1,000 mg (2 x 500 mg) PO Q8H PRN 10/16/23 03/23/24 Rx (Tylenol Extra Strength) mild pain (scale score 1-4) #60 tabs apixaban 5 mg tablet (Eliquis) 5 mg PO BID 01/15/24 03/23/24 History mirtazapine 7.5 mg tablet 7.5 mg PO HS PRN Sleep 01/15/24 03/23/24 History lisinopril 10 mg tablet 15 mg PO 1XD 03/23/24 03/23/24 History Patient History Medical History DVT (deep venous thrombosis) Peritoneal carcinomatosis Sciatic leg pain Depression Hyperlipidemia History of COVID-19 ?2021 mild cold symptoms; resolved Carpal tunnel syndrome Right hand Thyroid nodule Under surveillance Anxiety Surgical History Port-A-Cath in place (08/19/22) Evaluate Access Port, Replacement Access Port with Fluoroscopy(Left) - Denis Diego, DO Port-A-Cath in place (08/01/22) Insertion of Access Port with Fluoroscopy(Left) - Denis Diego, DO [place] History of surgery (05/22/21) Left Thigh Wound Exploration and VAC System Placement(Left) - Mathew Menon MD, FACS 05/22/2021 History of surgery (05/10/21) Exploration Left Inner Thigh for Post-Operative Seroma placement of Андрей drain(Left) - Mathew Menon MD, FACS 05/10/2021 H/O excision of mass (05/01/21) Excision of left thigh mass. Dr. Jaramillo 05/01/2021 History of anesthesia reaction WOKE UP IN MIDDLE OF COLONOSCOPY S/P knee replacement (~2019) LEFT History of cataract surgery (2019) R/L History of colonoscopy History of eye surgery R/L LIDS History of shoulder surgery (1980) LEFT TEAR History of mandibular surgery (1980) ORIF-FULL ROM Family History Father Coronary heart disease Heart disease Cancer Mother Coronary heart disease Other Leukemia Lupus (systemic lupus erythematosus) No family history of adverse response to anesthesia Social History Smoking Status: Never smoker Second Hand Exposure: No; Do You Dip or Chew Tobacco: No; Tobacco Cessation Education Requested by Patient: No Hx Alcohol Use: No Hx Substance Use: No Preferred Language: Georgian Communication Ability: Effective Visual Impairment: No Limitations Email Marketer Required: No Beliefs That Will Affect Care: None marital status: / Current Living Situation: Family Current Living Situation Comment: Lives with her Juan David (son) in a house current occupational status: retired How many Children do You have: 3 Other Information That Helps Us Care for You: No Feels Safe at Home: Yes Safety Concerns: Feels Safe At This Time Diet: regular during the past year weight has: remained stable Assistive Devices: None Review of Systems Review of Systems: Negative except as per HPI Physical Exam Constitutional: WD/WN, vitals as above (Chronic ill-appearing elderly female. No acute distress) Eyes: Extraocular muscles intact. Sclera are anicteric. ENMT: Oral mucosa is pink and dry Neck: No JVD Respiratory: Clear to auscultation bilaterally. No wheezing, rhonchi, or rales appreciated. Good air movement. Cardiovascular: Regular rate and rhythm. S4 gallop. Soft systolic murmur. No edema. Right radial access site with ecchymosis but no mass. Good distal perfusion. Neurologic: Cognition is intact. Speech is fluent. Hearing mildly diminished. No focal deficits. Psychiatric: A+Ox3, euthymic affect Results & Data Vital Signs (Past 12 Hours) Vital Signs Pulse Resp BP Pulse Ox O2 Del Method O2 Flow Rate 03/24/24 10:03 88 12 95 03/24/24 10:00 93/51 L 03/24/24 09:57 92 H 21 95 03/24/24 09:15 86 23 95 03/24/24 08:57 89 23 93 03/24/24 08:55 93/47 L 03/24/24 08:51 83 27 H 89 L 03/24/24 08:21 117/56 L 03/24/24 08:15 92 H 26 H 96 03/24/24 08:00 90 23 98 03/24/24 08:00 101/53 L 03/24/24 07:45 107/53 L 03/24/24 07:45 87 22 98 03/24/24 07:37 Nasal Cannula 2 03/24/24 07:30 99/53 L 03/24/24 07:27 90 18 97 03/24/24 07:15 98/55 L 03/24/24 07:09 90 4 L 98 03/24/24 07:06 91 H 8 L 99 03/24/24 07:00 98/56 L PG Care Time/CCT Total # of Minutes Spent Total Time Spent with Patient: Total time spent is greater than 50% in coordination of care (as documented) at patient's floor/unit and/or counseling patient: A total of 70 minutes critical care time was spent in the initial evaluation, review of records, follow-up evaluation and examination, discussion with the patient, discussion with the ICU team as well as the emergency medicine team initially, formulation and implementation of a plan of care and all associated documentation. This time is exclusive of the time spent for her procedure. Coding Level of Care Code 89908 CRITICAL CARE 1ST 30-74M Diagnoses Ischemic cardiomyopathy I25.5 Acute non-ST elevation myocardial infarction (NSTEMI) I21.4 Left upper extremity deep vein thrombosis I82.622 Dyslipidemia E78.5 Anemia D64.9 Hypotension I95.9 Time Spent (min) 70
[2024-03-24] MEDS: MAGNESIUM SULFATE / D5W 1 GM/100 ML BAG IV SCH (18:47)
[2024-03-24] MEDS: METOPROLOL TARTRATE 1 MG/ML VIAL IV SCH (19:13)
--- NOTE | 2024-03-24 19:24 | Communication Note ---
Date of Service: March 24, 2024 1900- Patient with runs of SVT with HR 100-160s narrow complex, will break back to NSR with PACs. - Patient is asymptomatic and states she feels fine "was just sleeping" - 2GM Magnesium given empirically while awaiting labs that have been delayed obtaining - Will provide 2.5mg of IV Lopressor - as she is on very low dose of LEVOphed- and if hemodynamics hold will provide another 2.5 mg IV for total of 5mg - consider PO dosing this evening or stay with IV as needed, if she should be difficult to control rate/rythm velazquez consider Esmolol as this still appears sinus in nature. Portillo KAT (ACNP-)
[2024-03-24] MEDS: METOPROLOL TARTRATE 1 MG/ML VIAL IV ONE (19:26)
--- NOTE | 2024-03-24 19:57 | Hospitalist Progress Note ---
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 In the ER, patient was found to have ST [place] [address], but patient denied chest pain. Patient was subsequently admitted to the inpatient hospitalist service @[facility] on 04/12/2024 with the following diagnosis: 1. Acute STEMI. D/C heparin drip; start eliquis 5mg PO bid, plavix 75mg PO daily, atorvastatin 20mg PO qam. 2. Neck Pain Head CT/ Head&Neck CTA without acute findings. Attenuated left IJV most pronounced at its distal third - no infectious symptoms. Multiple venous opacifications - appears chronic, pt is anticoagulated. Tylenol q8H prn, lidocaine patch. Avoiding further toradol with plans for cath. 3. Acute euvolemic hyponatremia cf., admission Na 132 (03/23/2024, 4:28am; 03/24/2024, 5:35am). cf., baseline Na range, 138-142 mmol/L (01/12/2024 - 03/12/2024). Asymptomatic. Observe. 4. Stage IV appendiceal carcinoma. Continue FULFURI chemotherapy, no surgical resection, no radiation therapy 5. Major depression/anxiety disorder. No suicidal ideation. No homicidal ideation. Asymptomatic on Effexor, Wellbutrin. PRN Remeron, PRN Ativan Admission and Anticipated Discharge Date Admission Date: March 23, 2024 Subjective Overnight patient placed on Levophed due to hypotension. Received a 500 cc bolus of fluid. Giving additional 500 cc bolus today due to hypotension. Patient also used received a unit of packed RBCs due to anemia. Review of Systems Constitutional: Negative for antecedent/coincident fevers, chills, diaphoresis, cough, wheeze, sore throat, hemoptysis, chest pains, palpitations, pleurisy, nausea, vomiting, diarrhea, abdominal pain, pelvic pain, hematemesis, hematochezia, melena, hematuria, dysuria, frequency, urgency, headaches, dizziness, lightheadedness, visual changes, hearing changes, weakness, falls, syncope, trauma, travel history, sick contacts, or food/drug ingestions novel or new. All other review of systems are reported as negative by the patient on 03/24/2024. Physical Exam Constitutional: General: comfortable, coherent, cooperative. Wide awake and alert. Not confused, lethargic, or obtunded. Patient speaks in complete, fluent, and articulate sentences without pause, interruption, cough, or wheeze. HEENT: NC/AT. EOMI, PERRL. No nystagmus, gaze paresis, anisocoria, miosis, mydriasis, hyphema, chemosis, scleral icterus, conjunctivitis, or pterygium. No otorrhea, no rhinorrhea. No pharyngeal discharge or erythema. Neck: Supple, no stridor, bruit, goiter, or hepatojugular reflux. Jugular venous pressure is estimated to be 8 cm above the sternal angle of Binh, which is typically 5 cm above the level of the right atrium. Hence, there is no jugular venous distention noted on discharge exam 03/24/2024. Lymphatics: No pre-post auricular, anterior/posterior cervical, supraclavicular/infraclavicular, axillary, epitrochlear, or inguinal adenopathy. Chest: Symmetric rise and fall with respirations. Non-tender to palpation. Heart: RRR, S1 and S2 noted. No S3 or S4 summation gallop noted. No tripartite friction rub. Grade II/ early systolic murmur @ LLSB without radiation to the carotids, axilla, or back, and which remains invariant in regards to the respiratory cycle. Lungs: Clear to auscultation and percussion. No audible expiratory wheeze, egophony, pectoriloquy, increase in tactile fremitus, or flatness/dullness to percussion at the bases. Abdomen: Soft, non-tender, non-distended. No rebound, guarding, Mitchell's sign, or organomegaly. Bowel sounds auscultated in all 4 quadrants. Extremities: No clubbing, cyanosis, or edema. 2+ pedal pulses bilaterally. Skin: No decubitus ulcer, exanthem, or enanthem. Neurology: Alert and oriented in regards to person, place, time, and situation. DTR+ and symmetric. 5/5 motor strength in all 4 extremities, both proximally and distally. No myoclonus, tremors, or tics. Urology: No baez catheter. No urethral discharge. Psychiatry: Appropriate affect. Smiles occasionally. No homicidal/suicidal ideation. Results & Data Results & Data Vital Signs (Past 12 Hours) Vital Signs Pulse Resp BP Pulse Ox 03/24/24 19:39 90 111/76 03/24/24 18:00 92 H 22 96 03/24/24 18:00 104/59 L 03/24/24 17:32 97 H 24 95 03/24/24 17:09 85 12 97 03/24/24 16:09 92 H 16 97 03/24/24 16:00 101/61 03/24/24 15:42 92 H 25 H 96 03/24/24 15:03 93 H 22 97 03/24/24 15:00 112/52 L 03/24/24 14:48 92 H 24 94 03/24/24 14:06 94 H 24 95 03/24/24 13:33 97 H 28 H 96 03/24/24 12:20 85/48 L 03/24/24 12:18 101 H 19 95 03/24/24 12:00 93 H 23 96 03/24/24 12:00 82/54 L 03/24/24 11:00 88/51 L 03/24/24 11:00 87 20 96 03/24/24 10:03 88 12 95 03/24/24 10:00 93/51 L 03/24/24 09:57 92 H 21 95 03/24/24 09:15 86 23 95 03/24/24 08:57 89 23 93 03/24/24 08:55 93/47 L 03/24/24 08:51 83 27 H 89 L 03/24/24 08:21 117/56 L 03/24/24 08:15 92 H 26 H 96 03/24/24 08:00 90 23 98 03/24/24 08:00 101/53 L 03/24/24 07:45 107/53 L 03/24/24 07:45 87 22 98 Diagnostic Findings TTE (03/23/2024, 8:15am): 1. LVEF 30-35%. Large area of landen-apical akinesis. LV mildly dilated. Grade I LV diastolic dysfunction. 2. RV normal size and normal systolic function. 3. LA moderately dilated. RA size normal. No evidence for ASD. 4. No AR. No . 5. No W[place]. PV normal structure/function. 6. No MR. No MS. 7. Trace TR. RVSP 30-40 mm Hg. 8. Aortic root normal size. Aortic arch normal size. PA normal size. 9. IVC normal diameter and respiratory variation suggests normal CVP. 10.No pericardial effusion. (as per CARDS Dr. Kirill Suazo). Cardiac catheterization (03/24/2024, 12:01pm): Coronary Anatomy Dominant: Right Left Main (% Stenosis): Ostial (20%) LAD (% Stenosis): Proximal (Diffuse heavily calcified 40 to 50%), Mid (100% hazy) and Distal (Feels poorly via left to left collateralization, apical fills via small collaterals) D1 (% Stenosis): Normal (Mild less than 20% diffuse) Circumflex (% Stenosis): Normal OM1 (% Stenosis): Ostial (90%) and Mid (99%) OM2 (% Stenosis): Normal L PL1 (% Stenosis): Normal RCA (% Stenosis): Proximal (Less than 20%) and Mid (Diffuse 20%) R PDA (% Stenosis): Normal R PL1 (% Stenosis): Normal Diagnostic Physicians Name: Adan Reese MD, PhD Closure Device Percutaneous Entry Location: Radial Closure Device: Radial Band Recommendations: Medical Therapy and/or Counseling and PCI without planned CABG PCI Indication: PCI for STEMI - Unstable (as per Interventional CARDS Dr. Adan Reese). PG Care Time/CCT Total # of Minutes Spent Total Time Spent with Patient: Total time spent is greater than 50% in coordination of care (as documented) at patient's floor/unit and/or counseling patient: Coding Level of Care Code 15911 SUB INP/OBS CARE 2/35MIN Diagnoses Elevated troponin R79.89 Hypertension I10 Neck and shoulder pain M54.2; M25.519 Peritoneal carcinomatosis C78.6
[2024-03-24 20:05] LABS: BUN Creatinine Ratio 17.7 (10-20); Calcium 8.2 mg/dl (8.6-10.3); Creatinine Clr Calc Pharmacy 23.9 ml/min; Magnesium 1.9 mg/dl (1.7-2.4); Phosphorus 3.3 mg/dl (2.5-4.9); Potassium 4.1 mmol/L (3.5-5.1)
[2024-03-24] MEDS: APIXABAN 5 MG TABLET PO SCH (21:09)
[2024-03-25 04:59] LABS: BUN Creatinine Ratio 16.8 (10-20); Calcium 8.5 mg/dl (8.6-10.3); Creatinine Clr Calc Pharmacy 22.6 ml/min; Magnesium 2.4 mg/dl (1.7-2.4); Phosphorus 3.2 mg/dl (2.5-4.9); Potassium 4.4 mmol/L (3.5-5.1)
--- NOTE | 2024-03-25 08:32 | Critical Care Progress Note ---
Date of Service March 25, 2024 Assessment & Plan (1) STEMI (ST elevation myocardial infarction): Plan: Status post PCI with 3 drug-eluting stents to the mid LAD. Eliquis restarted. Hemoglobin stable. Continue Plavix and statin. (2) Ischemic cardiomyopathy: Plan: Continue ASCVD goal-directed therapy. Maintain maps below 65 mmHg. (3) Hematoma: Plan: Right radial artery hematoma stable. (4) Hypotension: Plan: Likely related to cardiogenic shock and component of possible hypovolemia. Continue with as needed fluid boluses and Levophed as needed. May need to target lower blood pressure given reduced systolic function. Will start midodrine 2.5 mg 3 times daily cautiously given the patient's congestive heart failure. (5) Gallbladder anomaly: Plan: Patient had CT of the abdomen pelvis ordered yesterday due to drop in hemoglobin and concern for retroperitoneal bleed. No bleeding identified. The gallbladder was noted to be grossly distended up to 9.3 cm. No obvious cholecystitis or cholelithiasis. General surgery consultation appreciated. Antibiotics discontinued at this time. (6) Anemia: Plan: Hemoglobin stabilized. (7) SVT (supraventricular tachycardia): Plan: Will start the patient on metoprolol to tartrate 12.5 mg twice daily to help prevent further tachyarrhythmias. Plan Patient to remain on ICU service while on pressors. CRITICAL CARE TIME I have personally spent 34 minutes of critical care time in the direct management of this patient. This is a life/limb threatening event. This includes time spent evaluating patient, direct bedside care, chart review, placing o rders, interpretation of diagnostic studies, discussion with consultants, patient, and family members, as well as other required patient management activities. This time is exclusive of all separately billable procedures, and teaching time and separate from and in addition to any other critical care service time. Admission and Anticipated Discharge Date Admission Date: March 23, 2024 Subjective Patient remains on low-dose Levophed and had occasional bouts of SVT last night requiring metoprolol. This morning she is relatively stable and remains on low- dose Levophed. No significant complaints at present. Review of Systems Review of Systems: All systems reviewed & are unremarkable except as noted in HPI & below Physical Exam Physical Exam: Constitutional: Patient appears to be of their stated age. Patient is in no apparent distress. Patient is well-developed. Eyes: Pupils are equal round and reactive to light. Conjunctivae are normal. Anicteric sclera. Ears nose, mouth and throat: Mallampati class 1. Normal posterior oropharynx. Uvula is midline. Neck: Trachea is midline. Visual inspection is normal. Lidocaine patch noted on her cervical spine. Respiratory: Clear to auscultation bilaterally. No use of accessory muscles. No significant clubbing noted. Cardiovascular: Right radial artery hematoma. Nonpulsatile. Regular rate and rhythm. No significant murmurs. Gastrointestinal: Normal bowel sounds, soft, nontender and nondistended. No hepatosplenomegaly noted. Musculoskeletal: No cyanosis. Patient is able to move all extremities. Strength is 5 out of 5 in the upper and lower extremities. Skin: No rashes, warm dry and intact. Neurologic: No obvious focal neurological deficits seen. Psychiatric: Alert and oriented x3 with a euthymic affect. Results & Data Results & Data Vital Signs (Past 12 Hours) Vital Signs Temp Pulse Resp BP Pulse Ox 03/25/24 06:06 83 22 99 03/25/24 06:00 94/46 L 03/25/24 05:51 77 24 98 03/25/24 05:33 87 21 98 03/25/24 05:00 77 18 99 03/25/24 05:00 99/50 L 03/25/24 04:50 36.6 C 03/25/24 04:33 80 21 59 L 03/25/24 04:03 86 16 97 03/25/24 04:02 94/52 L 03/25/24 04:02 94/52 L 03/25/24 03:57 85 21 99 03/25/24 03:30 83 27 H 99 03/25/24 03:06 77 29 H 99 03/25/24 03:00 90/47 L 03/25/24 03:00 90/47 L 03/25/24 02:36 86 26 H 99 03/25/24 02:03 89 24 99 03/25/24 02:00 85/43 L 03/25/24 01:18 91 H 18 90 03/25/24 01:04 36.8 C 03/25/24 01:00 106/61 03/25/24 00:33 92 H 23 98 03/25/24 00:30 91 H 22 88 L 03/25/24 00:09 81 23 97 02/06/25 00:07 81 03/25/24 00:00 104/55 L 03/24/24 23:57 80 17 97 03/24/24 23:36 80 17 97 03/24/24 23:00 77 0 L 90 03/24/24 22:36 79 20 89 L 03/24/24 22:12 78 26 H 92 03/24/24 22:00 101/57 L 03/24/24 22:00 101/57 L 03/24/24 21:57 90 26 H 93 03/24/24 21:48 77 21 94 03/24/24 21:00 98/59 L 03/24/24 21:00 98/59 L 03/24/24 21:00 86 22 96 03/24/24 20:30 102 H 14 81 L Coding Level of Care Code 45620 CRITICAL CARE 1ST 30-74M Diagnoses STEMI (ST elevation myocardial infarction) I21.3 Ischemic cardiomyopathy I25.5 Hematoma T14.8XXA Hypotension I95.9 Gallbladder anomaly Q44.1 Anemia D64.9 SVT (supraventricular tachycardia) I47.10
[2024-03-25 08:58] LABS: Basophils # (auto) 0.03 K/uL (0.00-0.20); Basophils % (auto) 0.2 %; Eosinophils # (auto) 0.13 K/uL (0.00-0.50); Hematocrit (blood only) 28.5 % (37.0-47.0); Hemoglobin 9.3 g/dl (12.0-16.0); Immature Granulocytes # (auto) 0.05 K/uL (0.01-0.20); Immature Granulocytes % (auto) 0.4 %; Lymphocytes # (auto) 1.25 K/uL (1.20-3.40); Lymphocytes % (auto) 9.7 %; Mean Corpuscular Hemoglobin 31.2 pg (25.0-34.0); Mean Corpuscular Hgb Conc 32.6 g/dL (32.0-36.0); Mean Corpuscular Volume 95.6 fL (80.0-100.0); Mean Platelet Volume 9.1 fL (9.4-12.4); Monocytes # (auto) 0.67 K/uL (0.11-0.59); Monocytes % (auto) 5.2 %; Neutrophils # (auto) 10.81 K/uL (1.40-6.50); Neutrophils % (auto) 83.5 %; Platelet Count 297 K/uL (130-400); RDW Coefficient of Variation 17.3 % (11.5-14.5); RDW Standard Deviation 61.2 fL (36.4-46.3); Red Blood Count 2.98 M/uL (4.20-5.40); White Blood Count 12.94 K/ul (4.8-10.8)
--- NOTE | 2024-03-25 10:41 | Electrocardiogram Report ---
Test Reason : Blood Pressure : */* mmHG Vent. Rate : 80 BPM Atrial Rate : 80 BPM P-R Int : 162 ms QRS Dur : 74 ms QT Int : 436 ms P-R-T Axes : 39 -65 87 degrees QTcB Int : 502 ms Poor data quality, interpretation may be adversely affected Normal sinus rhythm Left anterior fascicular block Recent Anterolateral infarct (cited on or before 23-Mar-2024) Abnormal ECG When compared with ECG of 23-Mar-2024 07:14, QT has lengthened Confirmed by Kirill Suazo ([id number]) on 03/25/2024 10:40:26 AM Referred By: REFERRED SELF Confirmed By: Kirill Suazo
[2024-03-25] MEDS: MIDODRINE HCL 2.5 MG TAB PO SCH (11:43)
--- NOTE | 2024-03-25 20:12 | Hospitalist Progress Note ---
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 In the ER, patient was found to have ST [place] [address], but patient denied chest pain. Patient was subsequently admitted to the inpatient hospitalist service @[facility] on 04/12/2024 with the following diagnoses: 1. Acute cardiogenic shock. Patient still requires pressor support with norepinephrine infusion to maintain MAP > 65 mm Hg on 03/24/2024 pm and on 03/25/2024 am/pm. Etiology of acute cardiogenic shock is most likely due to acute STEMI, leading to acute systolic CHF with reduced "LVEF 30-35%...Large area of landen-apical akinesis" and acute diastolic CHF with "grade I LV diastolic dysfunction" (as noted on 03/23/2024, 8:15am TTE, CARDS Dr. Kirill Suazo). 2. Acute kidney injury. cf., creatinine 0.98 (03/23/2024, 4:28am). cf., creatinine 1.15 (03/24/2024, 5:35am). cf., creatinine 1.41 (03/24/2024, 7:35pm). cf., creatinine 1.49 (03/25/2024, 3:58am). Etiology of acute kidney injury is probably due to a combination of (a) acute hypoperfusion of the renal parenchyma, due to acute STEMI, leading to acute tubular necrosis, and (b) post-contrast nephropathy. Creatinine level appears to be reaching a plateau. I will check repeat creatinine level in the 03/26/2024 am. 3. Acute STEMI. Asymptomatic on 03/25/2024. Off heparin drip; on eliquis 5mg PO bid, plavix 75mg PO daily, atorvastatin 20mg PO qam. 4. Chronic neck pain Head CT/ Head&Neck CTA without acute findings. Attenuated left IJ most pronounced at its distal third - no infectious symptoms. Multiple venous opacifications - appears chronic, pt is anticoagulated. Tylenol q8H prn, lidocaine patch. 5. Acute euvolemic hyponatremia cf., admission Na 132 (03/23/2024, 4:28am; 03/24/2024, 5:35am). cf., baseline Na range, 138-142 mmol/L (01/12/2024 - 03/12/2024). Asymptomatic. Observe. 6. Stage IV appendiceal carcinoma. Continue FULFURI chemotherapy every other Friday (since July 2023) with next session on Friday (03/29/2024, 8:00am - 12:00pm) @ [facility] Oncologist Dr. Edelmira Muro, no surgical resection, no radiation therapy 7. Major depression/anxiety disorder. No suicidal ideation. No homicidal ideation. Asymptomatic on Effexor, Wellbutrin. PRN Remeron, PRN Ativan Admission and Anticipated Discharge Date Admission Date: March 23, 2024 Subjective "I feel ok. I don't have any pain anywhere. I don't feel nauseated or lightheaded. No complaints today. My blood pressure is still low, so they have me on this medicine (e.g., norepinephrine) to keep my blood pressure up. Also, my kidneys are not working 100%. I am still making a good amount of urine." Review of Systems Constitutional: Negative for antecedent/coincident fevers, chills, diaphoresis, cough, wheeze, sore throat, hemoptysis, chest pains, palpitations, pleurisy, nausea, vomiting, diarrhea, abdominal pain, pelvic pain, hematemesis, hematochezia, melena, hematuria, dysuria, frequency, urgency, headaches, dizziness, lightheadedness, visual changes, hearing changes, weakness, falls, syncope, trauma, travel history, sick contacts, or food/drug ingestions novel or new. All other review of systems are reported as negative by the patient on 03/25/2024. Physical Exam Constitutional: General: comfortable, coherent, cooperative. Wide awake and alert. Not confused, lethargic, or obtunded. Patient speaks in complete, fluent, and articulate sentences without pause, interruption, cough, or wheeze. HEENT: NC/AT. EOMI, PERRL. No nystagmus, gaze paresis, anisocoria, miosis, mydriasis, hyphema, chemosis, scleral icterus, conjunctivitis, or pterygium. No otorrhea, no rhinorrhea. No pharyngeal discharge or erythema. Neck: Supple, no stridor, bruit, goiter, or hepatojugular reflux. Jugular venous pressure is estimated to be 8 cm above the sternal angle of Binh, which is typically 5 cm above the level of the right atrium. Hence, there is no jugular venous distention noted on 03/25/2024. Lymphatics: No pre-post auricular, anterior/posterior cervical, supraclavicular/infraclavicular, axillary, epitrochlear, or inguinal adenopathy. Chest: Symmetric rise and fall with respirations. Non-tender to palpation. Heart: RRR, S1 and S2 noted. No S3 or S4 summation gallop noted. No tripa rtite friction rub. Grade II/ early systolic murmur @ LLSB without radiation to the carotids, axilla, or back, and which remains invariant in regards to the respiratory cycle. Lungs: Clear to auscultation and percussion. No audible expiratory wheeze, egophony, pectoriloquy, increase in tactile fremitus, or flatness/dullness to percussion at the bases. Abdomen: Soft, non-tender, non-distended. No rebound, guarding, Mitchell's sign, or organomegaly. Bowel sounds auscultated in all 4 quadrants. Extremities: No clubbing, cyanosis, or edema. 2+ pedal pulses bilaterally. Skin: No decubitus ulcer, exanthem, or enanthem. Neurology: Alert and oriented in regards to person, place, time, and situation. DTR+ and symmetric. 5/5 motor strength in all 4 extremities, both proximally and distally. No myoclonus, tremors, or tics. Urology: No baez catheter. No urethral discharge. Psychiatry: Appropriate affect. Smiles occasionally. No homicidal/suicidal ideation. Results & Data Results & Data Vital Signs (Past 12 Hours) Vital Signs Temp Pulse Resp BP Pulse Ox O2 Del Method O2 Flow Rate 03/25/24 18:00 92/48 L 03/25/24 17:51 83 15 03/25/24 17:06 86 18 03/25/24 16:00 103/56 L 03/25/24 16:00 103/56 L 03/25/24 16:00 103/56 L 03/25/24 16:00 77 16 03/25/24 15:00 83/51 L 03/25/24 15:00 73 26 H 98 03/25/24 14:00 93/55 L 03/25/24 14:00 78 24 92 03/25/24 13:00 77 18 87 L 03/25/24 13:00 89/46 L 03/25/24 12:00 103/55 L 03/25/24 12:00 84 20 03/25/24 11:52 36.7 C 03/25/24 11:39 90/45 L 03/25/24 11:27 70 22 97 03/25/24 11:12 72 23 98 03/25/24 11:00 101/52 L 03/25/24 10:45 76 18 96 03/25/24 10:00 100/54 L 03/25/24 10:00 74 23 96 03/25/24 09:00 85 24 98 03/25/24 08:18 75 23 93 03/25/24 08:09 103/49 L 03/25/24 08:00 36.8 C 03/25/24 08:00 95/49 L 03/25/24 08:00 Nasal Cannula 2 Laboratory Results WBC 12.81, N81 L 9 M9, Hb 11.0, MCV 97.1, MCHC 32.6, platelet 372 (03/23/2024, 4:28am). WBC 12.51, N81 L10 M8, Hb 8.7, MCV 98.4, MCHC 32.8, platelet 319 (03/23/2024, 4:25pm). WBC 11.77, N80 L10 M9 E1, Hb 9.2, MCV 93.0, MCHC 33.2, platelet 274 (03/24/2024, 10:02am). WBC 12.64, N77 L13 M8 E1, Hb 9.4, MCV 94.3, MCHC 33.2, platelet 296 (03/24/2024, 3:27pm). WBC 12.94, N84 L10 M5 E1, Hb 9.3, MCV 95.6, MCHC 32.6, platelet 297 (03/25/2024, 8:28am). Na 132, K 4.2, BUN 23, creatinine 0.98, glucose 154, Ca 8.8 (03/23/2024, 4:28am). Na 132, K 4.0, BUN 25, creatinine 1.15, glucose 123, Ca 8.0 (03/24/2024, 5:35a m). Na 131, K 4.1, BUN 25, creatinine 1.41, glucose 106, Ca 8.2 (03/24/2024, 7:35pm). Na 134, K 4.4, BUN 25, creatinine 1.49, glucose 107, Ca 8.5 (03/25/2024, 3:58am). Lactate #1 1.5 mmol/L (03/23/2024, 11:55pm). Lactate #2 2.3 mmol/L (03/25/2024, 8:33am). Lactate #3 1.3 mmol/L (03/25/2024, 12:34pm). Diagnostic Findings TTE (03/23/2024, 8:15am): 1. LVEF 30-35%. Large area of landen-apical akinesis. LV mildly dilated. Grade I LV diastolic dysfunction. 2. RV normal size and normal systolic function. 3. LA moderately dilated. RA size normal. No evidence for ASD. 4. No AR. No . 5. No DC. PV normal structure/function. 6. No MR. No MS. 7. Trace TR. RVSP 30-40 mm Hg. 8. Aortic root normal size. Aortic arch normal size. PA normal size. 9. IVC normal diameter and respiratory variation suggests normal CVP. 10.No pericardial effusion. (as per CARDS Dr. Kirill Suazo). Cardiac catheterization (03/24/2024, 12:01pm): Coronary Anatomy Dominant: Right Left Main (% Stenosis): Ostial (20%) LAD (% Stenosis): Proximal (Diffuse heavily calcified 40 to 50%), Mid (100% hazy) and Distal (Feels poorly via left to left collateralization, apical fills via small collaterals) D1 (% Stenosis): Normal (Mild less than 20% diffuse) Circumflex (% Stenosis): Normal OM1 (% Stenosis): Ostial (90%) and Mid (99%) OM2 (% Stenosis): Normal L PL1 (% Stenosis): Normal RCA (% Stenosis): Proximal (Less than 20%) and Mid (Diffuse 20%) R PDA (% Stenosis): Normal R PL1 (% Stenosis): Normal Diagnostic Physicians Name: Adan Reese MD, PhD Closure Device Percutaneous Entry Location: Radial Closure Device: Radial Band Recommendations: Medical Therapy and/or Counseling and PCI without planned CABG PCI Indication: PCI for STEMI - Unstable (as per Interventional CARDS Dr. Adan Reese). CT abd/pelvis without contrast (03/24/2024, 12:19am): 1. Mild bilateral pleural effusion with basal subsegmental collapse consolidation of both lower lobes are seen - new finding. 2. Thin strip of pericardial effusion is noted.-new finding. 3. Stable small fat containing umbilical hernia. 4. Diffuse mesenteric congestion/edema is seen.-new finding. 5, The gallbladder is grossly distended measures about 9.3 x 4.5 cm. No obvious cholelithiasis /cholecystitis. Advised ultrasound correlation. 6. Diffuse atherosclerotic calcification is noted involving aorta iliac arteries.-stable. Gallbladder U/S (03/24/2024, 2:00am): 1. Overdistended gall bladder with a mildly thickened wall measuring 3.7 mm and suspicion of thin streak of pericholecystic fluid, could be a calculus cholecystitis. 2. Incidental finding of right pleural effusion. PG Care Time/CCT Total # of Minutes Spent Total Time Spent with Patient: Total time spent is greater than 50% in coordination of care (as documented) at patient's floor/unit and/or counseling patient: Coding Level of Care Code 06038 SUB INP/OBS CARE 3/50MIN Diagnoses Elevated troponin R79.89 Hypertension I10 Neck and shoulder pain M54.2; M25.519 Peritoneal carcinomatosis C78.6
--- NOTE | 2024-03-25 20:48 | Cardiology Progress Note ---
Date of Service March 25, 2024 Assessment & Plan (1) SVT (supraventricular tachycardia): Plan: I agree with her being back on beta-jaqueline. Continue to monitor. Unfortunately, if her heart rate goes very fast she will become hypotensive but we should not be afraid to slow her heart rate down with blood pressure medication (CCB or BB) in order to improve her heart rate and blood pressure. I would be reluctant to use a calcium channel jaqueline in this case because of her low EF. Not surprised that she is having some arrhythmia given the irritability of her myocardium at this time. Also, her atrial chambers are enlarged. We will continue to monitor. Maintain potassium and magnesium within normal limits. (2) Hypotension: Plan: Blood pressure still requiring pressor support. With her low EF which may actually be more chronic than acute then she may be accustomed to a lower blood pressure. She is certainly not having any symptoms at this time with her current blood pressure even when her blood pressure seems to drop some. A slow wean of her norepinephrine drip may be reasonable. I would certainly want to ambulate her in the room to see if her blood pressure tolerates and if she does not have any symptoms. I would except systolic blood pressures in the low 90s. (3) Ischemic cardiomyopathy: Plan: Currently not able to be on optimize medical therapy. For now she is on metoprolol to tartrate 12.5 mg p.o. twice daily. This can be changed to metoprolol succinate ER 25 mg daily once we are certain that she will tolerate it from a blood pressure standpoint. Her MARCO inhibitor has been held. We could consider the addition of adjuvant therapy such as Jardiance or spironolactone. However, I think there is some degree of dehydration involved with her hypotension and therefore would not want to begin medications which could cause her to diurese significantly. I think we can gingerly fluid resuscitate her as she does not have any evidence of significant fluid overload at this time. (4) Acute non-ST elevation myocardial infarction (NSTEMI): Plan: Status post PCI. Dual antiplatelet therapy substituting her Eliquis for aspirin and continuing with Plavix. Plan At this point she needs to increase her activity and we should clearly do this with assistance given her blood pressure. Hopefully, gradual reduction of her vasopressor support will be successful over the next 24 hours. It may take a bit longer than not however and it may be that she is unable to have her chemotherapy on Friday as previously planned. Admission and Anticipated Discharge Date Admission Date: March 23, 2024 Subjective Patient is doing well. She denies any chest pain, heaviness, or tightness. No shortness of breath, lightheadedness, or dizziness. She remains hypotensive and requiring pressor support but has not been up and around so has been asymptomatic. She had SVT overnight with very rapid heart rates. She was restarted on beta-jaqueline because of this. So far she is tolerating. She is very concerned about when she will get her chemotherapy. While I do not have any reason from a cardiac standpoint that she cannot get chemotherapy logistically it could be difficult for her to have outpatient chemotherapy while she is receiving ongoing vasopressor support. Hopefully her hypotension will resolve. Review of Systems Review of Systems: Negative except as per HPI Physical Exam Constitutional: WD/WN, vitals as above (Chronic ill-appearing elderly female. No acute distress) Eyes: Extraocular muscles intact. Sclera are anicteric. ENMT: Oral mucosa is pink and dry Neck: No JVD Respiratory: Clear to auscultation bilaterally. No wheezing, rhonchi, or rales appreciated. Good air movement. Cardiovascular: Regular rate and rhythm. S4 gallop. Soft systolic murmur. No edema. Right radial access site with ecchymosis but no mass. Good distal perfusion. Neurologic: Cognition is intact. Speech is fluent. Hearing mildly diminished. No focal deficits. Psychiatric: A+Ox3, euthymic affect Results & Data Vital Signs (Past 12 Hours) Vital Signs Temp Pulse Resp BP Pulse Ox O2 Del Method O2 Flow Rate 03/25/24 19:55 Nasal Cannula 2 03/25/24 18:00 92/48 L 03/25/24 17:51 83 15 03/25/24 17:06 86 18 03/25/24 16:00 103/56 L 03/25/24 16:00 103/56 L 03/25/24 16:00 103/56 L 03/25/24 16:00 77 16 03/25/24 15:00 83/51 L 03/25/24 15:00 73 26 H 98 03/25/24 14:00 93/55 L 03/25/24 14:00 78 24 92 03/25/24 13:00 77 18 87 L 03/25/24 13:00 89/46 L 03/25/24 12:00 103/55 L 03/25/24 12:00 84 20 03/25/24 11:52 36.7 C 03/25/24 11:39 90/45 L 03/25/24 11:27 70 22 97 03/25/24 11:12 72 23 98 03/25/24 11:00 101/52 L 03/25/24 10:45 76 18 96 03/25/24 10:00 100/54 L 03/25/24 10:00 74 23 96 03/25/24 09:00 85 24 98 PG Care Time/CCT Total # of Minutes Spent Total Time Spent with Patient: Total time spent is greater than 50% in coordination of care (as documented) at patient's floor/unit and/or counseling patient: Coding Level of Care Code 79231 SUB INP/OBS CARE 2/35MIN Diagnoses SVT (supraventricular tachycardia) I47.10 Hypotension I95.9 Ischemic cardiomyopathy I25.5 Acute non-ST elevation myocardial infarction (NSTEMI) I21.4
[2024-03-26 04:54] LABS: Basophils # (auto) 0.02 K/uL (0.00-0.20); Basophils % (auto) 0.1 %; Eosinophils % (auto) 1.5 %; Hematocrit (blood only) 28.3 % (37.0-47.0); Hemoglobin 9.3 g/dl (12.0-16.0); Immature Granulocytes # (auto) 0.07 K/uL (0.01-0.20); Immature Granulocytes % (auto) 0.5 %; Lymphocytes # (auto) 1.47 K/uL (1.20-3.40); Mean Corpuscular Hemoglobin 30.9 pg (25.0-34.0); Mean Corpuscular Hgb Conc 32.9 g/dL (32.0-36.0); Monocytes # (auto) 0.85 K/uL (0.11-0.59); Monocytes % (auto) 6.4 %; Neutrophils # (auto) 10.77 K/uL (1.40-6.50); Neutrophils % (auto) 80.5 %; Platelet Count 288 K/uL (130-400); RDW Coefficient of Variation 16.8 % (11.5-14.5); RDW Standard Deviation 57.1 fL (36.4-46.3); Red Blood Count 3.01 M/uL (4.20-5.40); White Blood Count 13.38 K/ul (4.8-10.8)
[2024-03-26 05:13] LABS: BUN Creatinine Ratio 18.6 (10-20); Calcium 8.2 mg/dl (8.6-10.3); Creatinine Clr Calc Pharmacy 25.9 ml/min; Magnesium 2.3 mg/dl (1.7-2.4); Phosphorus 2.9 mg/dl (2.5-4.9); Potassium 4.2 mmol/L (3.5-5.1)
[2024-03-26] MEDS: FUROSEMIDE INJ 20 MG/2 ML VIAL IV ONE ×2 (08:42)
--- NOTE | 2024-03-26 09:06 | XRay Report ---
XR chest 1V portable CLINICAL HISTORY: ? [facility] COMPARISON STUDY: 10/14/2023 FINDINGS: Stable left chest port. Stable mild cardiomegaly without pulmonary vascular congestion. The re is interval opacity at the left base with blunting of the left costophrenic angle. No other consol idation or pleural effusion. No pneumothorax. IMPRESSION: Interval opacity at the left lung base could represent atelectasis, pneumonia, or small left pleural effusion. ACT 112: Negative or not required by law. Electronically signed by: Cheo Byrne M.D. 03/26/2024 9:04 AM
--- NOTE | 2024-03-26 10:14 | Critical Care Progress Note ---
Date of Service March 26, 2024 Assessment & Plan (1) STEMI (ST elevation myocardial infarction): Plan: Status post PCI with 3 drug-eluting stents to the mid LAD. Continue Eliquis. Hemoglobin stable. Continue Plavix and statin. (2) Ischemic cardiomyopathy: Plan: Continue ASCVD goal-directed therapy. Maintain maps below 65 mmHg. (3) Hematoma: Plan: Right radial artery hematoma stable. (4) Hypotension: Plan: Likely related to cardiogenic shock and component of possible hypovolemia. Pressures improved currently. Will continue to monitor off Levophed. Will increase midodrine to 5 mg 3 times daily. (5) Gallbladder anomaly: Plan: Patient had CT of the abdomen pelvis ordered yesterday due to drop in hemoglobin and concern for retroperitoneal bleed. No bleeding identified. The gallbladder was noted to be grossly distended up to 9.3 cm. No obvious cholecystitis or cholelithiasis. General surgery consultation appreciated. Antibiotics discontinued at this time. (6) Anemia: Plan: Hemoglobin stabilized. Continue Eliquis. (7) SVT (supraventricular tachycardia): Plan: Holding metoprolol this morning due to soft blood pressures. (8) Hypoxia: Plan: Patient had hypoxemia today likely related to volume overload. 20 mg IV Lasix given. Chest x-ray with small effusions bilaterally left greater than right. Procalcitonin this morning at 0.33. Doubtful of pneumonia currently. Low threshold for cultures and antibiotics if patient spikes a fever. Admission and Anticipated Discharge Date Admission Date: March 23, 2024 Subjective Patient seen and examined. She was desaturating while sitting up, but her oxygen saturation improved when laying down. She denies any chest pain, shortness of breath, nausea or vomiting. She has remained off vasopressors this morning. Review of Systems Review of Systems: All systems reviewed & are unremarkable except as noted in HPI & below Physical Exam Physical Exam: Constitutional: Patient appears to be of their stated age. Patient is in no apparent distress. Patient is well-developed. Eyes: Pupils are equal round and reactive to light. Conjunctivae are normal. Anicteric sclera. Ears nose, mouth and throat: Mallampati class 1. Normal posterior oropharynx. Uvula is midline. Neck: Trachea is midline. Visual inspection is normal. Lidocaine patch noted on her cervical spine. Respiratory: Clear to auscultation bilaterally. No use of accessory muscles. No significant clubbing noted. Cardiovascular: Right radial artery hematoma. Nonpulsatile. Regular rate and rhythm. No significant murmurs. Gastrointestinal: Normal bowel sounds, soft, nontender and nondistended. No hepatosplenomegaly noted. Musculoskeletal: No cyanosis. Patient is able to move all extremities. Strength is 5 out of 5 in the upper and lower extremities. Skin: No rashes, warm dry and intact. Neurologic: No obvious focal neurological deficits seen. Psychiatric: Alert and oriented x3 with a euthymic affect. Results & Data Results & Data Vital Signs (Past 12 Hours) Vital Signs Temp Pulse Pulse Resp BP Pulse Ox O2 Del Method 03/26/24 09:00 94 Oxymask 03/26/24 09:00 98/55 L 03/26/24 08:49 90 Oxymask 03/26/24 08:42 77 15 93 Oxymask 03/26/24 08:00 96/53 L 03/26/24 08:00 83 15 03/26/24 07:47 74 03/26/24 07:42 37.2 C 03/26/24 07:29 Nasal Cannula 03/26/24 07:15 84 23 103/52 L 100 Nasal Cannula 03/26/24 06:06 71 19 03/26/24 06:00 99/51 L 03/26/24 06:00 76 99/51 L 03/26/24 06:00 99/51 L 03/26/24 05:57 77 25 H 03/26/24 05:42 72 20 96 03/26/24 05:16 94/53 L 03/26/24 05:16 94/53 L 03/26/24 05:15 71 27 H 97 03/26/24 05:00 68 91/53 L 03/26/24 05:00 74 20 96 03/26/24 04:36 75 24 96 03/26/24 04:00 98/51 L 03/26/24 04:00 98/51 L 03/26/24 04:00 98/51 L 03/26/24 04:00 75 22 98/51 L 95 Nasal Cannula 03/26/24 04:00 98/51 L 03/26/24 04:00 98/51 L 03/26/24 04:00 98/51 L 03/26/24 04:00 82 26 H 96 03/26/24 03:42 37.2 C 77 20 96 Nasal Cannula 03/26/24 03:30 80 26 H 97 03/26/24 03:02 97/54 L 03/26/24 03:00 78 24 98 03/26/24 02:36 82 21 88 L 03/26/24 02:21 72 18 99 03/26/24 01:39 74 23 98 03/26/24 01:12 79 20 97 03/26/24 01:00 101/61 03/26/24 00:57 80 24 97 03/26/24 00:39 76 22 98 03/26/24 00:00 72 22 97 03/26/24 00:00 103/65 03/26/24 00:00 103/65 03/26/24 00:00 103/65 03/26/24 00:00 76 03/25/24 23:47 36.6 C 03/25/24 23:39 75 26 H 94 Nasal Cannula 03/25/24 23:09 75 26 H 03/25/24 23:00 99/55 L 03/25/24 23:00 99/55 L 03/25/24 22:51 79 28 H 03/25/24 22:36 77 19 03/25/24 22:18 74 31 H O2 Flow Rate 03/26/24 09:00 2 03/26/24 09:00 03/26/24 08:49 2 03/26/24 08:42 2 03/26/24 08:00 03/26/24 08:00 03/26/24 07:47 03/26/24 07:42 03/26/24 07:29 2 03/26/24 07:15 2 03/26/24 06:06 03/26/24 06:00 03/26/24 06:00 03/26/24 06:00 03/26/24 05:57 03/26/24 05:42 03/26/24 05:16 03/26/24 05:16 03/26/24 05:15 03/26/24 05:00 03/26/24 05:00 03/26/24 04:36 03/26/24 04:00 03/26/24 04:00 03/26/24 04:00 03/26/24 04:00 2 03/26/24 04:00 03/26/24 04:00 03/26/24 04:00 03/26/24 04:00 03/26/24 03:42 2 03/26/24 03:30 03/26/24 03:02 03/26/24 03:00 03/26/24 02:36 03/26/24 02:21 03/26/24 01:39 03/26/24 01:12 03/26/24 01:00 03/26/24 00:57 03/26/24 00:39 03/26/24 00:00 03/26/24 00:00 03/26/24 00:00 03/26/24 00:00 03/26/24 00:00 03/25/24 23:47 03/25/24 23:39 2 03/25/24 23:09 03/25/24 23:00 03/25/24 23:00 03/25/24 22:51 03/25/24 22:36 03/25/24 22:18 Coding Level of Care Code 25180 SUB INP/OBS CARE MIN Diagnoses STEMI (ST elevation myocardial infarction) I21.3 Ischemic cardiomyopathy I25.5 Hematoma T14.8XXA Hypotension I95.9 Gallbladder anomaly Q44.1 Anemia D64.9 SVT (supraventricular tachycardia) I47.10 Hypoxia R09.02
[2024-03-26] MEDS: MIDODRINE HCL 2.5 MG TAB PO SCH (11:31)
--- NOTE | 2024-03-26 12:58 | Palliative Care Consultation ---
Date of Consultation March 26, 2024 Assessment & Plan (1) Palliative care by specialist: (2) Counseling regarding advanced directives and goals of care: 45 minbedside [facility] meeting held, details below (3) POLST (Physician Orders for Life-Sustaining Treatment): Plan Met with pt at bedside, no visitors present. Introduced Palliative Medicine and explained our role in advanced care planning, symptom management and navigation through the progression of life limiting disease. Patient and/or family were receptive to palliative services for goals of care discussions. Reviewed we are different from hospice, a home health nurse visiting service. Patient has exhibited current possession of decisional capacity based on the ability to convey understanding of personal PMHx, current medical condition, treatment options as well as the risks / benefits of those options, and ability to make decisions based on such knowledge. Hospital does not have written documentation of patient wishes concerning his chosen proxy for medical decisions. Per PA [id number], in absence of written documentation of patient wishes, pt's proxy for medical decisions would be her adult sons Juan David Wallis and Alejandro Wallis with equal authority. Pts does not currently require a proxy for medical decisions. Discussed importance of establishing AD/LW to identify her chosen proxy for medical decisions. Pt shared that she will discuss this with hwr son but declines assistance completing form. Blank AD document provided. Discussed the pts PMHx, HPI, and admission course. pt shared feeling shocked that she has heart disease.She shared that she lives in her house with her son and her grandson who is a [employer] student. She is independent with all ADLs and iADLs and still drives. Pt hopes to be discharged back to home this weekend. She reinforced her wishes for DNR/DNI but wishes to continue all life prolonging therapies. She shared that she has an appointment scheduled with Dr Muro on Friday to discuss options for ongoing cancer directed therapies. Discussed follow up with outpt palliative care clinic. pt not agreeable, but stated that she wlll request this service with Dr Muro when she feels it is appropriate. POLST form completed encouraged pt to place on refrigerator at home. History of Present Illness Reason for Consultation: goals of care Requesting Physician: Dr Van Iraheta Attending Physician: Ángel Chaudhry MD, PhD History of Present Illness Kalyn is an 84F with a PMHx of DVT (on Eliquis), polio, abdominal carcinomatosis, Depression/anxiety who presents to the ER with concerns of neck pain. reports feeling well besides her neck, reports throbbing pain. sensation. She was admitted to ICU for acute MD and underwent PCI. She was diagnosed with HFrEF with mod-severe LV dysfunction(EG 30%) and multi vessel severe CAD. Allergies Allergy/AdvReac Type Severity Reaction Status Date / Time atorvastatin [From Lipitor] AdvReac Mild MUSCLE Verified 01/15/24 13:08 ISSUES ezetimibe [From Vytorin] AdvReac Mild MUSCLE Verified 01/15/24 13:08 ISSUES fluvastatin AdvReac Mild Muscle Verified 01/15/24 13:08 Issues- legs pravastatin [From Pravachol] AdvReac Mild MUSCLE Verified 01/15/24 13:08 ISSUES simvastatin [From Vytorin] AdvReac Mild Dizziness Verified 01/15/24 13:08 Home Medications Medication Instructions Recorded Confirmed Type venlafaxine 150 mg 300 mg PO QAM 12/01/18 03/23/24 History capsule,extended release 24 hr (Effexor XR) bupropion HCl 100 mg tablet 100 mg PO QAM 10/14/19 03/23/24 History calcium 600 mg (as 2 cap PO HS 10/14/19 03/23/24 History carbonate)-vitamin D3 5 mcg (200 unit) capsule (Calcium 600 + D(3)) cyclosporine 0.05 % eye drops 1 drops OPB UD 04/24/21 03/23/24 History (Restasis MultiDose) polyethylene glycol 3350 17 gram 17 g PO HS 07/30/22 03/23/24 History oral powder packet (Miralax) ondansetron HCl 8 mg tablet 8 mg PO Q8H PRN Nausea 08/27/22 03/23/24 History lorazepam 0.5 mg tablet 0.25 mg PO DAILY PRN severe anxiety 12/19/22 03/23/24 History sodium di- and 250 tab PO BID 10/14/23 03/23/24 History monophosphate-potassium phos monobasic 250 mg tablet (Phospha Neutral) acetaminophen 500 mg tablet 1,000 mg (2 x 500 mg) PO Q8H PRN 10/16/23 03/23/24 Rx (Tylenol Extra Strength) mild pain (scale score 1-4) #60 tabs apixaban 5 mg tablet (Eliquis) 5 mg PO BID 01/15/24 03/23/24 History mirtazapine 7.5 mg tablet 7.5 mg PO HS PRN Sleep 01/15/24 03/23/24 History lisinopril 10 mg tablet 15 mg PO 1XD 03/23/24 03/23/24 History Patient History Medical History DVT (deep venous thrombosis) Peritoneal carcinomatosis Sciatic leg pain Depression Hyperlipidemia History of COVID-19 ?2021 mild cold symptoms; resolved Carpal tunnel syndrome Right hand Thyroid nodule Under surveillance Anxiety Surgical History Port-A-Cath in place (08/19/22) Evaluate Access Port, Replacement Access Port with Fluoroscopy(Left) - Denis Diego, DO Port-A-Cath in place (08/01/22) Insertion of Access Port with Fluoroscopy(Left) - Denis Diego, DO [place] History of surgery (05/22/21) Left Thigh Wound Exploration and VAC System Placement(Left) - Mathew Menon MD, FACS 05/22/2021 History of surgery (05/10/21) Exploration Left Inner Thigh for Post-Operative Seroma placement of Андрей drain(Left) - Mathew Menon MD, FACS 05/10/2021 H/O excision of mass (05/01/21) Excision of left thigh mass. Dr. Jaramillo 05/01/2021 History of anesthesia reaction WOKE UP IN MIDDLE OF COLONOSCOPY S/P knee replacement (~2019) LEFT History of cataract surgery (2019) R/L History of colonoscopy History of eye surgery R/L LIDS History of shoulder surgery (1980) LEFT TEAR History of mandibular surgery (1980) ORIF-FULL ROM Family History Father Coronary heart disease Heart disease Cancer Mother Coronary heart disease Other Leukemia Lupus (systemic lupus erythematosus) No family history of adverse response to anesthesia Social History Smoking Status: Never smoker Second Hand Exposure: No; Do You Dip or Chew Tobacco: No; Tobacco Cessation Education Requested by Patient: No Hx Alcohol Use: No Hx Substance Use: No Preferred Language: Romanian Communication Ability: Effective Visual Impairment: No Limitations Agricultural Services Director Required: No Beliefs That Will Affect Care: None marital status: / Current Living Situation: Family Current Living Situation Comment: Lives with her Juan David (son) in a house current occupational status: retired How many Children do You have: 3 Other Information That Helps Us Care for You: No Feels Safe at Home: Yes Safety Concerns: Feels Safe At This Time Diet: regular during the past year weight has: remained stable Assistive Devices: None Review of Systems Review of Systems: All systems reviewed & are unremarkable except as noted in HPI & below Physical Exam Physical Exam: General- not in distress, on 4L NC O2 Head- atraumatic/normocephalic Eyes- PERRL, EOMI, anicteric ENT- oropharynx clear, MMM Neck- supple, no JVD, no adenopathy, no thyromegaly; carotids +2/2, no bruits appreciated Lungs- b/l rales and rhonchi, good air entry BL Heart- , regular rhythm; no murmur, no gallop, no rub appreciated Abdomen- normal bowel sounds, nondistended, soft, nontender, no masses or hepatosplenomegaly Extremities- no pretibial edema, no calf tenderness; peripheral pulses intact Neuro- AAOx4 motor 5/5 bilaterally;; no gross focal neurologic deficits Skin- warm & dry Results & Data Vital Signs (Past 12 Hours) Vital Signs Temp Pulse Pulse Resp BP Pulse Ox O2 Del Method 03/26/24 12:08 89/44 L 03/26/24 12:00 89/43 L 03/26/24 11:57 79 23 89 L 03/26/24 11:03 74 18 93 03/26/24 11:03 103/58 L 03/26/24 10:12 72 21 92 03/26/24 10:11 94/53 L 03/26/24 10:10 94/53 L 03/26/24 10:00 89/52 L 03/26/24 09:42 77 23 95 03/26/24 09:00 94 Oxymask 03/26/24 09:00 98/55 L 03/26/24 08:49 90 Oxymask 03/26/24 08:42 77 15 93 Oxymask 03/26/24 08:00 96/53 L 03/26/24 08:00 83 15 03/26/24 07:47 74 03/26/24 07:42 37.2 C 03/26/24 07:29 Nasal Cannula 03/26/24 07:15 84 23 103/52 L 100 Nasal Cannula 03/26/24 06:06 71 19 03/26/24 06:00 99/51 L 03/26/24 06:00 76 99/51 L 03/26/24 06:00 99/51 L 03/26/24 05:57 77 25 H 03/26/24 05:42 72 20 96 03/26/24 05:16 94/53 L 03/26/24 05:16 94/53 L 03/26/24 05:15 71 27 H 97 03/26/24 05:00 68 91/53 L 03/26/24 05:00 74 20 96 03/26/24 04:36 75 24 96 03/26/24 04:00 98/51 L 03/26/24 04:00 98/51 L 03/26/24 04:00 98/51 L 03/26/24 04:00 75 22 98/51 L 95 Nasal Cannula 03/26/24 04:00 98/51 L 03/26/24 04:00 98/51 L 03/26/24 04:00 98/51 L 03/26/24 04:00 82 26 H 96 03/26/24 03:42 37.2 C 77 20 96 Nasal Cannula 03/26/24 03:30 80 26 H 97 03/26/24 03:02 97/54 L 03/26/24 03:00 78 24 98 03/26/24 02:36 82 21 88 L 03/26/24 02:21 72 18 99 03/26/24 01:39 74 23 98 03/26/24 01:12 79 20 97 03/26/24 01:00 101/61 03/26/24 00:57 80 24 97 O2 Flow Rate 03/26/24 12:08 03/26/24 12:00 03/26/24 11:57 03/26/24 11:03 03/26/24 11:03 03/26/24 10:12 03/26/24 10:11 03/26/24 10:10 03/26/24 10:00 03/26/24 09:42 03/26/24 09:00 2 03/26/24 09:00 03/26/24 08:49 2 03/26/24 08:42 2 03/26/24 08:00 03/26/24 08:00 03/26/24 07:47 03/26/24 07:42 03/26/24 07:29 2 03/26/24 07:15 2 03/26/24 06:06 03/26/24 06:00 03/26/24 06:00 03/26/24 06:00 03/26/24 05:57 03/26/24 05:42 03/26/24 05:16 03/26/24 05:16 03/26/24 05:15 03/26/24 05:00 03/26/24 05:00 03/26/24 04:36 03/26/24 04:00 03/26/24 04:00 03/26/24 04:00 03/26/24 04:00 2 03/26/24 04:00 03/26/24 04:00 03/26/24 04:00 03/26/24 04:00 03/26/24 03:42 2 03/26/24 03:30 03/26/24 03:02 03/26/24 03:00 03/26/24 02:36 03/26/24 02:21 03/26/24 01:39 03/26/24 01:12 03/26/24 01:00 03/26/24 00:57 Laboratory Results Abnormal lab results 03/26/24 Range/Units 04:29 WBC 13.38 H (4.8-10.8) K/ul RBC 3.01 L (4.20-5.40) M/uL Hgb 9.3 L (12.0-16.0) g/dl Hct 28.3 L (37.0-47.0) % RDW Std Deviation 57.1 H (36.4-46.3) fL RDW Coeff of Leslee 16.8 H (11.5-14.5) % MPV 9.0 L (9.4-12.4) fL Neut # (Auto) 10.77 H (1.40-6.50) K/uL Osborne # (Auto) 0.85 H (0.11-0.59) K/uL Sodium 134 L (136-145) mmol/L BUN 24 H (6-23) mg/dl Creatinine 1.29 H (0.6-1.2) mg/dl Glucose 110 H (70-99(Fasting)) mg/dl Calcium 8.2 L (8.6-10.3) mg/dl Diagnostic Findings Neck CTA 03/23/24 04:28 EXAM: CT angio neck with con CLINICAL HISTORY: Neck pain, arm pain, dissection. TECHNIQUE: CT angiography study of the neck vessels with IV contrast was performed and multiple axial sections were obtained with coronal and sagittal reconstructions. One of the following dose reduction techniques were utilized for this exam: Automated exposure control, adjustment of the mA and/or kV according to patient size, and use of iterative reconstruction. One of these 3D techniques was utilized: Maximum Intensity Pixel (MIP), 3D Reconstructed Images, Volume Rendered Images, Surface Shaded Rendering. COMPARISON: None. FINDINGS: Carotid Arteries: Common carotid arteries, internal carotid arteries, and external carotid arteries bilaterally are well-opacified. No evidence of significant stenosis, occlusion, or aneurysm. No significant atherosclerotic changes. Vertebral Arteries: Hypoplastic right vertebral artery, normal variant. Vertebral arteries bilaterally are well-opacified. No evidence of significant stenosis, occlusion, or aneurysm. No significant atherosclerotic changes. 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 Multiple anterior mediastinal, anterior neck, and perivertebral collateral venous opacification. Normal opacification of the right internal and external jugular veins. No evidence of recent thrombosis or compression. Subclavian Arteries: Subclavian arteries bilaterally are well-opacified. No evidence of significant stenosis, occlusion, or aneurysm. Thyroid Gland: Normal size and morphology of the thyroid gland. No masses or nodules. Soft Tissues: Normal appearance of the surrounding soft tissues of the neck. No abnormal masses or lymphadenopathy. Cervical Spine: Advanced cervical spondylotic changes. Normal alignment and signal intensity of the cervical vertebrae. No fractures, lytic or sclerotic lesions. Upper CT chest cuts show bilateral moderate pleural effusions and right upper lobar calcified granuloma. IMPRESSION: 1. Normal bilateral neck arteries, no evidence of dissection. 2. 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 3. Multiple anterior mediastinal, anterior neck, and perivertebral collateral venous opacification. 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 4. Bilateral moderate pleural effusions. Electronically signed by Beni Beltran 03-23-2024 06:[address] 03/23/24 04:30 EXAM: CT head/brain wo con CLINICAL HISTORY: head/neck pain, cancer TECHNIQUE: An axial non-contrast CT scan of the brain was performed from the skull base to the high parietal region. One of the following dose reduction techniques was utilized for this exam: Automated exposure control, adjustment of the mA and/or kV according to patient size, and use of iterative reconstruction. DLP: 991 mGy-cm. COMPARISON: CT dated 11/08/2022. FINDINGS: Brain Parenchyma: Hypodense areas are seen in the right centrum semiovale, bilateral periventricular regions, more along the posterior horn of the right lateral ventricle, suggestive of microvascular ischemic changes. Normal attenuation of the rest of the cerebral hemispheres, cerebellum, and brainstem. No evidence of acute infarct, hemorrhage, or mass effect. Ventricular System: Ventricles are normal in size and configuration. No evidence of hydrocephalus or ventricular enlargement. Subarachnoid Spaces: Accenatued sulci and cisterns. No evidence of subarachnoid hemorrhage or extra-axial fluid collections. Cerebellum and Brainstem: Normal size and density. No masses, lesions, or areas of abnormal density. Orbits: Normal appearance of the globes, optic nerves, and extraocular muscles. No evidence of orbital masses. Sinuses: Clear paranasal sinuses. No evidence of sinusitis or mucosal thickening. Mastoid Air Cells: Clear mastoid air cells. No evidence of mastoiditis. Skull: Normal skull morphology. Hyperostosis frontalis interna. Calcifications are seen along the falx and in the pineal region. IMPRESSION: 1. No evidence of any acute intracranial event on this unenhanced CT examination. Further evaluation with MRI can be considered if clinically indicated. 2. Stable microvascular ischemic and age-related brain involutional changes. 3. No interval change since the last scan. Electronically signed by Beni Beltran 03-23-2024 06:27 AM Head CTA 03/23/24 04:30 EXAM: CT angio head w con CLINICAL HISTORY: dissection, intracranial mass TECHNIQUE: Axial CT angiography of the head was done with 118 ML OPTIRAY 320 intravenous contrast and sagittal and coronal reformats with MIP reconstructions. One of these 3D techniques was utilized: Maximum Intensity Pixel (MIP), 3D Reconstructed Images, Volume Rendered Images, Surface Shaded Rendering. One of the following dose reduction techniques were utilized for this exam: Automated exposure control, adjustment of the mA and/or kV according to patient size, and use of iterative reconstruction. COMPARISON: 11/08/2022. FINDINGS: Intracranial Arteries: The intracranial portions of the internal carotid arteries show mild bilateral atherosclerosis with no stenosis or occlusion. The anterior cerebral arteries, middle cerebral arteries, posterior cerebral arteries, basilar artery, and vertebral arteries are well-opacified. No evidence of aneurysm, stenosis, or occlusion. No significant atherosclerotic changes. [place]: The [place] is complete. Normal caliber of the communicating arteries. No vascular malformations or aneurysms. Venous Structures: Normal opacification of the major dural venous sinuses. No evidence of venous sinus thrombosis. Brain Parenchyma: Normal attenuation of the cerebral hemispheres, cerebellum, and brainstem. No evidence of acute infarct, hemorrhage, or mass effect. Right basal ganglia small old infarction. Ventricular System: Ventricles are normal in size and configuration. No evidence of hydrocephalus or ventricular enlargement. Skull and Meninges: Normal appearance of the skull. No evidence of meningeal enhancement or thickening. Orbits: Normal appearance of the globes, optic nerves, and extraocular muscles. No evidence of orbital masses. IMPRESSION: 1. Normal CT angiography of the head, apart from mild atherosclerosis of internal carotid arteries. 2. No evidence of significant vascular abnormalities. 3. No interval changes. Electronically signed by Beni Beltran 03-23-2024 06:34 AM Abdomen/Pelvis CT 03/24/24 00:19 EXAM: CT abd pelvis wo con CLINICAL HISTORY: eval for retroperitoneal bleed- drop HGB/hypotensi TECHNIQUE: Contiguous axial images were obtained from the level of the diaphragm to the pubic symphysis without intravenous or oral contrast. Coronal and sagittal reconstructions were likewise performed and indicated to increase the sensitivity for detecting clinically relevant pathology. CT scan was performed according to ALARA (as low as reasonable achievable). COMPARISON: 09 February 2024 FINDINGS: Mild bilateral pleural effusion with basal subsegmental collapse consolidation of both lower lobes are seen Thin strip of pericardial effusion is noted. Evaluation of the abdominal and pelvic visceral organs is limited without intravenous contrast. The unenhanced liver, spleen, pancreas, and adrenal glands are grossly unremarkable. The gallbladder is grossly distended measures about 9.3 x 4.5 cm. No obvious cholelithiasis /cholecystitis. The kidneys are normal in size and attenuation without obvious calcification. There is no hydronephrosis or perinephric stranding. The ureters are normal in caliber. No adenopathy or fluid collections are seen. No evidence of focal or diffuse bowel wall thickening or evidence of bowel obstruction is seen. The appendix is visualized in the right lower quadrant and appears within normal limits. Diffuse mesenteric congestion/edema is seen. Diffuse atherosclerotic calcification is noted involving aorta iliac arteries. The urinary bladder is normal in contour. Pelvic viscera are grossly unremarkable. No aggressive appearing osseous lesions are identified. Stable small fat containing umbilical hernia. IMPRESSION: Mild bilateral pleural effusion with basal subsegmental collapse consolidation of both lower lobes are seen - new finding. Thin strip of pericardial effusion is noted.-new finding. Stable small fat containing umbilical hernia. Diffuse mesenteric congestion/edema is seen.-new finding. The gallbladder is grossly distended measures about 9.3 x 4.5 cm. No obvious cholelithiasis /cholecystitis. Advised ultrasound correlation. Diffuse atherosclerotic calcification is noted involving aorta iliac arteries.-stable. Electronically signed by Austen Ramos 03-24-2024 01:37 AM Gallbladder Ultrasound 03/24/24 02:00 EXAM: US gallbladder CLINICAL HISTORY: enlarged gallbladder on CT abd/pelvis, elevated WB. TECHNIQUE: Limited ultrasound of the liver and gallbladder was performed in greyscale and Doppler. Multiple images were obtained in transverse and longitudinal planes. COMPARISON: Prior CT dated 03/24/2024 for comparison. FINDINGS: Liver: Liver size: 15.9 cm. Liver appears normal in size with homogeneous echotexture. No evidence of focal lesions, cysts, or masses. Hepatic vasculature appears normal. Gallbladder: Gallbladder size: 10.3 x 4.8 cm. Gallbladder is overdistended and lumen is echofree. No calculi seen. The wall is mildly thickened measuring 3.7 mm. Suspicion of thin streak of pericholecystic fluid. Biliary Tree: Common bile duct diameter: 6.0 mm. Common bile duct is within normal limits in caliber and not dilated. No evidence of choledocholithiasis or biliary obstruction. Pancreas: Normal in size and echotexture. Main pancreatic duct measures 2.0 mm. Right kidney: Subptimally visualized, grossly normal with no hydronephrosis. Incidental finding of right pleural effusion. IMPRESSION: 1. Overdistended gall bladder with a mildly thickened wall measuring 3.7 mm and suspicion of thin streak of pericholecystic fluid, could be a calculus cholecystitis. 2. Incidental finding of right pleural effusion. Electronically signed by Beni Beltran 03-24-2024 08:29 AM Chest X-Ray 03/26/24 08:35 XR chest 1V portable CLINICAL HISTORY: ? [facility] COMPARISON STUDY: 10/14/2023 FINDINGS: Stable left chest port. Stable mild cardiomegaly without pulmonary vascular congestion. There is interval opacity at the left base with blunting of the left costophrenic angle. No other consolidation or pleural effusion. No pneumothorax. IMPRESSION: Interval opacity at the left lung base could represent atelectasis, pneumonia, or small left pleural effusion. ACT 112: Negative or not required by law. Electronically signed by: Cheo Byrne M.D. 03/26/2024 9:04 AM Medications Administered Current Inpatient Medications Acetaminophen (Acetaminophen 500 Mg Tab) 1,000 mg PO Q8H PRN PRN Reason: Pain Stop: 04/22/24 08:59 Last Admin: 03/23/24 18:18 Dose: 1,000 mg Apixaban (Apixaban 5 Mg Tablet) 5 mg PO BID [facility] Stop: 04/23/24 08:59 Last Admin: 03/26/24 08:09 Dose: 5 mg Atorvastatin Calcium (Atorvastatin 20 Mg Tab) 20 mg PO QAM [facility] Stop: 04/23/24 08:59 Last Admin: 03/26/24 08:09 Dose: 20 mg Bupropion HCl (Bupropion Hcl 100 Mg Tablet) 100 mg PO QAM [facility] Stop: 04/23/24 08:59 Last Admin: 03/26/24 08:09 Dose: 100 mg Clopidogrel Bisulfate (Clopidogrel Bisulfate 75 Mg Tab) 75 mg PO QAM [facility] Stop: 04/23/24 08:59 Last Admin: 03/26/24 08:09 Dose: 75 mg Heparin Sodium (Porcine) (Heparin 100 Unit/Ml 5ml Flush) 5 ml FLUSH PRN PRN PRN Reason: Flush Stop: 04/23/24 01:20 Norepinephrine Bitartrate (Levophed/D5w) 4 mg in 250 mls @ 0 mls/hr IV .Q0M RAYRAY; Protocol Stop: 04/23/24 00:59 Last Titration: 03/26/24 08:00 Dose: 0 mcg/kg/min, 0 mls/hr Lisinopril (Lisinopril 5 Mg Tab) 5 mg PO QAM [facility] Stop: 04/23/24 08:59 Last Admin: 03/24/24 08:04 Dose: Not Given Lorazepam (Lorazepam 0.5 Mg Tab) 0.25 mg PO DAILY PRN PRN Reason: severe anxiety Stop: 04/22/24 08:49 Metoprolol Tartrate (Metoprolol Tartrate 25 Mg Tab) 12.5 mg PO BID [facility] Stop: 04/22/24 20:59 Last Admin: 03/26/24 08:36 Dose: Not Given Midodrine (Midodrine Hcl 2.5 Mg Tab) 5 mg PO TID@0800,1200,1700 [facility] Stop: 04/25/24 11:59 Last Admin: 03/26/24 11:31 Dose: 5 mg Mirtazapine (Mirtazapine Tab 15 Mg Tab) 7.5 mg PO HS PRN PRN Reason: Sleep Stop: 04/22/24 08:49 Morphine Sulfate (Morphine Sulfate 2 Mg/Ml Carp) 1 mg IV Q4H PRN PRN Reason: Moderate Pain (4,5,6) on NRS Stop: 04/06/24 12:07 Morphine Sulfate (Morphine Sulfate 2 Mg/Ml Carp) 2 mg IV Q4H PRN PRN Reason: Severe Pain (7,8,9,10) on NRS Stop: 04/06/24 12:07 Last Admin: 03/23/24 12:42 Dose: 2 mg Nitroglycerin (Nitroglycerin Sl 0.4 Mg/Tab Tab) 0.4 mg SL Q5M PRN PRN Reason: Chest Pain Stop: 04/22/24 16:00 Ondansetron HCl (Ondansetron Inj 2 Mg/Ml 2 Ml Vial) 4 mg IV Q6H PRN PRN Reason: Nausea And Vomiting Stop: 04/22/24 08:54 Venlafaxine HCl (Venlafaxine Hcl Xr 150 Mg Capxr) 300 mg PO QAM RAYRAY Stop: 04/23/24 08:59 Last Admin: 03/26/24 08:09 Dose: 300 mg PG Care Time/CCT Total # of Minutes Spent Total Time Spent with Patient: Total time spent is greater than 50% in coordination of care (as documented) at patient's floor/unit and/or counseling patient: Advanced Care Planning 52951 Advanced Care Planning 30 [place] [address] IN/OBS CONSULT LVL 2,35M Patient Type New Medical Decision Making Low Complexity Diagnoses Palliative care by specialist Z51.5 Counseling regarding advanced directives and goals of care Z71.89 POLST (Physician Orders for Life-Sustaining Treatment) Z78.9 Additional Codes Advanced Care Planning - 56486 Advanced Care Planning 30 Min: [id number] Advanced Care Planning 30 Min ([id number])
[2024-03-26] MEDS: LOPERAMIDE HCL 2 MG CAP PO SCH (16:57)
--- NOTE | 2024-03-26 17:16 | Hospitalist Progress Note ---
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 In the ER, patient was found to have ST [place] [address], but patient denied chest pain. Patient was subsequently admitted to the inpatient hospitalist service @[facility] on 04/12/2024 with the following diagnoses: 1. Acute cardiogenic shock, RESOLVING. Off pressor support with norepinephrine infusion since 03/26/2024, 8:00am. On midodrine 5mg PO tid (8:00am, 12:00pm, 5:00pm)(starting on 03/26/2024, 12:00pm) to maintain MAP > 65 mm Hg on 03/24/2024 pm and on 03/25/2024 am/pm. Etiology of acute cardiogenic shock was most likely due to acute STEMI, leading to acute systolic CHF with reduced "LVEF 30-35%...Large area of landen-apical akinesis" and acute diastolic CHF with "grade I LV diastolic dysfunction" (as noted on 03/23/2024, 8:15am TTE, CARDS Dr. Kirill Suazo). 2. Acute kidney injury, RESOLVING. cf., creatinine 0.98 (03/23/2024, 4:28am). cf.,creatinine 1.15 (03/24/2024, 5:35am). cf., creatinine 1.41 (03/24/2024, 7:35pm). cf., creatinine 1.49 (03/25/2024, 3:58am). cf., creatinine 1.29 (03/26/2024, 4:29am). Etiology of acute kidney injury is probably due to a combination of (a) acute hypoperfusion of the renal parenchyma, due to acute STEMI, leading to acute tubular necrosis, and (b) post-contrast nephropathy. Creatinine level appears to be reaching a plateau. I will check repeat creatinine level in the 03/27/2024 am. 3. Acute STEMI. Asymptomatic on 03/25/2024 - 03/26/2024. Off heparin drip; on eliquis 5mg PO bid, plavix 75mg PO daily, atorvastatin 20mg PO qam. 4. Chronic neck pain Head CT/ Head&Neck CTA without acute findings. Attenuated left IJ most pronounced at its distal third - no infectious symptoms. Multiple venous opacifications - appears chronic; continue eliquis 5mg PO bid, tylenol q8H prn, lidocaine patch. 5. Acute euvolemic hyponatremia cf., admission Na 132 (03/23/2024, 4:28am; 03/24/2024, 5:35am). cf., current Na 134 (03/26/2024, 4:29am). cf., baseline Na range, 138-142 mmol/L (01/12/2024 - 03/12/2024). Asymptomatic. Observe. 6. Stage IV appendiceal carcinoma. Continue FULFURI chemotherapy every other Friday (since July 2023) with next session on Friday (03/29/2024, 8:00am - 12:00pm) @ [facility] Oncologist Dr. Edelmira Muro, no surgical resection, no radiation therapy 7. Major depression/anxiety disorder. No suicidal ideation. No homicidal ideation. Asymptomatic on Effexor, Wellbutrin. PRN Remeron, PRN Ativan Admission and Anticipated Discharge Date Admission Date: March 23, 2024 Subjective Patient seen and examined. She was desaturating while sitting up, but her oxygen saturation improved when laying down. She denies any chest pain, shortness of breath, nausea or vomiting. She has remained off vasopressors this morning. Review of Systems Constitutional: Negative for antecedent/coincident fevers, chills, diaphoresis, cough, wheeze, sore throat, hemoptysis, chest pains, palpitations, pleurisy, nausea, vomiting, diarrhea, abdominal pain, pelvic pain, hematemesis, hematochezia, melena, hematuria, dysuria, frequency, urgency, headaches, dizziness, lightheadedness, visual changes, hearing changes, weakness, falls, syncope, trauma, travel history, sick contacts, or food/drug ingestions novel or new. All other review of systems are reported as negative by the patient on 03/26. Physical Exam Constitutional: General: comfortable, coherent, cooperative. Wide awake and alert. Not confused, lethargic, or obtunded. Patient speaks in complete, fluent, and articulate sentences without pause, interruption, cough, or wheeze. HEENT: NC/AT. EOMI, PERRL. No nystagmus, gaze paresis, anisocoria, miosis, mydriasis, hyphema, chemosis, scleral icterus, conjunctivitis, or pterygium. No otorrhea, no rhinorrhea. No pharyngeal discharge or erythema. Neck: Supple, no stridor, bruit, goiter, or hepatojugular reflux. Jugular venous pressure is estimated to be 8 cm above the sternal angle of Binh, which is typically 5 cm above the level of the right atrium. Hence, there is no jugular venous distention noted on 03/26/2024. Lymphatics: No pre-post auricular, anterior/posterior cervical, supraclavicular/infraclavicular, axillary, epitrochlear, or inguinal adenopathy. Chest: Symmetric rise and fall with respirations. Non-tender to palpation. Heart: RRR, S1 and S2 noted. No S3 or S4 summation gallop noted. No tripartite friction rub. Grade II/ early systolic murmur @ LLSB without radiation to the carotids, axilla, or back, and which remains invariant in regards to the respiratory cycle. Lungs: Clear to auscultation and percussion. No audible expiratory wheeze, egophony, pectoriloquy, increase in tactile fremitus, or flatness/dullness to percussion at the bases. Abdomen: Soft, non-tender, non-distended. No rebound, guarding, Mitchell's sign, or organomegaly. Bowel sounds auscultated in all 4 quadrants. Extremities: No clubbing, cyanosis, or edema. 2+ pedal pulses bilaterally. Skin: No decubitus ulcer, exanthem, or enanthem. Neurology: Alert and oriented in regards to person, place, time, and situation. DTR+ and symmetric. 5/5 motor strength in all 4 extremities, both proximally and distally. No myoclonus, tremors, or tics. Urology: No baez catheter. No urethral discharge. Psychiatry: Appropriate affect. Smiles occasionally. No homicidal/suicidal ideation. Results & Data Results & Data Vital Signs (Past 12 Hours) Vital Signs Temp Pulse Resp BP Pulse Ox O2 Del Method O2 Flow Rate 03/26/24 17:00 90 19 102/49 L 91 03/26/24 16:00 92/50 L 03/26/24 15:42 82 19 87 L 03/26/24 15:00 100/52 L 03/26/24 15:00 81 12 93 03/26/24 14:00 97/50 L 03/26/24 13:57 77 16 94 03/26/24 13:00 99/46 L 03/26/24 12:54 83 26 H 93 03/26/24 12:08 89/44 L 03/26/24 12:00 89/43 L 03/26/24 11:57 79 23 89 L 03/26/24 11:03 74 18 93 03/26/24 11:03 103/58 L 03/26/24 10:12 72 21 92 03/26/24 10:11 94/53 L 03/26/24 10:10 94/53 L 03/26/24 10:00 89/52 L 03/26/24 09:42 77 23 95 03/26/24 09:00 94 Oxymask 2 03/26/24 09:00 98/55 L 03/26/24 08:49 90 Oxymask 2 03/26/24 08:42 77 15 93 Oxymask 2 03/26/24 08:00 96/53 L 03/26/24 08:00 83 15 03/26/24 07:47 74 03/26/24 07:42 37.2 C 03/26/24 07:29 Nasal Cannula 2 03/26/24 07:15 84 23 103/52 L 100 Nasal Cannula 2 03/26/24 06:06 71 19 03/26/24 06:00 99/51 L 03/26/24 06:00 76 99/51 L 03/26/24 06:00 99/51 L 03/26/24 05:57 77 25 H 03/26/24 05:42 72 20 96 03/26/24 05:16 94/53 L 03/26/24 05:16 94/53 L 03/26/24 05:15 71 27 H 97 PG Care Time/CCT Total # of Minutes Spent Total Time Spent with Patient: Total time spent is greater than 50% in coordination of care (as documented) at patient's floor/unit and/or counseling patient: Coding Level of Care Code 41884 SUB INP/OBS CARE 2/35MIN Diagnoses Elevated troponin R79.89 Hypertension I10 Neck and shoulder pain M54.2; M25.519 Peritoneal carcinomatosis C78.6
[2024-03-27 05:20] LABS: Basophils # (auto) 0.04 K/uL (0.00-0.20); Basophils % (auto) 0.4 %; Eosinophils # (auto) 0.29 K/uL (0.00-0.50); Eosinophils % (auto) 3.1 %; Hematocrit (blood only) 26.6 % (37.0-47.0); Hemoglobin 8.5 g/dl (12.0-16.0); Immature Granulocytes # (auto) 0.06 K/uL (0.01-0.20); Immature Granulocytes % (auto) 0.6 %; Lymphocytes % (auto) 18.1 %; Mean Corpuscular Hemoglobin 30.4 pg (25.0-34.0); Mean Platelet Volume 9.1 fL (9.4-12.4); Monocytes # (auto) 0.83 K/uL (0.11-0.59); Monocytes % (auto) 8.8 %; Neutrophils # (auto) 6.48 K/uL (1.40-6.50); Platelet Count 268 K/uL (130-400); RDW Coefficient of Variation 16.5 % (11.5-14.5); RDW Standard Deviation 57.3 fL (36.4-46.3)
[2024-03-27 05:35] LABS: BUN Creatinine Ratio 19.3 (10-20); Calcium 7.8 mg/dl (8.6-10.3); Creatinine Clr Calc Pharmacy 28.3 ml/min; Magnesium 2.1 mg/dl (1.7-2.4); Potassium 4.1 mmol/L (3.5-5.1)
[2024-03-27] MEDS: HEPARIN 100 UNIT/ML 5ML FLUSH FLUSH PRN (07:32)
[2024-03-27 08:36] VITALS: TEMP 97.3
[2024-03-27 10:23] VITALS: BP 96/51
[2024-03-27 11:03] VITALS: PULSE 65; RESP 16; O2SAT 97
--- NOTE | 2024-03-27 11:04 | Critical Care Progress Note ---
Date of Service March 27, 2024 Assessment & Plan (1) STEMI (ST elevation myocardial infarction): Plan: Status post PCI with 3 drug-eluting stents to the mid LAD. Continue Eliquis. Hemoglobin stable. Continue Plavix and statin. (2) Ischemic cardiomyopathy: Plan: Continue ASCVD goal-directed therapy. Maintain maps below 65 mmHg. (3) Hematoma: Plan: Right radial artery hematoma stable. (4) Hypotension: Plan: Likely related to cardiogenic shock and component of possible hypovolemia. Pressures improved currently. Will continue to monitor off Levophed. Will increase midodrine to 5 mg 3 times daily. (5) Gallbladder anomaly: Plan: Patient had CT of the abdomen pelvis ordered yesterday due to drop in hemoglobin and concern for retroperitoneal bleed. No bleeding identified. The gallbladder was noted to be grossly distended up to 9.3 cm. No obvious cholecystitis or cholelithiasis. General surgery consultation appreciated. Antibiotics discontinued at this time. (6) Anemia: Plan: Hemoglobin stabilized. Continue Eliquis. (7) SVT (supraventricular tachycardia): Plan: Holding metoprolol this morning due to soft blood pressures. (8) Hypoxia: Plan: Mild hypoxemia likely due to ongoing CHF. Plan Disposition per hospitalist service. ICU service to sign off at this time. No critical care needs at this point. Admission and Anticipated Discharge Date Admission Date: March 23, 2024 Subjective Patient seen and examined. Denies any complaints including shortness of breath or chest pain. No headaches or dizziness. Review of Systems 2 Review of Systems: All systems reviewed & are unremarkable except as noted in HPI & below Physical Exam Physical Exam: Constitutional: Patient appears to be of their stated age. Patient is in no apparent distress. Patient is well-developed. Eyes: Pupils are equal round and reactive to light. Conjunctivae are normal. Anicteric sclera. Ears nose, mouth and throat: Mallampati class 1. Normal posterior oropharynx. Uvula is midline. Neck: Trachea is midline. Visual inspection is normal. Lidocaine patch noted on her cervical spine. Respiratory: Clear to auscultation bilaterally. No use of accessory muscles. No significant clubbing noted. Cardiovascular: Regular rate and rhythm. No significant murmurs. Gastrointestinal: Normal bowel sounds, soft, nontender and nondistended. No hepatosplenomegaly noted. Musculoskeletal: No cyanosis. Patient is able to move all extremities. Strength is 5 out of 5 in the upper and lower extremities. Skin: No rashes, warm dry and intact. Neurologic: No obvious focal neurological deficits seen. Psychiatric: Alert and oriented x3 with a euthymic affect. Results & Data Results & Data Vital Signs (Past 12 Hours) Vital Signs Temp Pulse Pulse Resp BP BP Pulse Ox 03/27/24 11:00 03/27/24 10:13 36.3 C L 70 20 96/51 L 93 03/27/24 08:48 75 03/27/24 08:00 36.3 C L 03/27/24 08:00 88/63 L 03/27/24 08:00 03/27/24 07:57 96 H 20 93 03/27/24 07:00 90/53 L 03/27/24 06:57 75 15 94 03/27/24 06:00 70 13 96/51 L 95 03/27/24 05:00 73 10 L 90/53 L 95 03/27/24 04:00 36.4 C L 74 21 91/47 L 94 03/27/24 03:00 73 16 91/47 L 92 03/27/24 02:00 76 21 90/47 L 92 03/27/24 01:12 78 03/27/24 01:00 76 20 92/51 L 95 03/27/24 00:00 36.4 C L 80 18 91/52 L 93 O2 Del Method O2 Flow Rate 03/27/24 11:00 Room Air 03/27/24 10:13 03/27/24 08:48 03/27/24 08:00 03/27/24 08:00 03/27/24 08:00 Nasal Cannula 2 03/27/24 07:57 03/27/24 07:00 03/27/24 06:57 Nasal Cannula 2 03/27/24 06:00 Nasal Cannula 2 03/27/24 05:00 Nasal Cannula 2 03/27/24 04:00 Nasal Cannula 2 03/27/24 03:00 Nasal Cannula 2 03/27/24 02:00 Nasal Cannula 2 03/27/24 01:12 03/27/24 01:00 Nasal Cannula 2 03/27/24 00:00 Nasal Cannula 2 Coding Level of Care Code 78077 SUB INP/OBS CARE 03/13MIN Diagnoses STEMI (ST elevation myocardial infarction) I21.3 Ischemic cardiomyopathy I25.5 Hematoma T14.8XXA Hypotension I95.9 Gallbladder anomaly Q44.1 Anemia D64.9 SVT (supraventricular tachycardia) I47.10 Hypoxia R09.02
--- NOTE | 2024-03-27 12:35 | Discharge Summary ---
Discharge Summary Date of Service March 27, 2024 Principal Dx & Hospital Course #1 = Principal Diagnosis (1) Elevated troponin: (2) Hypertension: (3) Neck and shoulder pain: (4) Peritoneal carcinomatosis: Plan 84 years old female with PMH of DNR/DNI @ home, acute LUE DVT "extending to the innominate, subclavian, and axillary veins which appears occlusive...A superficial cephalic vein thrombus is also seen which appears occlusive." (as reported on 08/27/2022, 1:50pm LUE venous doppler) on apixaban 5mg PO bid, polio, chronic normocytic, normochromic anemia with baseline Hb range, 8.2 - 10.6 g/dL (08/28/2022 - 03/12/2024), 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 In the ER, patient was found to have ST [place]ations [place] [address], but patient denied chest pain. Patient was subsequently admitted to the inpatient hospitalist service @[facility] on 04/12/2024 with the following diagnoses: 1. Acute cardiogenic shock, RESOLVING. Off pressor support with norepinephrine infusion since 03/26/2024, 8:00am. On midodrine 5mg PO tid (8:00am, 12:00pm, 5:00pm)(starting on 03/26/2024, 12:00pm) to maintain MAP > 65 mm Hg on pm and on 03/25/2024 am/pm. Patient will continue with midodrine 5mg PO tid (8:00am, 12:00pm, 5:00pm) on hospital discharge back to home on 03/27/2024. To this end, patient's [id number] ([place] [address]) received an electronic prescription for midodrine 5mg PO tid (8:00am, 12:00pm, 5:00pm), #90 tablets, no refills, on 03/27/2024, prior to patient being discharged back to her home on 03/27/2024. Etiology of acute cardiogenic shock was most likely due to acute STEMI, leading to acute systolic CHF with reduced "LVEF 30-35%...Large area of landen-apical akinesis" and acute diastolic CHF with "grade I LV diastolic dysfunction" (as noted on 03/23/2024, 8:15am TTE, CARDS Dr. Kirill Suazo). 2. Acute kidney injury, RESOLVING. cf., creatinine 0.98 (03/23/2024, 4:28am). cf.,creatinine 1.15 (03/24/2024, 5:35am). cf., creatinine 1.41 (03/24/2024, 7:35pm). cf., creatinine 1.49 (03/25/2024, 3:58am). cf., creatinine 1.29 (03/26/2024, 4:29am). Etiology of acute kidney injury is probably due to a combination of (a) acute hypoperfusion of the renal parenchyma, due to acute STEMI, leading to acute tubular necrosis, and (b) post-contrast nephropathy. Creatinine level appears to be reaching a plateau. I will check repeat creatinine level in the 03/27/2024 am. 3. Acute NSTEMI with "EKGs not meeting criteria for ST elevation PA but being consistent with apical ballooning/apical aneurysm." (as per [facility] Interventional CARDS Dr. Adan Reese). Asymptomatic on 03/25/2024 - 03/27/2024. Off heparin drip; on home-scheduled apixaban 5mg PO bid, home-scheduled atorvastatin 20mg PO qam, hospital-started plavix 75mg PO daily (after patient received 3 drug-eluting stents: (1) 2.5 x 26mm [place] stent, (2) 2.5 x 15mm [place] stent, (3) 2.25 x 12mm Dwayne stent, all deployed in the mid-LAD on 03/24/2024, 12:01 cardiac catheterization) while in [facility]. Patient will continue all three medications on hospital discharge back to home on 03/27/2024. To this end, patient's [id number] ([place] [address]) received an electronic prescription for plavix 75mg PO daily, #30 tablets, no refills, on 03/27/2024, prior to patient being discharged back to her home on 03/27/2024. Patient was further advised that she will need to take plavix for at least the next 2 years, as per recommendations from [facility] Interventional CARDS Dr. Adan Reese, while continuing her home-scheduled apixaban 5mg PO bid and home-scheduled atorvastatin 20mg PO qam for indefinitely (e.g., for the foreseeable remainder of patient's life). Patient reports that she will comply with all of Dr. Reese's recommendations. In addition, patient received metoprolol tartrate 12.5mg PO bid while in [facility]. Patient could not be transitioned to metoprolol succinate 25mg PO daily given persistent hypotension that requires pharmacologic support with midodrine 5mg PO tid (8:00am, 12:00pm, 5:00pm)(starting on 03/26/2024, 12:00pm) throughout hospitalization with a discharge BP 96/51 (03/27/2024, 11:01am). Hence, patient will continue with metoprolol tartrate 12.5mg PO bid on hospital discharge back to home on 03/27/2024. To this end, patient's [id number] ([place] [address]) received an electronic prescription for metoprolol tartrate 12.5mg PO bid, #60 tablets, no refills, on 03/27/2024, prior to patient being discharged back to her home on 03/27/2024. 4. Chronic neck pain cf., CTA neck (03/23/2024, 4:28am): 1. Normal bilateral neck arteries, no evidence of dissection. 2. 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 3. Multiple anterior mediastinal, anterior neck, and perivertebral collateral venous opacification. 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 4. Bilateral moderate pleural effusions. cf., CTA head (03/23/2024, 4:30am): 1. Normal CT angiography of the head, apart from mild atherosclerosis of internal carotid arteries. 2. No evidence of significant vascular abnormalities. 3. No interval changes. Hence, etiology of patient's chronic posterior neck pains remains unclear. Hence, patient received supportive care utilizing tylenol 1000mg PO q8H prn, lidocaine 5% patch TD daily while in [facility]. Of these two medications, patient will continue only with her home-scheduled tylenol 1000mg PO q8 prn neck pain on hospital discharge back to her home on 03/27/2024. 5. Acute euvolemic hyponatremia cf., admission Na 132 (03/23/2024, 4:28am; 03/24/2024, 5:35am). cf., repeat Na 134 (03/26/2024, 4:29am). cf., discharge Na 139 (03/27/2024, 4:58am). cf., baseline Na range, 138-142 mmol/L (01/12/2024 - 03/12/2024). Asymptomatic. Observe. 6. Stage IV appendiceal carcinoma. Continue FULFURI chemotherapy every other Friday (since July 2023) with next session on Friday (03/29/2024, 8:00am - 12:00pm) @ [facility] Oncologist Dr. Edelmira Muro, no surgical resection, no radiation therapy 7. Major depression/anxiety disorder. No suicidal ideation. No homicidal ideation. Asymptomatic on home-scheduled bupropion 100mg PO qam, venlafaxine 300mg PO qam, lorazepam 0.25mg PO daily prn anxiety, mirtazapine 7.5mg PO qhs prn depression while in [facility]. Patient will continue all four home-scheduled medications on hospital discharge back to her home on 03/27/2024. Discharge time, 35 minutes. Of this time period, 18 minutes were spent in coordinating patient's discharge. Admission HPI Per Admitting Provider Kalyn is an 84F with a PMHx of DVT (on Eliquis), polio, abdominal carcinomatosis, Depression/anxiety who presents to the ER with concerns of neck pain. reports feeling well besides her neck, reports throbbing pain. Two nights ago, was laying on sofa, and when she got up her arms felt still - did loosen with movement. Awoken in the middle of the night Friday, with a warm sensation in her bilateral upper extremities, not pain, but did not feel good. Lasted about 30 minutes, denies associated shortness of breath or diaphoresis. No further episodes of this sensation. At baseline is independent, still drives, and preforms all of her ADLs. Denies increased stressors recently. Feeling well overall. Denies smoking or ETOH use. ED Course: Heparin bolus + gtt toradol 15mg IV x1 Lidocaine patch Discharge Exam Constitutional General: comfortable, coherent, cooperative. Wide awake and alert. Not confused, lethargic, or obtunded. Patient speaks in complete, fluent, and articulate sentences without pause, interruption, cough, or wheeze. HEENT: NC/AT. EOMI, PERRL. No nystagmus, gaze paresis, anisocoria, miosis, mydriasis, hyphema, chemosis, scleral icterus, conjunctivitis, or pterygium. No otorrhea, no rhinorrhea. No pharyngeal discharge or erythema. Neck: Supple, no stridor, bruit, goiter, or hepatojugular reflux. Jugular venous pressure is estimated to be 8 cm above the sternal angle of [place], which is typically 5 cm above the level of the right atrium. Hence, there is no jugular venous distention noted on discharge date . Lymphatics: No pre-post auricular, anterior/posterior cervical, supraclavicular/infraclavicular, axillary, epitrochlear, or inguinal adenopathy. Chest: Symmetric rise and fall with respirations. Non-tender to palpation. Heart: RRR, S1 and S2 noted. No S3 or S4 summation gallop noted. No tripartite friction rub. Grade II/ early systolic murmur @ LLSB without radiation to the carotids, axilla, or back, and which remains invariant in regards to the respiratory cycle. Lungs: Clear to auscultation and percussion. No audible expiratory wheeze, egophony, pectoriloquy, increase in tactile fremitus, or flatness/dullness to percussion at the bases. Abdomen: Soft, non-tender, non-distended. No rebound, guarding, Mitchell's sign, or organomegaly. Bowel sounds auscultated in all 4 quadrants. Extremities: No clubbing, cyanosis, or edema. 2+ pedal pulses bilaterally. Skin: No decubitus ulcer, exanthem, or enanthem. Neurology: Alert and oriented in regards to person, place, time, and situation. DTR+ and symmetric. 5/5 motor strength in all 4 extremities, both proximally and distally. No myoclonus, tremors, or tics. Urology: No baez catheter. No urethral discharge. Psychiatry: Appropriate affect. Smiles occasionally. No homicidal/suicidal ideation. Discharge Plan Discharge Items Patient Disposition: Home - Home Health Services Reason For Visit: STEMI Discharge Diagnosis: Acute NSTEMI Condition on Discharge: Fair Activity: As commented below Activity Comment: No household work (e.g., washing dishes, cooking food, mopping floor) Lifting: No more than 5 pounds Bathing: No limitations Exercise/Sports: None Exercise Comment: No walking upstairs Weightbearing: Full weightbearing Non-emergency contact: Primary Care Provider Call non-emergency contact if: you have any medication questions Follow-up/Referrals: Anjana Fraser DO [Primary Care Provider] - Diet: Heart Healthy, Low Fat and Low Sodium (2gm) Addtl Attending Provider Instructions: See your PCP, your CARDS Dr. Adan Reese, and your ONC Dr. Edelmira Muro, all within 7 days of hospital discharge. Pending Studies at Discharge: No Stand-Alone Forms: My [employer], Smoking Cessation Medications and DC Order Prescriptions: New atorvastatin 20 mg Tablet 20 mg PO QAM Qty: 30 0RF clopidogrel 75 mg Tablet 75 mg PO QAM Qty: 30 0RF midodrine 2.5 mg Tablet 5 mg PO TID@0800,1200,1700 Qty: 90 0RF metoprolol tartrate 25 mg Tablet 12.5 mg PO BID Qty: 60 0RF Continued venlafaxine [Effexor XR] 150 mg capsule,extended release 24hr 300 mg PO QAM Calcium 600 + D(3) 600 mg calcium- 200 unit Capsule 2 cap PO HS Rx Instructions: otc unable to verify bupropion HCl 100 mg tablet 100 mg PO QAM ondansetron HCl 8 mg tablet 8 mg PO Q8H PRN (Reason: Nausea) Restasis MultiDose 0.05 % drops 1 drops OPB UD Rx Instructions: 1 drps opb tid. no fill history available unable to verify polyethylene glycol 3350 [Miralax] 17 gram Powder In Packet 17 g PO HS Rx Instructions: otc unable to verify lorazepam 0.5 mg tablet 0.25 mg PO DAILY PRN (Reason: severe anxiety) acetaminophen [Tylenol Extra Strength] 500 mg Tablet 1,000 mg PO Q8H PRN (Reason: mild pain (scale score 1-4)) Qty: 60 0RF Rx Instructions: otc unable to verify mirtazapine 7.5 mg tablet 7.5 mg PO HS PRN (Reason: Sleep) Eliquis 5 mg tablet 5 mg PO BID Phospha 250 Neutral 250 mg tablet 250 tab PO BID Rx Instructions: otc unable to verify Discontinued lisinopril 10 mg tablet 15 mg PO 1XD Discharge Orders: Discharge Order (Routine); Ordered 03/27/24 Ordered By: Ángel Chaudhry Discharge Order- CHF (Routine); Ordered 03/27/24 Ordered By: Ángel Chaudhry Admission Data Admit Date/Time: 03/23/24 09:23 Attending Provider: Ángel Chaudhry Admit Provider: Boris Whitley Primary Care Provider: Anjana Fraser Other Providers: Rahul Esquivel; Roberto Iraheta; Devin Negrete; Adan Reese; Davida Latham; Debra Alexander Other Interventions: Discharge Summary Assessment (RN) Last Done: 03/27/24 10:13 Hospital Stay Data Consultations 03/23/24 07:26 ED Decision to Admit Stat 03/23/24 14:19 Consult Account Executive Routine 03/23/24 16:08 Consult Cardiac Rehabilitation Routine 03/24/24 01:56 Consult General Surgery Routine 03/24/24 15:13 Consult Cardiology Routine 03/26/24 11:26 Consult Palliative Care Routine Procedures Performed Operation Date: 03/23/24 14:00 Actual Procedures s Cineradiography w/Routine Exam - Adan Reese MD, PhD p Cath, Coronaries ONLY (no LV) - Adan Reese MD, PhD p Drug Eluting Stent SGl Vessel - Adan Reese MD, PhD Diagnostic Imagining Performed 03/23/24 04:28 CTA neck with con [CT angio neck with con] Stat 03/23/24 04:30 CT head/brain wo con Stat CTA head w con [CT angio head w con] Stat 03/23/24 14:12 CL Cath Imgs for PACS use only Stat 03/24/24 00:19 CT abd pelvis wo con Stat 03/24/24 02:00 US gallbladder Routine Pending Results Patient Have Any Pending Studies at Discharge: No Discharge Instructions Given to Patient (Per Discharging Provider) See your PCP, your CARDS Dr. Adan Reese, and your ONC Dr. Edelmira Muro, all within 7 days of hospital discharge. Total Time Total Time Spent Total Time Spent (In Minutes): 35 minutes Coding Level of Care Code 30168 INP/OBS DISCH >30 MIN Diagnoses Elevated troponin R79.89 Hypertension I10 Neck and shoulder pain M54.2; M25.519 Peritoneal carcinomatosis C78.6
--- NOTE | 2024-03-27 13:06 | Cardiology Progress Note ---
Date of Service March 27, 2024 Assessment & Plan (1) STEMI (ST elevation myocardial infarction): Plan: Patient is ready for discharge at this time. 1. Continue dual antiplatelet therapy. We are utilizing Eliquis in combination with Plavix. 2. Continue guideline directed medical therapy for secondary prevention of coronary disease. Thus far, she is only been able to tolerate low-dose metoprolol plus the statin and Plavix in place of aspirin. Further titration of her medical regimen per primary room service manager as an outpatient. 3. Strongly encouraged patient to participate in cardiac rehab 4. Follow-up appointment with Dr. Petersen. I would recommend this occur within 1 to 3 weeks of discharge. Admission and Anticipated Discharge Date Admission Date: March 23, 2024 Subjective Patient has been doing well. She has tolerated the discontinuation of norepinephrine. She has no symptoms and evidently the plan is for her to be discharged at this time. I discussed follow-up with her. She already has an appointment in the [facility] cardiology office with Dr. Petersen. She would like to continue there because of these of follow-up. That will be perfect and I have suggested that she request follow-up be bumped up so that it occurs within the next 1 to 3 weeks. Review of Systems Review of Systems: Negative except as per HPI Physical Exam Constitutional: WD/WN, vitals as above (Chronic ill-appearing elderly female. No acute distress) Eyes: Extraocular muscles intact. Sclera are anicteric. ENMT: Oral mucosa is pink and dry Neck: No JVD Respiratory: Clear to auscultation bilaterally. No wheezing, rhonchi, or rales appreciated. Good air movement. Cardiovascular: Regular rate and rhythm. S4 gallop. Soft systolic murmur. No edema. Right radial access site with ecchymosis but no mass. Good distal perfusion. Neurologic: Cognition is intact. Speech is fluent. Hearing mildly diminished. No focal deficits. Psychiatric: A+Ox3, euthymic affect Results & Data Vital Signs (Past 12 Hours) Vital Signs Temp Pulse Pulse Pulse Pulse Pulse Resp 03/27/24 11:01 78 75 65 03/27/24 11:00 03/27/24 10:13 36.3 C L 70 20 03/27/24 08:48 75 03/27/24 08:00 36.3 C L 03/27/24 08:00 03/27/24 08:00 03/27/24 07:57 96 H 20 03/27/24 07:00 03/27/24 06:57 75 15 03/27/24 06:00 70 13 03/27/24 05:00 73 10 L 03/27/24 04:00 36.4 C L 74 21 03/27/24 03:00 73 16 03/27/24 02:00 76 21 03/27/24 01:12 78 Resp Resp Resp BP BP Pulse Ox Pulse Ox 03/27/24 11:01 18 16 16 93 03/27/24 11:00 03/27/24 10:13 96/51 L 93 03/27/24 08:48 03/27/24 08:00 03/27/24 08:00 88/63 L 03/27/24 08:00 03/27/24 07:57 93 03/27/24 07:00 90/53 L 03/27/24 06:57 94 03/27/24 06:00 96/51 L 95 03/27/24 05:00 90/53 L 95 03/27/24 04:00 91/47 L 94 03/27/24 03:00 91/47 L 92 03/27/24 02:00 90/47 L 92 03/27/24 01:12 Pulse Ox Pulse Ox O2 Del Method O2 Flow Rate 03/27/24 11:01 97 97 03/27/24 11:00 Room Air 03/27/24 10:13 03/27/24 08:48 03/27/24 08:00 03/27/24 08:00 03/27/24 08:00 Nasal Cannula 2 03/27/24 07:57 03/27/24 07:00 03/27/24 06:57 Nasal Cannula 2 03/27/24 06:00 Nasal Cannula 2 03/27/24 05:00 Nasal Cannula 2 03/27/24 04:00 Nasal Cannula 2 03/27/24 03:00 Nasal Cannula 2 03/27/24 02:00 Nasal Cannula 2 03/27/24 01:12 PG Care Time/CCT Total # of Minutes Spent Total Time Spent with Patient: Total time spent is greater than 50% in coordination of care (as documented) at patient's floor/unit and/or counseling patient: Coding Level of Care Code 16285 SUB INP/OBS CARE 03/13MIN Diagnoses STEMI (ST elevation myocardial infarction) I21.3
== END 2024-03-27 12:27 | disposition home health service (06) | DRG 321 ==
LOC: ED 04:01 → EDINP 09:23 → SUATTDRO 09:23 → EDINP 15:30 → 1E 15:58
PROC: CLB.CCO (2024-03-23 14:00)